=== PATIENT | male | born 1940 | race Caucasian/White ===

== ENCOUNTER → 2018-03-03 08:29 | Outpatient (CLI) | payer MEDICARE, OTHER, SELFPAY ==
--- NOTE | 2018-03-03 | DI.MRI.S_ITS ---
PROCEDURE: MR SHOULDER RT WO CON INDICATIONS: RIGHT SHOULDER PAIN TECHNIQUE: Noncontrast oblique coronal T2 fast spin echo with fat saturation, oblique sagittal T1 spin echo and T2 fast spin echo with fat saturation, axial T1 spin echo and T2 fast spin echo with fat saturation through the shoulder. COMPARISON: [facility] [place] [facility], CR, XR SHOULDER 2+ VIEWS RIGHT, 02/22/2018, 11:49. FINDINGS: Image quality: Degraded by motion artifact. Rotator cuff: There is full-thickness tearing of the entire supraspinatus tendon at the humeral insertion site, with medial retraction and atrophy of the supraspinatus. There is full-thickness tearing of the mid and anterior infraspinatus tendon at the humeral insertion site, with intrasubstance extension to the musculotendinous junction as well as the muscle belly of the infraspinatus. Moderate T2 signal elevation throughout the infraspinatus muscle is present. There are a few intact fibers of posterior infraspinatus tendon remaining. The subscapularis and teres minor tendons are grossly intact. Bones and bursae: No bone marrow contusions or fractures. Humeral head is subluxed superiorly. Multiple intraosseous ganglia within the posterior humeral head. Mild acromioclavicular joint degeneration. The acromion demonstrates conventional anatomy, without an os acromiale. No pathologic subacromial-subdeltoid or subcoracoid bursal fluid is present. Capsule and soft tissues: The glenoid labrum is grossly unremarkable. The biceps tendon anchor is not well seen. The rotator interval appears normal, without fibrosis. The coracohumeral ligament is normal in thickness. IMPRESSION: 1. Full-thickness tearing of the entire supraspinatus tendon, with medial retraction and atrophy of the supraspinatus. 2. Full-thickness tearing of most of the infraspinatus tendon, with intrasubstance extension to the musculotendinous junction of the muscle belly of the infraspinatus. There are a few intact fibers of the posterior infraspinatus tendon remaining. 3. Findings suggestive of biceps tendon tearing. 4. Acromioclavicular joint osteoarthritis. Dictated by: Matt Song M.D. on 03/03/2018 at 10:51 Approved by: Matt Song M.D. on 03/03/2018 at 10:55
== END ==
PROVIDERS: PCP Family Medicine; Visit Provider Orthopaedic Surgery
DX: M75.121 Complete rotator cuff tear or rupture of right shoulder, not specified as traumatic (principal); M19.011 Primary osteoarthritis, right shoulder; M25.511 Pain in right shoulder
CPT/HCPCS: 73221

== ENCOUNTER 2018-07-22 12:29 | Day surgery (SDC) | payer MEDICARE, OTHER, SELFPAY ==
[2018-07-21 14:50] VITALS: BMI 24.9
[2018-07-22] VITALS (8 sets, daily range): BP systolic 112–173; BP diastolic 50–92; PULSE 68–75; RESP 15–22; TEMP 36–36.2; O2SAT 93–99; BMI 24.9
[2018-07-22] MEDS: LACTATED RINGERS 1,000 ML 42 ML IV (14:14)
--- NOTE | 2018-07-22 14:55 | PM.PREOP ---
Pre-operative Note Interval Note History & Physical reviewed/Exam performed by Physician: Yes Changes to H&P: No
[2018-07-22] MEDS: fentaNYL 100 MCG/2 ML INJ IV (15:09)
[2018-07-22] MEDS: MIDAZOLAM 2 MG/2 ML VIAL IV (15:09)
[2018-07-22] MEDS: CEFAZOLIN 2 GM/100 ML FROZ.PIGGY IV (15:29)
--- NOTE | 2018-07-22 15:32 | SUR.PREOP ---
Block start time [1510] . Monitoring initiated and maintained throughout procedure. Oxygen and medications given per anesthesiologist instructions. Patient remained stable throughout procedure, no adverse reactions noted. Block end time []1519 .
--- NOTE | 2018-07-22 16:01 | SUR.OPER ---
Beach chair with innovation table shoulder positioner. Lower body on padded OR bed. Head in foam padded head cradle, secured with straps. Non-operative arm secured <90 degrees abduction. Pillow under knees. Safety belt at thigh. Cloth tape over blanket over lower legs.
[2018-07-22] MEDS: BUPIVACAINE 0.5% W/ EPI (PF) VIAL 30 ML INJ (16:42)
[2018-07-22] MEDS: SODIUM CHLORIDE IRRIG SOLUTION 3,000 ML, EPINEPHrine 1 MG IRR (16:43)
--- NOTE | 2018-07-22 17:07 | P.OP_ITS ---
Operative Date/Time/Diagnoses Date of procedure: 07/22/18 Time of procedure: 17:01 Pre-op diagnosis: Massive rotator cuff tear right shoulder Post-op diagnosis: same Procedure & Clinicians Procedure: Arthroscopic rotator cuff repair with subacromial decompression and debridement Same procedure as scheduled: Yes Indications: Massive rotator cuff tear Surgeon: James Dickerson Real Property Appraiser: Joy Back Anesthesia Type: Peripheral nerve block Operative Notes Findings: Complete tear to supraspinatus and the anterior half of the infraspinatus with retraction to the rim of the glenoid. Some signs of a high- riding humeral head but no sign of articulation between the superior aspect of the humeral head and the acromial arch. No sign of any subscapularis tear. Closure Type: primary Applied: implant(s) Estimated Blood Loss (mL): 5 Blood products transfused: none Procedure in detail: On date of service, Patient was met in the holding area. The operative site was signed and witnessed by the OR staff. The surgeries once again discussed with the patient and any remaining questions they had were answered fully. Patient was taken back to the operating theater and placed on the operating table in a supine position. Great care was taken to ensure that all bony prominences were properly padded. Patient was then placed into the beach chair position. The head and neck were properly positioned and secured. A timeout was performed verifying patient's name, procedure, and the operative site. The upper extremity was then prepped and draped in the normal sterile fashion. Previously, the bony anatomy and portal sites were marked out as well as inject ed with Marcaine with epinephrine. An 11 blade was used to make an incision in the posterior aspect of the shoulder. The camera was placed, and a diagnostic shoulder scope was performed. Findings listed above. Next under direct visualization, a anterior portal was made. A shaver was brought in and Extensive debridement of the glenohumeral joint was performed. Patient had signs of fraying to the labrum. There is no sign of any instability to the glenohumeral joint. Next the camera was placed into the subacromial space. A lateral portal was obtained under direct visualization. A combination of the shaver and vapor wand, a debridement of the inflamed tissue as well as inflamed bursa was performed. The lateral gutter was also cleaned out. This gave us good visualization of the bursal aspect of the rotator cuff as well as the acromial arch. There was a large rotator cuff tear with significant retraction. A good portion of the humeral head was exposed. A 4 mm bur was used to decorticate the rotator cuff footprint. Next, a 6 mm bur was used to perform a subacromial decompression. Two medial anchors were placed 1 anteriorly 1 posteriorly. Each anchor were loaded with 2 fiber tapes. Using a grasper the rotator cuff back to its point of insertion. The 2 anterior fiber tapes were placed into the anterior aspect of the cuff tear while the 2 posterior fiber tapes were placed into the posterior aspect of the rotator cuff tear. Next, one limb anteriorly and one limb posteriorly was placed through one lateral anchor and this was repeated one more time. This allowed a crisscross pattern for the lateral fixation helping us to recreate the rotator cuff footprint. This provided a complete coverage of the humeral head which was previously exposed. Also reinforcing the rotator cuff re pair. The shoulder was taken through range of motion and there was no sign of any remaining impingement lesions. The rotator cuff repair was tested using a probe and was felt to be very secure. Instruments were removed and the portal sites were closed. The suprascapular nerve was blocked with Marcaine. Patient's shoulder was cleaned, dried, dressed and she was taken to the PACU in stable condition. Complications: none Condition: stable Disposition: PACU Plan for aftercare: Patient will follow our postoperative protocol for massive rotator cuff repair
[2018-07-22] MEDS: OXYCODONE IR 5 MG TABLET PO (18:02)
== END 2018-07-22 16:36 | disposition home or self-care (01) ==
PROVIDERS: PCP Family Medicine; Visit Provider Orthopaedic Surgery
PROC: (CPT 29827; principal; 2018-07-22 14:30)
DX: M71.9 Bursopathy, unspecified (principal); S46.811A Strain of other muscles, fascia and tendons at shoulder and upper arm level, right arm, initial encounter; M75.41 Impingement syndrome of right shoulder; G89.18 Other acute postprocedural pain; E11.9 Type 2 diabetes mellitus without complications; I10 Essential (primary) hypertension; E78.5 Hyperlipidemia, unspecified; I42.9 Cardiomyopathy, unspecified; Z86.73 Personal history of transient ischemic attack (TIA), and cerebral infarction without residual deficits
CPT/HCPCS: 29827; 29826; 64415; 64450; J0171; J0690; J1100; J2250; J2704; J3010

== ENCOUNTER 2018-10-16 07:13 | Emergency (ER) | payer MEDICARE, OTHER, SELFPAY ==
[2018-10-16 07:27] VITALS: BP 153/68; PULSE 113; RESP 18; TEMP 36.8; O2SAT 97
--- NOTE | 2018-10-16 08:18 | ED.RECABL ---
HPI - Recheck/Abnormal Lab/Rx General Chief Complaint: Recheck/Abnormal Lab/Rx Stated Complaint: NEEDS CATHETER REPLACED Time Seen by Provider: 10/16/18 07:59 Source: patient Mode of arrival: ambulatory Limitations: no limitations History of Present Illness HPI narrative: Patient is a 77-year-old male who presents with a Ye catheter problem. He apparently had a urethral tear he has had a Ye catheter in place for about 1 month. That was placed at [facility], where he is followed very closely for this. He states last night he was sitting on the couch and went to stand up he suddenly had severe pain min had discomfort for the rest of the night. This is very atypical for him. He continues to have urine in the Ye catheter bag he does not have any leakage around however the catheter has been displaced about 6 cm. Related Data Home Medications Medication Instructions Recorded Confirmed aspirin 81 mg PO BID #0 08/21/11 07/22/18 losartan 100 mg PO QDAY #0 08/21/11 07/22/18 ibuprofen [Advil] 200 mg PO Q DAY PRN #0 02/10/13 metformin 1,000 mg PO BIDCC #0 02/10/13 07/22/18 glimepiride 0.5 tab PO QAM 07/21/18 07/22/18 metoprolol tartrate [Lopressor] 50 mg PO BID 07/21/18 07/22/18 oxycodone 5 mg PO TID PRN 07/21/18 07/22/18 Previous Rx's Medication Instructions Recorded hydroxyzine pamoate [Vistaril] 25 mg PO TID-QID PRN #60 cap 07/22/18 oxycodone-acetaminophen [Percocet] 2 tab PO Q4-6H PRN #60 tab 07/22/18 Allergies Allergy/AdvReac Type Severity Reaction Status Date / Time hydrocodone [HYDROCODONE] Allergy Mild SICK TO Verified 10/16/18 07:37 STOMACH Review of Systems Review of Systems GENERAL: Denies chills,fever HEENT: Denies throat pain RESPIRATORY: Denies dyspnea, cough, wheezing CARDIOVASCULAR: Denies chest pain, palpitations GASTROINTESTINAL: Denies nausea, vomiting :see HPI MUSCULOSKELETAL: Denies extremity pain, injury SKIN: No rash, no laceration, no pruritus NEUROLOGIC: Denies weakness, dizziness, headache, numbness 8 point review of systems is negative except for those stated above and HPI [facility] Medical History Aortic stenosis (Acute) Bone spur (Acute) Cardiomyopathy (Acute) Cervical spine fracture (Acute ~1958) Diabetes (Acute) Former smoker (Acute) HTN (hypertension) (Acute) Hematochezia (Acute ~2016) Hyperlipidemia (Acute) Left wrist fracture (Acute ~2010) Osteoarthritis (Acute) Polymyalgia rheumatica (Acute) Prostate cancer (Acute) RBBB (right bundle branch block) (Acute) Recurrent urinary tract infection (Acute) TIA (transient ischemic attack) (Acute ~2011) TMJ (temporomandibular joint disorder) (Acute) Surgical History Hx of prostatectomy (Acute) Social History household members: family Smoking Status: Former smoker alcohol intake: current Social History household members: family Smoking Status: Former smoker alcohol intake: current Exam Initial Vital Signs Initial Vital Signs: Vital Signs Temperature 98.3 F 10/16/18 07:27 Pulse Rate 113 H 10/16/18 07:27 Respiratory Rate 18 10/16/18 07:27 Blood Pressure 153/68 H 10/16/18 07:27 Pulse Oximetry 97 10/16/18 07:27 GENERAL: Well-appearing, well-nourished and in no acute distress. HEENT: Head atraumatic,EOMI, pupils reactive CARDIOVASCULAR: Peripheral pulses intact RESPIRATORY: Speaks in full sentences no respiratory distress ABDOMEN: Soft, nontender. Normoactive bowel sounds all 4 quadrants. No guarding or rebound. : Catheter in place with there is a clear color stool change in distinction of catheter being pulled out about 5-6 cm. Urine is clear there is no leakage around the urethra EXTREMITIES: Normal range of motion, no clubbing or edema. Neurovascularly intact NEUROLOGICAL: Alert and oriented x4.Normal gait and speech. SKIN: Warm, dry, no laceration, no petechiae, no rashes or lesions. Course Orders Ordered: Discontinued Medications Oxycodone/Acetaminophen (Percocet 5/325) 2 tab PO NOW ONE Stop: 10/16/18 09:39 Last Admin: 10/16/18 09:51 Dose: 2 tab Consultations Consultation #1: Dr. Murphy urology at [facility] has reviewed patient's chart. Recommend deflating the balloon for syncopal catheter back in place. Do not remove Ye catheter. Patient's appointment is 11/01/2018 May need to be increased. Time: 09:25 Vital Signs - 8 hr 10/16/18 07:27 10/16/18 09:28 10/16/18 10:27 Temperature 98.3 F Pulse Rate 113 H 87 87 Respiratory Rate 18 17 16 Blood Pressure 153/68 H Blood Pressure [Left Arm] 148/64 H 138/75 Pulse Oximetry 97 95 95 MDM - Recheck/Abnormal Lab/Rx MDM Narrative Medical decision making narrative: Ye catheter was repositioned for Urology. Blue deflated, there was only 1 mL of fluid in the balloon. Catheter was repositioned pain much better. 10 mL placed in balloon. Discharge Plan Departure Patient Disposition: Home Clinical Impression: Complication of Ye catheter Qualifiers: Encounter type: initial encounter Qualified Code(s): T83.9XXA - Unspecified complication of genitourinary prosthetic device, implant and graft, initial encounter Discharge Date/Time: 10/16/18 10:47 Interventions: ED Discharge Assessment Last Done: 10/16/18 10:46 Instructions: How to Care for Your Ye Catheter -- Male Activity Restrictions/Additional Instructions: *You have been diagnosed with Ye catheter problem *What to do: May need to move the appointment up *Continue to take medications as directed *Follow up with your primary care provider in 2-3 days, call Urology thing Thursday morning *Return to ER if you should have increasing pain, or fever or any new, worsening or concerning symptoms Prescriptions: No Action aspirin 81 mg Tablet,Delayed Release (Dr/Ec) 81 mg PO BID Qty: 0 RF: 0 losartan 100 MG tablet 100 mg PO QDAY Qty: 0 RF: 0 metformin 1,000 MG tablet 1,000 mg PO BIDCC Qty: 0 RF: 0 ibuprofen [Advil] 200 MG tablet 200 mg PO Q DAY PRN Qty: 0 RF: 0 glimepiride 1 mg Tablet 0.5 tab PO QAM RF: 0 metoprolol tartrate [Lopressor] 50 mg Tablet 50 mg PO BID RF: 0 oxycodone 5 mg Tablet 5 mg PO TID PRN (Reason: pain) RF: 0 oxycodone-acetaminophen [Percocet] 5-325 mg tablet 2 tab PO Q4-6H PRN (Reason: pain) Qty: 60 RF: 0 hydroxyzine pamoate [Vistaril] 25 mg capsule 25 mg PO TID-QID PRN (Reason: spasms) Qty: 60 RF: 0 Referrals: Daron Moe MD [Primary Care Provider] -
--- NOTE | 2018-10-16 08:50 | PC.NURSE ---
pt here reporting hay came out 5 inches out, now with pain, hay draining dark yellow urine, pt requesting to replace new hay.
[2018-10-16 09:28] VITALS: BP 148/64; PULSE 87; RESP 17; O2SAT 95
[2018-10-16] MEDS: OXYCODONE/ACETAMINOPHEN 5/325 TABLET 2 TAB PO (09:51)
--- NOTE | 2018-10-16 10:01 | PC.NURSE ---
penis cleaned with bzk antiseptic towellete, gel applied, hay balloon deflated, 1ml yellowish, reinserted hay with scant blood, draining yellow urine. urine output 350ml.
[2018-10-16 10:27] VITALS: BP 138/75; PULSE 87; RESP 16; O2SAT 95
== END 2018-10-16 10:47 | disposition home or self-care (01) ==
PROVIDERS: Emergency Provider Emergency Medicine; PCP Family Medicine
DX: T83.9XXA Unspecified complication of genitourinary prosthetic device, implant and graft, initial encounter (principal)
CPT/HCPCS: 99283

== ENCOUNTER → 2019-11-20 10:02 | Outpatient (CLI) | payer MEDICARE, OTHER, SELFPAY ==
[2019-11-21 08:46] LABS: COVID19 Sendout Not Detected (Not Detect)
== END ==
PROVIDERS: PCP Family Medicine; Visit Provider Physician Assistant
DX: Z01.812 Encounter for preprocedural laboratory examination (principal)
CPT/HCPCS: 87635

== ENCOUNTER 2019-11-23 09:15 | Day surgery (SDC) | payer MEDICARE, OTHER, SELFPAY ==
[2019-11-23] VITALS (8 sets, daily range): BP systolic 139–186; BP diastolic 74–94; PULSE 87–94; RESP 12–20; TEMP 35.9–36.3; O2SAT 90–99; BMI 24.1
--- NOTE | 2019-11-23 | PATH_ITS ---
[facility] Accession Number: [id number] . 01 Material submitted: . gastrointestinal site - GASTRIC BIOPSIES . 01 Clinical history: . EGD W/POSS BX / DILATION . 01 Diagnosis: Stomach, Biopsies: Body mucosa with no diagnostic abnormality. No evidence of Helicobacter organisms on H/E stain. Negative for intestinal metaplasia. Negative for dysplasia and malignancy. MRV 11/24/2019 1158 Local . 01 Electronically signed: . Hernan Vega MD, PhD, Pathologist NPI- [id number] . 01 Gross description: . GASTRIC BIOPSIES: Received in formalin are 2 fragment(s) of morris, soft tissue measuring 0.3 x 0.3 x 0.2 cm to 0.1 x 0.1 x 0.1 cm submitted entirely in 1 cassette(s) /QBJ 11/24/2019 0105 Local . 01 Pathologist provided ICD-10: R93.5 . 01 CPT . 282093 Performed at: [address] [facility] [address], [place], [place] [id number] MD Tony Wilkins MD Phone: [phone]
[2019-11-23] MEDS: SODIUM CHLORIDE 0.9% 1,000 ML 50 ML IV (09:34)
--- NOTE | 2019-11-23 10:43 | PM.HP.1 ---
History of Present Illness History of Present Illness Date Patient Seen: 11/23/19 Time Patient Seen: 10:43 Chief complaint: [id number] EGD W/POSS BX & DILATION Narrative: dysphagia and abnormal barium swallow Patient History Medical History Aortic stenosis (Acute) Bone spur (Acute) Cardiomyopathy (Acute) Cervical spine fracture (Acute ~1958) Diabetes (Acute) Facet arthropathy, lumbosacral (Chronic) Former smoker (Acute) Hematochezia (Acute ~2016) HTN (hypertension) (Acute) Hyperlipidemia (Acute) Left wrist fracture (Acute ~2010) Lumbosacral spondylosis (Chronic) Osteoarthritis (Acute) Polymyalgia rheumatica (Acute) Prostate cancer (Acute) RBBB (right bundle branch block) (Acute) Recurrent urinary tract infection (Acute) TIA (transient ischemic attack) (Acute ~2011) TMJ (temporomandibular joint disorder) (Acute) Surgical History Hx of prostatectomy (Acute) Family & Social History Social History: household members family Tobacco & Substance use: Smoking Status Former smoker alcohol intake current alcohol intake frequency 0-2 drinks per day Substance Use Type does not use Meds Home Medications and Allergies Home Medications Medication Instructions Recorded Confirmed Type aspirin 81 mg PO BID #0 08/21/11 11/23/19 History losartan 100 mg PO QDAY #0 08/21/11 11/23/19 History metformin 1,000 mg PO BIDCC #0 02/10/13 11/23/19 History metoprolol tartrate [Lopressor] 50 mg PO BID 07/21/18 11/23/19 History oxycodone 5 mg PO TID PRN 07/21/18 11/23/19 History oxycodone-acetaminophen [Percocet] 2 tab PO Q4-6H PRN #60 tab 07/22/18 11/23/19 Rx glimepiride 2 mg tablet 2 mg PO DAILY 04/18/19 11/23/19 History meloxicam 7.5 mg tablet 7.5 mg PO DAILY #30 tab 04/18/19 11/23/19 Rx Allergies Allergy/AdvReac Type Severity Reaction Status Date / Time No Known Drug Allergies Allergy Verified 11/23/19 09:35 Exam Vital Signs (past 8 hours): - 11/23/19 09:37 Temperature 97.3 F L Pulse Rate 90 Respiratory Rate 20 Blood Pressure 186/94 H Pulse Oximetry 99 Oxygen Delivery Method Room Air Narrative Exam Narrative: oropharynx free of lesions Chest clear to auscultation percussion Cardiac exam reveals no S3 or murmur Assessment & Plan Assessment & Plan narrative: dysphagia with abnormal upper GI showing a barium pill getting caught at the GE junction. Need for evaluation and treatment. Risks, benefits, alternatives have been explained.
--- NOTE | 2019-11-23 10:44 | PM.OP.ENDO ---
Operative Date/Time/Diagnoses Date of procedure: 11/23/19 Time of procedure: 10:45 Pre-op diagnosis: See indication and findings Procedure & Clinicians Study performed: EGD and possible dilation Same procedure as scheduled: Yes Indications: dysphagia and abnormal upper GI Surgeon: Yary Alvarez Procedure Notes Procedure in detail: after informed consent was obtained the patient was placed in left lateral decubitus position. The video upper scope was placed into the oropharynx and with the patient's help swelled the esophagus. The esophagus, stomach, and duodenum were carefully examined. The scope was retroflexed at the GE junction. The scope was removed. The patient tolerated procedure well. Blood loss none Complications none Sedation Total sedation time 10 minutes Versed 5 mg fentanyl 100 micro g IV titration Findings 1. mild Schatzki's ring at the GE junction. This was dilated to 51 [place] Savary without difficulty at the end of the procedure. 2. focal gastric erosions on the mid greater curve. Biopsies taken of the stomach to rule out Helicobacter 3. Normal duodenal bulb and sweep Mr. Erickson should call us in 2 weeks to let us know how he is doing with the dilation. Expect he will do quite well.
[2019-11-23] MEDS: MIDAZOLAM 5 MG/5 ML VIAL IV (10:48)
[2019-11-23] MEDS: fentaNYL 250 MCG/5 ML INJ IV (10:49)
== END 2019-11-23 12:00 | disposition home or self-care (01) ==
PROVIDERS: PCP Family Medicine; Referring Provider Internal Medicine Gastroenterology; Visit Provider Internal Medicine Gastroenterology
PROC: 0DJ08ZZ Inspection of Upper Intestinal Tract, Via Natural or Artificial Opening Endoscopic (ICD-10-PCS; CPT 43235; principal; 2019-11-23 10:30)
DX: K22.2 Esophageal obstruction (principal); R13.10 Dysphagia, unspecified; E11.9 Type 2 diabetes mellitus without complications; Z79.84 Long term (current) use of oral hypoglycemic drugs
CPT/HCPCS: 43239; 43248; J2250; J3010

== ENCOUNTER → 2020-04-03 15:42 | Outpatient (CLI) | payer MEDICARE, OTHER, SELFPAY ==
--- NOTE | 2020-04-03 | DI.MRI.S_ITS ---
PROCEDURE: MR LUMBAR SPINE WO CON INDICATIONS: SCIATICA, LEFT SIDE TECHNIQUE: Noncontrast sagittal T1 spin echo and T2 fast echo, sagittal STIR, axial T1 and T2 fast spin echo through the lumbar spine. In cases with scoliosis, additional coronal T2 fast spin echo may be performed. COMPARISON: [facility], CT, ABDOMEN/PELVIS WITH CONTRAST, 02/10/2017, 17:57. FINDINGS: Image quality: Excellent. Alignment and Curvature: There is minimal retrolisthesis seen at L2-3, L3-4, and L4-5. Bone Marrow: Marrow is of normal overall signal. No acute vertebral body compression fractures. Spinal Cord: Conus medullaris terminates at the T12-L1 level. Visualized cord demonstrates normal signal and size. Paraspinous Soft Tissues: No paravertebral masses. T12-L1: Mild loss of disc height is seen. Loss of disc signal is seen. Mild generalized disc bulge is seen. Moderate bilateral neural foraminal narrowing is seen. Moderate central canal narrowing is seen. L1-L2: Mild loss of disc height is seen. Loss of disc signal is seen. Mild to moderate disc bulge is seen. Moderate bilateral neural foraminal narrowing is seen. Mild to moderate central canal narrowing is seen. L2-L3: Moderate to severe loss of disc height and disc signal can be seen. Reactive marrow endplate changes are seen, which are hyperintense on T1-weighted and T2-weighted imaging and most consistent with fatty metaplasia (Modic type II changes). Moderate prominent disc bulge is seen, with a central disc protrusion. Moderate bilateral neural foraminal narrowing is seen. There is at least moderate bilateral neural foraminal narrowing seen at this level. There is a degree of compression seen upon the exiting nerve roots. Moderate to severe central canal narrowing is seen. L3-L4: The disc height is well-preserved. Loss of disc signal is seen at this level. At least moderate disc bulge is seen, which is eccentric to the right. Mild facet joint hypertrophy is seen. There is at least moderate bilateral neural foraminal narrowing seen. There is a degree of compression seen upon the exiting nerve roots. Mild central canal narrowing is seen. L4-L5: At least moderate loss of disc height and disc signal can be seen. At least moderate disc bulge is seen, which is eccentric to the right side. Moderate facet joint hypertrophy is seen. Moderate to severe bilateral neural foraminal narrowing is seen. There is a degree of compression seen upon the exiting nerve roots. Moderate central canal narrowing is seen. L5-S1: Moderate loss of disc height is seen. Loss of disc signal is seen. At least moderate disc bulge is seen, which is eccentric to the right. There is a central disc protrusion seen. Moderate facet joint hypertrophy is seen. Moderate to severe bilateral neural foraminal narrowing can be seen, right worse than left. There is a degree of compression seen upon the exiting nerve roots. Mild central canal narrowing is seen. IMPRESSION: Multiple levels of relatively prominent lumbar spine degenerative change can be seen. Compression can be seen upon the exiting L2, L3, L4, and L5 nerve roots. Dictated by: Ghassan Cook M.D. on 04/03/2020 at 16:32 Approved by: Ghassan Cook M.D. on 04/03/2020 at 16:37
== END ==
PROVIDERS: PCP Family Medicine; Referring Provider Family Medicine; Visit Provider Family Medicine
DX: M54.32 Sciatica, left side (principal); M47.816 Spondylosis without myelopathy or radiculopathy, lumbar region; M47.817 Spondylosis without myelopathy or radiculopathy, lumbosacral region
CPT/HCPCS: 72148

== ENCOUNTER → 2020-04-12 12:10 | Outpatient (CLI) | payer MEDICARE, OTHER, SELFPAY ==
--- NOTE | 2020-04-12 12:13 | DI.RAD.S_ITS ---
PROCEDURE: XR LUMBAR SPINE MIN 4V INDICATIONS: LOW BACK PAIN TECHNIQUE: 5 views of the lumbar spine were acquired. COMPARISON: None. FINDINGS: Bones: 5 nonrib-bearing vertebrae are present. There is normal bony alignment. No vertebral body compression fractures. No suspicious bony lesions. Note is made of a [id number] degree of degenerative disc disease along the lumbosacral spine most prominent at L2-3 and L4-5. Subluxation is not associated but there is facet osteoarthritis that extends from L3 inferiorly and becomes progressively more prominent as the L5-S1 level is reached. Soft tissues: Overlying bowel gas pattern is normal. No suspicious soft tissue calcifications. Oblique images: No pars defects. IMPRESSION: [id number] degenerative disc disease, moderate facet osteoarthritis from L3 through S1. Both spinal and foraminal stenosis likely is present based on the imaging findings of this study. Dictated by: Sami Kim M.D. on 04/12/2020 at 13:26 Approved by: Sami Kim M.D. on 04/12/2020 at 13:27
== END ==
PROVIDERS: PCP Internal Medicine; Referring Provider Physical Medicine & Rehabilitation; Visit Provider Physical Medicine & Rehabilitation
DX: M54.5 Low back pain (principal); M51.36 Other intervertebral disc degeneration, lumbar region; M47.816 Spondylosis without myelopathy or radiculopathy, lumbar region; M47.27 Other spondylosis with radiculopathy, lumbosacral region; I45.10 Unspecified right bundle-branch block; Z85.46 Personal history of malignant neoplasm of prostate
CPT/HCPCS: 72110; 99214

== ENCOUNTER → 2020-04-23 08:30 | Outpatient (CLI) | payer MEDICARE, OTHER, SELFPAY ==
[2020-04-23 09:57] LABS: COVID19 -Nasal RAPID Negative (Negative)
== END ==
PROVIDERS: PCP Internal Medicine; Visit Provider Physician Assistant
DX: Z11.59 Encounter for screening for other viral diseases (principal)
CPT/HCPCS: 87635

== ENCOUNTER 2020-04-24 10:35 | Outpatient (CLI) | payer MEDICARE, OTHER, SELFPAY ==
[2020-04-24] VITALS (9 sets, daily range): BP systolic 116–152; BP diastolic 58–71; PULSE 92–97; RESP 13–22; O2SAT 96–100
--- NOTE | 2020-04-24 | DI.RAD.S_ITS ---
PROCEDURE: PAIN L/S TRANSFORAMINAL INJECT INDICATIONS: SPONDYLOSIS COMPARISON: None. FINDINGS: Fluoroscopic spot filming was performed to verify placement of spinal needles at the left L5-S1 level(s), as labeled on the films. Appropriate location(s) of the needle tip(s) was confirmed by injection of iodinated contrast. IMPRESSION: Successful needle tip localization on the left for L5-S1 transforaminal epidural steroid injection. Dictated by: Sami Kim M.D. on 04/24/2020 at 12:25 Approved by: Sami Kim M.D. on 04/24/2020 at 12:26
--- NOTE | 2020-04-24 10:37 | DI.RAD.S_ITS ---
PROCEDURE: PAIN L/SI FACET INJ/BLK 1STL INDICATIONS: SPONDYLOSIS COMPARISON: None. FINDINGS: Fluoroscopic spot filming was performed to verify placement of spinal needles at the left L5-S1 facet joint level(s), as labeled on the films. Appropriate location(s) of the needle tip(s) was confirmed by injection of iodinated contrast. IMPRESSION: Successful needle tip localization at the left L5-S1 facet joint for steroid injection. Dictated by: Sami Kim M.D. on 04/24/2020 at 12:24 Approved by: Sami Kim M.D. on 04/24/2020 at 12:25
[2020-04-24] MEDS: MIDAZOLAM 5 MG/5 ML VIAL IV (11:36)
[2020-04-24] MEDS: fentaNYL 100 MCG/2 ML INJ 50 MCG IV (11:36)
[2020-04-24] MEDS: BUPIVACAINE 0.5% (PF) VIAL 2 ML INJ (11:41)
[2020-04-24] MEDS: IOPAMIDOL 15 ML VIAL 3 ML INJ (11:41)
[2020-04-24] MEDS: BETAMETHASONE 30 MG/5 ML MDV 6 MG INJ (11:41)
[2020-04-24] MEDS: BUPIVACAINE 0.25% (PF) VIAL 2 ML INJ (11:47)
[2020-04-24] MEDS: DEXAMETHASONE 10 MG/ML VIAL 20 MG INJ (11:48)
--- NOTE | 2020-04-24 11:56 | P.PCN_ITS ---
Date/Time/Diagnoses Date of procedure: 04/24/20 Time of procedure: 11:56 Pre-procedure diagnosis: 1. FACET ARTHROPATHY, 2. AXIAL LBP, 3. MULTILEVEL DDD Post-procedure diagnosis: same Procedure Notes Procedure: 1. FLUOROSCOPICALLY GUIDED CONTRAST CONTROLLED FACET JOINT INJECTIONS LEFT L5/S1 Indications: Deep is referred by Dr. Peters for treatment of Axial LBP Physician: Miguelito Reyes Total Fluoroscopy time (seconds): 10 Total sedation minutes: 18 Complications: none Procedure in detail & Post-procedure care: FINDINGS Multilevel Facet Arthropathy with Clinically significant axial LBP DESCRIPTION OF PROCEDURE Fluoroscopically guided, contrast-controlled left L5/S1 facet joint injection. Following review of allergy and review of potential side effects and compli cations, including, but not necessarily limited to, infection, allergic reaction, local tissue breakdown, stroke, temporary or permanent nerve injury, paralysis, and possible , the patient indicated that the patient understood and agreed to proceed. An informed consent document was signed by the patient, witnessed by a nurse, and placed in the patient's chart. Additionally, other treatment options including medications, modalities, and physical therapy were reviewed with the patient. After review of previous anaesthesic history and IV conscious sedation the patient was deemed safe to proceed with today?s procedure with IV conscious sedation as ASA class II designation. Safety time-out was performed to confirm patient ID, procedure to be performed and site of procedure. IV sedation was accomplished with a combination of 2mg of Versed and 50mcg of Fentanylwas administered by the RN after DO order, titrated to patient comfort during the course of the procedure while the patient remained responsive to all verbal commands. In the prone position, following sterile prep and drape of the lumbar region, the posterior aspect of the left L5/S1 facet joints were identified fluorosc opically. The skin was anesthetized via a 25-gauge 1.5-inch needle with 1% lidocaine solution into the corresponding facet joints. At this point, a 22- gauge 3.5-inch spinal needle was atraumatically introduced and advanced under fluoroscopic guidance into the corresponding facet joints. Following negative aspiration, injections of approximately 0.2-cc of Isovue 200 confirmed interarticular placement without vascular uptake. Radiological data, including multiple fluoroscopic views of the lumbosacral spine, reveal a spinal needle at the left L5/S1 facet joints. Subsequent views show flow of contrast material both superiorly and inferiorly within the joint space without vascular or intrathecal uptake. At this point, a total of 0.5cc including a mixture of 0.25cc Marcaine and 0.25cc betamethasone was injected without complication into each of the corresponding facet joints. The procedure tolerated the procedure well without signs or symptoms of complications prior to transfer to the recovery area continued monitoring without incident. The patient was then transferred to the recovery area where they were observed for an appropriate period of time after the injection. The patient reported a VAS score of 7 prior to the procedure and a post-procedure VAS of 0. POST OP INSTRUCTIONS The patient was provided a Pain Log to continue to record their response to the target-specific procedure prior to follow-up visit with their referring physician. Additionally, specific post-injection care instructions and a contact number to our office were provided if concerns arise regarding possible complications associated with the procedure are suspected.
--- NOTE | 2020-04-24 11:58 | P.PCN_ITS ---
Date/Time/Diagnoses Date of procedure: 04/24/20 Time of procedure: 11:58 Pre-procedure diagnosis: 1. FORAMINAL STENOSIS WITH LE SYMPTOMS Post-procedure diagnosis: same Procedure Notes Procedure: 1. FLUOROSCOPICALLY GUIDED CONTRAST CONTROLLED TRANSFORAMINAL EPIDURAL STEROID INJECTION - Left L5/S1 Indications: Deep is referred by Dr. Peters for treatment of Foraminal Stenosis with Left LE Symptoms Physician: Miguelito Reyes Total Fluoroscopy time (seconds): 10 Total sedation minutes: 18 Complications: none Procedure in detail & Post-procedure care: FINDINGS Foraminal Nerve Root Compression secondary to disc disease and facet hypertrophy DESCRIPTION OF PROCEDURE Following review of allergy and review of potential side effects and complications, including, but not necessarily limited to, infection, allergic reaction, local tissue breakdown, stroke, temporary or permanent nerve injury, paralysis, and possible , the patient indicated that the patient understood and agreed to proceed. An informed consent document was signed by the patient, witnessed by a nurse, and placed in the patient's chart. Additionally, other treatment options including medications, modalities, and physical therapy were reviewed with the patient. After review of previous anaesthesic history and IV conscious sedation the patient was deemed safe to proceed with today?s procedure with IV conscious sedation as ASA class II designation. Safety time-out was performed to confirm patient ID, procedure to be performed and site of procedure. IV sedation was accomplished with a combination of 2mg of Versed and 50mcg of Fentanyl was administered by the RN after DO order, titrated to patient comfort during the course of the procedure while the patient remained responsive to all verbal com mands In the prone position following sterile prep and drape of the lumbar region, the Left L5/S1 posterior neuroforamen was identified fluoroscopically. The skin was anesthetized via a 25-gauge 1.5-inch needle with 1% lidocaine solution. At this point, a 25-gauge 3.5-inch spinal needle was atraumatically introduced and advanced under fluoroscopic guidance through the posterior Left L5/S1 ne uroforamen to approximately the anterior aspect of the canal. Depth was confirmed on lateral view. Following negative aspiration, injection of approximately 1.5 cc of Isovue 200 under live fluoroscopy in the AP view confirmed excellent flow along the nerve root, into the epidural space without vascular or intrathecal uptake observed Radiological data, including multiple fluoroscopic views of the lumbosacral spine, reveal a spinal needle at the Left L5/S1 posterior neuroforamen. Subsequent views show flow of contrast material flowing superiorly and inferiorly along the nerve root confirming epidural flow. Subsequently, a test dose of 1.5 cc of 1% lidocaine solution was administered and patient was observed for two minutes for signs or symptoms of complications, including abdominal pain, shortness of breath, bilateral upper or lower extremity weakness, nausea and vomiting, prior to steroid injection. At this point, a total of 3cc or 20mg of dexamethasone and 6mg of betamethasone was injected without incident. The procedure tolerated the procedure well without signs or symptoms of complications prior to transfer to the recovery area continued monitoring without incident. The patient was then transferred to the recovery area where they were observed for an appropriate time after the injection. The patient reported a VAS score of 7 prior to the procedure and a post-procedure VAS of 0. POST OP INSTRUCTIONS The patient was provided a Pain Log to continue to record their response to the target-specific procedure prior to follow-up visit with their referring physician. Additionally, specific post-injection care instructions and a contact number to our office were provided if concerns arise regarding possible complications associated with the procedure are suspected.
== END 2020-04-24 12:21 | disposition home or self-care (01) ==
LOC: RAD 10:35
PROVIDERS: PCP Internal Medicine; Referring Provider Physical Medicine & Rehabilitation; Visit Provider Physical Medicine & Rehabilitation
DX: M47.817 Spondylosis without myelopathy or radiculopathy, lumbosacral region; M54.5 Low back pain; M51.37 Other intervertebral disc degeneration, lumbosacral region; M48.07 Spinal stenosis, lumbosacral region
CPT/HCPCS: 64483; 64493; 99152; J0702; J1100; J2250; J3010

== ENCOUNTER → 2020-05-15 09:46 | Outpatient (CLI) | payer MEDICARE, OTHER, SELFPAY ==
[2020-05-15 11:07] LABS: COVID19 -Nasal RAPID Negative (Negative)
== END ==
PROVIDERS: PCP Internal Medicine; Visit Provider Physical Medicine & Rehabilitation
DX: Z20.828 Contact with and (suspected) exposure to other viral communicable diseases (principal)
CPT/HCPCS: 87635

== ENCOUNTER 2020-05-17 09:33 | Outpatient (CLI) | payer MEDICARE, OTHER, SELFPAY ==
[2020-05-17] VITALS (8 sets, daily range): BP systolic 109–130; BP diastolic 53–64; PULSE 66–77; RESP 16–19; TEMP 36.2; O2SAT 98–99
--- NOTE | 2020-05-17 09:37 | DI.RAD.S_ITS ---
PROCEDURE: PAIN L INTERLAMINAR/CAUDAL INJ INDICATIONS: SPONDYLOSIS COMPARISON: [facility], XA, PAIN L/S TRANSFORAMINAL INJECT, 04/24/2020, 11:45. [facility], XA, PAIN L/SI FACET INJ/BLK 1STL, 04/24/2020, 11:38. [facility], CR, XR LUMBAR SPINE MIN 4V, 04/12/2020, 12:24. [facility], MR, MR LUMBAR SPINE WO CON, 04/03/2020, 16:22. FINDINGS: Fluoroscopic spot filming was performed to verify placement of spinal needles at the L2-L3 level(s), as labeled on the films. Appropriate location(s) of the needle tip(s) was confirmed by injection of iodinated contrast. IMPRESSION: Fluoroscopy for pain management. Dictated by: Stephanie Bray M.D. on 05/17/2020 at 10:53 Approved by: Stephanie Bray M.D. on 05/17/2020 at 10:54
[2020-05-17] MEDS: BETAMETHASONE 30 MG/5 ML MDV 6 MG INJ (10:15)
[2020-05-17] MEDS: IOPAMIDOL 15 ML VIAL 3 ML INJ (10:15)
[2020-05-17] MEDS: BUPIVACAINE 0.25% (PF) VIAL 2 ML INJ (10:15)
[2020-05-17] MEDS: DEXAMETHASONE 10 MG/ML VIAL 20 MG INJ (10:15)
--- NOTE | 2020-05-17 10:36 | P.PCN_ITS ---
Date/Time/Diagnoses Date of procedure: 05/17/20 Time of procedure: 10:37 Pre-procedure diagnosis: 1. HNP WITH RADICULAR FEATURES, 2. MULTILEVEL CENTRAL STENOSIS, Post-procedure diagnosis: same Procedure Notes Procedure: 1. FLUOROSCOPICALLY GUIDED CONTRAST CONTROLLED INTERLAMINAR EPIDURAL STEROID INJECTION - L2/3 Indications: Deep is referred by for treatment of Bilateral Foraminal Stenosis L>R LE symptoms. Physician: Miguelito Reyes Total Fluoroscopy time (seconds): 10 Total sedation minutes: 12 Complications: none Procedure in detail & Post-procedure care: FINDINGS Multilevel Central Spinal Stenosis with Nerve Root Compression DESCRIPTION OF PROCEDURE Fluoroscopically guided, contrast-controlled L2/3 translaminar epidural steroid injection. Following review of allergy and review of potential side effects and complications, including, but not necessarily limited to, infection, allergic reaction, local tissue breakdown, temporary as well as permanent nerve injury, paralysis, stroke and possible , the patient indicated that the patient understood and agreed to proceed. An informed consent document was signed by the patient, witnessed by a nurse, and placed in the patient's chart. Additionally, other treatment options including modalities, medications, and physical therapy were reviewed with the patient. After review of previous anaesthesic history and IV conscious sedation the patient was deemed safe to proceed with today?s procedure with IV conscious sedation as ASA class II designation. Safety time-out was performed to confirm p atient ID, procedure to be performed and site of procedure. IV sedation was deemed unnecessary and thus not administered by the RN after DO order, titrated to patient comfort during the course of the procedure while the patient remained responsive to all verbal commands. In the prone position, following sterile prep and drape of the lumbar region,the L2/3 translaminar space was identified fluoroscopically. The skin was anesthetized via a 25-gauge, 1.5-inch needle with 1% lidocaine solution. At this point, a 22-gauge short bevel spinal needle was atraumatically introduced and advanced under fluoroscopic guidance into the region of the L2/3 translaminar space. Depth was confirmed on lateral view. Radiological data, including multiple fluoroscopic views of the lumbar spine, reveal a spinal needle at the L2/3 translaminar space. Lateral views then show placement of the needle in the epidural space. Subsequent views show contrast material flowing superiorly and inferiorly in the epidural space. No vascular or intrathecal uptake is observed. At this point, using loss of resistance technique with saline and air, the epidural space was entered. This was confirmed following negative aspiration with injection of approximately 1.5 cc of Isovue 200, showing excellent epidural flow without vascular or intrathecal uptake. At this point, 1 cc of 1% lidocaine solution combined with 3cc or 20mg of dexamethasone and 6mg of betamethasone was injected without incident. The patient tolerated the procedure well without signs or symptoms of complications prior to transfer to the recovery area continued monitoring without incident. The patient was then transferred to the recovery area where they were observed for an appropriate period of time after the injection. The patient reported a VAS score of 6 prior to the procedure and a post-procedure VAS of 0. POST OP INSTRUCTIONS The patient was provided a Pain Log to continue to record their response to the target-specific procedure prior to follow-up visit with their referring physician. Additionally, specific post-injection care instructions and a contact number to our office were provided if concerns arise regarding possible complications associated with the procedure are suspected.
== END 2020-05-17 10:45 | disposition home or self-care (01) ==
PROVIDERS: PCP Internal Medicine; Referring Provider Physical Medicine & Rehabilitation; Visit Provider Physical Medicine & Rehabilitation
DX: M51.16 Intervertebral disc disorders with radiculopathy, lumbar region (principal); M48.061 Spinal stenosis, lumbar region without neurogenic claudication
CPT/HCPCS: 62323; 99152; J0702; J1100; J2250; J3010

== ENCOUNTER → 2020-07-03 12:23 | Outpatient (CLI) | payer MEDICARE, OTHER, SELFPAY ==
[2020-07-03 14:45] LABS: COVID19 -Nasal RAPID Negative (Negative)
== END ==
PROVIDERS: PCP Internal Medicine; Visit Provider Physical Medicine & Rehabilitation
DX: Z20.822 Contact with and (suspected) exposure to COVID-19 (principal)
CPT/HCPCS: 87635; C9803

== ENCOUNTER 2020-07-05 12:28 | Outpatient (CLI) | payer MEDICARE, OTHER, SELFPAY ==
--- NOTE | 2020-07-05 12:29 | DI.RAD.S_ITS ---
PROCEDURE: PAIN L/S TRANSFORAMINAL INJECT INDICATIONS: SPONDYLOSIS COMPARISON: [facility], , PAIN L/S TRANSFORAMINAL INJECT, 04/24/2020, 11:45. FINDINGS: Fluoroscopic spot filming was performed to verify placement of a spinal needle at the L4-L5 level, as labeled on the films. Appropriate location of the needle tip was confirmed by injection of iodinated contrast. IMPRESSION: Intraprocedural examination within normal limits. Dictated by: Ghassan Cook M.D. on 07/05/2020 at 12:47 Approved by: Ghassan Cook M.D. on 07/05/2020 at 12:48
[2020-07-05 12:52] VITALS: BP 130/60; PULSE 72; RESP 16; TEMP 36.5; O2SAT 99
[2020-07-05 13:10] VITALS: BP 127/59; PULSE 73; RESP 18; O2SAT 98
[2020-07-05] MEDS: IOPAMIDOL 15 ML VIAL 3 ML INJ (13:14)
[2020-07-05] MEDS: BUPIVACAINE 0.25% (PF) VIAL 2 ML INJ (13:14)
[2020-07-05] MEDS: DEXAMETHASONE 10 MG/ML VIAL 20 MG INJ (13:14)
[2020-07-05] MEDS: BETAMETHASONE 30 MG/5 ML MDV 6 MG INJ (13:14)
[2020-07-05 13:15] VITALS: BP 131/64; PULSE 73; RESP 21; O2SAT 99
--- NOTE | 2020-07-05 13:22 | P.PCN_ITS ---
Date/Time/Diagnoses Date of procedure: 07/05/20 Time of procedure: 13:22 Pre-procedure diagnosis: 1. FORAMINAL STENOSIS WITH LE SYMPTOMS Post-procedure diagnosis: same Procedure Notes Procedure: 1. FLUOROSCOPICALLY GUIDED CONTRAST CONTROLLED TRANSFORAMINAL EPIDURAL STEROID INJECTION - LEFT L4/5 Indications: Deep is referred by for treatment of Foraminal Stenosis with Left LE Symptoms Physician: Miguelito Reyes Total Fluoroscopy time (seconds): 8 Total sedation minutes: 0 Complications: none Procedure in detail & Post-procedure care: FINDINGS Foraminal Nerve Root Compression secondary to disc disease and facet hypertrophy DESCRIPTION OF PROCEDURE Following review of allergy and review of potential side effects and complications, including, but not necessarily limited to, infection, allergic reaction, local tissue breakdown, stroke, temporary or permanent nerve injury, paralysis, and possible , the patient indicated that the patient understood and agreed to proceed. An informed consent document was signed by the patient, witnessed by a nurse, and placed in the patient's chart. Additionally, other treatment options including medications, modalities, and physical therapy were reviewed with the patient. After review of previous anaesthesic history and IV conscious sedation the patient was deemed safe to proceed with today?s procedure with IV conscious sedation as ASA class II designation. Safety time-out was performed to confirm patient ID, procedure to be performed and site of procedure. IV sedation was deemed unnecessary and thus was not administered by the RN after DO order, titrated to patient comfort during the course of the procedure while the patient remained responsive to all verbal commands In the prone position following sterile prep and drape of the lumbar region, the left L4/5 posterior neuroforamen was identified fluoroscopically. The skin was anesthetized via a 25-gauge 1.5-inch needle with 1% lidocaine solution. At this point, a 25-gauge 3.5-inch spinal needle was atraumatically introduced and advanced under fluoroscopic guidance through the posterior left L4/5 neuroforamen to approximately the anterior aspect of the canal. Depth was confirmed on lateral view. Following negative aspiration, injection of approximately 1.5 cc of Isovue 200 under live fluoroscopy in the AP view confirmed excellent flow along the nerve root, into the epidural space without vascular or intrathecal uptake observed. Radiological data, including multiple fluoroscopic views of the lumbosacral spine, reveal a spinal needle at the left L4/5 posterior neuroforamen. Subsequent views show flow of contrast material flowing superiorly and inferiorly along the nerve root confirming epidural flow. Subsequently, a test dose of 1.5cc of 1% lidocaine solution was administered and patient was observed for two minutes for signs or symptoms of complications, including abdominal pain, shortness of breath, bilateral upper or lower extremity weakness, nausea and vomiting, prior to steroid injection. At this point, a total of 3cc or 20mg of dexamethasone and 6mg of betamethasone was injected without incident. The procedure tolerated the procedure well without signs or symptoms of complications prior to transfer to the recovery area continued monitoring without incident. The patient was then transferred to the recovery area where they were observed for an appropriate time after the injection. The patient reported a VAS score of 7 prior to the procedure and a post- procedure VAS of 0. POST OP INSTRUCTIONS The patient was provided a Pain Log to continue to record their response to the target-specific procedure prior to follow-up visit with their referring physician. Additionally, specific post-injection care instructions and a contact number to our office were provided if concerns arise regarding possible complications associated with the procedure are suspected.
[2020-07-05 13:25] VITALS: BP 115/56; PULSE 74; RESP 17; O2SAT 100
[2020-07-05 13:32] VITALS: BP 115/56; PULSE 79; RESP 18; O2SAT 98
== END 2020-07-05 13:43 | disposition home or self-care (01) ==
PROVIDERS: PCP Internal Medicine; Referring Provider Physical Medicine & Rehabilitation; Visit Provider Physical Medicine & Rehabilitation
DX: M48.061 Spinal stenosis, lumbar region without neurogenic claudication (principal); M51.16 Intervertebral disc disorders with radiculopathy, lumbar region
CPT/HCPCS: 64483; J0702; J1100; J2250; J3010

== ENCOUNTER 2020-08-20 15:01 | Observation (INO) | payer MEDICARE, OTHER, SELFPAY ==
[2020-08-20 15:07] VITALS: BP 172/81; PULSE 75; RESP 20; TEMP 36.6; O2SAT 100
--- NOTE | 2020-08-20 17:20 | DI.MRI.S_ITS ---
PROCEDURE: MR HEAD/BRAIN WO CON INDICATIONS: multiple tias past week TECHNIQUE: Non-contrast axial T1 spin echo, axial T2 fast spin echo, sagittal and axial FLAIR, coronal T2 fast spin echo, axial gradient echo, axial diffusion and ADC through the brain. COMPARISON: None. FINDINGS: Image quality: Excellent. CSF spaces: Ventricles appear symmetric in size and shape. Basal cisterns are patent. No extra-axial fluid collections. Brain: No intracranial bleeds or mass effects. There is cerebral volume loss for age. There are periventricular and deep white matter chronic small vessel ischemic changes. Brainstem appears normal. Diffusion-weighted images show no acute ischemic insults. No chronic ischemic insults. Normal intravascular flow voids are present. Skull and face: Calvarial bone marrow is normal in signal. Orbits are normal. Sinuses: Sinuses and mastoids are clear. IMPRESSION: No acute infarct or other acute intracranial process. Global cerebral volume loss and chronic microvascular ischemic changes. Dictated by: Karthik Burnett M.D. on 08/20/2020 at 18:43 Approved by: Karthik Burnett M.D. on 08/20/2020 at 18:44
--- NOTE | 2020-08-20 17:59 | ED.NEUROSD ---
HPI - Neuro Symptoms/Deficit <Malena Gonzalezmer, ENVIRONMENTAL ECONOMIST-BC - Last Filed: 08/20/20 19:33> General Chief Complaint: Neuro Symptoms/Deficit Stated Complaint: Stroke Yesterday, Follow Up MRI Time Seen by Provider: 08/20/20 16:48 Source: patient and family Mode of arrival: Ambulatory Limitations: no limitations History of Present Illness HPI Narrative: The patient is an 79-year-old male former smoker with history of diabetes, TIA, back pain and prostate cancer who presents with a chief complaint of a few TIAs this week, requesting an MRI. He states on or Thursday evening, he had right-sided weakness and numbness. This lasted about 30 minutes. Then yesterday morning this repeated. Subsequently he went to [facility] emergency department. There he had lab work, urinalysis, and a noncontrast head CT. He states that they found urinary tract infection and started him on Augmentin. He also got IV antibiotics. He states that he left against medical advice as he did not want to be transferred to a different facility to have an MRI as they do not have an MRI at this point time. He currently denies any numbness, weakness slurred speech or symptoms. He initially states that he does not want to be admitted to the hospital, only comes into the emergency department in hopes of getting an MRI. He has an indwelling Ye catheter related to prostate issues. His primary care provider is in [place]. Denies any visual deficits. On Anticoagulants: No Related Data Home Medications Medication Instructions Recorded Confirmed aspirin 81 mg PO BEDTIME #0 08/21/11 08/20/20 losartan 100 mg PO QDAY #0 08/21/11 08/20/20 metformin 1,000 mg PO BIDCC #0 02/10/13 08/20/20 metoprolol tartrate [Lopressor] 50 mg PO BID 07/21/18 08/20/20 glimepiride 2 mg tablet 2 mg PO DAILY 04/18/19 08/20/20 insulin lispro 100 unit/mL 10 sliding scale dose SUBCUT 04/12/20 08/20/20 subcutaneous solution USEASDIRECTD amoxicillin-pot clavulanate 1 tab PO Q12H 08/20/20 08/20/20 [Augmentin] gabapentin 300 mg PO BID 08/20/20 08/20/20 omeprazole 20 mg PO BEDTIME 08/20/20 08/20/20 Allergies Allergy/AdvReac Type Severity Reaction Status Date / Time No Known Drug Allergies Allergy Verified 08/17/20 13:19 Review of Systems <RODRIGO Thornton- - Last Filed: 08/20/20 19:33> Review of Systems Narrative: GENERAL: Denies chills, fatigue, malaise, fever, sweats. HEENT: Denies sinus pain, ear pain, sore throat, difficulty swallowing, dizziness. RESPIRATORY: Denies dyspnea, cough, wheezing, hemoptysis, sputum. CARDIOVASCULAR: Denies chest pain, palpitations, orthopnea, edema, GASTROINTESTINAL: Denies nausea, vomiting, abdominal pain, diarrhea, constipation, melena. : Denies dysuria, frequency, incontinence, hematuria, urinary retention. MUSCULOSKELETAL: denies weakness, joint pain, or bony pain SKIN: Denies rash, skin lesions, or other NEUROLOGIC: See HPI PSYCHIATRIC: No concerning psychosocial issues. 12 point review of systems is negative except for those stated above Hematologic/Lymphatic On Anticoagulants: No Patient History <RODRIGO Thornton- - Last Filed: 08/20/20 19:33> Medical History Aortic stenosis Bone spur Cardiomyopathy Cervical spine fracture (~1958) Diabetes Facet arthropathy, lumbosacral Former smoker Hematochezia (~2016) History of prostate cancer HNP (herniated nucleus pulposus), lumbar HTN (hypertension) Hyperlipidemia Left wrist fracture (~2010) Lumbosacral radiculopathy at L5 Lumbosacral spondylosis Osteoarthritis Polymyalgia rheumatica Prostate cancer RBBB (right bundle branch block) Recurrent urinary tract infection TIA (transient ischemic attack) (~2011) TMJ (temporomandibular joint disorder) Surgical History Hx of prostatectomy Family History (Updated 08/20/20 @ 23:16 by DOMINICK Ruiz) Father Heart disease Heart attack Mother No significant medical problems Grandmother Heart disease Social History household members: none Smoking Status: Former smoker alcohol intake: current Smoking Status: Former smoker alcohol intake frequency: 0-2 drinks per day Substance Use Type: does not use Exam <MARSHA Thornton - Last Filed: 08/20/20 19:33> Narrative Exam Narrative: GENERAL: This is a well-nourished, well-developed patient, in no acute distress HEAD: Atraumatic. Normocephalic. No temporal or scalp tenderness. EYES: Pupils equal round and reactive. Extraocular motions intact. No scleral icterus. No injection or drainage. ENT: Nose without bleeding, purulent drainage or septal hematoma. Throat without erythema, tonsillar hypertrophy or exudate. Uvula midline. Airway patent. NECK: Trachea midline. No JVD or lymphadenopathy. Supple, nontender, no meningeal signs. CARDIOVASCULAR: Regular rate and rhythm RESPIRATORY: Clear to auscultation. Breath sounds equal bilaterally. No wheezes, rales, or rhonchi. No cough. No increased respiratory effort. No accessory muscle use. GASTROINTESTINAL: Abdomen soft, non-tender, nondistended. No hepato-splenomegaly, or palpable masses. No guarding. EXTREMITIES: No clubbing, cyanosis, or edema. No joint tenderness, effusion, or edema noted. BACK: Nontender without deformity or crepitance. No flank tenderness. NEURO: AOx3, no gross cranial nerve deficit. Clear speech. SKIN: No rash or erythema on visible skin Initial Vital Signs Initial Vital Signs: Vital Signs Temperature 97.8 F 08/20/20 15:07 Pulse Rate 75 08/20/20 15:07 Respiratory Rate 20 08/20/20 15:07 Blood Pressure 172/81 H 08/20/20 15:07 Pulse Oximetry 100 08/20/20 15:07 <Anna Watters DO - Last Filed: 08/21/20 07:48> Initial Vital Signs Initial Vital Signs: Vital Signs Temperature 97.8 F 08/20/20 15:07 Pulse Rate 75 08/20/20 15:07 Respiratory Rate 20 08/20/20 15:07 Blood Pressure 172/81 H 08/20/20 15:07 Pulse Oximetry 100 08/20/20 15:07 Scores <MARSHA Thornton - Last Filed: 08/20/20 19:33> ABCD2 Age >= 60 years: yes Initial BP. Either SBP >= 140 or DBP >= 90.: yes Clinical features of the TIA: unilateral weakness Duration of symptoms: 10-59 minutes History of diabetes: yes ABCD2 Score: 6 GCS Lela coma scale eye opening: Spontaneous [place] coma scale verbal response: Orientated [place] coma scale motor response: Obey commands Lela coma scale total score: 15 NIH Stroke Scale Level of Conciousness: Alert, keenly responsive Ask month/age: Answers both questions correctly. Open/close eyes, close hand: Performs both tasks correctly Best gaze horizontal: Normal Visual vidal: No visual loss Facial palsy: Normal symetrical movement Left arm drift: No drift for full 10 sec Right arm drift: No drift for full 10 sec Left leg drift: No drift for full 5 sec Right leg drift: No drift for full 5 sec Limb ataxia: Absent Sensory on face/arms/legs: Normal, no sensory loss Best language: No aphasia, normal Dysarthria: Normal Extinction or inattention: No abnormality Total NIH Stroke scale score: 0 Course <RODRIGO Thornton- - Last Filed: 08/20/20 19:33> Orders Ordered: Acetaminophen (Acetaminophen 325 Mg Tablet) 650 mg PO Q6HR PRN PRN Reason: Fever/Mild Pain (1-3) Al Hydrox/Mg Hydrox/Simethicone (Mag Hydrox/Alum/Simeth 30 Ml Udc) 30 ml PO Q6HR PRN PRN Reason: Dyspepsia Aspirin (Aspirin Ec 81 Mg Tablet) 81 mg PO DAILY [facility] Atorvastatin Calcium (Atorvastatin 20 Mg Tablet) 20 mg PO BEDTIME [facility] Last Admin: 08/20/20 21:31 Dose: 20 mg Documented by: ANDRES Bisacodyl (Bisacodyl 10 Mg Supp) 10 mg DC DAILY PRN PRN Reason: Constipation Calcium Carbonate (Calcium Carbonate 500 Mg Tab) 1,000 mg PO Q4HR PRN PRN Reason: Dyspepsia Clopidogrel Bisulfate (Clopidogrel 75 Mg Tablet) 75 mg PO DAILY [facility] Dextrose (Dextrose 50 % In Water 25 Gm/50 Ml Syringe) 25 gm IV PRN PRN; Protocol PRN Reason: Hypoglycemia Docusate Sodium (Docusate 100 Mg Capsule) 100 mg PO BID PRN PRN Reason: Constipation Enoxaparin Sodium (Enoxaparin 40 Mg/0.4 Ml Syringe) 40 mg SUBCUT DAILY [facility] Gabapentin (Gabapentin 300 Mg Capsule) 300 mg PO BID [facility] Last Admin: 08/20/20 21:31 Dose: 300 mg Documented by: ANDRES Glimepiride (Glimepiride 2 Mg Tablet) 2 mg PO DAILY [facility] Insulin Aspart (Insulin Aspart 100 Unit/Ml Insuln Pen) 0 unit SUBCUT ACHS [facility]; Protocol Last Admin: 08/20/20 21:31 Dose: Not Given Documented by: ANDRES Lorazepam (Lorazepam 0.5 Mg Tablet) 0.5 mg PO BEDTIME PRN PRN Reason: Sleep Losartan Potassium (Losartan 50 Mg Tablet) 100 mg PO DAILY [facility] Melatonin (Melatonin 3 Mg Tablet) 6 mg PO BEDTIME [facility] Last Admin: 08/20/20 21:31 Dose: 6 mg Documented by: ANDRES Metformin HCl (Metformin Hcl 500 Mg Tablet) 1,000 mg PO BIDWM [facility] Metoprolol Tartrate (Metoprolol Ir 50 Mg Tablet) 50 mg PO BID [facility] Last Admin: 08/20/20 21:31 Dose: 50 mg Documented by: ANDRES Naloxone HCl (Naloxone 0.4 Mg/Ml Vial) 0.2 mg IV Q2MIN PRN PRN Reason: Opiate Reversal Ondansetron HCl (Ondansetron 4 Mg/2 Ml Inj) 4 mg IV Q8HR PRN PRN Reason: Nausea And Vomiting Discontinued Medications Aspirin (Aspirin 81 Mg Chew Tab) 324 mg PO NOW ONE Stop: 08/20/20 18:01 Last Admin: 08/20/20 19:00 Dose: 324 mg Documented by: FE Sodium Chloride (Normal Saline 0.9%) 1,000 mls @ 150 mls/hr IV CONT [facility] Stop: 08/20/20 20:09 Last Infusion: 08/20/20 19:16 Dose: 0 mls/hr Documented by: [email or web address] Admin: 08/20/20 19:00 Dose: 150 mls/hr Documented by: [email or web address] Vital Signs Vital signs: Vital Signs - 8 hr 08/20/20 15:07 Temperature 97.8 F Pulse Rate 75 Respiratory Rate 20 Blood Pressure 172/81 H Pulse Oximetry 100 <Anna Watters DO - Last Filed: 08/21/20 07:48> Orders Ordered: Acetaminophen (Acetaminophen 325 Mg Tablet) 650 mg PO Q6HR PRN PRN Reason: Fever/Mild Pain (1-3) Al Hydrox/Mg Hydrox/Simethicone (Mag Hydrox/Alum/Simeth 30 Ml Udc) 30 ml PO Q6HR PRN PRN Reason: Dyspepsia Aspirin (Aspirin Ec 81 Mg Tablet) 81 mg PO DAILY [facility] Atorvastatin Calcium (Atorvastatin 20 Mg Tablet) 20 mg PO BEDTIME [facility] Last Admin: 08/20/20:31 Dose: 20 mg Documented by: ANDRES Bisacodyl (Bisacodyl 10 Mg Supp) 10 mg DC DAILY PRN PRN Reason: Constipation Calcium Carbonate (Calcium Carbonate 500 Mg Tab) 1,000 mg PO Q4HR PRN PRN Reason: Dyspepsia Clopidogrel Bisulfate (Clopidogrel 75 Mg Tablet) 75 mg PO DAILY [facility] Dextrose (Dextrose 50 % In Water 25 Gm/50 Ml Syringe) 25 gm IV PRN PRN; Protocol PRN Reason: Hypoglycemia Docusate Sodium (Docusate 100 Mg Capsule) 100 mg PO BID PRN PRN Reason: Constipation Enoxaparin Sodium (Enoxaparin 40 Mg/0.4 Ml Syringe) 40 mg SUBCUT DAILY [facility] Gabapentin (Gabapentin 300 Mg Capsule) 300 mg PO BID [facility] Last Admin: 08/20/20: Dose: 300 mg Documented by: ANDRES Glimepiride (Glimepiride 2 Mg Tablet) 2 mg PO DAILY [facility] Insulin Aspart (Insulin Aspart 100 Unit/Ml Insuln Pen) 0 unit SUBCUT ACHS [facility]; Protocol Last Admin: 08/20/20 21: Dose: Not Given Documented by: ANDRES Lorazepam (Lorazepam 0.5 Mg Tablet) 0.5 mg PO BEDTIME PRN PRN Reason: Sleep Losartan Potassium (Losartan 50 Mg Tablet) 100 mg PO DAILY [facility] Melatonin (Melatonin 3 Mg Tablet) 6 mg PO BEDTIME [facility] Last Admin: 08/20/20 21:31 Dose: 6 mg Documented by: ANDRES Metformin HCl (Metformin Hcl 500 Mg Tablet) 1,000 mg PO BIDWM [facility] Metoprolol Tartrate (Metoprolol Ir 50 Mg Tablet) 50 mg PO BID [facility] Last Admin: 08/20/20: Dose: 50 mg Documented by: ANDRES Naloxone HCl (Naloxone 0.4 Mg/Ml Vial) 0.2 mg IV Q2MIN PRN PRN Reason: Opiate Reversal Ondansetron HCl (Ondansetron 4 Mg/2 Ml Inj) 4 mg IV Q8HR PRN PRN Reason: Nausea And Vomiting Discontinued Medications Aspirin (Aspirin 81 Mg Chew Tab) 324 mg PO NOW ONE Stop: 08/20/20 18:01 Last Admin: 08/20/20 19:00 Dose: 324 mg Documented by: YANDELONER Sodium Chloride (Normal Saline 0.9%) 1,000 mls @ 150 mls/hr IV CONT [facility] Stop: 08/20/20 20:09 Last Infusion: 08/20/20 19:16 Dose: 0 mls/hr Documented by: Admin: 08/20/20 19:00 Dose: 150 mls/hr Documented by: BTONER Vital Signs Vital signs: Vital Signs - 8 hr 08/20/20 15:07 Temperature 97.8 F Pulse Rate 75 Respiratory Rate 20 Blood Pressure 172/81 H Pulse Oximetry 100 MDM - Neuro Symptoms/Deficit <NATHAN Thornton - Last Filed: 08/20/20 19:33> Lab Data Result diagrams: 08/20/20 17:50 08/21/20 05:06 Labs: Lab Results 08/20/20 08/20/20 08/20/20 Range/Units 17:50 17:50 17:50 WBC 9.0 (4.5-11.0) X10^3/uL RBC 3.95 L (4.5-5.9) X10^6/uL Hgb 12.1 L (13.5-17.5) g/dL Hct 35.7 L (41-53) % MCV 90.4 (80-100) fL MCH 30.7 (26-34) PG MCHC 33.9 (30-36) % RDW 14.0 (11.6-14.8) % Plt Count 262 (150-400) X10^3/uL Neut % (Auto) 49.5 L (50-75) % Lymph % (Auto) 36.2 (25-40) % Coos % (Auto) 8.7 (3-14) % Eos % (Auto) 4.1 H (2-4) % Baso % (Auto) 1.5 (0-2) % Neut # (Auto) 4400 (3134-9430) /uL Lymph # (Auto) 3300 (5418-3607) /uL [place] # (Auto) 800 (0-900) /uL Eos # (Auto) 400 (0-450) /uL Baso # (Auto) 100 (0-100) /uL PT 12.0 (10.1-12.7) SECONDS INR 1.1 (0.9-1.3) APTT 22 L (26.4-36.2) SECONDS Sodium 137 (137-145) mmol/L Potassium 4.0 (3.4-5.1) mmol/L Chloride 102 (98-107) mmol/L Carbon Dioxide 28 (22-32) mmol/L BUN 15 (9-20) mg/dL Creatinine 0.80 (0.66-1.25) mg/dL Estimated GFR > 60.0 (>60) mL/min BUN/Creatinine Ratio 18.8 (6-22) Glucose 234 H (80-110) mg/dL Hemoglobin A1c (4.0-6.0) % Calcium 10.5 H (8.4-10.2) mg/dL Magnesium (1.6-2.3) mg/dL Total Bilirubin 0.3 (0.2-1.3) mg/dL AST 20 (17-59) IU/L ALT 16 (<50) IU/L Alkaline Phosphatase 79 (38-126) U/L Total Creatine Kinase (55-170) U/L CK-MB (CK-2) CK-MB (CK-2) Rel Index Troponin I (0.01-0.034) ng/mL NT-Pro-B Natriuret Pep (<450) pg/mL Total Protein 7.2 (6.3-8.2) g/dL Albumin 4.2 (3.5-5.0) g/dL Globulin 3.0 (1.7-4.1) g/dL Albumin/Globulin Ratio 1.4 (1.0-2.8) SARS-CoV-2 (PCR) (Negative) 08/20/20 08/20/20 08/20/20 Range/Units 17:50 17:50 17:50 WBC (4.5-11.0) X10^3/uL RBC (4.5-5.9) X10^6/uL Hgb (13.5-17.5) g/dL Hct (41-53) % MCV (80-100) fL MCH (26-34) PG MCHC (30-36) % RDW (11.6-14.8) % Plt Count (150-400) X10^3/uL Neut % (Auto) (50-75) % Lymph % (Auto) (25-40) % [place] % (Auto) (3-14) % Eos % (Auto) (2-4) % Baso % (Auto) (0-2) % Neut # (Auto) (6929-3973) /uL Lymph # (Auto) (2766-8942) /uL [place] # (Auto) (0-900) /uL Eos # (Auto) (0-450) /uL Baso # (Auto) (0-100) /uL PT (10.1-12.7) SECONDS INR (0.9-1.3) APTT (26.4-36.2) SECONDS Sodium (137-145) mmol/L Potassium (3.4-5.1) mmol/L Chloride (98-107) mmol/L Carbon Dioxide (22-32) mmol/L BUN (9-20) mg/dL Creatinine (0.66-1.25) mg/dL Estimated GFR (>60) mL/min BUN/Creatinine Ratio (6-22) Glucose (80-110) mg/dL Hemoglobin A1c 7.4 H (4.0-6.0) % Calcium (8.4-10.2) mg/dL Magnesium 1.9 (1.6-2.3) mg/dL Total Bilirubin (0.2-1.3) mg/dL AST (17-59) IU/L ALT (<50) IU/L Alkaline Phosphatase (38-126) U/L Total Creatine Kinase 38 L (55-170) U/L CK-MB (CK-2) TNP CK-MB (CK-2) Rel Index TNP Troponin I < 0.012 (0.01-0.034) ng/mL NT-Pro-B Natriuret Pep (<450) pg/mL Total Protein (6.3-8.2) g/dL Albumin (3.5-5.0) g/dL Globulin (1.7-4.1) g/dL Albumin/Globulin Ratio (1.0-2.8) SARS-CoV-2 (PCR) (Negative) 08/20/20 08/20/20 Range/Units 17:50 18:50 WBC (4.5-11.0) X10^3/uL RBC (4.5-5.9) X10^6/uL Hgb (13.5-17.5) g/dL Hct (41-53) % MCV (80-100) fL MCH (26-34) PG MCHC (30-36) % RDW (11.6-14.8) % Plt Count (150-400) X10^3/uL Neut % (Auto) (50-75) % Lymph % (Auto) (25-40) % [place] % (Auto) (3-14) % Eos % (Auto) (2-4) % Baso % (Auto) (0-2) % Neut # (Auto) (2231-2511) /uL Lymph # (Auto) (1899-4457) /uL [place] # (Auto) (0-900) /uL Eos # (Auto) (0-450) /uL Baso # (Auto) (0-100) /uL PT (10.1-12.7) SECONDS INR (0.9-1.3) APTT (26.4-36.2) SECONDS Sodium (137-145) mmol/L Potassium (3.4-5.1) mmol/L Chloride (98-107) mmol/L Carbon Dioxide (22-32) mmol/L BUN (9-20) mg/dL Creatinine (0.66-1.25) mg/dL Estimated GFR (>60) mL/min BUN/Creatinine Ratio (6-22) Glucose (80-110) mg/dL Hemoglobin A1c (4.0-6.0) % Calcium (8.4-10.2) mg/dL Magnesium (1.6-2.3) mg/dL Total Bilirubin (0.2-1.3) mg/dL AST (17-59) IU/L ALT (<50) IU/L Alkaline Phosphatase (38-126) U/L Total Creatine Kinase (55-170) U/L CK-MB (CK-2) CK-MB (CK-2) Rel Index Troponin I (0.01-0.034) ng/mL NT-Pro-B Natriuret Pep 172 (<450) pg/mL Total Protein (6.3-8.2) g/dL Albumin (3.5-5.0) g/dL Globulin (1.7-4.1) g/dL Albumin/Globulin Ratio (1.0-2.8) SARS-CoV-2 (PCR) Negative (Negative) ECG Data Attestation: I personally reviewed and interpreted this ECG as follows: Interpretation: Normal sinus rhythm. Ventricular rate 71. P.r. interval 134. Right bundle branch noted. viewed by Dr Watters MDM Narrative Medical decision making narrative: The patient is an 79-year-old male who presents with a chief complaint of requesting an outpatient MRI as he was seen at a different facility yesterday for TIA and left against medical advice. He has had multiple TIA episodes this week, has risk factors of diabetes, hypertension. He has a negative head CT yesterday, records were obtained from [facility]. MRI ordered in the emergency department. The patient agrees to be admitted at this facility as I discussed that he needs her warning signs of a further event, which could be debilitating regarding his independence. I spoke with the hospitalist Dr. Walden who kindly accepted the patient for observation. Patient was given aspirin in the emergency department. <Anna Watters, DO - Last Filed: 08/21/20 07:48> Lab Data Labs: Lab Results 08/20/20 08/20/20 08/20/20 Range/Units 17:50 17:50 17:50 WBC 9.0 (4.5-11.0) X10^3/uL RBC 3.95 L (4.5-5.9) X10^6/uL Hgb 12.1 L (13.5-17.5) g/dL Hct 35.7 L (41-53) % MCV 90.4 (80-100) fL MCH 30.7 (26-34) PG MCHC 33.9 (30-36) % RDW 14.0 (11.6-14.8) % Plt Count 262 (150-400) X10^3/uL Neut % (Auto) 49.5 L (50-75) % Lymph % (Auto) 36.2 (25-40) % [place] % (Auto) 8.7 (3-14) % Eos % (Auto) 4.1 H (2-4) % Baso % (Auto) 1.5 (0-2) % Neut # (Auto) 4400 (7498-8836) /uL Lymph # (Auto) 3300 (4870-4614) /uL [place] # (Auto) 800 (0-900) /uL Eos # (Auto) 400 (0-450) /uL Baso # (Auto) 100 (0-100) /uL PT 12.0 (10.1-12.7) SECONDS INR 1.1 (0.9-1.3) APTT 22 L (26.4-36.2) SECONDS Sodium 137 (137-145) mmol/L Potassium 4.0 (3.4-5.1) mmol/L Chloride 102 (98-107) mmol/L Carbon Dioxide 28 (22-32) mmol/L BUN 15 (9-20) mg/dL Creatinine 0.80 (0.66-1.25) mg/dL Estimated GFR > 60.0 (>60) mL/min BUN/Creatinine Ratio 18.8 (6-22) Glucose 234 H (80-110) mg/dL Hemoglobin A1c (4.0-6.0) % Calcium 10.5 H (8.4-10.2) mg/dL Magnesium (1.6-2.3) mg/dL Total Bilirubin 0.3 (0.2-1.3) mg/dL AST 20 (17-59) IU/L ALT 16 (<50) IU/L Alkaline Phosphatase 79 (38-126) U/L Total Creatine Kinase (55-170) U/L CK-MB (CK-2) CK-MB (CK-2) Rel Index Troponin I (0.01-0.034) ng/mL NT-Pro-B Natriuret Pep (<450) pg/mL Total Protein 7.2 (6.3-8.2) g/dL Albumin 4.2 (3.5-5.0) g/dL Globulin 3.0 (1.7-4.1) g/dL Albumin/Globulin Ratio 1.4 (1.0-2.8) SARS-CoV-2 (PCR) (Negative) 08/20/20 08/20/20 08/20/20 Range/Units 17:50 17:50 17:50 WBC (4.5-11.0) X10^3/uL RBC (4.5-5.9) X10^6/uL Hgb (13.5-17.5) g/dL Hct (41-53) % MCV (80-100) fL MCH (26-34) PG MCHC (30-36) % RDW (11.6-14.8) % Plt Count (150-400) X10^3/uL Neut % (Auto) (50-75) % Lymph % (Auto) (25-40) % [place] % (Auto) (3-14) % Eos % (Auto) (2-4) % Baso % (Auto) (0-2) % Neut # (Auto) (6344-4237) /uL Lymph # (Auto) (4068-5295) /uL [place] # (Auto) (0-900) /uL Eos # (Auto) (0-450) /uL Baso # (Auto) (0-100) /uL PT (10.1-12.7) SECONDS INR (0.9-1.3) APTT (26.4-36.2) SECONDS Sodium (137-145) mmol/L Potassium (3.4-5.1) mmol/L Chloride (98-107) mmol/L Carbon Dioxide (22-32) mmol/L BUN (9-20) mg/dL Creatinine (0.66-1.25) mg/dL Estimated GFR (>60) mL/min BUN/Creatinine Ratio (6-22) Glucose (80-110) mg/dL Hemoglobin A1c 7.4 H (4.0-6.0) % Calcium (8.4-10.2) mg/dL Magnesium 1.9 (1.6-2.3) mg/dL Total Bilirubin (0.2-1.3) mg/dL AST (17-59) IU/L ALT (<50) IU/L Alkaline Phosphatase (38-126) U/L Total Creatine Kinase 38 L (55-170) U/L CK-MB (CK-2) TNP CK-MB (CK-2) Rel Index TNP Troponin I < 0.012 (0.01-0.034) ng/mL NT-Pro-B Natriuret Pep (<450) pg/mL Total Protein (6.3-8.2) g/dL Albumin (3.5-5.0) g/dL Globulin (1.7-4.1) g/dL Albumin/Globulin Ratio (1.0-2.8) SARS-CoV-2 (PCR) (Negative) 08/20/20 08/20/20 Range/Units 17:50 18:50 WBC (4.5-11.0) X10^3/uL RBC (4.5-5.9) X10^6/uL Hgb (13.5-17.5) g/dL Hct (41-53) % MCV (80-100) fL MCH (26-34) PG MCHC (30-36) % RDW (11.6-14.8) % Plt Count (150-400) X10^3/uL Neut % (Auto) (50-75) % Lymph % (Auto) (25-40) % Coos % (Auto) (3-14) % Eos % (Auto) (2-4) % Baso % (Auto) (0-2) % Neut # (Auto) (2974-5581) /uL Lymph # (Auto) (8664-4838) /uL [place] # (Auto) (0-900) /uL Eos # (Auto) (0-450) /uL Baso # (Auto) (0-100) /uL PT (10.1-12.7) SECONDS INR (0.9-1.3) APTT (26.4-36.2) SECONDS Sodium (137-145) mmol/L Potassium (3.4-5.1) mmol/L Chloride (98-107) mmol/L Carbon Dioxide (22-32) mmol/L BUN (9-20) mg/dL Creatinine (0.66-1.25) mg/dL Estimated GFR (>60) mL/min BUN/Creatinine Ratio (6-22) Glucose (80-110) mg/dL Hemoglobin A1c (4.0-6.0) % Calcium (8.4-10.2) mg/dL Magnesium (1.6-2.3) mg/dL Total Bilirubin (0.2-1.3) mg/dL AST (17-59) IU/L ALT (<50) IU/L Alkaline Phosphatase (38-126) U/L Total Creatine Kinase (55-170) U/L CK-MB (CK-2) CK-MB (CK-2) Rel Index Troponin I (0.01-0.034) ng/mL NT-Pro-B Natriuret Pep 172 (<450) pg/mL Total Protein (6.3-8.2) g/dL Albumin (3.5-5.0) g/dL Globulin (1.7-4.1) g/dL Albumin/Globulin Ratio (1.0-2.8) SARS-CoV-2 (PCR) Negative (Negative) Discharge Plan Departure Patient Disposition: Admitted as Observation Clinical Impression: Brain TIA Admit Date/Time: 08/20/20 18:55 Admit Provider: Erick Walden <Anna Watters DO - Last Filed: 08/21/20 07:48> Cosign ED Attending Armandoature Attestation: I was immediately available in the department for consultation. Documentation has been reviewed. I agree with assessment and plan.
--- NOTE | 2020-08-20 18:12 | PC.NURSE ---
pt leaving for MRI.
[2020-08-20 18:23] LABS: Add Manual Diff / Slide Review NO; Basophils Absolute Auto 100 /uL (0-100); Basophils Percent Auto 1.5 % (0-2); Eosinophils Absolute Auto 400 /uL (0-450); Eosinophils Percent Auto 4.1 % (2-4); Hematocrit 35.7 % (41-53); Hemoglobin 12.1 g/dL (13.5-17.5); Lymphocytes Absolute Auto 3300 /uL (1100-4500); Lymphocytes Percent Auto 36.2 % (25-40); Mean Corpuscular HGB Conc 33.9 % (30-36); Mean Corpuscular Hemoglobin 30.7 PG (26-34); Mean Corpuscular Volume 90.4 fL (80-100); Monocytes Absolute Auto 800 /uL (0-900); Monocytes Percent Auto 8.7 % (3-14); Neutrophils Absolute Auto 4400 /uL (1500-7000); Neutrophils Percent Auto 49.5 % (50-75); Platelet Count 262 X10^3/uL (150-400); Red Blood Cell Count 3.95 X10^6/uL (4.5-5.9)
[2020-08-20 18:30] LABS: INR 1.1 (0.9-1.3)
[2020-08-20 18:33] LABS: PTT Partial Thromboplastin Tim 22 SECONDS (26.4-36.2)
[2020-08-20 18:39] LABS: Creatine Kinase 38 U/L (55-170)
[2020-08-20 18:41] LABS: Alanine Aminotransferase 16 IU/L (<50); Albumin 4.2 g/dL (3.5-5.0); Albumin Globulin Ratio 1.4 (1.0-2.8); Alkaline Phosphatase 79 U/L (38-126); Aspartate Aminotransferase 20 IU/L (17-59); BUN Creatinine Ratio 18.8 (6-22); Bilirubin Total 0.3 mg/dL (0.2-1.3); Blood Urea Nitrogen 15 mg/dL (9-20); Calcium 10.5 mg/dL (8.4-10.2); Carbon Dioxide 28 mmol/L (22-32); Chloride 102 mmol/L (98-107); Estimated Glomerular Filt Rate > 60.0 mL/min (>60); Glucose 234 mg/dL (80-110); HEMOLYSIS 24 (0-50); Sodium 137 mmol/L (137-145); Total Protein 7.2 g/dL (6.3-8.2)
[2020-08-20 18:51] LABS: Troponin I < 0.012 ng/mL (0.01-0.034)
[2020-08-20] MEDS: ASPIRIN 81 MG CHEW TAB 324 MG PO (19:00)
[2020-08-20] MEDS: SODIUM CHLORIDE 0.9% 1,000 ML 150 ML IV (19:00)
[2020-08-20 19:25] VITALS: BP 166/88; PULSE 79; RESP 18; TEMP 36.3; O2SAT 96
[2020-08-20 19:29] VITALS: BMI 24.5
[2020-08-20 20:14] LABS: COVID19 - ADMIT (NP swab/PCR) Negative (Negative)
--- NOTE | 2020-08-20 20:14 | DI.ECHO.S_ITS ---
[facility]---------+ [facility] +---------+ : : [address] : : : : [id number] : : : : Phone: [phone] Echocardiogram Report + + :Name: MARY DYSON Study Date: 08/21/2020 Height: 72 in : :[facility] ReadingLocation: Weight: 180 lb : : Gender: Male BSA: 2.0 m2 : :: 1940 Age: 79 yrs BP: 119/57 mmHg: :Reason For Study: TIA : :Ordering Physician: MARK, : :FINN Performed By: Estefany Grubbs : :Referring: FINN FLORES : + + Interpretation Summary The ejection fraction is estimated to be 70-75%. Proximal septal thickening is noted. An intracavitary gradient is suspected. There is moderate to severely reduced leaflet mobility. There is severe aortic stenosis. The calculated aortic valve area is .95 cm2. There is mild mitral regurgitation. Procedure: A two-dimensional transthoracic echocardiogram with color flow and Doppler was performed. The study quality was technically adequate. Comparison is made with the echocardiogram of 02/11/2013. The patient was in sinus rhythm with heart rates between 64-73 bpm during the exam. Left Ventricle: The left ventricular cavity is small. The estimated left ventricular end diastolic volume is 58 ml. Proximal septal thickening is noted. Left ventricular wall thickness is mildly increased. An intracavitary gradient is suspected. The ejection fraction is estimated to be 70-75%. There are no focal wall motion abnormalities. Right Ventricle: The right ventricle is normal in size and function. Atria: The left atrial size is normal. Right atrial size is normal. There is no Doppler evidence for an interatrial shunt. Mitral Valve: The mitral valve leaflets appear mildly thickened, but open well. There is mild mitral annular calcification. There is mild mitral regurgitation. Aortic Valve: The aortic valve is severely calcified. There is moderate to severely reduced leaflet mobility. There is severe aortic stenosis. The peak aortic velocity is 3.3 m/sec. The aortic valve mean gradient is 29 mmHg. The calculated aortic valve area is .95 cm2. There is trace aortic regurgitation. Tricuspid Valve: The tricuspid valve is normal in structure and function. There is trace tricuspid regurgitation. Pulmonary artery pressures cannot be estimated because of the lack of a measurable TR jet velocity but the IVC suggests a CVP of around 8 mmHg. Pulmonic Valve: The pulmonic valve leaflets are thin and pliable; valve motion is normal. There is mild pulmonic regurgitation. Great Vessels: The aortic root is normal size. The dimensions of the ascending aorta are normal. The IVC is dilated (diameter is greater than 2.1 cm) yet it collapses greater than 50% with a sniff. This suggests a right atrial pressure of 8 mm Hg. Pericardium/ Pleura There is no pericardial effusion. There is no pleural effusion. MMode/2D Measurements & Calculations LVIDd: 3.8 cm LVOT diam: 2.0 cm LVIDs: 1.8 cm Ao root diam: 3.5 cm FS: 53.3 % asc Aorta Diam: 3.2 cm EPSS: 0.18 cm Ao Arch Diam (Prox Trans): 3.0 cm IVSd: 1.5 cm LVPWd: 1.2 cm LV tinoco. diameter/BSA (cm/m^2): 1.9 LV sys. diameter/BSA (cm/m^2): 0.87 LA A2 area: 22.2 cm2 RA long axis: 4.7 cm LA A4 area: 17.5 cm2 RA area: 14.5 cm2 LA length (vol): 6.3 cm RA vol: 37.7 ml LA vol: 52.7 ml RA : 18.5 ml/m2 LA vol index: 25.9 ml/m2 IVC diam: 2.4 cm RVD1 (basal): 3.0 cm TAPSE: 1.8 cm Doppler Measurements & Calculations Ao V2 max: 334.9 cm/sec LVOT Max Sheldon: 99.7 cm/sec Ao V2 mean: 258.2 cm/sec LV V1 max P.0 mmHg Ao max P.9 mmHg LV V1 VTI: 20.6 cm Ao mean P.1 mmHg PATRICK(I,D): 0.95 cm2 Ao V2 VTI: 71.5 cm PATRICK(V,D): 0.98 cm2 sev ratio: 0.29 PATRICK indexed to BSA (cm^2/m^2): 0.46 MV E max sheldon: 76.9 cm/sec PA pr(Accel): 24.2 mmHg MV A max sheldon: 80.4 cm/sec MV E/A: 0.96 Med Peak E' Sheldon: 6.6 cm/sec E/E' med: 11.7 Lat Peak E' Sheldon: 5.0 cm/sec E/E' lat: 15.4 E/e' average: 13.5 MV dec time: 0.23 sec SV(LVOT): 67.6 ml Reading Physician:11:22 AM
[2020-08-20 20:38] LABS: Magnesium 1.9 mg/dL (1.6-2.3)
[2020-08-20 20:39] LABS: Hemoglobin A1C% w Est Avg Glu 7.4 % (4.0-6.0)
[2020-08-20 20:49] LABS: NT-proBNP (BNP-Adult 18+) 172 pg/mL (<450)
[2020-08-20 21:04] VITALS: O2SAT 96
[2020-08-20] MEDS: GABAPENTIN 300 MG CAPSULE PO (21:31)
[2020-08-20] MEDS: METOPROLOL IR 50 MG TABLET PO (21:31)
[2020-08-20] MEDS: ATORVASTATIN 20 MG TABLET PO (21:31)
[2020-08-20] MEDS: MELATONIN 3 MG TABLET 6 MG PO (21:31)
--- NOTE | 2020-08-20 21:48 | PC.NURSE ---
Addendum entered by Melissa Herrera R.N. 08/20/20 22:27: Has a condom cath on, changed leg bag for gravity drainage bag. Patient has a hx of incontinence. Addendum entered by Melissa Herrera R.N. 08/20/20 21:49: negative. Fall risk and call light education given, moderate fall risk, bed alarm on and functioning, call light in reach. Tele initiated and notified ICU. Bedside swallow screen was passed and patient started on carb consistent diet. Original Note: Shift note: Patient arrived to floor at 1925, AxOx3, can make needs known. Denies recent hx of fall. Covid
[2020-08-20 22:40] LABS: Bacteria Urine None Seen; RBC Urine None Seen (0-5/HPF); WBC Urine None Seen (0-5/HPF)
[2020-08-20 22:43] LABS: Appearance Urine UA CLEAR; Bilirubin Urine UA NEGATIVE (NEGATIVE); Color Urine UA YELLOW; Glucose Urine UA 1+ g/dL (Negative); Ketones Urine UA NEGATIVE (NEGATIVE); Leukocyte Esterase Urine UA NEGATIVE (NEGATIVE); Nitrite Urine UA NEGATIVE (Negative); Occult Blood Urine UA NEGATIVE (Negative); Protein Urine UA NEGATIVE (Negative); Specific Gravity Urine UA 1.015 (1.000-1.035); Urobilinogen Urine UA 0.2 E.U./dL (0.2)
[2020-08-20 22:48] LABS: Culture Indicated Urine Cult Not Indicated; Urine Comments Microscopic Normal
--- NOTE | 2020-08-20 23:02 | PM.HP.1 ---
History of Present Illness History of Present Illness Date Patient Seen: 08/20/20 Time Patient Seen: 20:39 Chief complaint: Stroke Yesterday, Follow Up MRI Narrative: Mr. Deep Erickson is an 79-year-old male with a past medical history significant for aortic stenosis, cardiomyopathy, hypertension, hyperlipidemia, diabetes type 2, prior TIA (2011), chronic low back pain and prostate cancer who presents to the ER with complaints of recurrent TIAs this week. The patient states that he experienced left-sided weakness and numbness lasting approximately 30 minutes onset and Thursday and again yesterday. The patient was seen yesterday at [facility] and was evaluated with a noncontrast CT scan that was negative for significant findings and was diagnosed with a urinary tract infection and given IV and p.o. antibiotics. Patient chose to leave against medical advice to get an outpatient MRI which is not available at [facility] and therefore presents to [facility] for care. The patient denies current symptoms at the time of presentation and evaluation. He does endorse a slight generalized headache more prominent on the right side but thought nothing of. He denies ataxia, dizziness or visual changes. Denies complaints of fevers or chills and has had no recent flu cold symptoms and denies recent COVID 19 exposure. He denies complaints of nasal congestion or sore throat, difficulty chewing or swallowing. He has no chest pain or palpitations and denies rapid heart beat. He does acknowledge having a murmur diagnosis since age 20. He denies complaints of shortness of breath cough or wheezing has no exertional or conversational dyspnea. He denies epigastric or abdominal pain has a nausea vomiting, diarrhea or constipation. He does endorse blood sugars that have been elevated but denies excessive thirst or urination. He denies urgency frequency or burning. The patient is typically active restoring classic automobiles. Upon arrival to the ER the patient has a temperature 97.4?, heart rate of 79, blood pressure 166/88, respirations of 18 saturating 96% on room air. An MRI is obtained which finds no acute infarct or acute intracranial processes, global volume loss with chronic microvascular ischemic changes. Twelve lead EKG finds sinus rhythm rate of 71 without ectopy, right bundle-branch block, inverted T-waves in V3 through V6. On laboratory analysis CBC finds WBCs 9.0 without shift, hemoglobin 12.1, hematocrit 35.7 platelets 262. His coagulation studies are all within normal range. On chemistries is electrolytes within normal range has a BUN 15 and creatinine 0.8. His nonfasting glucose is 234. His liver functions are within normal limits. His total CK is 38 with negative troponin at less than 0.012. The patient is admitted to the hospitalist service for TIA. Patient History Medical History Aortic stenosis Bone spur Cardiomyopathy Cervical spine fracture (~1958) Diabetes Facet arthropathy, lumbosacral Former smoker Hematochezia (~2016) History of prostate cancer HNP (herniated nucleus pulposus), lumbar HTN (hypertension) Hyperlipidemia Left wrist fracture (~2010) Lumbosacral radiculopathy at L5 Lumbosacral spondylosis Osteoarthritis Polymyalgia rheumatica Prostate cancer RBBB (right bundle branch block) Recurrent urinary tract infection TIA (transient ischemic attack) (~2011) TMJ (temporomandibular joint disorder) Surgical History Hx of prostatectomy Family & Social History Family History (Updated 08/20/20 @ 23:16 by DOMINICK Ruiz) Father Heart disease Heart attack Mother No significant medical problems Grandmother Heart disease Social History: household members none Prior Living Arrangements House Safety & Behavioral: Feels Safe in Current No Environment Been Physically Hurt or No Threatened By a Person Suicidal Ideation Description None Suicide Plan Description No Plan Tobacco & Substance use: Smoking Status Former smoker alcohol intake current alcohol intake frequency 0-2 drinks per day Substance Use Type does not use Meds Home Medications and Allergies Home Medications Medication Instructions Recorded Confirmed Type aspirin 81 mg PO BEDTIME #0 08/21/11 08/20/20 History losartan 100 mg PO QDAY #0 08/21/11 08/20/20 History metformin 1,000 mg PO BIDCC #0 02/10/13 08/20/20 History metoprolol tartrate [Lopressor] 50 mg PO BID 07/21/18 08/20/20 History glimepiride 2 mg tablet 2 mg PO DAILY 04/18/19 08/20/20 History insulin lispro 100 unit/mL 10 sliding scale dose SUBCUT 04/12/20 08/20/20 History subcutaneous solution USEASDIRECTD amoxicillin-pot clavulanate 1 tab PO Q12H 08/20/20 08/20/20 History [Augmentin] gabapentin 300 mg PO BID 08/20/20 08/20/20 History omeprazole 20 mg PO BEDTIME 08/20/20 08/20/20 History Allergies Allergy/AdvReac Type Severity Reaction Status Date / Time No Known Drug Allergies Allergy Verified 08/17/20 13:19 Review of Systems Review of Systems ROS: Yes All systems reviewed with the patient and are negative except as otherwise documented Exam Vital Signs (past 8 hours): - 08/20/20 15:07 08/20/20 19:25 08/20/20 21:04 Temperature 97.8 F 97.4 F L Pulse Rate 75 79 Respiratory Rate 20 18 Blood Pressure 172/81 H 166/88 H Pulse Oximetry 100 96 96 Oxygen Delivery Method Room Air Oxygen Flow Rate 0 Narrative Exam Narrative: GENERAL APPEARANCE: well developed, well nourished, in no acute distress. HEENT: Symmetrical facies, PERRLA, conjunctiva clear, sclera anicteric, EOMs intact without nystagmus, B/L facial sensation intact, no rhinorrhea, mucous membranes are moist and pink. NECK/THYROID: neck supple, no JVD, no carotid bruit, no thyromegaly, trachea midline. LYMPH NODES: no cervical or supraclavicular lymphadenopathy. SKIN: [place], warm and dry, no visible lesions, rashes, ulcerations or petechiae. HEART: regular rate and rhythm, S1-S2, 2/6 systolic murmur heard across the precordium most prominent in left upper sternal border., no rubs or gallops, 2+ pedal pulses, no edema LUNGS: clear to auscultation bilaterally, no coarseness crackles or wheezing, no cough present CHEST: Symmetrical movement, no accessory muscle use, good tidal volume. ABDOMEN: Soft, no distention, no abdominal tenderness, no guarding or peritoneal signs, no organomegaly, no flank or suprapubic tenderness, active bowel tones. BACK: Normal curvature, nontender to palpation, no back pain on straight leg raise. EXTREMITIES: moves all extremities, strength is 5/5 and symmetrical without drift, fisher swordfish equal bilateral, no deformities or joint effusions, no cyanosis or clubbing. NEUROLOGIC: AAO x4, NIH is 0, cranial nerves II-XII grossly intact, sensation intact to light touch, hearing grossly normal to speech. PSYCH: Good judgment, linear thought process, cooperative, appropriate with stable behavior Objective Labs Result Diagrams: 08/20/20 17:50 08/20/20 17:50 Labs: Laboratory Results - last 24 hr 08/20/20 08/20/20 08/20/20 17:50 17:50 17:50 WBC 9.0 RBC 3.95 L Hgb 12.1 L Hct 35.7 L MCV 90.4 MCH 30.7 MCHC 33.9 RDW 14.0 Plt Count 262 Neut % (Auto) 49.5 L Lymph % (Auto) 36.2 [place] % (Auto) 8.7 Eos % (Auto) 4.1 H Baso % (Auto) 1.5 Neut # (Auto) 4400 Lymph # (Auto) 3300 [place] # (Auto) 800 Eos # (Auto) 400 Baso # (Auto) 100 PT 12.0 INR 1.1 APTT 22 L Sodium 137 Potassium 4.0 Chloride 102 Carbon Dioxide 28 BUN 15 Creatinine 0.80 Estimated GFR > 60.0 BUN/Creatinine Ratio 18.8 Glucose 234 H Hemoglobin A1c Calcium 10.5 H Magnesium Total Bilirubin 0.3 AST 20 ALT 16 Alkaline Phosphatase 79 Total Creatine Kinase CK-MB (CK-2) CK-MB (CK-2) Rel Index Troponin I NT-Pro-B Natriuret Pep Total Protein 7.2 Albumin 4.2 Globulin 3.0 Albumin/Globulin Ratio 1.4 Urine Color Urine Appearance Urine pH Ur Specific [place] Urine Protein Urine Glucose (UA) Urine Ketones Urine Occult Blood Urine Nitrate Urine Bilirubin Urine Urobilinogen Ur Leukocyte Esterase Urine RBC Urine WBC Urine Bacteria Ur Culture Indicated? Micro UA Comment SARS-CoV-2 (PCR) 08/20/20 08/20/20 08/20/20 17:50 17:50 17:50 WBC RBC Hgb Hct MCV MCH MCHC RDW Plt Count Neut % (Auto) Lymph % (Auto) [place] % (Auto) Eos % (Auto) Baso % (Auto) Neut # (Auto) Lymph # (Auto) [place] # (Auto) Eos # (Auto) Baso # (Auto) PT INR APTT Sodium Potassium Chloride Carbon Dioxide BUN Creatinine Estimated GFR BUN/Creatinine Ratio Glucose Hemoglobin A1c 7.4 H Calcium Magnesium 1.9 Total Bilirubin AST ALT Alkaline Phosphatase Total Creatine Kinase 38 L CK-MB (CK-2) TNP CK-MB (CK-2) Rel Index TNP Troponin I < 0.012 NT-Pro-B Natriuret Pep Total Protein Albumin Globulin Albumin/Globulin Ratio Urine Color Urine Appearance Urine pH Ur Specific [place] Urine Protein Urine Glucose (UA) Urine Ketones Urine Occult Blood Urine Nitrate Urine Bilirubin Urine Urobilinogen Ur Leukocyte Esterase Urine RBC Urine WBC Urine Bacteria Ur Culture Indicated? Micro UA Comment SARS-CoV-2 (PCR) 08/20/20 08/20/20 08/20/20 17:50 18:50 22:38 WBC RBC Hgb Hct MCV MCH MCHC RDW Plt Count Neut % (Auto) Lymph % (Auto) [place] % (Auto) Eos % (Auto) Baso % (Auto) Neut # (Auto) Lymph # (Auto) [place] # (Auto) Eos # (Auto) Baso # (Auto) PT INR APTT Sodium Potassium Chloride Carbon Dioxide BUN Creatinine Estimated GFR BUN/Creatinine Ratio Glucose Hemoglobin A1c Calcium Magnesium Total Bilirubin AST ALT Alkaline Phosphatase Total Creatine Kinase CK-MB (CK-2) CK-MB (CK-2) Rel Index Troponin I NT-Pro-B Natriuret Pep 172 Total Protein Albumin Globulin Albumin/Globulin Ratio Urine Color Yellow Urine Appearance Clear Urine pH 6.0 Ur Specific [place] 1.015 Urine Protein Negative Urine Glucose (UA) 1+ H Urine Ketones Negative Urine Occult Blood Negative Urine Nitrate Negative Urine Bilirubin Negative Urine Urobilinogen 0.2 Ur Leukocyte Esterase Negative Urine RBC None seen Urine WBC None seen Urine Bacteria None seen Ur Culture Indicated? Cult not indicated Micro UA Comment Microscopic normal SARS-CoV-2 (PCR) Negative Assessment & Plan Assessment & Plan narrative: This is an 79-year-old male with a past medical history significant for aortic stenosis, cardiomyopathy, hypertension, hyperlipidemia, uncontrolled diabetes type 2, prior TIA (2011), chronic low back pain and prostate cancer who presents to the ER with complaints of recurrent TIAs this week. Patient states he is asymptomatic upon arrival to the ER is requesting an MRI. 1. Transient ischemic attack, present on admission, active. -patient has been having symptoms of left-sided weakness and numbness on and off for 4 days. It lasts reoccurred yesterday prompting his presentation to [facility]. He underwent CT that is reported as unremarkable and diagnosed with UTI and started on antibiotics. [facility] does not have MRIs of the patient left Against Medical Advice and presented [facility] today for further evaluation. -MRI finds no acute infarcts or acute intracranial processes, global volume loss with chronic microvascular ischemic changes noted. -NIH score is 0, ABCDs 2 score is 5. -ordered atorvastatin 20 mg daily at bedtime. -will continue patient's home regimen of aspirin 81 mg daily and add Plavix 75 mg daily dual antiplatelet therapy. -will obtain TSH, lipid panel and A1c for risk stratification. -ordered bedside swallow evaluation. -ordered echocardiogram. -requested PT and OT to evaluate treatment 2. Essential hypertension, chronic present on admission, stable -initial blood pressure on admission to the ER is 166/88. Subsequent pressure obtained following admission to the acute care floor is 115/57 -will continue the patient's home regimen of losartan 100 mg daily and metoprolol 50 mg twice daily. 3. Diabetes type 2 with hyperglycemic, present on admission, active -serum glucose on initial labs is 234. Subsequent fingerstick glucose on the floor is 144. -reports taking was pro insulin 10 units once daily and has reported hypoglycemic episodes. Ordered fingerstick blood sugars a.c. and hs, coverage with low-dose correctional insulin. -patient additionally takes glimepiride 2 mg daily and metformin 1000 mg twice daily which are continued. 4. Hyperlipidemia, chronic, stable -patient with history of hyperlipidemia in the medical record however is not taking cholesterol-lowering medication. -ordered atorvastatin 20 mg daily at bedtime. -will obtain a lipid panel. VTE prophylaxis: Enoxaparin IV fluid: Saline lock Diet: Small consistent carbohydrate heart healthy diet Code status: Full code, the patient states that all 3 children must be in consensus as surrogate decision makers. The patient is admitted to the hospital due to the recurrent nature of his symptoms, need for further evaluation and monitoring to prevent complications or adverse events. The patient is admitted as observation status with expected length of stay to be less than 2 midnights. COVID-19 COVID-19 status: Negative Result date/Date tested (Pos, Neg/Pending): 08/20/20 Scores GCS [place] coma scale eye opening: Spontaneous [place] coma scale verbal response: Orientated [place] coma scale motor response: Obey commands [place] coma scale total score: 15 ABCD2 Age >= 60 years: yes Initial BP. Either SBP >= 140 or DBP >= 90.: yes Clinical features of the TIA: other symptoms Duration of symptoms: >= 60 minutes History of diabetes: yes ABCD2 Score: 5 NIHSS Level of Conciousness: Alert, keenly responsive Ask month/age: Answers both questions correctly. Open/close eyes, close hand: Performs both tasks correctly Best gaze horizontal: Normal Visual vidal: No visual loss Facial palsy: Normal symetrical movement Left arm drift: No drift for full 10 sec Right arm drift: No drift for full 10 sec Left leg drift: No drift for full 5 sec Right leg drift: No drift for full 5 sec Limb ataxia: Absent Sensory on face/arms/legs: Normal, no sensory loss Best language: No aphasia, normal Dysarthria: Normal Extinction or inattention: No abnormality Total NIH Stroke scale score: 0 Quality MIPS - Admit Advanced Care Plan / Current Medications Measures: #47 ? Advanced Care Plan Clinician documentation instruction: document at admission. [X] I confirmed that the patient's Advance Care Plan is present, code status is documented, or surrogate decision maker is listed in the patient?s medical record. [SATISFIES MIPS PERFORMANCE] If Yes, Stop Here [] The patient?s Advance Care plan is not present because: (select) [MIPS PERFORMANCE EXCEPTION/EXCLUSION] [] I confirmed today that the patient does not wish or was not able to name a surrogate decision maker or provide an Advance Care Plan. [] Hospice care is currently being provided or has been provided this calendar year [] I did NOT confirm today the presence of an Advance Care Plan or surrogate decision maker documented within the patient's medical record. [DOES NOT SATISFY MIPS PERFORMANCE] #130 - Documentation of Current Medications in the Medical Record Clinician documentation instruction: use macro the first time you see a patient. [X] I have utilized all available immediate resources to obtain, update, or review the patient?s current medications. [SATISFIES MIPS PERFORMANCE] If Yes, Stop Here [] The patient is not eligible for medication reconciliation; the patient is in an emergent medical situation where delaying treatment would jeopardize the patient?s health. [MIPS PERFORMANCE EXCEPTION/EXCLUSION] [] I did NOT confirm, update or review the patient's current list of medications today. [DOES NOT SATISFY MIPS PERFORMANCE] MIPS - CL Central Venous Catheter Placement Measure: #76 ? Prevention of Central Venous Catheter (CVC) ? Related Bloodstream Infection Clinician documentation instruction: use macro every time you place a central line. [] All elements of Maximal Sterile Barrier Technique, including hand hygiene, skin prep, and sterile ultrasound technique (if used) were followed. [SATISFIES MIPS PERFORMANCE] If Yes, Stop Here [] If ?No?, the medical reason all elements were NOT used for medical reason [] (ex. emergent condition). [] Maximal Sterile Barrier Technique was not followed, no reason provided [DOES NOT SATISFY MIPS PERFORMANCE] MIPS - DC Heart Failure Measures: #5 - Heart Failure (HF): Angiotensin-Converting Enzyme (SUE) Inhibitor or Angiotensin Receptor Dao (ARB) Therapy for Left Ventricular Systolic Dysfunction (LVSD) and #8 - Heart Failure (HF): Beta-Dao Therapy for Left Ventricular Systolic Dysfunction (LVSD) Clinician documentation instruction: use macro at every CHF discharge. [] The patient has current or prior documentation of left ventricular ejection fraction (LVEF) less than 40%, or moderate or severely depressed left ventricular systolic function. Answer both: [SATISFIES MIPS PERFORMANCE] [] The patient was prescribed or already taking an Angiotensin-Converting Enzyme (SUE) Inhibitor, or Angiotensin Receptor Dao (ARB). [] The patient was prescribed or already taking a beta-dao. If Yes to Both, Stop Here [] Patient not prescribed/taking: [MIPS PERFORMANCE EXCEPTION/EXCLUSION] [] SUE or ARB for medical/patient/system reason(s) including [] (ex. allergy, intolerance, contraindication) [] Beta-dao for medical/patient/system reason(s) including [] (ex. allergy, intolerance, contraindication) [] Patient not prescribed/taking: [DOES NOT SATISFY MIPS PERFORMANCE] [] SUE or ARB, no reason given [] Beta-dao, no reason given
[2020-08-20 23:39] VITALS: BP 119/57; PULSE 60; RESP 19; TEMP 36.3; O2SAT 98
[2020-08-20 23:58] VITALS: O2SAT 98
[2020-08-21 02:51] VITALS: BP 133/71; PULSE 74; RESP 18; TEMP 36.3; O2SAT 96
[2020-08-21 03:00] VITALS: O2SAT 96
[2020-08-21 05:41] LABS: BUN Creatinine Ratio 17.9 (6-22); Blood Urea Nitrogen 14 mg/dL (9-20); Calcium 10.2 mg/dL (8.4-10.2); Carbon Dioxide 28 mmol/L (22-32); Chloride 105 mmol/L (98-107); Cholesterol 158 mg/dL (140-199); Estimated Glomerular Filt Rate > 60.0 mL/min (>60); Glucose 145 mg/dL (80-110); HDL Cholesterol 38 mg/dL (40-60); HEMOLYSIS < 15 (0-50); LDL Cholesterol Calculated 88 mg/dL (<100); Potassium 4.5 mmol/L (3.4-5.1); Sodium 137 mmol/L (137-145); Triglycerides 161 mg/dL (35-150)
[2020-08-21 07:00] VITALS: BP 155/77; PULSE 78; RESP 18; TEMP 36.4; O2SAT 99
[2020-08-21 07:55] VITALS: O2SAT 95
[2020-08-21] MEDS: GLIMEPIRIDE 2 MG TABLET PO (09:33)
[2020-08-21] MEDS: CLOPIDOGREL 75 MG TABLET PO (09:34)
[2020-08-21] MEDS: GABAPENTIN 300 MG CAPSULE PO (09:34)
[2020-08-21] MEDS: METOPROLOL IR 50 MG TABLET PO (09:34)
[2020-08-21] MEDS: METFORMIN HCL 500 MG TABLET 1000 MG PO (09:34)
[2020-08-21] MEDS: LOSARTAN 50 MG TABLET 100 MG PO (09:34)
[2020-08-21] MEDS: ASPIRIN EC 81 MG TABLET PO (09:34)
[2020-08-21] MEDS: ENOXAPARIN 40 MG/0.4 ML SYRINGE SUBCUT (09:35)
[2020-08-21] MEDS: SODIUM CHLORIDE 0.9% FLUSH 10 ML IV (09:36)
[2020-08-21 11:00] VITALS: BP 171/79; PULSE 83; RESP 18; TEMP 36.3; O2SAT 99
--- NOTE | 2020-08-21 11:07 | CM.DANOTE ---
DCP: Case received,EMR reviewed and met with patient. Introduced self and role. Was able to obtain information from patient regarding his baseline activity status prior to hospitalization, as well as his current living situation. DCP assessment completed with information currently available. Patient is an 79 year old male who admitted yesterday afternoon to the care of the hospitalist team. PCP: Dr. Peters. Payer: confirmed: Medicare/[facility]. Patient came to the hospital via private vehicle secondary to having CVA symptoms. Patient has history of TIAs. He had been seen recently at [facility], and indicated, they couldn't do an MRI, so I decided to come to [facility]. Patient indicated, he has had a few TIAs for the last several days. He indicated that during occurrence, he gets some right sided weakness and numbness. He stated, symptoms have now resolved. Patient confirmed that he resides alone in [place]. Confirmed his primary provider, he indicated that he just starting seeing him. He stated that he does have children in the area. He uses no DME, and drives. He is independent and ambulatory. He uses no DME supplies. P: Patient has discharge orders for home today. He will be working with therapy team prior to discharge. Katherine Horowitz RN/Assault Amphibious Vehicle Officer
--- NOTE | 2020-08-21 12:21 | OT.IP.EVAL ---
Past Medical History (Last Reviewed 08/20/20 @ 23:14 by DOMINICK Ruiz) Aortic stenosis Bone spur Cardiomyopathy Cervical spine fracture (~195) Diabetes Facet arthropathy, lumbosacral Former smoker Hematochezia (~2016) History of prostate cancer HNP (herniated nucleus pulposus), lumbar HTN (hypertension) Hyperlipidemia Left wrist fracture (~2010) Lumbosacral radiculopathy at L5 Lumbosacral spondylosis Osteoarthritis Polymyalgia rheumatica Prostate cancer RBBB (right bundle branch block) Recurrent urinary tract infection TIA (transient ischemic attack) (~2011) TMJ (temporomandibular joint disorder) Surgical History (Last Reviewed 08/20/20 @ 23:14 by DOMINICK Ruiz) Hx of prostatectomy Occupational Therapy Inpatient Evaluation/Re-Eval M1 PT/OT-IP Prior Functional Status Start: 08/21/20 12:25 Freq: NEEDED Status: Active Protocol: Document 08/21/20 11:45 [facility] (Rec: 08/21/20 12:41 [facility] [id number]) Medical Review Prior Functional Status Medical History Reviewed Yes Diet/Fluid Consistency Regular Communication Independent Mobility and Gait Independent without device Activities of Daily Living and IADL's Independent, stands for showers, uses an external catheter with leg bag, Daughter comes over daily to make him dinner or works with him to make dinner. His son lives across the street. 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 2, rails Home Environment Walk in Shower Home Equipment Straight Cane,Grab Bars Near Toilet Employment Status Retired Additional Social History Comment He has equipment that his used before her , he states already returned the FWW and use of canes at times but bring it to and from the shop as at times need to use it on the way back. Pt has a 7ft tub that he sits on the edge of the tub and get in. Pt states at times while fixing his cars has to get onto the floor but makes sure to have something close by to help him push up to get back up from the floor. M2 OT-IP Current Condition Start: 08/21/20 12:25 Freq: Status: Active Protocol: Document 08/21/20 11:45 [facility] (Rec: 08/21/20 12:41 [facility] [id number]) Occupational Therapy Current Condition Current Condition Evaluation Date 08/21/20 Treatment Diagnosis TIA, UTI Diagnosis Onset Date 08/20/20 M3 OT- IP Subjective and Pain Start: 08/21/20 12:25 Freq: Status: Active Protocol: Document 08/21/20 11:45 [facility] (Rec: 08/21/20 12:41 [facility] [id number]) OT- Subjective Occupational Therapy Visit Type Type Initial Evaluation Visit Start Time 11:45 Visit Stop Time 12:21 Total Visit Minutes 36 Occupational Therapy Visit Comments Patient Comments Pt agreed to do OT eval. Patient/Caregiver Goals TO go home. OT Pain Assessment Pain When Pain Assessed At Rest Pain Present Pain Present Denied Pain M4 OT- IP ADL's Start: 08/21/20 12:25 Freq: Status: Active Protocol: Document 08/21/20 11:45 [facility] (Rec: 08/21/20 12:41 [facility] [id number]) OT [id number] Comments OT Self-Feeding Comments Not at meal time, pt states did not have any issues. OT ADL-Grooming Comments OT Grooming Comments Pt states did earlier with no issues. OT ADL-Dressing General Eval Lower Body Dressing Ability Independent Comments OT Dressing Comments Pt able to charlie/doff his socks while seated independently. OT ADL-Toileting Comments OT Toileting Comments Pt not having to go. OT ADL-Bathing Comments OT Bathing Comments Pt states able to stand for his showers or gets into his large tub by sitting on the edge of the tub and then lowering himself down. M5 OT- IP IADL's Start: 08/21/20 12:25 Freq: Status: Active Protocol: Document 08/21/20 11:45 [facility] (Rec: 08/21/20 12:41 [facility] [id number]) OT-Instrumental Activities of Daily Living Home Safety Awareness Awareness of Need for Assistance at Home Good Awareness Ability to Problem Solve Emergency Able to Problem Solve Situations Medication Management Medication Management No Deficits Identified Money Management Money Management Caregiver Provides Assistance Meal Preparation Meal Preparation Comments Pt's daughter comes over and they cook together. Driving Driving Concerns Identified Regarding Safety Driving Comments Pt states he has history of seizures and states will not be driving for now, but later in the conversation pt states just drives locally. M6 OT- IP Functional Cognition Start: 03/23/21 12:25 Freq: Status: Active Protocol: Document 08/21/20 11:45 [facility] (Rec: 08/21/20 12:41 [facility] [id number]) Cognitive Factors Limiting Selfcare Function Cognitive Ability Level of Alertness Alert Patient Orientation Name,Age,Birthday,Month,Date, Year,Day of Week,Place, Situation Attention Span Ability Capable of Focused Attention, Capable of Sustained Attention Ability to Follow Commands Able to Follow One Step Commands Memory Description Short Term Impaired Safety Awareness No Deficits Noted Cognitive Comments Cognitive Assessment Comments Pt able to follow commands, has occasional word finding problem at times. Pt scored 186 seconds on [place] making Part B which implies severe impairments for visual attention, task switching, speed of processing, mental flexibility and executive functioning . It is suggested pt not drive at this time. OT- Vision and Hearing OT- Hearing Assessment OT- Hearing Assessment WFL OT- Vision Assessment Visual Acuity Glasses All The Time Occular Pursuits WFL Visual Convergence WFL Visual Gomez WFL M7 OT- IP Mobility and Balance Start: 08/21/20 12:25 Freq: Status: Active Protocol: Document 08/21/20 11:45 [facility] (Rec: 08/21/20 12:41 [facility] [id number]) OT-Transfer Assessment Sit to and From Stand Sit to and from Stand Independent Transfers Transfer Ability Independent Technique Transfer Destination Chair OT- Balance Assessment Sitting Balance and Reactions Static Sitting Balance Ability Normal Dynamic Sitting Balance Ability Normal Standing Balance and Reactions Static Standing Balance Ability Normal M8 OT- IP Objective Assessments Start: 08/21/20 12:25 Freq: Status: Active Protocol: Document 08/21/20 11:45 [facility] (Rec: 08/21/20 12:41 [facility] [id number]) OT Gross Range of Motion Upper Extremity Range of Motion Assessment Bilaterally Impaired ROM Impairments Pt has, bad shoulders which limits his strength and AROM. OT Strength Upper Extremity Strength Assessment Bilaterally Impaired OT- Coordination Assessment Upper Extremity Finger to Nose Test Within Functional Limits Comments Coordination Comments Right hand slower for 9 hole peg by 3 seconds than left hand. In hand manipulations no difference for both hands in coordination. OT-Muscle Tone Assessment Muscle Tone WNL Yes M9 OT- IP Assessment and Plan Start: 08/21/20 12:25 Freq: Status: Active Protocol: Document 08/21/20 11:45 [facility] (Rec: 08/21/20 12:41 [facility] [id number]) OT Summary Assessment and Plan Potential Rehabilitation Potential Good Analytic Complexity at Evaluation Low Summary OT Impairments Functional Cognition,Toileting ,Bathing Progress Towards Goals Progressing Toward Goals Assessment Summary Pt low complexity and main barrier is slight decreased coordination of right hand and scored 186 seconds on [place] making Part B which implies severe impairments for visual attention, task switching, speed of processing, mental flexibility and executive functioning . It is suggested pt not drive at this time. Pt has a supportive son that across the street from him to be able to assist anytime. In addition pt carries his cell phone at all times and to call for assist as needed. Goals Toileting Goal Independent Bathing Goal Independent Shower Transfer Goal Independent Days to Meet Goals 1 Frequency of Treatment Frequency Of Treatment Once a Day Treatment Plan OT Treatment Plan ADL Training,Functional Cognition Training,Functional Mobility,Patient/Family Education,Discharge Planning Other Treatment Recommendations and Next Shower if still here. Treatment Focus Discharge Recommendations OT Discharge Recommendations Home with Assistance Home Equipment Needs shower chair? Transportation Needs at Discharge Private Vehicle
[2020-08-21] MEDS: AMOXICILLIN/CLAV 875/125 MG 1 TAB PO (12:48)
--- NOTE | 2020-08-21 13:57 | PC.NURSE ---
Discharge: Feels ready to d/c home. Has been up in room indep. Gait is steady. Wears a condom cath at all times. Care for same indep. NIH is zero. Tests completed. Tolerates diet w/out problems. No choking seen. No speach diff seen. Reviewed d/c packet. Reviewed stroke sxs. Questions answered. Rx has been esent and pt shown this. Pt d/c home via auto w/son.
--- NOTE | 2020-08-21 21:43 | P.DS_ITS ---
History of Present Illness History of Present Illness Chief complaint: Stroke Yesterday, Follow Up MRI Narrative: Per H and P note by Timi Gallardo 08/20/20: Mr. Deep Erickson is an 79-year-old male with a past medical history significant for aortic stenosis, cardiomyopathy, hypertension, hyperlipidemia, diabetes type 2, prior TIA (2011), chronic low back pain and prostate cancer who presents to the ER with complaints of recurrent TIAs this week. The patient states that he experienced left-sided weakness and numbness lasting approximately 30 minutes onset and Thursday and again yesterday. The patient was seen yesterday at [facility] and was evaluated with a noncontrast CT scan that was negative for significant findings and was diagnosed with a urinary tract infection and given IV and p.o. antibiotics. Patient chose to leave against medical advice to get an outpatient MRI which is not available at [facility] and therefore presents to [facility] for care. The pat iejagdish denies current symptoms at the time of presentation and evaluation. He does endorse a slight generalized headache more prominent on the right side but thought nothing of. He denies ataxia, dizziness or visual changes. Denies complaints of fevers or chills and has had no recent flu cold symptoms and denies recent COVID 19 exposure. He denies complaints of nasal congestion or sore throat, difficulty chewing or swallowing. He has no chest pain or palpitations and denies rapid heart beat. He does acknowledge having a murmur diagnosis since age 20. He denies complaints of shortness of breath cough or wheezing has no exertional or conversational dyspnea. He denies epigastric or abdominal pain has a nausea vomiting, diarrhea or constipation. He does endorse blood sugars that have been elevated but denies excessive thirst or urination. He denies urgency frequency or burning. The patient is typically active restoring classic automobiles. Upon arrival to the ER the patient has a temperature 97.4?, heart rate of 79, blood pressure 166/88, respirations of 18 saturating 96% on room air. An MRI is obtained which finds no acute infarct or acute intracranial processes, global volume loss with chronic microvascular ischemic changes. Twelve lead EKG finds sinus rhythm rate of 71 without ectopy, right bundle-branch block, inverted T- waves in V3 through V6. On laboratory analysis CBC finds WBCs 9.0 without shift, hemoglobin 12.1, hematocrit 35.7 platelets 262. His coagulation studies are all within normal range. On chemistries is electrolytes within normal range has a BUN 15 and creatinine 0.8. His nonfasting glucose is 234. His liver functions are within normal limits. His total CK is 38 with negative troponin at less than 0.012. The patient is admitted to the hospitalist service for TIA. Discharge Providers Provider Date of admission: 08/20/20 18:55 Discharge Date: 08/21/20 Primary care physician: Yo Peters MD Consults: 08/20/20 20:13 Consult to Dietitian, Adult Routine Comment: Reason For Exam: Recurrent TIA Consult to Discharge Planning Routine Comment: Consult to Occupational Therapy Evaluate & Treat Comment: Physician Instructions: Evaluate and treat Consult to Physical Therapy Evaluate & Treat Comment: Physician Instructions: Evaluate and Treat Discharge provider: Erick Walden MD Summary Hospital Course Discharge Diagnosis: 1. TIA 2. Aortic stenosis, severe 3. Hypertension 4. Diabetes 5. Hyperlipidemia Hospital Course: Mr. Erickson was admitted after left sided weakness that had been occurring for days prior to admission. His symptoms resolved on their own. He had stroke workup in the hospital with an MRI that was negative for any acute process. He was noted on ECHO to have severe aortic stenosis with PATRICK of 0.95. He is not having symptoms currently but is recommended to follow up with cardiology for concsider of valve replacement. On discharge he had his medications adjusted to lower stroke risk by adding plavix to his aspiring, and by adding high dose atorvastatin. His a1c was 7.4, but he was recently initiated on insulin, and therefore this was not adjusted in the hospital, and should follow up as an outpatient with PCP. His blood pressure was not consistent, with both periods of normotenstion and elevated blood pressures. He should follow with PCP for titration of these meds as needed. Code status: Full Status at Discharge Cognitive/behavioral status at discharge: oriented Functional status at discharge: independent ambulation Overall status at discharge: patient is back to baseline Time Spent with Patient Time spent: Greater than 30 minutes Exam Vital Signs (past 8 hours): Oxygen Delivery Method Room Air Oxygen Flow Rate 0 Narrative Exam Narrative: GENERAL APPEARANCE: well developed, well nourished, in no acute distress. HEENT: Symmetrical facies, PERRLA, conjunctiva clear, sclera anicteric, EOMs intact without nystagmus, B/L facial sensation intact, no rhinorrhea, mucous membranes are moist and pink. NECK/THYROID: neck supple, no JVD, no carotid bruit, no thyromegaly, trachea midline. LYMPH NODES: no cervical or supraclavicular lymphadenopathy. SKIN: [place], warm and dry, no visible lesions, rashes, ulcerations or petechiae. HEART: regular rate and rhythm, S1-S2, 2/6 systolic murmur heard across the precordium most prominent in left upper sternal border., no rubs or gallops, 2+ pedal pulses, no edema LUNGS: clear to auscultation bilaterally, no coarseness crackles or wheezing, no cough present CHEST: Symmetrical movement, no accessory muscle use, good tidal volume. ABDOMEN: Soft, no distention, no abdominal tenderness, no guarding or peritoneal signs, no organomegaly, no flank or suprapubic tenderness, active bowel tones. BACK: Normal curvature, nontender to palpation, no back pain on straight leg raise. EXTREMITIES: moves all extremities, strength is 5/5 and symmetrical without drift, claim adjuster equal bilateral, no deformities or joint effusions, no cyanosis or clubbing. NEUROLOGIC: AAO x4, cranial nerves II-XII grossly intact, sensation intact to light touch, hearing grossly normal to speech. PSYCH: Good judgment, linear thought process, cooperative, appropriate with stable behavior Objective Labs Result Diagrams: 08/20/20 17:50 08/21/20 05:06 Labs: Laboratory Results - last 24 hr 08/20/20 08/21/20 22:38 05:06 Sodium 137 Potassium 4.5 Chloride 105 Carbon Dioxide 28 BUN 14 Creatinine 0.78 Estimated GFR > 60.0 BUN/Creatinine Ratio 17.9 Glucose 145 H Calcium 10.2 Triglycerides 161 H Cholesterol 158 LDL Cholesterol, Calc 88 HDL Cholesterol 38 L Urine Color Yellow Urine Appearance Clear Urine pH 6.0 Ur Specific Walker 1.015 Urine Protein Negative Urine Glucose (UA) 1+ H Urine Ketones Negative Urine Occult Blood Negative Urine Nitrate Negative Urine Bilirubin Negative Urine Urobilinogen 0.2 Ur Leukocyte Esterase Negative Urine RBC None seen Urine WBC None seen Urine Bacteria None seen Ur Culture Indicated? Cult not indicated Micro UA Comment Microscopic normal [facility] Medical History Aortic stenosis Bone spur Cardiomyopathy Cervical spine fracture (~1958) Diabetes Facet arthropathy, lumbosacral Former smoker Hematochezia (~2016) History of prostate cancer HNP (herniated nucleus pulposus), lumbar HTN (hypertension) Hyperlipidemia Left wrist fracture (~2010) Lumbosacral radiculopathy at L5 Lumbosacral spondylosis Osteoarthritis Polymyalgia rheumatica Prostate cancer RBBB (right bundle branch block) Recurrent urinary tract infection TIA (transient ischemic attack) (~2011) TMJ (temporomandibular joint disorder) Surgical History Hx of prostatectomy Family History (Updated 08/20/20 @ 23:16 by DOMINICK Ruiz) Father Heart disease Heart attack Mother No significant medical problems Grandmother Heart disease Social History household members: none Smoking Status: Former smoker alcohol intake: current Discharge Plan Discharge Plan Patient Disposition: Home Provider Discharge Comment: Mr. Erickson came into the hospital with left sided numbness. He was evaluated for a possible stroke. MRI of the brain showed no stroke. ECHO of his heart showed severe aortic stenosis with an aortic valve area of 0.95. He was diagnosed with a TIA. He was already on aspirin and taking this consistently, so plavix will be added for at least 3 weeks to prevent stroke. He will also be added to a high dose atorvastatin to help prevent strokes. He had recent changes to his insulin, and his a1c is 7.04, so this was not adjusted, but will continued to be managed with his PCP. His blood pressure fluctuated between the 110s-150s systolic, given that he had no consistent high blood pressure, his medications were not adjusted. He should have referral to cardiology to follow his aortic stenosis. Discharge orders & Medications Prescriptions: New clopidogrel 75 mg Tablet 75 mg PO DAILY Qty: 30 RF: 0 atorvastatin 80 mg tablet 80 mg PO BEDTIME Qty: 30 RF: 0 Continued aspirin 81 mg Tablet,Delayed Release (Dr/Ec) 81 mg PO BEDTIME Qty: 0 RF: 0 losartan 100 MG tablet 100 mg PO QDAY Qty: 0 RF: 0 metformin 1,000 MG tablet 1,000 mg PO BIDCC Qty: 0 RF: 0 metoprolol tartrate [Lopressor] 50 mg Tablet 50 mg PO BID RF: 0 gabapentin 300 mg capsule 300 mg PO BID RF: 0 omeprazole 20 mg Capsule,Delayed Release(Dr/Ec) 20 mg PO BEDTIME RF: 0 amoxicillin-pot clavulanate [Augmentin] 875-125 mg Tablet 1 tab PO Q12H RF: 0 glimepiride 2 mg tablet 2 mg PO DAILY RF: 0 insulin lispro [Humalog U-100 Insulin] 100 unit/mL solution 10 sliding scale dose SUBCUT USEASDIRECTD RF: 0 Follow up/Referrals: Yo Peters MD [Primary Care Provider] - Discharge Health Status Multidrug resistant organism: No MDRO Diet/Activity/Treatments Diet: Carb-consistent/Diabetic and Low-cholesterol Visit Report/Discharge Packet Instructions: DI for Transient Ischemic Attack Discharge Data Primary Care Provider: Yo Peters Attending Provider: Erick Walden MIPS - Admit Advanced Care Plan / Current Medications Measures: #47 ? Advanced Care Plan Clinician documentation instruction: document at admission. [] I confirmed that the patient's Advance Care Plan is present, code status is documented, or surrogate decision maker is listed in the patient?s medical record. [SATISFIES MIPS PERFORMANCE] If Yes, Stop Here [] The patient?s Advance Care plan is not present because: (select) [MIPS PERFORMANCE EXCEPTION/EXCLUSION] [] I confirmed today that the patient does not wish or was not able to name a surrogate decision maker or provide an Advance Care Plan. [] Hospice care is currently being provided or has been provided this calendar year [] I did NOT confirm today the presence of an Advance Care Plan or surrogate d ecision maker documented within the patient's medical record. [DOES NOT SATISFY MIPS PERFORMANCE] #130 - Documentation of Current Medications in the Medical Record Clinician documentation instruction: use macro the first time you see a patient. [] I have utilized all available immediate resources to obtain, update, or review the patient?s current medications. [SATISFIES MIPS PERFORMANCE] If Yes, Stop Here [] The patient is not eligible for medication reconciliation; the patient is in an emergent medical situation where delaying treatment would jeopardize the riaz ent?s health. [MIPS PERFORMANCE EXCEPTION/EXCLUSION] [] I did NOT confirm, update or review the patient's current list of medications today. [DOES NOT SATISFY MIPS PERFORMANCE] MIPS - CL Central Venous Catheter Placement Measure: #76 ? Prevention of Central Venous Catheter (CVC) ? Related Bloodstream Infection Clinician documentation instruction: use macro every time you place a central line. [] All elements of Maximal Sterile Barrier Technique, including hand hygiene, skin prep, and sterile ultrasound technique (if used) were followed. [SATISFIES MIPS PERFORMANCE] If Yes, Stop Here [] If ?No?, the medical reason all elements were NOT used for medical reason [] (ex. emergent condition). [] Maximal Sterile Barrier Technique was not followed, no reason provided [DOES NOT SATISFY MIPS PERFORMANCE] MIPS - DC Heart Failure Measures: #5 - Heart Failure (HF): Angiotensin-Converting Enzyme (SUE) Inhibitor or Angiotensin Receptor Dao (ARB) Therapy for Left Ventricular Systolic Dysfunction (LVSD) and #8 - Heart Failure (HF): Beta-Dao Therapy for Left Ventricular Systolic Dysfunction (LVSD) Clinician documentation instruction: use macro at every CHF discharge. [] The patient has current or prior documentation of left ventricular ejection fraction (LVEF) less than 40%, or moderate or severely depressed left ventricular systolic function. Answer both: [SATISFIES MIPS PERFORMANCE] [] The patient was prescribed or already taking an Angiotensin-Converting Enzyme (SUE) Inhibitor, or Angiotensin Receptor Dao (ARB). [] The patient was prescribed or already taking a beta-dao. If Yes to Both, Stop Here [] Patient not prescribed/taking: [MIPS PERFORMANCE EXCEPTION/EXCLUSION] [] SUE or ARB for medical/patient/system reason(s) including [] (ex. allergy, intolerance, contraindication) [] Beta-dao for medical/patient/system reason(s) including [] (ex. allergy, intolerance, contraindication) [] Patient not prescribed/taking: [DOES NOT SATISFY MIPS PERFORMANCE] [] SUE or ARB, no reason given [] Beta-dao, no reason given
== END 2020-08-21 13:45 | disposition home or self-care (01) ==
LOC: ED 16:48 → AC 18:55 → ICU 19:39
PROVIDERS: Nurse Practitioner Adult Health; Admitting Provider Internal Medicine; Emergency Provider Nurse Practitioner Family; PCP Internal Medicine; Referring Provider Nurse Practitioner Family; Visit Provider Internal Medicine
DX: G45.9 Transient cerebral ischemic attack, unspecified (principal); I10 Essential (primary) hypertension; E11.9 Type 2 diabetes mellitus without complications; E78.5 Hyperlipidemia, unspecified; Z79.4 Long term (current) use of insulin; Z20.822 Contact with and (suspected) exposure to COVID-19
CPT/HCPCS: 36415; 70551; 80048; 80053; 80061; 81001; 82550; 82962; 83036; 83735; 83880; 84484; 85025; 85610; 85730; 87635; 93005; 93010; 93306; 96372; 97161; 97165; 99284; G0378; J1650

== ENCOUNTER 2021-01-29 10:28 | Emergency (ER) | payer MEDICARE, OTHER, SELFPAY ==
[2021-01-29] VITALS (16 sets, daily range): BP systolic 99–127; BP diastolic 55–64; PULSE 69–98; RESP 7–30; TEMP 37; O2SAT 92–98
--- NOTE | 2021-01-29 10:42 | DI.RAD.S_ITS ---
PROCEDURE: XR CHEST 1V INDICATIONS: suspected sepsis TECHNIQUE: One view of the chest was acquired. COMPARISON: [facility], , CHEST 2 VIEW, 02/10/2013, 10:48. FINDINGS: Surgical changes and devices: None. Lungs and pleura: Lungs are clear. No pleural effusions or pneumothorax. Mediastinum: Mediastinal contours appear normal. Heart size is normal. Bones and chest wall: No suspicious bony lesions. Overlying soft tissues appear unremarkable. IMPRESSION: No acute cardiopulmonary abnormality. Dictated by: Chris Shore M.D. on 01/29/2021 at 11:54 Approved by: Chris Shore M.D. on 01/29/2021 at 11:54
--- NOTE | 2021-01-29 11:05 | ED_ITS ---
HPI - Fever General Chief Complaint: Fever Stated Complaint: Diabetic seizures- 3 days Time Seen by Provider: 01/29/21 10:47 Source: patient and family Mode of arrival: Ambulatory Limitations: no limitations History of Present Illness HPI Narrative: Patient is a 80-year-old male with history of insulin-dependent diabetes chronic condom catheter, prostate cancer, TIA presenting today with fever and chills ongoing for the last 3 days. He says he violently is shaking for an hour and a half and then gets sweaty and hot. He feels like he has some shortness of breath at times. He does not have a productive cough. He has no shortness of breath with exertion or shortness of breath now. He has no chest pain or palpitations. He does have a chronic condom catheter he denies any new or worsening discomfort with urination. He occasionally has some abdominal pain he felt nauseated but no specific vomiting. He is fully COVID vaccinated. Related Data Home Medications Medication Instructions Recorded Confirmed aspirin 81 mg tablet,delayed 81 mg PO BEDTIME #0 08/21/11 08/20/20 release losartan 100 mg tablet 100 mg PO QDAY #0 08/21/11 08/20/20 metformin 1,000 mg tablet 1,000 mg PO BIDCC #0 02/10/13 08/20/20 metoprolol tartrate 50 mg tablet 50 mg PO BID 07/21/18 08/20/20 (Lopressor) glimepiride 2 mg tablet 2 mg PO DAILY 04/18/19 08/20/20 insulin lispro 100 unit/mL 10 sliding scale dose SUBCUT 04/12/20 08/20/20 subcutaneous solution (Humalog USEASDIRECTD U-100 Insulin) amoxicillin 875 mg-potassium 1 tab PO Q12H 08/20/20 08/20/20 clavulanate 125 mg tablet (Augmentin) omeprazole 20 mg capsule,delayed 20 mg PO BEDTIME 08/20/20 08/20/20 release Previous Rx's Medication Instructions Recorded atorvastatin 80 mg tablet 80 mg PO BEDTIME #30 tab 08/21/20 clopidogrel 75 mg tablet 75 mg PO DAILY #30 tab 08/21/20 gabapentin 300 mg capsule See Rx Instructions .ROUTE 11/13/20 .COMPLEX #90 capsule cephalexin 500 mg capsule 500 mg PO BID 7 Days #14 cap 01/29/21 Allergies Allergy/AdvReac Type Severity Reaction Status Date / Time No Known Drug Allergies Allergy Verified 01/29/21 10:46 Review of Systems Review of Systems ROS Unobtainable: All systems reviewed & are unremarkable except as noted in HPI and below Constitutional Constitutional: Reports body ache(s), Reports chills, Reports fatigue and Reports fever(s) Eyes Eyes: Denies blurry vision ENT Ears, Nose, Mouth, and Throat: Denies sore throat Cardiovascular Cardiovascular: Denies chest pain, Denies chest pain at rest and Denies syncope Respiratory Respiratory: Reports chest congestion and Reports cough Gastrointestinal Gastrointestinal: Denies abdominal pain, Reports nausea and Denies vomiting Genitourinary Genitourinary: Reports as per HPI Musculoskeletal Musculoskeletal: Reports myalgias Integumentary/Breasts Skin/Breast: Denies rash Neurologic Neurologic: Denies syncope Endocrine Endocrine: Reports fatigue Patient History Medical History Aortic stenosis Bone spur Cardiomyopathy Cervical spine fracture (~1958) Diabetes Facet arthropathy, lumbosacral Former smoker Hematochezia (~2016) History of prostate cancer HNP (herniated nucleus pulposus), lumbar HTN (hypertension) Hyperlipidemia Left wrist fracture (~2010) Lumbosacral radiculopathy at L5 Lumbosacral spondylosis Osteoarthritis Polymyalgia rheumatica Prostate cancer RBBB (right bundle branch block) Recurrent urinary tract infection TIA (transient ischemic attack) (~2011) TMJ (temporomandibular joint disorder) Surgical History Hx of prostatectomy Family History (Updated 08/20/20 @ 23:16 by DOMINICK Ruiz) Father Heart disease Heart attack Mother No significant medical problems Grandmother Heart disease Social History household members: none Smoking Status: Former smoker alcohol intake: current Smoking Status: Former smoker alcohol intake frequency: 0-2 drinks per day Substance Use Type: does not use Exam Initial Vital Signs Initial Vital Signs: Vital Signs Temperature 98.6 F 01/29/21 10:35 Pulse Rate 98 H 01/29/21 10:35 Respiratory Rate 14 01/29/21 10:35 Blood Pressure 127/57 L 01/29/21 10:35 Pulse Oximetry 98 01/29/21 10:35 GENERAL: Alert well-appearing 80-year-old male HEENT: Head atraumatic,EOMI, pupils reactive, face symmetric, moist mucous membranes CARDIOVASCULAR: Regular rate and rhythm without murmurs, rubs or gallops. RESPIRATORY: Breath sounds equal bilaterally, no wheezes rales or rhonchi. ABDOMEN: Soft, nontender. Normoactive bowel sounds all 4 quadrants. No guarding or rebound. : No CVA tenderness, condom catheter in place urine in Ye bag EXTREMITIES: Normal range of motion, no clubbing or edema. Neurovascularly intact NEUROLOGICAL: Alert and oriented x4.Normal gait and speech. SKIN: Warm, dry, no laceration, no petechiae, no rashes or lesions. Course Orders Ordered: ED Orders 01/29/21 10:55 Complete Blood Count AUTO DIFF Stat Comprehensive Metabolic Panel Stat Lactate (Lactic Acid) Stat Lipase Stat Procalcitonin Stat 01/29/21 10:57 COVID19 - ADMIT (CATALOGUE CLERK swab/PCR) Stat 01/29/21 11:09 Troponin & CK Cardiac Panel Stat 01/29/21 11:31 Blood Culture Stat 01/29/21 12:12 Urinalysis and Microscopic Stat Urine Culture Stat 01/29/21 13:10 Troponin I Stat Discontinued Medications Sodium Chloride (Normal Saline 0.9%) 1,000 mls @ 1,000 mls/hr IV BOLUS ONE Stop: 01/29/21 11:40 Last Infusion: 01/29/21 12:30 Dose: 0 mls/hr Documented by: Admin: 01/29/21 11:27 Dose: 1,000 mls/hr Documented by: CLOTILDE Sodium Chloride (Normal Saline 0.9%) 1,000 mls @ 1,000 mls/hr IV BOLUS ONE Stop: 01/29/21 12:06 Last Admin: 01/29/21 12:08 Dose: Not Given Documented by: CLOTILDE Ceftriaxone Sodium 2,000 mg/ (Sodium Chloride) 100 mls @ 200 mls/hr IV NOW ONE Stop: 01/29/21 11:59 Last Infusion: 01/29/21 12:56 Dose: 0 mls/hr Documented by: Admin: 01/29/21 12:09 Dose: 200 mls/hr Documented by: CLOTILDE Ondansetron HCl (Ondansetron 4 Mg/2 Ml Inj) 4 mg IV NOW ONE Stop: 01/29/21 10:42 Last Admin: 01/29/21 11:26 Dose: 4 mg Documented by: CLOTILDE Vital Signs Vital signs: Vital Signs - 8 hr 01/29/21 12:00 01/29/21 12:15 01/29/21 12:30 Pulse Rate 70 70 82 Respiratory Rate 22 16 22 Blood Pressure 109/55 L 108/59 L Pulse Oximetry 97 97 92 01/29/21 12:45 01/29/21 13:00 01/29/21 13:03 Pulse Rate 81 70 69 Respiratory Rate 10 L 23 10 L Blood Pressure 102/57 L 99/56 L Pulse Oximetry 93 97 96 01/29/21 13:15 01/29/21 13:30 01/29/21 13:45 Pulse Rate 69 80 82 Respiratory Rate 7 L 25 H 17 Blood Pressure 115/59 L Pulse Oximetry 96 94 98 MDM - Fever Lab Data Result diagrams: 01/29/21 10:55 01/29/21 10:55 Labs: Lab Results 01/29/21 01/29/21 01/29/21 Range/Units 10:55 10:55 10:55 WBC 12.5 H (4.5-11.0) X10^3/uL RBC 3.81 L (4.5-5.9) X10^6/uL Hgb 11.7 L (13.5-17.5) g/dL Hct 34.1 L (41-53) % MCV 89.3 (80-100) fL MCH 30.6 (26-34) PG MCHC 34.2 (30-36) % RDW 14.5 (11.6-14.8) % Plt Count 233 (150-400) X10^3/uL Neut % (Auto) 77.5 H (50-75) % Lymph % (Auto) 12.3 L (25-40) % Barren % (Auto) 9.6 (3-14) % Eos % (Auto) 0.1 L (2-4) % Baso % (Auto) 0.5 (0-2) % Neut # (Auto) 9700 H (3563-9121) /uL Lymph # (Auto) 1500 (8392-6995) /uL Barren # (Auto) 1200 H (0-900) /uL Eos # (Auto) 0 (0-450) /uL Baso # (Auto) 100 (0-100) /uL Sodium 129 L (137-145) mmol/L Potassium 4.3 (3.4-5.1) mmol/L Chloride 98 (98-107) mmol/L Carbon Dioxide 23 (22-32) mmol/L BUN 20 (9-20) mg/dL Creatinine 0.98 (0.66-1.25) mg/dL Estimated GFR > 60.0 (>60) mL/min BUN/Creatinine Ratio 20.4 (6-22) Glucose 278 H (80-110) mg/dL Lactate 2.2 H (0.7-2.1) mmol/L Calcium 9.9 (8.4-10.2) mg/dL Total Bilirubin 0.8 (0.2-1.3) mg/dL AST 23 (17-59) IU/L ALT 18 (<50) IU/L Alkaline Phosphatase 59 (38-126) U/L Total Creatine Kinase (55-170) U/L CK-MB (CK-2) CK-MB (CK-2) Rel Index Troponin I (0.01-0.034) ng/mL Total Protein 7.0 (6.3-8.2) g/dL Albumin 4.1 (3.5-5.0) g/dL Globulin 2.9 (1.7-4.1) g/dL Albumin/Globulin Ratio 1.4 (1.0-2.8) Lipase 125 (23-300) U/L Procalcitonin 0.88 H (<0.5) ng/mL Urine Color Urine Appearance Urine pH (4.5-8.0) Ur Specific [place] (1.000-1.035) Urine Protein (Negative) Urine Glucose (UA) (Negative) g/dL Urine Ketones (NEGATIVE) Urine Occult Blood (Negative) Urine Nitrate (Negative) Urine Bilirubin (NEGATIVE) Urine Urobilinogen (0.2) E.U./dL Ur Leukocyte Esterase (NEGATIVE) Urine RBC (0-5/HPF) Urine WBC (0-5/HPF) Urine Bacteria (None) Ur Culture Indicated? SARS-CoV-2 (PCR) (Negative) 01/29/21 01/29/21 01/29/21 Range/Units 10:57 11:09 12:12 WBC (4.5-11.0) X10^3/uL RBC (4.5-5.9) X10^6/uL Hgb (13.5-17.5) g/dL Hct (41-53) % MCV (80-100) fL MCH (26-34) PG MCHC (30-36) % RDW (11.6-14.8) % Plt Count (150-400) X10^3/uL Neut % (Auto) (50-75) % Lymph % (Auto) (25-40) % Barren % (Auto) (3-14) % Eos % (Auto) (2-4) % Baso % (Auto) (0-2) % Neut # (Auto) (8060-8891) /uL Lymph # (Auto) (8509-9815) /uL Barren # (Auto) (0-900) /uL Eos # (Auto) (0-450) /uL Baso # (Auto) (0-100) /uL Sodium (137-145) mmol/L Potassium (3.4-5.1) mmol/L Chloride (98-107) mmol/L Carbon Dioxide (22-32) mmol/L BUN (9-20) mg/dL Creatinine (0.66-1.25) mg/dL Estimated GFR (>60) mL/min BUN/Creatinine Ratio (6-22) Glucose (80-110) mg/dL Lactate (0.7-2.1) mmol/L Calcium (8.4-10.2) mg/dL Total Bilirubin (0.2-1.3) mg/dL AST (17-59) IU/L ALT (<50) IU/L Alkaline Phosphatase (38-126) U/L Total Creatine Kinase 79 (55-170) U/L CK-MB (CK-2) TNP CK-MB (CK-2) Rel Index TNP Troponin I 0.033 (0.01-0.034) ng/mL Total Protein (6.3-8.2) g/dL Albumin (3.5-5.0) g/dL Globulin (1.7-4.1) g/dL Albumin/Globulin Ratio (1.0-2.8) Lipase (23-300) U/L Procalcitonin (<0.5) ng/mL Urine Color [place] Urine Appearance Cloudy Urine pH 5.5 (4.5-8.0) Ur Specific [place] 1.020 (1.000-1.035) Urine Protein 1+ H (Negative) Urine Glucose (UA) 1+ H (Negative) g/dL Urine Ketones Trace H (NEGATIVE) Urine Occult Blood 1+ H (Negative) Urine Nitrate Negative (Negative) Urine Bilirubin Negative (NEGATIVE) Urine Urobilinogen 0.2 (0.2) E.U./dL Ur Leukocyte Esterase 2+ H (NEGATIVE) Urine RBC 5-10/hpf H (0-5/HPF) Urine WBC 10-30/hpf H (0-5/HPF) Urine Bacteria Many (>30) H (None) Ur Culture Indicated? Specimen cultured SARS-CoV-2 (PCR) Negative (Negative) 01/29/21 01/29/21 Range/Units 13:10 13:10 WBC (4.5-11.0) X10^3/uL RBC (4.5-5.9) X10^6/uL Hgb (13.5-17.5) g/dL Hct (41-53) % MCV (80-100) fL MCH (26-34) PG MCHC (30-36) % RDW (11.6-14.8) % Plt Count (150-400) X10^3/uL Neut % (Auto) (50-75) % Lymph % (Auto) (25-40) % Barren % (Auto) (3-14) % Eos % (Auto) (2-4) % Baso % (Auto) (0-2) % Neut # (Auto) (8115-9476) /uL Lymph # (Auto) (8497-9099) /uL Barren # (Auto) (0-900) /uL Eos # (Auto) (0-450) /uL Baso # (Auto) (0-100) /uL Sodium (137-145) mmol/L Potassium (3.4-5.1) mmol/L Chloride (98-107) mmol/L Carbon Dioxide (22-32) mmol/L BUN (9-20) mg/dL Creatinine (0.66-1.25) mg/dL Estimated GFR (>60) mL/min BUN/Creatinine Ratio (6-22) Glucose (80-110) mg/dL Lactate 2.0 (0.7-2.1) mmol/L Calcium (8.4-10.2) mg/dL Total Bilirubin (0.2-1.3) mg/dL AST (17-59) IU/L ALT (<50) IU/L Alkaline Phosphatase (38-126) U/L Total Creatine Kinase (55-170) U/L CK-MB (CK-2) CK-MB (CK-2) Rel Index Troponin I 0.026 (0.01-0.034) ng/mL Total Protein (6.3-8.2) g/dL Albumin (3.5-5.0) g/dL Globulin (1.7-4.1) g/dL Albumin/Globulin Ratio (1.0-2.8) Lipase (23-300) U/L Procalcitonin (<0.5) ng/mL Urine Color Urine Appearance Urine pH (4.5-8.0) Ur Specific [place] (1.000-1.035) Urine Protein (Negative) Urine Glucose (UA) (Negative) g/dL Urine Ketones (NEGATIVE) Urine Occult Blood (Negative) Urine Nitrate (Negative) Urine Bilirubin (NEGATIVE) Urine Urobilinogen (0.2) E.U./dL Ur Leukocyte Esterase (NEGATIVE) Urine RBC (0-5/HPF) Urine WBC (0-5/HPF) Urine Bacteria (None) Ur Culture Indicated? SARS-CoV-2 (PCR) (Negative) Urine Dip Bedside Urine Glucose Negative Bedside Urine Bilirubin + 1 Bedside Urine Ketone - Negative Urine Specific [place] 1.025 Bedside Urine Occult Blood + Bedside Urine pH 6.0 Bedside Urine Protein + 30 Bedside Urine Urobilinogen +/- 1mg Bedside Urine Nitrite - Negative Bedside Urine Leukocytes ++ 125 Esterase Imaging Data Chest x-ray: Radiologist's Impression: PROCEDURE: XR CHEST 1V INDICATIONS: suspected sepsis TECHNIQUE: One view of the chest was acquired. COMPARISON: [facility], , CHEST 2 VIEW, 02/10/2013, 10:48. FINDINGS: Surgical changes and devices: None. Lungs and pleura: Lungs are clear. No pleural effusions or pneumothorax. Mediastinum: Mediastinal contours appear normal. Heart size is normal. Bones and chest wall: No suspicious bony lesions. Overlying soft tissues appear unremarkable. IMPRESSION: No acute cardiopulmonary abnormality. Dictated by: Chris Shore M.D. on 01/29/2021 at 11:54 Approved by: Chris Shore M.D. on 01/29/2021 at 11:54 ECG Data Interpretation: Normal sinus rhythm rate 71 VT interval 152 QRS 128 QTC 443 right bundle-branch block noted no ST changes, similar to previous MDM Narrative Medical decision making narrative: Patient is an 80-year-old male with history of diabetes presenting with rigors. He is currently afebrile he has mild l eukocytosis elevated procalcitonin and UTI. He does not have an indwelling catheter he uses a condom catheter. He is given IV fluids lactic acid improves he is also given 1 dose of Rocephin here. She overall appears is very well. I have explained to him that blood cultures are pending he may receive a phone call about him in a couple of days he also may receive a phone call about antibiotics. Not sure if he has had resistance in the past since he has had assisted Ye catheter. He is started on Keflex. He has no evidence of severe sepsis. He has 2- troponins infected troponin decreased with the 2nd one. Discharge Plan Departure Patient Disposition: Home Clinical Impression: Acute UTI Instructions: How to Care for Your Ye Catheter -- Male, DI for Urinary Tract Infection (UTI) Activity Restrictions/Additional Instructions: *You have been diagnosed with UTI *What to do: At this time you have a bladder infection. Increase fluid as tolerated. We will call you in 2-3 days if her antibiotic should need to be changed or if your blood cultures are positive *Continue to take medications as directed Keflex 500 mg times a day for 7 days--> SENT TO [facility] *Follow up with your primary care provider in 2-3 days *Return to ER if you should have increasing confusion, increasing falls, or any new, worsening or concerning symptoms Prescriptions: New cephalexin 500 mg capsule 500 mg PO BID 7 Days Qty: 14 RF: 0 No Action aspirin 81 mg Tablet,Delayed Release (Dr/Ec) 81 mg PO BEDTIME Qty: 0 RF: 0 losartan 100 MG tablet 100 mg PO QDAY Qty: 0 RF: 0 metformin 1,000 MG tablet 1,000 mg PO BIDCC Qty: 0 RF: 0 gabapentin 300 mg capsule See Rx Instructions .ROUTE .COMPLEX Qty: 90 RF: 2 metoprolol tartrate [Lopressor] 50 mg Tablet 50 mg PO BID RF: 0 omeprazole 20 mg Capsule,Delayed Release(Dr/Ec) 20 mg PO BEDTIME RF: 0 amoxicillin-pot clavulanate [Augmentin] 875-125 mg Tablet 1 tab PO Q12H RF: 0 clopidogrel 75 mg Tablet 75 mg PO DAILY Qty: 30 RF: 0 atorvastatin 80 mg tablet 80 mg PO BEDTIME Qty: 30 RF: 0 glimepiride 2 mg tablet 2 mg PO DAILY RF: 0 insulin lispro [Humalog U-100 Insulin] 100 unit/mL solution 10 sliding scale dose SUBCUT USEASDIRECTD RF: 0 Referrals: Yo Peters MD [Primary Care Provider] -
[2021-01-29 11:06] LABS: Add Manual Diff / Slide Review NO; Basophils Absolute Auto 100 /uL (0-100); Basophils Percent Auto 0.5 % (0-2); Eosinophils Absolute Auto 0 /uL (0-450); Eosinophils Percent Auto 0.1 % (2-4); Hematocrit 34.1 % (41-53); Hemoglobin 11.7 g/dL (13.5-17.5); Lymphocytes Absolute Auto 1500 /uL (1100-4500); Lymphocytes Percent Auto 12.3 % (25-40); Mean Corpuscular HGB Conc 34.2 % (30-36); Mean Corpuscular Hemoglobin 30.6 PG (26-34); Mean Corpuscular Volume 89.3 fL (80-100); Monocytes Absolute Auto 1200 /uL (0-900); Monocytes Percent Auto 9.6 % (3-14); Neutrophils Absolute Auto 9700 /uL (1500-7000); Neutrophils Percent Auto 77.5 % (50-75); Platelet Count 233 X10^3/uL (150-400); Red Blood Cell Count 3.81 X10^6/uL (4.5-5.9); Red Cell Distribution Width 14.5 % (11.6-14.8); White Blood Cell Count 12.5 X10^3/uL (4.5-11.0)
[2021-01-29 11:15] LABS: Alanine Aminotransferase 18 IU/L (<50); Albumin 4.1 g/dL (3.5-5.0); Albumin Globulin Ratio 1.4 (1.0-2.8); Alkaline Phosphatase 59 U/L (38-126); Aspartate Aminotransferase 23 IU/L (17-59); BUN Creatinine Ratio 20.4 (6-22); Bilirubin Total 0.8 mg/dL (0.2-1.3); Blood Urea Nitrogen 20 mg/dL (9-20); Calcium 9.9 mg/dL (8.4-10.2); Carbon Dioxide 23 mmol/L (22-32); Chloride 98 mmol/L (98-107); Estimated Glomerular Filt Rate > 60.0 mL/min (>60); Globulin 2.9 g/dL (1.7-4.1); Glucose 278 mg/dL (80-110); HEMOLYSIS < 15 (0-50); Lipase 125 U/L (23-300); Potassium 4.3 mmol/L (3.4-5.1); Sodium 129 mmol/L (137-145)
[2021-01-29 11:17] LABS: Lactate (Lactic Acid) 2.2 mmol/L (0.7-2.1)
[2021-01-29 11:22] LABS: Creatine Kinase 79 U/L (55-170)
[2021-01-29] MEDS: ONDANSETRON 4 MG/2 ML INJ IV (11:26)
[2021-01-29] MEDS: SODIUM CHLORIDE 0.9% 1,000 ML 1000 ML IV (11:27)
[2021-01-29 11:32] LABS: Procalcitonin 0.88 ng/mL (<0.5)
[2021-01-29 11:35] LABS: Troponin I 0.033 ng/mL (0.01-0.034)
[2021-01-29] MEDS: cefTRIAXone 2,000 MG in SODIUM CHLORIDE 0.9% 100 ML 200 ML IV (12:09)
[2021-01-29 12:15] LABS: COVID19 - ADMIT (NP swab/PCR) Negative (Negative)
[2021-01-29 12:21] LABS: Appearance Urine UA CLOUDY; Bilirubin Urine UA NEGATIVE (NEGATIVE); Color Urine UA ORANGE; Glucose Urine UA 1+ g/dL (Negative); Ketones Urine UA TRACE (NEGATIVE); Leukocyte Esterase Urine UA 2+ (NEGATIVE); Nitrite Urine UA NEGATIVE (Negative); Occult Blood Urine UA 1+ (Negative); Protein Urine UA 1+ (Negative); Urobilinogen Urine UA 0.2 E.U./dL (0.2); pH Urine UA 5.5 (4.5-8.0)
[2021-01-29 12:25] LABS: Bacteria Urine Many (>30); Culture Indicated Urine Specimen Cultured; RBC Urine 5-10/HPF (0-5/HPF); WBC Urine 10-30/HPF (0-5/HPF)
[2021-01-29 13:03] LABS: Reflexed Lactate in 2 Hours Y
[2021-01-29 13:40] LABS: Troponin I 0.026 ng/mL (0.01-0.034)
--- NOTE | 2021-01-31 10:01 | PC.NURSE ---
pt daughter called and stated she is concerned the current antibiotics are causing his trigeminal neuralgia to flare. spoke with dr liang and rec'd VO for cipro 250mg bid for 10 days. will call to [facility]. pt will stop current antibiotic.
--- NOTE | 2021-05-27 19:35 | PC.NURSE ---
Daughter called requesting assistance with antibiotic use from previous visits as pt is in [facility] at this time. Encouraged her to have records requested from [facility]
== END 2021-01-29 13:53 | disposition home or self-care (01) ==
PROVIDERS: Emergency Provider Emergency Medicine; PCP Internal Medicine
DX: N39.0 Urinary tract infection, site not specified (principal); R06.02 Shortness of breath; R05 Cough; R09.89 Other specified symptoms and signs involving the circulatory and respiratory systems; Z20.822 Contact with and (suspected) exposure to COVID-19
CPT/HCPCS: 36415; 71045; 80053; 81001; 81003; 82550; 83605; 83690; 84145; 84484; 85025; 87040; 87077; 87086; 87186; 87635; 93005; 96361; 96365; 96375; 99284; C9803; J0696; J2405

== ENCOUNTER → 2021-02-07 13:20 | Outpatient (CLI) | payer MEDICARE, OTHER, SELFPAY ==
--- NOTE | 2021-02-07 | DI.CT.S_ITS ---
PROCEDURE: CT LUMBAR SPINE WO CON INDICATIONS: Spinal stenosis, lumbar region without neurogenic TECHNIQUE: Noncontrast 3 mm thick sections acquired from the T12 level to the sacrum. Sagittal and coronal reformats were constructed. For radiation dose reduction, the following was used: automated exposure control. COMPARISON: None. FINDINGS: Image quality: Excellent. Bones: There is trace L2-L3 retrolisthesis.. No acute vertebral body compression fractures. No suspicious lytic or blastic bony lesions. No pars defects. T12-L1: Disc height is normal. Vacuum disc phenomenon. Mild, diffuse disc bulge. Mild narrowing of the central canal. Mild bilateral neural foraminal narrowing. No neural compression. L1-L2: Disc height is normal. Mild, diffuse disc bulge. Mild bilateral facet hypertrophy. Mild narrowing of the central canal. Mild bilateral neural foraminal narrowing. No neural compression. L2-L3: Loss of disc height. Vacuum disc phenomenon. Endplate osteophytosis. Mild bilateral facet hypertrophy. Moderate ligamentum flavum hypertrophy. Severe narrowing of the central canal. Moderate bilateral neural foraminal narrowing. L3-L4: Disc height is normal. Mild, diffuse disc bulge. Mild bilateral facet hypertrophy. Moderate ligamentum flavum hypertrophy. Moderate narrowing of the central canal. Mild to moderate bilateral neural foraminal narrowing. No neural compression. L4-L5: Loss of disc height. Mild, diffuse disc bulge. Mild bilateral facet hypertrophy. Mild ligamentum flavum hypertrophy. Moderate to severe narrowing of the central canal. Moderate right and moderate to severe left neural foraminal narrowing with slight compression of the exiting left L4 nerve root. L5-S1: Disc height is normal. Mild to moderate diffuse disc bulge. Mild bilateral facet hypertrophy. Mild narrowing of the central canal. Severe right and moderate left neural foraminal narrowing with compression of the exiting right L5 nerve root. Soft tissues: No retroperitoneal masses or hematomas. Visualized aorta is normal in caliber. IMPRESSION: 1. Multilevel degenerative disc disease. 2. Multilevel facet arthropathy. 3. Severe L2-L3 central canal narrowing. Moderate to severe L4-L5 central canal narrowing. 4. Severe right L5-S1 neural foraminal narrowing with compression of the exiting right L4 nerve root. Moderate to severe left L4-L5 neural foraminal narrowing with slight compression of the exiting left L4 nerve root. Dictated by: Maria D Lo MD, PhD on 02/07/2021 at 16:40 Approved by: Maria D Lo MD, PhD on 02/07/2021 at 16:44
== END ==
PROVIDERS: PCP Internal Medicine; Referring Provider Orthopaedic Surgery Orthopaedic Surgery of the Spine; Visit Provider Orthopaedic Surgery Orthopaedic Surgery of the Spine
DX: M48.061 Spinal stenosis, lumbar region without neurogenic claudication (principal); M48.07 Spinal stenosis, lumbosacral region; M51.36 Other intervertebral disc degeneration, lumbar region; M51.37 Other intervertebral disc degeneration, lumbosacral region; M47.816 Spondylosis without myelopathy or radiculopathy, lumbar region; M47.817 Spondylosis without myelopathy or radiculopathy, lumbosacral region
CPT/HCPCS: 72131

== ENCOUNTER 2021-06-04 18:22 | Observation (INO) | payer MEDICARE, OTHER, SELFPAY ==
[2021-06-04 18:31] VITALS: BP 127/88; PULSE 70; RESP 14; TEMP 36.1; O2SAT 100; BMI 22.8
--- NOTE | 2021-06-04 18:41 | DI.CT.S_ITS ---
PROCEDURE: CT ANGIO HEAD AND NECK INDICATIONS: code stroke TECHNIQUE: After the administration of intravenous contrast, 1 mm thick sections acquired from the aortic arch through the [place] of [place]. Post-contrast 4.5 mm thick sections then re-acquired from the foramen magnum to the vertex. 3-dimensional vorahgp-kmlqmrtml-oempnlpalg (MIP) and/or volume rendering reformats were acquired of the central intracranial vasculature and neck separately. COMPARISON: None. FINDINGS: Image quality: Excellent. BRAIN: CSF spaces: Ventricles are normal in size and shape. Basal cisterns are patent. No extra-axial fluid collections. Brain: No midline shift. No intracranial bleeds or masses. Bunn-white matter interface appears intact. Skull and face: Calvarium and facial bones appear intact, without suspicious lesions. Orbits appear normal. Sinuses: Sinuses and mastoids are clear. HEAD CT ANGIOGRAPHY: Anterior circulation: There is mild atherosclerotic calcification the bilateral internal carotid arteries. The flow within the paired anterior cerebral arteries is normal and symmetric. The flow within the middle cerebral arteries is normal and symmetric. The anterior communicating artery is seen. No aneurysms are seen. Posterior circulation: Right vertebral artery is small in caliber and appears to terminate in a posterior inferior cerebellar artery. Left vertebral artery is patent. Basilar artery is patent. Flow within the posterior cerebral arteries is normal and symmetric. No aneurysms are seen. NECK CT ANGIOGRAPHY: Carotid system: Moderate diffuse plaque within the visualized thoracic aortic arch. The great vessels demonstrate a conventional anatomy as they arise from the aortic arch. The origins of the common carotid arteries appear patent. The common carotid arteries demonstrate normal caliber and courses. 30% left and 50% right internal carotid artery origin stenosis. Posterior circulation: The origins of the vertebral arteries both appear widely patent. Left vertebral artery is patent. Right vertebral artery is small in caliber and patent. Soft tissues: Visualized neck soft tissues demonstrate no suspicious abnormalities. Bones: No suspicious bony lesions. Visualized cervical spine appears normally aligned. IMPRESSION: 1. No acute process involving the arterial tree of the head and neck. 2. Bilateral internal carotid artery stenosis as described above. Any quantitative measurements of stenosis were performed using NASCET criteria. Dictated by: Matt Song M.D. on 06/04/2021 at 19:15 Approved by: Matt Song M.D. on 06/04/2021 at 19:20
--- NOTE | 2021-06-04 18:41 | DI.CT.S_ITS ---
PROCEDURE: CT STROKE INDICATIONS: Left-sided weakness, dizziness, headache TECHNIQUE: Noncontrast 4.5 mm thick angled axial sections acquired from the foramen magnum to the vertex, with coronal reformats. For radiation dose reduction, the following was used: automated exposure control, adjustment of mA and/or kV according to patient size. COMPARISON: None. FINDINGS: Image quality: Excellent. CSF spaces: Basal cisterns are patent. No extra-axial fluid collections. The ventricles are symmetric in size and shape. Brain: No intracranial bleeds or masses. There is cerebral volume loss for age, with resultant ventricular and sulcal prominence. There are periventricular and deep white matter chronic small vessel ischemic changes. There is intracranial internal carotid artery atherosclerosis. Skull and face: Calvarium and visualized facial bones appear intact, without suspicious lesions. Bilateral intraocular lens replacements noted. Incidental left posterior upper neck midline suture noted in the ligamentum nuchae a Sinuses: Visualized sinuses and mastoids are clear. IMPRESSION: Atrophy and chronic ischemic change without acute hemorrhage or mass effect. This study fulfills neurological imaging criteria for inclusion or exclusion of acute stroke therapies based on available published neurological guidelines. Note: Critical results were discussed with Dr. Cross at 06:10 PM [place] time on 06/04/21 Approved by: Dennis Diaz M.D. on 06/04/2021 at 18:12
[2021-06-04 18:55] LABS: Add Manual Diff / Slide Review NO; Basophils Absolute Auto 0 /uL (0-100); Basophils Percent Auto 0.2 % (0-2); Eosinophils Absolute Auto 100 /uL (0-450); Eosinophils Percent Auto 0.9 % (2-4); Hematocrit 37.3 % (41-53); Hemoglobin 12.8 g/dL (13.5-17.5); Lymphocytes Absolute Auto 2800 /uL (1100-4500); Lymphocytes Percent Auto 29.4 % (25-40); Mean Corpuscular HGB Conc 34.4 % (30-36); Mean Corpuscular Hemoglobin 30.2 PG (26-34); Mean Corpuscular Volume 87.7 fL (80-100); Monocytes Absolute Auto 600 /uL (0-900); Monocytes Percent Auto 6.2 % (3-14); Neutrophils Absolute Auto 6100 /uL (1500-7000); Neutrophils Percent Auto 63.3 % (50-75); Platelet Count 299 X10^3/uL (150-400); Red Blood Cell Count 4.26 X10^6/uL (4.5-5.9); Red Cell Distribution Width 14.1 % (11.6-14.8); White Blood Cell Count 9.6 X10^3/uL (4.5-11.0)
--- NOTE | 2021-06-04 19:00 | ED.NEUROSD ---
HPI - Neuro Symptoms/Deficit General Chief Complaint: Neuro Symptoms/Deficit Stated Complaint: LEFT SIDE NUMBNESS Time Seen by Provider: 06/04/21 18:41 Source: patient Mode of arrival: Ambulatory History of Present Illness HPI Narrative: Patient is a 80-year-old male. Is a insulin-dependent diabetic. He is here for evaluation of weakness and numbness and tingling to his left arm in his left leg. Events occurred just several hours prior to arrival here in the ER. They have since completely resolved. Approximately 10 days ago he had very similar symptoms. He initially thought that it was a reaction to an antibiotic that he has been taking for urinary tract infection. He went to an outside facility. He states he had a head CT performed. Was discharged home. Was told that he potentially had a TIA. He also states he has had a mild headache for the past 10 days. He has also had increasing problems with balance. He has had balance issues prior to this but he thinks that it has worsened over this time. The event that happened today with his left arm in his left leg is very similar to what happened him 10 days ago. He states that he was having problems lifting his left arm. He states he does have shoulder discomfort which causes him problems to do this at baseline be thought that this was worse than normal. Has also having numbness or weakness in his left leg. He is unsure as to how long the symptoms lasted but he thinks it was just over an hour. He has been taking all of his medications as directed. Many years ago he had very similar symptoms and again was told that he had a TIA. On Anticoagulants: Yes (plavix and asa) Related Data Home Medications Medication Instructions Recorded Confirmed aspirin 81 mg tablet,delayed 81 mg PO BEDTIME #0 08/21/11 06/04/21 release losartan 100 mg tablet 100 mg PO QDAY #0 08/21/11 06/04/21 metformin 1,000 mg tablet 1,000 mg PO BIDCC #0 02/10/13 06/04/21 metoprolol tartrate 50 mg tablet 50 mg PO BID 07/21/18 06/04/21 (Lopressor) glimepiride 2 mg tablet 2 mg PO DAILY 04/18/19 06/04/21 omeprazole 20 mg capsule,delayed 20 mg PO BEDTIME 08/20/20 06/04/21 release insulin glargine 100 unit/mL (3 8 unit SUBCUT BEDTIME 06/04/21 06/04/21 mL) subcutaneous pen (Lantus Solostar U-100 Insulin) prednisone 5 mg tablet 5 mg PO DAILY 06/04/21 06/04/21 Previous Rx's Medication Instructions Recorded clopidogrel 75 mg tablet 75 mg PO DAILY #30 tab 08/21/20 gabapentin 300 mg capsule See Rx Instructions .ROUTE 05/08/21 .COMPLEX #90 capsule Allergies Allergy/AdvReac Type Severity Reaction Status Date / Time No Known Drug Allergies Allergy Verified 06/04/21 18:31 Review of Systems Constitutional Constitutional: Reports as per HPI and Reports system reviewed and no additional complaints, except as documented Eyes Eyes: Reports system reviewed and no additional complaints, except as documented Cardiovascular Cardiovascular: Reports as per HPI and Reports system reviewed and no additional complaints, except as documented Respiratory Respiratory: Reports as per HPI and Reports system reviewed and no additional complaints, except as documented Gastrointestinal Gastrointestinal: Reports as per HPI and Reports system reviewed and no additional complaints, except as documented Genitourinary Genitourinary: Reports system reviewed and no additional complaints, except as documented Integumentary/Breasts Skin/Breast: Reports system reviewed and no additional complaints, except as documented Neurologic Neurologic: Reports system reviewed and no additional complaints, except as documented and Reports as per HPI Hematologic/Lymphatic On Anticoagulants: Yes (plavix and asa) Allergic/Immunologic Allergic/Immunologic: Reports system reviewed and no additional complaints, except as documented Patient History Medical History Aortic stenosis Bone spur Cardiomyopathy Cervical spine fracture (~1958) Diabetes Facet arthropathy, lumbosacral Former smoker Hematochezia (~2016) History of prostate cancer HNP (herniated nucleus pulposus), lumbar HTN (hypertension) Hyperlipidemia Left wrist fracture (~2010) Lumbosacral radiculopathy at L5 Lumbosacral spondylosis Osteoarthritis Polymyalgia rheumatica Prostate cancer RBBB (right bundle branch block) Recurrent urinary tract infection TIA (transient ischemic attack) (~2011) TMJ (temporomandibular joint disorder) Surgical History Hx of prostatectomy Family History (Updated 08/20/20 @ 23:16 by DOMINICK Ruiz) Father Heart disease Heart attack Mother No significant medical problems Grandmother Heart disease Social History household members: none Smoking Status: Former smoker alcohol intake: current Smoking Status: Former smoker alcohol intake frequency: 0-2 drinks per day Substance Use Type: does not use Exam Initial Vital Signs Initial Vital Signs: Vital Signs Temperature 96.9 F L 06/04/21 18:31 Pulse Rate 70 06/04/21 18:31 Respiratory Rate 14 06/04/21 18:31 Blood Pressure 127/88 06/04/21 18:31 Pulse Oximetry 100 06/04/21 18:31 Const General: cooperative, comfortable and well developed HENMT Head: normal to inspection and normocephalic Eyes General: appearance normal, both eyes and all related structures Pupils: PERRL EOM: EOM intact bilaterally Resp Effort & Inspection: normal respiratory effort Auscultation: clear to auscultation bilaterally Cardio Rate: regular rate Rhythm: regular rhythm GI Palpation: soft and No tender Percussion: normal to percussion Skin General: no rashes or lesions noted Neuro General: patient alert, patient awake, patient oriented x3 and moves all extremities Cranial Nerves: CN's II-XI intact bilaterally Cognition: normal cognition Speech: speech normal Gait: normal gait Motor: muscle tone normal throughout Sensory Exam: no sensory deficits noted Coordination: pafous-it-hsai test normal and vsoy-la-cvjp test normal Extrem General: normal to inspection and capillary refill normal Psych Appearance: grossly normal and well kempt Speech and Movement: speech and movement normal Scores ABCD2 Age >= 60 years: yes Initial BP. Either SBP >= 140 or DBP >= 90.: no Clinical features of the TIA: unilateral weakness Duration of symptoms: >= 60 minutes History of diabetes: yes ABCD2 Score: 6 [employer] [place] coma scale eye opening: Spontaneous Lela coma scale verbal response: Orientated [place] coma scale motor response: Obey commands [place]ela coma scale total score: 15 NIH Stroke Scale Level of Conciousness: Alert, keenly responsive Ask month/age: Answers both questions correctly. 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 TECHNICIAN swab/PCR) Stat 06/04/21 19:59 Urine Microscopic Stat Aspirin (Aspirin Ec 81 Mg Tablet) 81 mg PO BEDTIME [facility] Enoxaparin Sodium (Enoxaparin 40 Mg/0.4 Ml Syringe) 40 mg SUBCUT DAILY [facility] Gabapentin (Gabapentin 300 Mg Capsule) 300 mg PO BID [facility] Last Admin: 06/04/21 23:36 Dose: 300 mg Documented by: EDUAR Glimepiride (Glimepiride 2 Mg Tablet) 2 mg PO DAILY [facility] Losartan Potassium (Losartan 50 Mg Tablet) 100 mg PO DAILY [facility] Last Admin: 06/04/21 23:34 Dose: 100 mg Documented by: EDUAR Metformin HCl (Metformin Hcl 500 Mg Tablet) 1,000 mg PO BIDWM [facility] Last Admin: 06/04/21 23:34 Dose: 1,000 mg Documented by: EDUAR Metoprolol Tartrate (Metoprolol Ir 50 Mg Tablet) 50 mg PO BID [facility] Naloxone HCl (Naloxone 0.4 Mg/Ml Vial) 0.2 mg IV Q2MIN PRN PRN Reason: Opiate Reversal Pantoprazole Sodium (Pantoprazole Dr 20 Mg Tablet) 20 mg PO BEDTIME [facility] Last Admin: 06/04/21 23:34 Dose: 20 mg Documented by: EDUAR Prednisone (Prednisone 5 Mg Tablet) 5 mg PO DAILY [facility] Discontinued Medications Aspirin (Aspirin 81 Mg Chew Tab) 324 mg PO NOW ONE Stop: 06/04/21 19:41 Last Admin: 06/04/21 19:55 Dose: 324 mg Documented by: LUIS E Vital Signs Vital signs: Vital Signs - 8 hr 06/04/21 18:31 Temperature 96.9 F L Pulse Rate 70 Respiratory Rate 14 Blood Pressure 127/88 Pulse Oximetry 100 MDM - Neuro Symptoms/Deficit Lab Data Attestation: I reviewed the patient's lab results. Result diagrams: 06/04/21 18:50 06/04/21 18:50 Labs: Lab Results 06/04/21 06/04/21 06/04/21 Range/Units 18:50 18:50 18:50 WBC 9.6 (4.5-11.0) X10^3/uL RBC 4.26 L (4.5-5.9) X10^6/uL Hgb 12.8 L (13.5-17.5) g/dL Hct 37.3 L (41-53) % MCV 87.7 (80-100) fL MCH 30.2 (26-34) PG MCHC 34.4 (30-36) % RDW 14.1 (11.6-14.8) % Plt Count 299 (150-400) X10^3/uL Neut % (Auto) 63.3 (50-75) % Lymph % (Auto) 29.4 (25-40) % [place] % (Auto) 6.2 (3-14) % Eos % (Auto) 0.9 L (2-4) % Baso % (Auto) 0.2 (0-2) % Neut # (Auto) 6100 (3560-7196) /uL Lymph # (Auto) 2800 (5302-7691) /uL [place] # (Auto) 600 (0-900) /uL Eos # (Auto) 100 (0-450) /uL Baso # (Auto) 0 (0-100) /uL PT 11.8 (10.1-12.7) SECONDS INR 1.0 (0.9-1.3) APTT 31 D (26.4-36.2) SECONDS Sodium 131 L (137-145) mmol/L Potassium 5.1 (3.4-5.1) mmol/L Chloride 98 (98-107) mmol/L Carbon Dioxide 27 (22-32) mmol/L BUN 30 H (9-20) mg/dL Creatinine 1.27 H (0.66-1.25) mg/dL Estimated GFR 54.3 L (>60) mL/min BUN/Creatinine Ratio 23.6 H (6-22) Glucose 388 H (80-110) mg/dL Calcium 10.7 H (8.4-10.2) mg/dL Total Bilirubin 0.7 (0.2-1.3) mg/dL AST 20 (17-59) IU/L ALT 17 (<50) IU/L Alkaline Phosphatase 103 (38-126) U/L Total Creatine Kinase 53 L (55-170) U/L CK-MB (CK-2) TNP CK-MB (CK-2) Rel Index TNP Troponin I < 0.012 (0.01-0.034) ng/mL Total Protein 7.8 (6.3-8.2) g/dL Albumin 4.5 (3.5-5.0) g/dL Globulin 3.3 (1.7-4.1) g/dL Albumin/Globulin Ratio 1.4 (1.0-2.8) Lipase 226 (23-300) U/L Urine RBC (0-5/HPF) Urine WBC (0-5/HPF) Ur Squamous Epith Cells (0-5/HPF) Urine Bacteria (None) Ur Culture Indicated? SARS-CoV-2 (PCR) (Negative) 06/04/21 06/04/21 Range/Units 19:13 19:59 WBC (4.5-11.0) X10^3/uL RBC (4.5-5.9) X10^6/uL Hgb (13.5-17.5) g/dL Hct (41-53) % MCV (80-100) fL MCH (26-34) PG MCHC (30-36) % RDW (11.6-14.8) % Plt Count (150-400) X10^3/uL Neut % (Auto) (50-75) % Lymph % (Auto) (25-40) % [place] % (Auto) (3-14) % Eos % (Auto) (2-4) % Baso % (Auto) (0-2) % Neut # (Auto) (8474-3923) /uL Lymph # (Auto) (7186-7597) /uL [place] # (Auto) (0-900) /uL Eos # (Auto) (0-450) /uL Baso # (Auto) (0-100) /uL PT (10.1-12.7) SECONDS INR (0.9-1.3) APTT (26.4-36.2) SECONDS Sodium (137-145) mmol/L Potassium (3.4-5.1) mmol/L Chloride (98-107) mmol/L Carbon Dioxide (22-32) mmol/L BUN (9-20) mg/dL Creatinine (0.66-1.25) mg/dL Estimated GFR (>60) mL/min BUN/Creatinine Ratio (6-22) Glucose (80-110) mg/dL Calcium (8.4-10.2) mg/dL Total Bilirubin (0.2-1.3) mg/dL AST (17-59) IU/L ALT (<50) IU/L Alkaline Phosphatase (38-126) U/L Total Creatine Kinase (55-170) U/L CK-MB (CK-2) CK-MB (CK-2) Rel Index Troponin I (0.01-0.034) ng/mL Total Protein (6.3-8.2) g/dL Albumin (3.5-5.0) g/dL Globulin (1.7-4.1) g/dL Albumin/Globulin Ratio (1.0-2.8) Lipase (23-300) U/L Urine RBC 1-5/hpf (0-5/HPF) Urine WBC 1-5/hpf (0-5/HPF) Ur Squamous Epith Cells 1-5 /hpf (0-5/HPF) Urine Bacteria None seen (None) Ur Culture Indicated? Cult not indicated SARS-CoV-2 (PCR) Negative (Negative) Urine Dip Bedside Urine Glucose 1000 mg/dl Bedside Urine Bilirubin - Negative Bedside Urine Ketone - Negative Urine Specific [place] 1.015 Bedside Urine Occult Blood +/- Bedside Urine pH 6.0 Bedside Urine Protein - Negative Bedside Urine Urobilinogen - Negative Bedside Urine Nitrite - Negative Bedside Urine Leukocytes - Negative Esterase Imaging Data CT scan - head: Radiologist's Impression: Launch?[place] [address] CT Scan Report Signed Patient: Deep Erickson MR#: [id number] : 1940 Acct:[id number] Age/Sex: 80 / M Date of Service: 06/04/21 Loc: ED Accession Number: [id number] ?? Procedure: CT Stroke Ordering Provider: Martin Cross D.O. PROCEDURE:? CT STROKE ? INDICATIONS:? Left-sided weakness, dizziness, headache ? TECHNIQUE:? Noncontrast 4.5 mm thick angled axial sections acquired from the foramen magnum to the vertex, with coronal reformats.? For radiation dose reduction, the following was used:? automated exposure control, adjustment of mA and/or kV according to patient size.? ? COMPARISON:? None. ? FINDINGS:? Image quality:? Excellent.? ? CSF spaces:? Basal cisterns are patent.? No extra-axial fluid collections.? The ventricles are symmetric in size and shape.? ? Brain:? No intracranial bleeds or masses.? There is cerebral volume loss for age, with resultant ventricular and sulcal prominence.? There are periventricular and deep white matter chronic small vessel ischemic changes.? There is intracranial internal carotid artery atherosclerosis.? ? Skull and face:? Calvarium and visualized facial bones appear intact, without suspicious lesions.? Bilateral intraocular lens replacements noted.? Incidental left posterior upper neck midline suture noted in the ligamentum nuchae a ? Sinuses:? Visualized sinuses and mastoids are clear.? ? IMPRESSION:? ? Atrophy and chronic ischemic change without acute hemorrhage or mass effect. ? This study fulfills neurological imaging criteria for inclusion or exclusion of acute stroke therapies based on available published neurological guidelines.? ? ? Note:? Critical results were discussed with Dr. Cross at 06:10 PM [place] time on 06/04/21 ? Approved by: Dennis Diaz M.D. on 06/04/2021 at 18:12? CTA - brain/neck: Radiologist's Impression: [place] [address] CT Scan Report Signed Patient: Deep Erickson MR#: [id number] : 1940 Acct:[id number] Age/Sex: 80 / M Date of Service: 06/04/21 Loc: ED Accession Number: [id number] ?? Procedure: CT angio head and neck Ordering Provider: Martin Cross D.O. PROCEDURE:? CT ANGIO HEAD AND NECK ? INDICATIONS:? code stroke ? TECHNIQUE:? After the administration of intravenous contrast, 1 mm thick sections acquired from the aortic arch through the [place].? Post-contrast 4.5 mm thick sections then re-acquired from the foramen magnum to the vertex.? 3-dimensional bkdgmwh-mfobjmdtl-rfwboplzhv (MIP) and/or volume rendering reformats were acquired of the central intracranial vasculature and neck separately. ? COMPARISON:? None. ? FINDINGS:? Image quality:? Excellent.? ? BRAIN:? CSF spaces:? Ventricles are normal in size and shape.? Basal cisterns are patent.? No extra-axial fluid collections.? ? Brain:? No midline shift.? No intracranial bleeds or masses.? Bunn-white matter interface appears intact.? ? Skull and face:? Calvarium and facial bones appear intact, without suspicious lesions.? Orbits appear normal.? ? Sinuses:? Sinuses and mastoids are clear.? ? HEAD CT ANGIOGRAPHY:? Anterior circulation:? There is mild atherosclerotic calcification the bilateral internal carotid arteries.? The flow within the paired anterior cerebral arteries is normal and symmetric.? The flow within the middle cerebral arteries is normal and symmetric.? The anterior communicating artery is seen.? No aneurysms are seen.? ? Posterior circulation:? Right vertebral artery is small in caliber and appears to terminate in a posterior inferior cerebellar artery.? Left vertebral artery is patent.? Basilar artery is patent.? Flow within the posterior cerebral arteries is normal and symmetric.? No aneurysms are seen.? ? NECK CT ANGIOGRAPHY:? Carotid system:? Moderate diffuse plaque within the visualized thoracic aortic arch.? The great vessels demonstrate a conventional anatomy as they arise from the aortic arch.? The origins of the common carotid arteries appear patent.? The common carotid arteries demonstrate normal caliber and courses.? 30% left and 50% right internal carotid artery origin stenosis. ? Posterior circulation:? The origins of the vertebral arteries both appear widely patent.? Left vertebral artery is patent.? Right vertebral artery is small in caliber and patent. ? Soft tissues:? Visualized neck soft tissues demonstrate no suspicious abnormalities.? ? Bones:? No suspicious bony lesions.? Visualized cervical spine appears normally aligned.? IMPRESSION:? 1. No acute process involving the arterial tree of the head and neck. 2. Bilateral internal carotid artery stenosis as described above. ? Any quantitative measurements of stenosis were performed using NASCET criteria.? ? ? Dictated by: Matt Song M.D. on 06/04/2021 at 19:15 ? ? Approved by: Matt Song M.D. on 06/04/2021 at 19:20? ECG Data Attestation: I personally reviewed and interpreted this ECG as follows: Interpretation: Sinus rhythm Ventricular rate is 67 Normal axis Normal QRS Normal QTC Artifact in V3 No ST T wave changes MDM Narrative Medical decision making narrative: Labs are unremarkable. Vital signs unremarkable. Patient has an NIH score of 0. His presentation today is concerning for a TIA. Especially since he had very similar symptoms 10 days ago and then very similar symptoms several years ago. Not a candidate for tPA. Patient has also had issues with headache and balance issues over the past 10 days as well. I do feel the patient needs admitted to the hospital for further workup. I discussed this with the patient who agrees. Discussed the case with Dr. Weems with internal medicine who will admit for further evaluation and treatment. Discharge Plan Departure Patient Disposition: Admitted as Observation Clinical Impression: Brain TIA Admit Date/Time: 06/04/21 20:57 Admit Provider: Angel Weems
[2021-06-04 19:10] LABS: Prothrombin Time 11.8 SECONDS (10.1-12.7)
[2021-06-04 19:13] LABS: PTT Partial Thromboplastin Tim 31 SECONDS (26.4-36.2)
[2021-06-04 19:24] LABS: Alanine Aminotransferase 17 IU/L (<50); Albumin 4.5 g/dL (3.5-5.0); Albumin Globulin Ratio 1.4 (1.0-2.8); Alkaline Phosphatase 103 U/L (38-126); Aspartate Aminotransferase 20 IU/L (17-59); BUN Creatinine Ratio 23.6 (6-22); Bilirubin Total 0.7 mg/dL (0.2-1.3); Blood Urea Nitrogen 30 mg/dL (9-20); Calcium 10.7 mg/dL (8.4-10.2); Carbon Dioxide 27 mmol/L (22-32); Chloride 98 mmol/L (98-107); Creatine Kinase 53 U/L (55-170); Estimated Glomerular Filt Rate 54.3 mL/min (>60); Globulin 3.3 g/dL (1.7-4.1); Glucose 388 mg/dL (80-110); Potassium 5.1 mmol/L (3.4-5.1); Sodium 131 mmol/L (137-145); Total Protein 7.8 g/dL (6.3-8.2)
[2021-06-04 19:25] LABS: HEMOLYSIS < 15 (0-50); Lipase 226 U/L (23-300)
[2021-06-04 19:35] LABS: Troponin I < 0.012 ng/mL (0.01-0.034)
[2021-06-04] MEDS: ASPIRIN 81 MG CHEW TAB 324 MG PO (19:55)
[2021-06-04 20:13] LABS: Bacteria Urine None Seen; Culture Indicated Urine Cult Not Indicated; RBC Urine 1-5/HPF (0-5/HPF); Squamous Epithelial Cell Urine 1-5 /HPF (0-5/HPF); WBC Urine 1-5/HPF (0-5/HPF)
[2021-06-04 20:14] LABS: COVID19 - ADMIT (NP swab/PCR) Negative (Negative)
--- NOTE | 2021-06-04 21:23 | DI.ECHO.S_ITS ---
[place] +---------+ [facility] +---------+ : : [address] : : : : [id number] : : : : Phone: [phone] Echocardiogram Report + + :Name: MARY DYSON Study Date: 06/05/2021 Height: 72 in : :[facility] ReadingLocation: Weight: 168 lb : : Gender: Male BSA: 2.0 m2 : :: 1940 Age: 80 yrs BP: 142/79 mmHg: :Reason For Study: TIA : :Ordering Physician: DAISY, : :OG Chaudhari Performed By: Estefany Grubbs : :Referring: OG VILLA : + + Interpretation Summary The left ventricular cavity is small. There is mild concentric left ventricular hypertrophy. The ejection fraction is estimated to be 70-75%. An mild intracavitary gradient is suspected. There has been no significant change in LVEF since the previous exam. The right ventricle is normal in size and function. The aortic valve is severely calcified. There is moderate to severely reduced leaflet mobility. The peak aortic velocity is 3.21 m/sec. The aortic valve mean gradient is 23 mmHg. The calculated aortic valve area is .97 cm2. There is severe aortic stenosis (paradoxically low gradient severe aortic stenosis likely due to small LV cavity and LVH. Calculated stroke-volume index about 32.93 ml/mA?. The peak aortic velocity on the previous exam was 3.3 m/sec. The right ventricular systolic pressure is estimated to be at least 32 mmHg based on an estimated right atrial pressure of 3 mm Hg. Procedure: A two-dimensional transthoracic echocardiogram with color flow and Doppler was performed. The study quality was technically adequate. Comparison is made with the echocardiogram of 08/21/2020. The patient was in sinus rhythm with heart rates between 58-65 bpm during the exam. The patient had a bundle branch block rhythm during the exam. Left Ventricle: The left ventricular cavity is small. Proximal septal thickening is noted. There is mild concentric left ventricular hypertrophy. An intracavitary gradient is suspected. There is no thrombus. The ejection fraction is estimated to be 70-75%. There has been no significant change since the previous exam. There are no focal wall motion abnormalities. MV E/A: 1.0 Med Peak E' Sheldon: 5.0 cm/sec E/E' med: 15.8. Right Ventricle: The right ventricle is normal in size and function. Atria: The left atrial size is normal. Right atrial size is normal. There is no Doppler evidence for an interatrial shunt. Mitral Valve: There is mild to moderate mitral annular calcification. The mitral papillary muscle appears thickened and/or calcified. There is trace mitral regurgitation. Aortic Valve: The aortic valve is severely calcified. The aortic valve is trileaflet. There is moderate to severely reduced leaflet mobility. There is severe aortic stenosis. The peak aortic velocity is 3.21 m/sec. The aortic valve mean gradient is 23 mmHg. The calculated aortic valve area is .97 cm2. The peak aortic velocity on the previous exam was 3.3 m/sec. There is mild aortic regurgitation. Tricuspid Valve: The tricuspid valve is normal in structure and function. There is mild tricuspid regurgitation. The right ventricular systolic pressure is estimated to be at least 32 mmHg based on an estimated right atrial pressure of 3 mm Hg. Pulmonic Valve: The pulmonic valve leaflets are thin and pliable; valve motion is normal. There is mild pulmonic regurgitation. Great Vessels: The aortic root is normal size. The dimensions of the ascending aorta are normal. No significant atherosclerotic plaque seen in the aortic arch. The IVC is of normal diameter and collapses greater than 50% with a sniff. This suggests a low right atrial pressure of 3 mm Hg. Pericardium/ Pleura There is an anterior echo-free space consistent with a fat pad. There is no pericardial effusion. There is no pleural effusion. MMode/2D Measurements & Calculations LVIDd: 3.6 cm LVOT diam: 2.1 cm LVIDs: 2.3 cm Ao root diam: 3.2 cm FS: 35.4 % asc Aorta Diam: 3.2 cm IVSd: 1.2 cm Ao Arch Diam (Prox Trans): 3.1 cm LVPWd: 1.2 cm LV tinoco. diameter/BSA (cm/m^2): 1.8 LV sys. diameter/BSA (cm/m^2): 1.2 LA A2 area: 19.0 cm2 RA long axis: 5.4 cm LA A4 area: 17.9 cm2 RA area: 14.1 cm2 LA length (vol): 5.4 cm RA vol: 31.3 ml LA vol: 53.5 ml RA : 15.8 ml/m2 LA vol index: 27.0 ml/m2 IVC diam: 1.3 cm RVD1 (basal): 3.2 cm RVD2 (mid): 3.0 cm TAPSE: 1.7 cm Doppler Measurements & Calculations Ao V2 max: 321.2 cm/sec LVOT Max Sheldon: 94.5 cm/sec Ao V2 mean: 234.0 cm/sec LV V1 max P.6 mmHg Ao max P.4 mmHg LV V1 VTI: 19.6 cm Ao mean P.7 mmHg PATRICK(I,D): 1.00 cm2 Ao V2 VTI: 65.8 cm PATRICK(V,D): 0.99 cm2 sev ratio: 0.30 PATRICK indexed to BSA (cm^2/m^2): 0.51 MV E max sheldon: 79.6 cm/sec TR max sheldon: 269.4 cm/sec MV A max sheldon: 79.1 cm/sec TR max P.0 mmHg MV E/A: 1.0 PA V2 max: 95.5 cm/sec Med Peak E' Sheldon: 5.0 cm/sec PA V2 mean: 65.9 cm/sec E/E' med: 15.8 PA mean P.9 mmHg Lat Peak E' Sheldon: 6.1 cm/sec PA pr(Accel): 32.8 mmHg E/E' lat: 13.1 E/e' average: 14.5 MV dec time: 0.27 sec SV(LVOT): 65.7 ml Reading Physician:01:12 PM
--- NOTE | 2021-06-04 21:24 | DI.MRI.S_ITS ---
PROCEDURE: MR HEAD/BRAIN WO CON INDICATIONS: TIA TECHNIQUE: Non-contrast axial T1 spin echo, axial T2 fast spin echo, sagittal and axial FLAIR, coronal T2 fast spin echo, axial gradient echo, axial diffusion and ADC through the brain. COMPARISON: [facility], CT, CT ANGIO HEAD AND NECK, 06/04/2021, 18:51. [facility], CT, CT STROKE, 06/04/2021, 18:51. FINDINGS: Image quality: Degraded by patient motion artifact. CSF spaces: Ventricles appear symmetric in size and shape. Basal cisterns are patent. No extra-axial fluid collections. Brain: No intracranial bleeds or mass effects. There is mild cerebral volume loss for age. There are mild periventricular and deep white matter chronic small vessel ischemic changes. Brainstem appears normal. Diffusion-weighted images show no acute ischemic insults. No chronic ischemic insults. Normal intravascular flow voids are present. Skull and face: Calvarial bone marrow is normal in signal. Orbits are normal. Susceptibility artifact noted in the posterior margin of the upper cervical spine likely related to fixation hardware. Sinuses: Sinuses and mastoids are clear. IMPRESSION: 1. Image quality degraded by patient motion artifact. 2. No acute intracranial disease process within limitations related to motion artifact. 3. No areas of acute or chronic infarction. 4. Mild, diffuse cerebral volume loss. 5. Mild periventricular and subcortical white matter chronic microvascular ischemic change. Dictated by: Maria D Lo MD, PhD on 06/05/2021 at 11:00 Approved by: Maria D Lo MD, PhD on 06/05/2021 at 11:05
--- NOTE | 2021-06-04 21:28 | PM.HP.1 ---
History of Present Illness History of Present Illness Date Patient Seen: 06/04/21 Time Patient Seen: 21:28 Date of Onset of Symptoms: 06/04/21 Chief complaint: LEFT SIDE NUMBNESS Narrative: This is an 80 year old male with Diabetes Mellitus Type 2, Aortic Stenosis, Hypertension, Prostate Cancer and Chronic Urinary Incontinence who presented with a description of 30 minutes of left sided numbness and left hand weakness while seated watching his TV this evening. His left hand was briefly numb and weak. His left leg was numb but not weak. He had a vague central headache process while the numbness was going on. His CTA Head and Neck shows no significant Aortic Stenosis, ROD FINISHER Bleed or other ROD FINISHER process. His symptoms have completely resolved by the time he came to the ED. He is admitted for Telemetry observation along with further testing including Echocardiogram and Brain MRI in the morning. He had a similar very brief episode 10 days ago. He recalls a negative TIA workup 3 years ago also. The common carotid arteries demonstrate normal caliber and courses.? 30% left and 50% right internal carotid artery origin stenosis. Patient History Medical History Aortic stenosis Bone spur Cardiomyopathy Cervical spine fracture (~1958) Diabetes Facet arthropathy, lumbosacral Former smoker Hematochezia (~2016) History of prostate cancer HNP (herniated nucleus pulposus), lumbar HTN (hypertension) Hyperlipidemia Left wrist fracture (~2010) Lumbosacral radiculopathy at L5 Lumbosacral spondylosis Osteoarthritis Polymyalgia rheumatica Prostate cancer RBBB (right bundle branch block) Recurrent urinary tract infection TIA (transient ischemic attack) (~2011) TMJ (temporomandibular joint disorder) Surgical History Hx of prostatectomy Family & Social History Family History (Updated 08/20/20 @ 23:16 by DOMINICK Ruiz) Father Heart disease Heart attack Mother No significant medical problems Grandmother Heart disease Social History: household members none Safety & Behavioral: Feels Safe in Current Yes Environment Been Physically Hurt or No Threatened By a Person Tobacco & Substance use: Smoking Status Former smoker alcohol intake current alcohol intake frequency 0-2 drinks per day Substance Use Type does not use Comment: His backup decision maker is his son Alexis Georgina. 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 His PCP is Dr. Peters in [place]. Meds Home Medications and Allergies Home Medications Medication Instructions Recorded Confirmed Type aspirin 81 mg tablet,delayed 81 mg PO BEDTIME #0 08/21/11 06/04/21 History release losartan 100 mg tablet 100 mg PO QDAY #0 08/21/11 06/04/21 History metformin 1,000 mg tablet 1,000 mg PO BIDCC #0 02/10/13 06/04/21 History metoprolol tartrate 50 mg tablet 50 mg PO BID 07/21/18 06/04/21 History (Lopressor) glimepiride 2 mg tablet 2 mg PO DAILY 04/18/19 06/04/21 History insulin lispro 100 unit/mL 6 sliding scale dose SUBCUT 04/12/20 06/04/21 History subcutaneous solution (Humalog USEASDIRECTD U-100 Insulin) omeprazole 20 mg capsule,delayed 20 mg PO BEDTIME 08/20/20 06/04/21 History release clopidogrel 75 mg tablet 75 mg PO DAILY #30 tab 08/21/20 06/04/21 Rx gabapentin 300 mg capsule See Rx Instructions .ROUTE 05/08/21 06/04/21 Rx .COMPLEX #90 capsule prednisone 5 mg tablet 5 mg PO DAILY 06/04/21 06/04/21 History Allergies Allergy/AdvReac Type Severity Reaction Status Date / Time No Known Drug Allergies Allergy Verified 06/04/21 18:31 Review of Systems Review of Systems Narrative: Positive for headache and left leg/left hand numbness. Positive for chronic urinary incontinence. Negative for chest pain, shortness of breath, coughing, fever, chills, N/V, Abdominal pain and Seizures. Exam Vital Signs (past 8 hours): - 06/04/21 18:31 Temperature 96.9 F L Pulse Rate 70 Respiratory Rate 14 Blood Pressure 127/88 Pulse Oximetry 100 Oxygen Delivery Method Room Air Narrative Exam Narrative: Alert and oriented X 3 NAD PERRLA EOMI Sclerae pink and not icteric Throat looks normal No LN felt H,N,SC areas. No thyromegaly. Heart is RRR without murmur Lungs are CTAB Abdomen is soft, bowel sounds normal, not tender. He is distended and tympanitic. No masses felt. Skin without rash or jaundice Ext have no ankle edema Neurological exam: CN 2-12 test intact No tremor Motor function is 5/5 bilateral upper and lower extremities Sensation is intact. Speech is normal Babinskis are downgoing bilaterally Finger to Nose pointing is normal. Objective Labs Result Diagrams: 06/04/21 18:50 06/04/21 18:50 Labs: Laboratory Results - last 24 hr 06/04/21 06/04/21 06/04/21 18:50 18:50 18:50 WBC 9.6 RBC 4.26 L Hgb 12.8 L Hct 37.3 L MCV 87.7 MCH 30.2 MCHC 34.4 RDW 14.1 Plt Count 299 Neut % (Auto) 63.3 Lymph % (Auto) 29.4 [place] % (Auto) 6.2 Eos % (Auto) 0.9 L Baso % (Auto) 0.2 Neut # (Auto) 6100 Lymph # (Auto) 2800 [place] # (Auto) 600 Eos # (Auto) 100 Baso # (Auto) 0 PT 11.8 INR 1.0 APTT 31 D Sodium 131 L Potassium 5.1 Chloride 98 Carbon Dioxide 27 BUN 30 H Creatinine 1.27 H Estimated GFR 54.3 L BUN/Creatinine Ratio 23.6 H Glucose 388 H Calcium 10.7 H Total Bilirubin 0.7 AST 20 ALT 17 Alkaline Phosphatase 103 Total Creatine Kinase 53 L CK-MB (CK-2) TNP CK-MB (CK-2) Rel Index TNP Troponin I < 0.012 Total Protein 7.8 Albumin 4.5 Globulin 3.3 Albumin/Globulin Ratio 1.4 Lipase 226 Urine RBC Urine WBC Ur Squamous Epith Cells Urine Bacteria Ur Culture Indicated? SARS-CoV-2 (PCR) 06/04/21 06/04/21 19:13 19:59 WBC RBC Hgb Hct MCV MCH MCHC RDW Plt Count Neut % (Auto) Lymph % (Auto) [place] % (Auto) Eos % (Auto) Baso % (Auto) Neut # (Auto) Lymph # (Auto) [place] # (Auto) Eos # (Auto) Baso # (Auto) PT INR APTT Sodium Potassium Chloride Carbon Dioxide BUN Creatinine Estimated GFR BUN/Creatinine Ratio Glucose Calcium Total Bilirubin AST ALT Alkaline Phosphatase Total Creatine Kinase CK-MB (CK-2) CK-MB (CK-2) Rel Index Troponin I Total Protein Albumin Globulin Albumin/Globulin Ratio Lipase Urine RBC 1-5/hpf Urine WBC 1-5/hpf Ur Squamous Epith Cells 1-5 /hpf Urine Bacteria None seen Ur Culture Indicated? Cult not indicated SARS-CoV-2 (PCR) Negative Assessment & Plan Assessment & Plan narrative: This is an 80 year old male with Diabetes Mellitus Type 2, Aortic Stenosis, Hypertension, Prostate Cancer and Chronic Urinary Incontinence who presented with a description of 30 minutes of left sided numbness and left hand weakness while seated watching his TV on the day of admission. TIA, present on admission. Active. -Observation admission for Brain MRI and Echocardiogram -Telemetry monitoring -Continue Aspirin, Plavix, blood sugar control and blood pressure control Diabetes Mellitus Type 2, present on admission. Active. -Continue Glimepiride and Metformin. -Follow Blood Sugars ACHS and add Correctional insulin scale if needed Diabetic Peripheral Neuropathy, present on admission. Active -Continue Gabapentin GERD, present on admission. Chronic. -Continue Omeprazole Hypertension, present on admission. Active. -Continue Metoprolol and Losartan Hypertrophic Obstructive Cardiomyopathy, present on admission. Chronic. -Continue Aspirin and Metoprolol with Losartan Polymyalgia Rheumatica, present on admission. Chronic. -Continue Prednisone 5 mg daily. CKD 3, present on admission. Chronic. -Creatinine 1.27, follow on 06/05 Hyponatremia, present on admission. Active. -Na 131 on admission, follow on 06/05 Lovenox for DVT prevention . Time Spent With Patient Critical Care time: I spent a total of [] minutes of critical care time on this patient's care today; this time is exclusive of procedural time.
[2021-06-04 21:55] VITALS: BMI 23.0
[2021-06-04 21:59] VITALS: BP 142/79; PULSE 71; RESP 18; O2SAT 98
[2021-06-04 22:46] VITALS: BP 135/67; PULSE 79; RESP 17; TEMP 36.2
[2021-06-04 23:34] VITALS: BP 135/67; PULSE 79
[2021-06-04] MEDS: PANTOPRAZOLE DR 20 MG TABLET PO (23:34)
[2021-06-04] MEDS: METFORMIN HCL 500 MG TABLET 1000 MG PO (23:34)
[2021-06-04] MEDS: LOSARTAN 50 MG TABLET 100 MG PO (23:34)
[2021-06-04] MEDS: GABAPENTIN 300 MG CAPSULE PO (23:36)
[2021-06-05 02:00] VITALS: BP 114/51; PULSE 66; RESP 18; TEMP 37.2; O2SAT 97
[2021-06-05 04:00] VITALS: BP 113/61; PULSE 68; RESP 14; TEMP 37.2; O2SAT 97
[2021-06-05 06:48] LABS: BUN Creatinine Ratio 24.5 (6-22); Blood Urea Nitrogen 24 mg/dL (9-20); Calcium 10.5 mg/dL (8.4-10.2); Carbon Dioxide 25 mmol/L (22-32); Chloride 104 mmol/L (98-107); Estimated Glomerular Filt Rate > 60.0 mL/min (>60); Glucose 182 mg/dL (80-110); HEMOLYSIS < 15 (0-50); Potassium 4.2 mmol/L (3.4-5.1); Sodium 134 mmol/L (137-145)
[2021-06-05 08:00] VITALS: BP 107/53; PULSE 70; RESP 16; TEMP 36.8; O2SAT 98
[2021-06-05] MEDS: METFORMIN HCL 500 MG TABLET 1000 MG PO (08:34)
[2021-06-05] MEDS: GABAPENTIN 300 MG CAPSULE PO (08:38)
[2021-06-05] MEDS: ENOXAPARIN 40 MG/0.4 ML SYRINGE SUBCUT (08:39)
[2021-06-05] MEDS: predniSONE 5 MG TABLET PO (08:39)
[2021-06-05] MEDS: GLIMEPIRIDE 2 MG TABLET PO (08:39)
[2021-06-05 08:40] VITALS: BP 107/53; PULSE 70
[2021-06-05] MEDS: METOPROLOL IR 50 MG TABLET PO (08:40)
[2021-06-05] MEDS: LOSARTAN 50 MG TABLET 100 MG PO (08:40)
--- NOTE | 2021-06-05 09:54 | OT.IP.EVAL ---
Past Medical History (Last Reviewed 06/05/21 @ 04:16 by Martin Cross DO) Aortic stenosis Bone spur Cardiomyopathy Cervical spine fracture (~195) Diabetes Facet arthropathy, lumbosacral Former smoker Hematochezia (~2016) History of prostate cancer HNP (herniated nucleus pulposus), lumbar HTN (hypertension) Hx of prostatectomy Hyperlipidemia Left wrist fracture (~2010) Lumbosacral radiculopathy at L5 Lumbosacral spondylosis Osteoarthritis Polymyalgia rheumatica Prostate cancer RBBB (right bundle branch block) Recurrent urinary tract infection TIA (transient ischemic attack) (~2011) TMJ (temporomandibular joint disorder) Surgical History (Last Reviewed 06/04/21 @ 21:32 by Angel Weems MD) Hx of prostatectomy Occupational Therapy Inpatient Evaluation/Re-Eval M1 PT/OT-IP Prior Functional Status Start: 06/05/21 09:00 Freq: NEEDED Status: Active Protocol: Document 06/05/21 09:00 [facility] (Rec: 06/05/21 12:17 [facility] [id number]) Medical Review Prior Functional Status Medical History Reviewed Yes Communication Independent Mobility and Gait Independent but has used a SPC for the past few days due to weakness. Activities of Daily Living and IADL's Independent for all ADL, daugther and son assists for IADL needs Social History Household Members none Living Arrangements House Number of Floors (Floors) One Floor Number of Stairs To Enter/Railing? 2 steps with left rail Home Environment Walk in Shower Home Equipment Straight Cane,Grab Bars Near Toilet,Grab Bars In Shower Additional Social History Comment pt has a 7 ft tub that at times he is able to sit on the edge of the tub and get in to soak. M2 OT-IP Current Condition Start: 06/05/21 11:55 Freq: Status: Active Protocol: Document 06/05/21 09:00 [facility] (Rec: 06/05/21 12:17 [facility] [id number]) Occupational Therapy Current Condition Current Condition Evaluation Date 06/05/21 Treatment Diagnosis TIA, left weakness M3 OT- IP Subjective and Pain Start: 06/05/21 11:55 Freq: Status: Active Protocol: Document 06/05/21 09:00 [facility] (Rec: 06/05/21 12:17 [facility] [id number]) OT- Subjective Occupational Therapy Visit Type Type Initial Evaluation Visit Start Time 09:00 Visit Stop Time 09:54 Total Visit Minutes 54 Occupational Therapy Visit Comments Patient Comments Pt agreed to get up for OT eval. Patient/Caregiver Goals TO go home. OT Pain Assessment Pain When Pain Assessed At Rest Pain Present Pain Present Denied Pain M4 OT- IP ADL's Start: 06/05/21 11:55 Freq: Status: Active Protocol: Document 06/05/21 09:00 [facility] (Rec: 06/05/21 12:17 [facility] [id number]) OT [id number] Comments OT Self-Feeding Comments NOt at meal time. OT ADL-Grooming General Evaluation Grooming Ability Independent OT ADL-Oral Care General Eval Oral Care Ability Independent OT ADL-Dressing General Eval Lower Body Dressing Ability Independent Comments OT Dressing Comments Able to charlie/doff socks while seated. OT ADL-Toileting General Evaluation Toileting Ability Independent OT ADL-Bathing Comments OT Bathing Comments Not performed. M5 OT- IP IADL's Start: 06/05/21 11:55 Freq: Status: Active Protocol: Document 06/05/21 09:00 [facility] (Rec: 06/05/21 12:17 [facility] [id number]) OT-Instrumental Activities of Daily Living Home Safety Awareness Awareness of Need for Assistance at Home Good Awareness Ability to Problem Solve Emergency Able to Problem Solve Situations Home Safety Comments Pt's son lives close by and has been checking on him daily . Medication Management Medication Management Comments Pt's daughter assists to help set up his pills. Money Management Money Management Comments Pt states does his own finances. Meal Preparation Meal Preparation Comments Pt's family assists. Fibre Optics Jointer Fibre Optics Jointer No Deficits Identified M6 OT- IP Functional Cognition Start: 06/05/21 11:55 Freq: Status: Active Protocol: Document 06/05/21 09:00 [facility] (Rec: 06/05/21 12:17 [facility] [id number]) Cognitive Factors Limiting Selfcare Function Cognitive Ability Level of Alertness Alert Patient Orientation Name,Age,Birthday,Month,Date, Year,Day of Week,Place, Situation Attention Span Ability Capable of Focused Attention, Capable of Sustained Attention Ability to Follow Commands Able to Follow Multi-Step Commands Safety Awareness Underestimates Need for Assistance Cognitive Comments Cognitive Assessment Comments Pt able to follow commands appropriately for ADl and mobility needs and not open to doing higher level cognitive assessments at this time. OT- Vision and Hearing OT- Hearing Assessment OT- Hearing Assessment WFL OT- Vision Assessment Visual Acuity Glasses For Reading Occular Pursuits WFL Visual Convergence WFL Visual Gomez WFL M7 OT- IP Mobility and Balance Start: 06/05/21 11:55 Freq: Status: Active Protocol: Document 06/05/21 09:00 [facility] (Rec: 06/05/21 12:17 [facility] [id number]) OT- Bed Mobility Assessment Supine to Sit Supine to Sit Assist Independent OT-Transfer Assessment Sit to and From Stand Sit to and from Stand Independent Transfers Transfer Ability Standby Assistance Technique Transfer Destination Bed,Chair,Toilet Transfer Technique Stand Step Pivot Devices Transfer Assistive Devices None,Gait Belt Comments Mobility Comments Pt able to do bed mobility independently and at times needing use of surface for balance while getting to the bathroom. Pt states usually is a little unsteady in the mornings and a little off balanced. Suggested for pt to use his SPC at home as needed . OT- Gait Assessment Comments Gait Ability Comments SBA on level surfaces in the room. OT- Balance Assessment Sitting Balance and Reactions Static Sitting Balance Ability Normal Dynamic Sitting Balance Ability Good Standing Balance and Reactions Static Standing Balance Ability Good Dynamic Standing Balance Ability Fair M8 OT- IP Objective Assessments Start: 06/05/21 11:55 Freq: Status: Active Protocol: Document 06/05/21 09:00 [facility] (Rec: 06/05/21 12:17 [facility] [id number]) OT Gross Range of Motion Upper Extremity Range of Motion Assessment Left Impaired ROM Impairments Able to do gentle stretching for left internal rotators to help improve his AROm with LUE . OT Strength Comments Strength Comments BUE RUE 4/5to 5/5 and LUE 4-/5 to 5/5. OT- Coordination Assessment Comments Coordination Comments left hand slightly off initially Left hand 40 seconds for 9 hole peg and right hand 27 seconds OT-Muscle Tone Assessment Muscle Tone WNL Yes OT Sensation Assessment Comments Summary Comments Intact for light touch. M9 OT- IP Assessment and Plan Start: 06/05/21 11:55 Freq: Status: Active Protocol: Document 06/05/21 09:00 [facility] (Rec: 06/05/21 12:17 [facility] [id number]) OT Summary Assessment and Plan Potential Rehabilitation Potential Good Analytic Complexity at Evaluation Moderate Summary OT Impairments Range of Motion,Strength, Coordination,Functional Mobility,Dressing,Toileting, Bathing,Toilet Transfers, Shower Transfers Progress Towards Goals Progressing Toward Goals Assessment Summary Pt low complexity and here due to left sided weakness/TIA. Pt has decreased AROm,strength and coordination for LUE. Pt is a little unsteady on his feet and would benefit form use of a shower chair at home and SPC as needed. Pt states tends to furniture cruise initially in the mornings to get around. Pt may benefit from outpt PT to work on his dynamic balance and coordination needs. Pt to go home with assist when medically stable. Goals Bathing Goal Independent Toilet Transfer Goal Independent Shower Transfer Goal Independent Days to Meet Goals 3 Frequency of Treatment Frequency Of Treatment Once a Day Treatment Plan OT Treatment Plan Functional Mobility, Therapeutic Exercises,Patient/ Family Education,Discharge Planning Other Treatment Recommendations and Next shower Treatment Focus Discharge Recommendations OT Discharge Recommendations Home with Assistance, Outpatient PT Home Equipment Needs shower chair Transportation Needs at Discharge Private Vehicle
[2021-06-05] MEDS: LORazepam 2 MG/ML INJ 1 MG IV ×2 (10:08→10:27)
[2021-06-05] MEDS: CLOPIDOGREL 75 MG TABLET PO (10:09)
[2021-06-05] MEDS: ATORVASTATIN 20 MG TABLET 40 MG PO (10:09)
--- NOTE | 2021-06-05 11:31 | SLP.IPNOTE ---
Unable to see pt. He had just returned from MRI and had been premedicated before his procedure. Pt was sleeping. Will attempt later.
--- NOTE | 2021-06-05 11:45 | PT-IP ANOTE ---
Attempted to see pt this AM but was unavailable - with OT, off floor for MRI, and then too drowsy secondary to Ativan. Will follow up PM.
[2021-06-05 12:00] VITALS: BP 126/63; PULSE 66; RESP 15; TEMP 36.4; O2SAT 98
--- NOTE | 2021-06-05 12:01 | CM.DANOTE ---
Patient is an 80 yo male who was admitted on 06/04/21 for Left Side Numbness. Pt has [place] and [place] for [place] and his PCP is Yo Peters. EMR was reviewed. Per , pt with hx of diabetes, prostrate CA, chronic urinary incontinence and admitted for TIA workup as pt has had multiple TIAs in the past couple years. SW met bedside with pt and explained role while OT was getting pt's vitals and beginning her initial assessment. Pt confirms he lives at home alone in [place] and is independent at baseline and drives and does not use DME for ambulation. Pt's DPOA is his Dtr Yuly who lives in [place]. Pt also has adult son and adult Dtr who both live close by to him in [place] and pt states his son is a worry wart and checks on him daily. Pt feels back to baseline and preference is home today via son POV and does not anticipate any needs. Per OT, pt seems basically back to baseline and recommending home with family assist. PT/ST ordered and pending. Pt was last admitted in July 2020 last year for similar and was able to d/c home with no needs. Plan: SW to follow to confirm safe plan of home via family POV when medically stable and any further identified needs after PT eval and recommendations. LIZETH Tolentino Discharge Planning/Care Management CM Discharge Assessment Start: 06/05/21 11:58 Freq: Status: Active Protocol: Document 06/05/21 11:58 [facility] (Rec: 06/05/21 12:01 [id number]) Discharge Planning Assessment Assigned Admission Nurse LIZETH Lee DPOA/Assigned Designee Name Dtarleth Emery who lives in [place] Contact Information unknown Advance Directives? Yes Advance Directives on File Yes History Provided By Patient,Family Member,Medical Record Has Patient been admitted in last 30 No days? Prior Living Arrangements House Household Members none Type of transporation used prior to Drives own vehicle admit Independent with ADL's Yes Is patient alert and oriented? Yes Caregiver for Another No Patient/Family Preference OP PT Therapy Barriers to Discharge No Discharge Plan Home Transportation Arrangement Children Referrals Initiated None needed Whiteboard Updated in Patient Room with Yes name and ext. # of Admission Nurse Review Status In Process Please Provide Date Initial DC 06/05/21 Assessment Was Performed Next Review Type Continued Stay Review
--- NOTE | 2021-06-05 15:57 | P.DS_ITS ---
History of Present Illness History of Present Illness Date Patient Seen: 06/05/21 Chief complaint: LEFT SIDE NUMBNESS Narrative: History of Present Illness History of Present Illness Date Patient Seen:?06/04/21 Time Patient Seen:?21:28 Date of Onset of Symptoms:?06/04/21 Narrative: This is an 80 year old male with Diabetes Mellitus Type 2, Aortic Stenosis, Hyp ertension, Prostate Cancer and Chronic Urinary Incontinence who presented with a description of 30 minutes of left sided numbness and left hand weakness while seated watching his TV this evening. His left hand was briefly numb and weak.? His left leg was numb but not weak.? He had a vague central headache process while the numbness was going on.? His CTA Head and Neck shows no significant Aortic Stenosis, TEST HOLE DRILLER Bleed or other TEST HOLE DRILLER process.? His symptoms have completely resolved by the time he came to the ED.? He is admitted for Telemetry observation along with further testing including Echocardiogram and Brain MRI in the morning.? He had a similar very brief episode 10 days ago.? He recalls a n egative TIA workup 3 years ago also.?The common carotid arteries demonstrate normal caliber and courses.? 30% left and 50% right internal carotid artery origin stenosis. Discharge Providers Provider Date of admission: 06/04/21 20:57 Discharge Date: 06/05/21 Primary care physician: Yo Peters MD Consults: 06/04/21 21:24 Consult to Discharge Planning Routine Comment: Consult to Occupational Therapy Evaluate & Treat Comment: Physician Instructions: Evaluate and treat Consult to Physical Therapy Evaluate & Treat Comment: Physician Instructions: Evaluate and Treat Consult to Speech Therapy Evaluate & Treat Comment: Physician Instructions: Evaluate and treat Discharge provider: Joanie Trimble DO Summary Hospital Course Discharge Diagnosis: POSSIBLE TIA. ON ASPIRIN, PLAVIX, STATIN ANEMIA. POSSIBLE CHRONIC DISEASE POSSIBLE AORTIC STENOSIS. DIABETES TYPE 2 PER HISTORY DIABETIC NEUROPATHY PER HISTORY HYPERTROPHIC OBSTRUCTIVE CARDIOMYOPATHY PER HISTORY HYPERTENSION PER HISTORY GERD PER HISTORY POLYMYALGIA RHEUMATICA PER HISTORY Hospital Course: PLEASANT 80-YEAR-OLD MALE OBSERVE IN THE HOSPITAL OVERNIGHT FOR POSSIBLE TIA PATIENT IS CURRENTLY NO RECURRING SYMPTOMS MRI OF THE BRAIN WAS NEGATIVE FOR ANY ACUTE EVENT TELEMETRY NOT SHOWING ANY SIGNIFICANT ARRHYTHMIA. PATIENT HAD AN ECHOCARDIOGRAM DONE LAST YEAR SHOWING SEVERE AORTIC STENOSIS, MILD MR, AND HOCOM THIS COULD BE REPEATED OUTPATIENT IF NEEDED PATIENT WILL NEED TO BE FOLLOWED BY CARDIOLOGY IN REGARD TO THE AORTIC VALVE STENOSIS REPORTED IN PREVIOUS ECHO. THIS COULD BE CONTRIBUTING FACTOR IN REGARD TO HIS SYMPTOMS HE WILL BE DISCHARGED ON A STATIN. LIPITOR HAS BEEN ORDERED DAILY. VITAL SIGNS HAVE BEEN FAIRLY STABLE ADDITIONAL MANAGEMENT WILL DEFER TO OUTPATIENT PROVIDERS. Status at Discharge Cognitive/behavioral status at discharge: oriented Functional status at discharge: independent ambulation Overall status at discharge: patient is back to baseline Time Spent with Patient Time spent: Greater than 30 minutes Exam Vital Signs (past 8 hours): - 06/05/21 08:00 06/05/21 08:40 06/05/21 12:00 Temperature 98.3 F 97.5 F L Pulse Rate 70 70 66 Respiratory Rate 16 15 Blood Pressure 107/53 L 107/53 L 126/63 Pulse Oximetry 98 98 Oxygen Delivery Method Room Air Oxygen Flow Rate 0 Narrative Exam Narrative: NO ACUTE DISTRESS. PATIENT IS ALERT ORIENTED X3. VITAL SIGNS STABLE HEAD ATRAUMATIC NORMOCEPHALIC NECK : SUPPLE WITHOUT ADENOPATHY NO CAROTID BRUITS EYE: EOMI, PERRLA, NORMAL CONJUNCTIVA; NO JAUNDICE CHEST: REGULAR RATE. NO RUBS. PMI IS NON DISPLACED. ; NORMAL S1-S2 PULMONARY: DECREASED BS OVER THE BASES. MILD BIBASILAR CRACKLES NOTED; NO INCREASED DULLNESS TO PERCUSSION ABDOMEN: SOFT. NONTENDER. NONDISTENDED. BOWEL SOUNDS ARE PRESENT IN ALL 4 QUADRANTS. NO MASS. EXTREMITIES: NO EDEMA.. NO CYANOSIS CLUBBING NOTED. NEURO: CRANIAL NERVES 2-12 GROSSLY INTACT. NO FOCAL NEUROLOGICAL DEFICIT NOTED. MSK: NORMAL RANGE OF MOTION FOR AGE. NO JOINT EFFUSION. SKIN: NORMAL FOR ETHNICITY; NO ECCHYMOSIS. NO LESION. GOOD TURGOR.; NO RASHES : NORMAL EXTERNAL GENITALIA. PSYCH : APPROPRIATE MOOD AND AFFECT. ALERT AWAKE ORIENTED X3 Objective Labs Result Diagrams: 06/04/21 18:50 06/05/21 05:57 Labs: Laboratory Results - last 24 hr 06/04/21 06/04/21 06/04/21 18:50 18:50 18:50 WBC 9.6 RBC 4.26 L Hgb 12.8 L Hct 37.3 L MCV 87.7 MCH 30.2 MCHC 34.4 RDW 14.1 Plt Count 299 Neut % (Auto) 63.3 Lymph % (Auto) 29.4 [place] % (Auto) 6.2 Eos % (Auto) 0.9 L Baso % (Auto) 0.2 Neut # (Auto) 6100 Lymph # (Auto) 2800 [place] # (Auto) 600 Eos # (Auto) 100 Baso # (Auto) 0 PT 11.8 INR 1.0 APTT 31 D Sodium 131 L Potassium 5.1 Chloride 98 Carbon Dioxide 27 BUN 30 H Creatinine 1.27 H Estimated GFR 54.3 L BUN/Creatinine Ratio 23.6 H Glucose 388 H Calcium 10.7 H Total Bilirubin 0.7 AST 20 ALT 17 Alkaline Phosphatase 103 Total Creatine Kinase 53 L CK-MB (CK-2) TNP CK-MB (CK-2) Rel Index TNP Troponin I < 0.012 Total Protein 7.8 Albumin 4.5 Globulin 3.3 Albumin/Globulin Ratio 1.4 Lipase 226 Urine RBC Urine WBC Ur Squamous Epith Cells Urine Bacteria Ur Culture Indicated? SARS-CoV-2 (PCR) 06/04/21 06/04/21 06/05/21 19:13 19:59 05:57 WBC RBC Hgb Hct MCV MCH MCHC RDW Plt Count Neut % (Auto) Lymph % (Auto) [place] % (Auto) Eos % (Auto) Baso % (Auto) Neut # (Auto) Lymph # (Auto) [place] # (Auto) Eos # (Auto) Baso # (Auto) PT INR APTT Sodium 134 L Potassium 4.2 Chloride 104 Carbon Dioxide 25 BUN 24 H Creatinine 0.98 Estimated GFR > 60.0 BUN/Creatinine Ratio 24.5 H Glucose 182 H D Calcium 10.5 H Total Bilirubin AST ALT Alkaline Phosphatase Total Creatine Kinase CK-MB (CK-2) CK-MB (CK-2) Rel Index Troponin I Total Protein Albumin Globulin Albumin/Globulin Ratio Lipase Urine RBC 1-5/hpf Urine WBC 1-5/hpf Ur Squamous Epith Cells 1-5 /hpf Urine Bacteria None seen Ur Culture Indicated? Cult not indicated SARS-CoV-2 (PCR) Negative [facility] Medical History Aortic stenosis Bone spur Cardiomyopathy Cervical spine fracture (~1959) Diabetes Facet arthropathy, lumbosacral Former smoker Hematochezia (~2017) History of prostate cancer HNP (herniated nucleus pulposus), lumbar HTN (hypertension) Hyperlipidemia Left wrist fracture (~2010) Lumbosacral radiculopathy at L5 Lumbosacral spondylosis Osteoarthritis Polymyalgia rheumatica Prostate cancer RBBB (right bundle branch block) Recurrent urinary tract infection TIA (transient ischemic attack) (~2011) TMJ (temporomandibular joint disorder) Surgical History Hx of prostatectomy Family History (Updated 08/20/20 @ 23:16 by DOMINICK Ruiz) Father Heart disease Heart attack Mother No significant medical problems Grandmother Heart disease Social History household members: none Smoking Status: Former smoker alcohol intake: current Discharge Plan Discharge Plan Patient Disposition: Home Discharge orders & Medications Prescriptions: New atorvastatin 40 mg tablet 40 mg PO DAILY Qty: 60 2RF Continued aspirin 81 mg Tablet,Delayed Release (Dr/Ec) 81 mg PO BEDTIME Qty: 0 0RF losartan 100 MG tablet 100 mg PO QDAY Qty: 0 0RF metformin 1,000 MG tablet 1,000 mg PO BIDCC Qty: 0 0RF gabapentin 300 mg capsule See Rx Instructions .ROUTE .COMPLEX Qty: 90 2RF Dose Instruction: TAKE 1 TO 2 CAPSULES BY MOUTH THREE TIMES DAILY. BEGIN AT BEDTIME AND TITRATE TO PAIN RELIEF Rx Instructions: TAKE 1 TO 2 CAPSULES BY MOUTH THREE TIMES DAILY. BEGIN AT BEDTIME AND TITRATE TO PAIN RELIEF metoprolol tartrate [Lopressor] 50 mg Tablet 50 mg PO BID 0RF prednisone 5 mg Tablet 5 mg PO DAILY 0RF Lantus Solostar U-100 Insulin 100 unit/mL (3 mL) Insulin Pen 8 unit SUBCUT BEDTIME 0RF omeprazole 20 mg Capsule,Delayed Release(Dr/Ec) 20 mg PO BEDTIME 0RF clopidogrel 75 mg Tablet 75 mg PO DAILY Qty: 30 0RF glimepiride 2 mg tablet 2 mg PO DAILY 0RF Follow up/Referrals: Yo Peters MD [Primary Care Provider] - Diet/Activity/Treatments Diet: Low-fat and Low-cholesterol Activity: TOLERATED Skin/Wound/Dressing Care Report to your healthcare provider any signs of infection, such as:: chills, fever and night sweats Discharge Data Primary Care Provider: Yo Peters Attending Provider: Angel Weems Quality VTE Deep Vein Thrombosis/Pulmonary Embolism Present on Admission: No
[2021-06-05 16:00] VITALS: BP 107/56; PULSE 79; RESP 18; TEMP 36.4; O2SAT 97
--- NOTE | 2021-06-05 16:46 | PT.IIE ---
Medical History (Last Reviewed 06/05/21 @ 04:16 by Martin Cross DO) Aortic stenosis Bone spur Cardiomyopathy Cervical spine fracture (~195) Diabetes Facet arthropathy, lumbosacral Former smoker Hematochezia (~2016) History of prostate cancer HNP (herniated nucleus pulposus), lumbar HTN (hypertension) Hyperlipidemia Left wrist fracture (~2010) Lumbosacral radiculopathy at L5 Lumbosacral spondylosis Osteoarthritis Polymyalgia rheumatica Prostate cancer RBBB (right bundle branch block) Recurrent urinary tract infection TIA (transient ischemic attack) (~2011) TMJ (temporomandibular joint disorder) Physical Therapy Inpatient Evaluation/Re-Eval M1 PT/OT-IP Prior Functional Status Start: 06/05/21 09:00 Freq: NEEDED Status: Active Protocol: Document 06/05/21 16:46 AW (Rec: 06/05/21 17:11 AW [id number]) Medical Review Prior Functional Status Medical History Reviewed Yes Communication Independent Mobility and Gait Independent but has used a SPC for the past few days due to weakness. Pt admits to furniture cruising at home. Activities of Daily Living and IADL's Independent for all ADL, daughter and son assists for IADL needs Social History Household Members none Living Arrangements House Number of Floors (Floors) One Floor Number of Stairs To Enter/Railing? 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 He lives alone in [place] but his son, Alexis, lives across the street and checks on him regularly. His daughter also lives nearby and assists with some meal prep and house keeping. Pt drives. M2 PT-IP Current Condition Start: 06/05/21 09:00 Freq: NEEDED Status: Active Protocol: Document 06/05/21 16:46 AW (Rec: 06/05/21 17:11 AW [id number]) Physical Therapy Current Condition Current Condition Evaluation Date 06/05/21 Treatment Diagnosis TIA, left weakness and sensation disturbance; impaired dynamic balance Onset Date 06/03/21 M3 PT-IP Subjective Start: 06/05/21 09:00 Freq: NEEDED Status: Active Protocol: Document 06/05/21 16:46 AW (Rec: 06/05/21 17:11 AW [id number]) Subjective Physical Therapy Visit Type Type Initial Evaluation Visit Start Time 16:24 Visit Stop Time 16:46 Total Visit Minutes 22 Notes Pt's son was present throughout evaluation. Physical Therapy Visit Comments Patient Comments Pt is willing to participate with PT and hopes to discharge soon. Headache of last few days is now gone and pt feels better. Therapy Pain Assessment Pain When Pain Assessed During Mobility Pain Present Pain Present Denied Pain M4 PT-IP Mobility and Gait Start: 06/05/21 09:00 Freq: NEEDED Status: Active Protocol: Document 06/05/21 16:46 AW (Rec: 06/05/21 17:11 AW [id number]) PT-Bed Mobility Assessment Supine to Sit Supine to Sit Independent Scooting Scooting to Edge of Bed Independent PT-Transfer Assessment Sit to and From Stand Sit to and from Stand Standby Assistance,Use of Upper Extremities Equipment Transfer Assistive Device Gait Belt,Straight Cane Orthotic/Prosthetic Devices or Brace: No Transfers Transfer Destination Bed Transfer Technique ambulated with SPC Transfer Ability Level of Assist Standby Assistance Comments Mobility Comments Pt completed all bed mobility IND and sat up EOB for neuro assessment. He stood from the bed SBA and ambulated in the halls a total of 300 feet. Initial 100 feet was without AD, requiring CGA/close SBA. Pt then used a SPC for rest of assessment and only required CGA during turns. On return to the room, pt sat EOB and was left with call light in reach. Gait Assessment Gait Gait Assistance Required: Standby Assistance,Contact Guard Assist Distance (Feet) 300 Assistive Devices Assistive Device None,Gait Belt,Straight Cane Orthotic/Prosthetic Devices or Brace: No Gait Deviations General Gait Pattern Decreased Feet Clearance, Narrow Based Gait Factors Limiting Gait Function Factors Limiting Gait Function Incoordination,Poor Balance Comments Gait Comments Pt walks with turned out feet and externally rotated hips bilaterally. Stability improved with SPC and pt agrees. Attempted Dynamic Gait Index but did not complete. 4 -Item DGI scored 7/12. Stair Climbing Assessment Evaluation Level of Assist On Stairs Standby Assistance,Contact Guard Assistance Devices Stair Climbing Assistive Devices Straight Cane,Left Railing Technique/Endurance Stair Climbing Direction Ascend and Descend Stair Climbing Technique Step Over Step Number of Steps Climbed 3 Query Text: Stair Climbing Set # Repetitions (reps) 2 Comments Stair Climbing Comments SBA/CGA required for safety. PT-Balance Assessment Sitting Balance and Reactions Static Sitting Balance Ability Normal Dynamic Sitting Balance Ability Normal Standing Balance and Reactions Static Standing Balance Ability Good Dynamic Standing Balance Ability Fair Device Used SPC Functional Assessments Functional Tests Dynamic Gait Index 4-Item DGI: 7/12 Other Functional Tests Performed Single points deducted for all four categories except 2 points deducted with vertical head turns for 4-item DGI M5 PT-IP Objective Assessments Start: 06/05/21 09:00 Freq: NEEDED Status: Active Protocol: Document 06/05/21 16:46 AW (Rec: 06/05/21 17:11 AW [id number]) Orientation Orientation/Cognition Level of Alertness Alert Orientation Name,Day of Week,Place, Situation Safety Awareness Understands Safety Issues Comments Pt has the insight to use a cane when feeling less steady. He denies falls but admits to several near falls in recent memory. Gross Range of Motion Lower Extremity ROM Assessment Within Functional Limits Strength Lower Extremity Strength Assessment Within Functional Limits Comments Strength Comments No unilateral deficit on exam. Coordination Assessment Gross Coordination Gross Coordination Impaired Assessment Finger to Nose Test Minimal Impairment Pronation/Supination Test Minimal Impairment Foot Tapping Test Normal Performance Heel on [place] Test Normal Performance Coordination Comments Pt unable to rapidly pronate/ supinate without loss of pattern. Finger to nose missed targets with both arms by ~1 cm but improved with reps. Sensation Assessment Sensation Gross Sensation WNL Comments Sensation Comments Pt reports sensation back to baseline. Muscle Tone Muscle Tone WNL Yes Comments Muscle Tone Comments Negative ankle clonus bilaterally Other Assessments Other Other Assessments Oculomotor and brief vestibular screen were WNL. M6 PT-IP Treatment Start: 06/05/21 09:00 Freq: NEEDED Status: Active Protocol: Document 06/05/21 16:46 AW (Rec: 06/05/21 17:11 AW [email or web address]) Physical Therapy Treatment Education Education Provided Safety Other Treatments Other Treatment Performed Educated pt and his son on recommendation for SPC at this time and for outpatient PT to address balance concerns. M7 PT-IP Assessment and Plan Start: 06/05/21 09:00 Freq: NEEDED Status: Active Protocol: Document 06/05/21 16:46 AW (Rec: 06/05/21 17:11 AW [id number]) PT Summary Assessment and Plan Potential Rehabilitation Potential Good Status of Condition at Evaluation Evolving Summary Impairments Balance,Coordination,Gait Assessment Summary Mario is an 80 yo man seen for PT evaluation per stroke protocol. MRI brain was limited due to artifact but acute infarct was ruled out. Pt reports independent mobility at baseline but states he has been using a cane for the past few days due to feeling weak. On assessment, coordination was mildly impaired in bilateral upper extremities. Dynamic balance deficits were evidenced by 4-item DGI score of 7/12 and by LOB with cane during turns. PT discussed recommendation for continued use of SPC and for outpatient PT with pt and his son who agree with both. Pt will be safe to discharge home with assist and outpatient PT once medically stable. He has family to stay with him for a few days when he goes home. Goals Transfer Goal Independent,Cane Gait Goal Independent,Cane Gait Distance 500 Other Goals - up/down 3 stairs with unilateral rail and SPC IND Frequency of Treatment Frequency Of Treatment Once a Day Treatment Plan Physical Therapy Treatment Plan Transfer Training,Gait Training,Therapeutic Exercise, Balance Retraining,Discharge Planning,Neuromuscular Re-ed, Coordination Retraining Other Recommendations and Next Treatment Gait training with SPC. Simple Focus static and dynamic balance interventions for HEP. Precautions Other Precautions falls risk Recommendations To Nursing Amount of Assist Needed Standby Assistance Discharge Recommendations PT Discharge Recommendations Home with Assistance, Outpatient PT Transportation Needs at Discharge Private Vehicle
--- NOTE | 2021-06-05 17:29 | PC.NURSE ---
A&OX4. VSS. BP on the lower side 107/ 56. Denies pain. Patient stated he gets anxious with MRIs and requested something to relax. Provider ordered a now dose of IV Lorazepam to be given in two doses from to the MRI. This helped the patient to relax and he was able to tolerate the MRI. It also made him very sleepy and slept for most of the afternoon. Provider cleared for discharge home. Education and discharge instructions reviewed. IV removed. Wheeled off of unit at 1713 to personal vehicle, son driving home.
--- NOTE | 2021-06-06 09:29 | CM.DPC ---
DCP Discharge Home Per MD, pt was medically stable to d/c home last night and per PT/OT, recommending safe d/c home with outpt therapies. Per RN last night, no concerns with d/c and son provided transport home last night 06/05/21 after SW shift. LIZETH Tolentino
== END 2021-06-05 17:15 | disposition home or self-care (01) ==
LOC: ED 19:41 → AC 20:58
PROVIDERS: Admitting Provider Family Medicine; Emergency Provider Emergency Medicine; PCP Internal Medicine; Visit Provider Family Medicine
DX: R29.818 Other symptoms and signs involving the nervous system (principal); R53.1 Weakness; R20.0 Anesthesia of skin; R20.2 Paresthesia of skin; Z79.01 Long term (current) use of anticoagulants; R29.700 NIHSS score 0; Z79.82 Long term (current) use of aspirin; D64.9 Anemia, unspecified; I10 Essential (primary) hypertension; K21.9 Gastro-esophageal reflux disease without esophagitis; M35.3 Polymyalgia rheumatica; E11.42 Type 2 diabetes mellitus with diabetic polyneuropathy; Z79.4 Long term (current) use of insulin; I42.8 Other cardiomyopathies; Z20.822 Contact with and (suspected) exposure to COVID-19
CPT/HCPCS: 36415; 70450; 70496; 70498; 70551; 80048; 80053; 81003; 81015; 82550; 82962; 83690; 84484; 85025; 85610; 85730; 87635; 93005; 93010; 93306; 96372; 96374; 96376; 97161; 97166; 97535; 99284; 99285; C9803; G0378; J1650; J2060; Q9967

== ENCOUNTER → 2022-04-04 08:06 | Outpatient (CLI) | payer MEDICARE, OTHER, SELFPAY ==
[2022-04-04 08:51] LABS: COVID19 -Nasal RAPID Negative (Negative)
--- NOTE | 2022-04-07 18:34 | DI.NM.S_ITS ---
DATE OF SERVICE: 04/04/2022 PROCEDURE: Pharmacologic vasodilator stress and rest myocardial perfusion imaging with gating to assess ejection fraction and regional wall motion. ORDERING PROVIDER: DOMINICK Pugh. INDICATIONS: The patient is an 81-year-old male with aortic stenosis, chest discomfort, and exertional dyspnea. CARDIAC STRESS: Per protocol, 0.4 mg of regadenoson was infused with a normal hemodynamic response. He had minimal dyspnea and no chest discomfort. His resting ECG shows sinus rhythm with RBBB. There are no significant ST-segment shifts or arrhythmias with stress. Per protocol, 23.5 mCi of technetium-99m Myoview was injected and he was imaged 30 minutes later using a gated SPECT acquisition protocol. Three days earlier while at rest, he had been injected with 12.1 mCi of technetium-99m Myoview and was imaged 20 minutes later, again using a gated quantitated SPECT protocol. FINDINGS: 1. Raw data: There is fairly good myocardial tracer uptake without any significant motion artifact. The lung/heart ratio is normal at 0.28 with a normal TID ratio of 1.16. 2. Quantitated gated SPECT: Post-stress ejection fraction is estimated at 70% without any focal wall motion abnormality. The resting ejection fraction is estimated at 86% with a normal resting end-diastolic volume of 59 mL. 3. Myocardial perfusion imaging: Post-stress supine images shows a normal myocardial perfusion pattern without any concerning perfusion defects, supported by the absence of any significant perfusion defects with prone imaging. The resting images show an identical perfusion pattern without any areas of improvement. IMPRESSION: 1. Normal myocardial perfusion study. 2. No evidence of myocardial ischemia or previous myocardial infarction. 3. Normal left ventricular systolic function without any focal wall motion abnormality. 4. No angina or ECG evidence of ischemia with pharmacologic vasodilator stress. 5. Compared to the previous nuclear perfusion study of 02/11/2013, there were no concerning perfusion defects on that study as well. His ejection fraction was 86% with an end-diastolic volume of 59 mL, suggesting no change since the previous exam. Deep Erickson - ANNETTE/paulina/JO ANN doc#: [id number]/job#: [id number] dd: 04/07/2022 16:33:00 dt: 04/07/2022 18:11:00 DICTATING MD/COPIES TO: Miguelito Huerta MD COPIES MNE: ANDREWO;
== END ==
PROVIDERS: PCP Internal Medicine; Referring Provider Nurse Practitioner; Visit Provider Nurse Practitioner
DX: I35.0 Nonrheumatic aortic (valve) stenosis (principal); R07.2 Precordial pain; R06.02 Shortness of breath; R06.00 Dyspnea, unspecified; Z20.822 Contact with and (suspected) exposure to COVID-19
CPT/HCPCS: 78452; 87635; 93017; A9502; J2785

== ENCOUNTER 2022-04-26 11:52 | Emergency (ER) | payer MEDICARE, OTHER, SELFPAY ==
[2022-04-26 12:06] VITALS: BP 136/73; PULSE 85; RESP 18; TEMP 37.1; O2SAT 95; BMI 21.4
[2022-04-26 12:34] LABS: Appearance Urine UA CLEAR
[2022-04-26 12:36] LABS: Color Urine UA ORANGE
[2022-04-26 12:45] LABS: RBC Urine 1-5/HPF (0-5/HPF); WBC Urine 10-30/HPF (0-5/HPF)
[2022-04-26 12:46] LABS: Bacteria Urine Many (>30); Culture Indicated Urine Specimen Cultured
--- NOTE | 2022-04-26 13:53 | ED_ITS ---
HPI - Male Genitourinary <Jo Cabral, [facility] - Last Filed: 04/26/22 14:19> General Chief complaint: Urogenital-Male Stated complaint: uti t-3 Time Seen by Provider: 04/26/22 13:43 Source: patient Mode of arrival: Ambulatory History of Present Illness HPI Narrative: This is a 81-year-old gentleman with history of diabetes and is insulin dependent who presents to the emergency department complaining of worsening incontinence and abdominal distension with chills that started last night and history of prostate surgery [address] ago[address] Patient sees Dr[address] Brooke Haider for Urology in [place] and is set to have a a procedure on June 08 to create a bladder with urostomy drainage. Patient states that he wore a leg bag with a Ye catheter for a few years. States that he does not want another catheter even if he has urinary retention. He denies nausea or vomiting. He is anticoagulated on Plavix Patient has drainage of urine on his pants currently and appears uncomfortable. Related Data Home Medications Medication Instructions Recorded Confirmed aspirin 81 mg tablet,delayed 81 mg PO BEDTIME ##0 08/21/11 06/04/21 release losartan 100 mg tablet 100 mg PO QDAY ##0 08/21/11 06/04/21 metformin 1,000 mg tablet 1,000 mg PO BIDCC ##0 02/10/13 06/04/21 metoprolol tartrate 50 mg tablet 50 mg PO BID 07/21/18 06/04/21 (Lopressor) glimepiride 2 mg tablet 2 mg PO DAILY 04/18/19 06/04/21 omeprazole 20 mg capsule,delayed 20 mg PO BEDTIME 08/20/20 06/04/21 release insulin glargine 100 unit/mL (3 8 unit SUBCUT BEDTIME 06/04/21 06/04/21 mL) subcutaneous pen (Lantus Solostar U-100 Insulin) prednisone 5 mg tablet 5 mg PO DAILY 06/04/21 06/04/21 Previous Rx's Medication Instructions Recorded clopidogrel 75 mg tablet 75 mg PO DAILY #30 tabs 08/21/20 atorvastatin 40 mg tablet 40 mg PO DAILY #60 tabs 06/05/21 gabapentin 300 mg capsule 600 mg PO TID pain #180 caps 09/16/21 belladonna alkaloids-opium 16.2 1 supp ND TID PRN pain #4 ea 04/26/22 mg-30 mg rectal suppository cefuroxime axetil 500 mg tablet 500 mg PO BID 10 days #20 tabs 04/26/22 ondansetron 4 mg disintegrating 4 mg PO Q8H PRN nausea and 04/26/22 tablet vomiting #10 tabs phenazopyridine 100 mg tablet 100 mg PO TID PRN bladder 04/26/22 (Pyridium) pain/spasm 6 doses #7 tabs Allergies Allergy/AdvReac Type Severity Reaction Status Date / Time No Known Drug Allergies Allergy Verified 06/04/21 18:31 Review of Systems <DOMINICK Moy - Last Filed: 04/26/22 14:19> Review of Systems Narrative: Review of systems is negative for acute abnormalities unless otherwise noted in HPI Patient History <DOMINICK Moy - Last Filed: 04/26/22 14:19> Medical History Aortic stenosis Bone spur Cardiomyopathy Cervical spine fracture (~1958) Diabetes Facet arthropathy, lumbosacral Former smoker Hematochezia (~2016) History of prostate cancer HNP (herniated nucleus pulposus), lumbar HTN (hypertension) Hyperlipidemia Left wrist fracture (~2010) Lumbosacral radiculopathy at L5 Lumbosacral spondylosis Osteoarthritis Polymyalgia rheumatica Prostate cancer RBBB (right bundle branch block) Recurrent urinary tract infection TIA (transient ischemic attack) (~2011) TMJ (temporomandibular joint disorder) Surgical History Hx of prostatectomy Family History Father Heart disease Heart attack Mother No significant medical problems Grandmother Heart disease Social History household members: none Smoking Status: Former smoker alcohol intake: current Smoking Status: Former smoker alcohol intake frequency: holidays/special occasions only Substance Use Type: does not use Exam <DOMINICK Moy - Last Filed: 04/26/22 14:19> Narrative Exam Narrative: Reviewed vitals signs and nursing notes. General: cooperative, comfortable, in no acute distress, well groomed HEENT: symmetrical facial expressions, moist mucous membranes GI: abdomen soft, mild suprapubic distension, nontender to palpation,without masses, rebound tenderness or exquisite tenderness with exam. MSK: moves all extremities, neurovascularly intact, no weakness, normal tone Skin: brisk capillary refill, without pallor or erythema Neuro: normal speech and cognition, A&O x3, ambulatory, clear speech Psych: mental status is grossly normal, congruent mood, normal affect, pleasant and cooperative Bladder scan shows 250 mL of urine 1 hour after voiding Initial Vital Signs Initial Vital Signs: Vital Signs Temperature 98.7 F 04/26/22 12:06 Pulse Rate 85 04/26/22 12:06 Respiratory Rate 18 04/26/22 12:06 Blood Pressure 136/73 04/26/22 12:06 Pulse Oximetry 95 04/26/22 12:06 Oxygen Delivery Method 04/26/22 12:06 <Yo Pandey MD - Last Filed: 04/27/22 07:08> Initial Vital Signs Initial Vital Signs: Vital Signs Temperature 98.7 F 04/26/22 12:06 Pulse Rate 85 04/26/22 12:06 Respiratory Rate 18 04/26/22 12:06 Blood Pressure 136/73 04/26/22 12:06 Pulse Oximetry 95 04/26/22 12:06 Oxygen Delivery Method 04/26/22 12:06 Course <DOMINICK Moy - Last Filed: 04/26/22 14:19> Orders Ordered: Discontinued Medications Acetaminophen (Acetaminophen 325 Mg Tablet) 650 mg PO NOW ONE Stop: 04/26/22 13:51 Last Admin: 04/26/22 14:02 Dose: 650 mg Documented By: JACINTO Cefuroxime Axetil (Cefuroxime 250 Mg Tablet) 500 mg PO NOW ONE Stop: 04/26/22 13:51 Last Admin: 04/26/22 14:02 Dose: 500 mg Documented By: JACINTO Ondansetron HCl (Ondansetron 4 Mg Odt) 4 mg SL NOW ONE Stop: 04/26/22 13:51 Last Admin: 04/26/22 14:02 Dose: 4 mg Documented By: JACINTO Vital Signs Vital signs: Vital Signs - 8 hr 04/26/22 12:06 Temperature 98.7 F Pulse Rate 85 Respiratory Rate 18 Blood Pressure 136/73 Pulse Oximetry 95 Oxygen Delivery Method Room Air <Yo Pandey MD - Last Filed: 04/27/22 07:08> Orders Ordered: Discontinued Medications Acetaminophen (Acetaminophen 325 Mg Tablet) 650 mg PO NOW ONE Stop: 04/26/22 13:51 Last Admin: 04/26/22 14:02 Dose: 650 mg Documented By: JACINTO Cefuroxime Axetil (Cefuroxime 250 Mg Tablet) 500 mg PO NOW ONE Stop: 04/26/22 13:51 Last Admin: 04/26/22 14:02 Dose: 500 mg Documented By: JACINTO Ondansetron HCl (Ondansetron 4 Mg Odt) 4 mg SL NOW ONE Stop: 04/26/22 13:51 Last Admin: 04/26/22 14:02 Dose: 4 mg Documented By: JACINTO Vital Signs Vital signs: Vital Signs - 8 hr 04/26/22 12:06 Temperature 98.7 F Pulse Rate 85 Respiratory Rate 18 Blood Pressure 136/73 Pulse Oximetry 95 Oxygen Delivery Method Room Air MDM - Male Genitourinary <DOMINICK Moy - Last Filed: 04/26/22 14:19> Lab Data Labs: Lab Results 04/26/22 Range/Units 11:55 Urine Color [place] Urine Appearance Clear Urine pH TNP Ur Specific [place] TNP Urine Protein TNP Urine Glucose (UA) TNP Urine Ketones TNP Urine Occult Blood TNP Urine Nitrate TNP Urine Bilirubin TNP Urine Urobilinogen TNP Ur Leukocyte Esterase TNP Urine RBC 1-5/hpf (0-5/HPF) Urine WBC 10-30/hpf H (0-5/HPF) Urine Bacteria Many (>30) H (None) Ur Culture Indicated? Specimen cultured MDM Narrative Medical decision making narrative: This is an 81-year-old gentleman who presents to the emergency department complaining of chills that started last night, suprapubic pressure and bloating and describes having chills last night. Patient has a history of prostate surgery 20 years ago, wore a fully catheter for the last 2-3 years and opted to have that removed and has a planned urostomy procedure coming with Dr. Brooke Haider June 08, 2022. Patient's symptoms started last night, he does not have tachycardia, fever, vomiting, flank pain. He is not retaining a large amount of urine, bladder scan 1 hour after voiding shows 250 mL. His urine is positive for bacteria, leukocytes and is pending for culture. Patient was treated with Pyridium, cefuroxime, Zofran and Tylenol. Encouraged him to stay hydrated, follow-up with his urologist and have his urine retested after antibiotics are complete. Prior urine culture from 01/29/2021 shows Klebsiella pneumoniae which is sensitive to all cephalosporins. No peritoneal signs on abdominal exam. Patient remains p.o. tolerant. Serial abdominal exam without increase in abdominal pain. Given history and exam, low suspicion for acute abdominal process, such as acute cholecystitis, pancreatitis, perforated viscus, atypical appendicitis, colitis, diverticulitis or torsion. Extensive conversation about ER return precautions and need for close follow-up. Patient is appropriate and amenable to discharge home. Vital signs are stable on repeat examination is unremarkable. Patient has been informed of results. Patient has been given strict return to ER precautions for any new or worsening symptoms. Patient understands to follow up closely with outpatient providers as instructed. Patient understands plan and agrees to discharge home. All questions and concerns answered at this time. [facility] CLIA ID [id number] [address] [place] [address] RUN DATE: 04/26/22 Specimen Inquiry PAGE 1 RUN TIME: 1418 Name: Deep Erickson Age/Sex: 80/M Attend Dr: Erika Watters D.O. Unit#: [id number] : 1940Location: ED Re01/29/21 Disch: Status: DEP ER SPEC #: [id number] JADE: 01/29/21 STATUS: COMP REQ #: [id number] SPDESC: RECD: 01/29/[address]: Anna Watters D.O. SOURCE: UA Reflex ENTR: 01/29/21 [facility] DR: Yo Peters MD FAX TO: ORDERED: URINE CULTURE Procedure Result Verified Site Urine Culture Final 01/31/21708 Organism 1 Klebsiella pneumoniae [place] Count >100,000 CFU/ml 1. Klebsiella pneumoniae M.I.C. RX --------- --- * Amoxicillin/Clavulanate <=2 S * Ampicillin R * Ampicillin/Sulbactam 4 S * Cefazolin <=4 S * Cefepime <=1 S * Ceftriaxone <=1 S * Ciprofloxacin <=0.25 S * Ertapenem <=0.5 S * Gentamicin <=1 S * Imipenem <=0.25 S * Levofloxacin <=0.12 S * Nitrofurantoin 64 I * Tobramycin <=1 S * Trimethoprim/Sulfamethoxazole <=20 S * Piperacillin/Tazobactam <=4 S <Yo Pandey MD - Last Filed: 04/27/22 07:08> Lab Data Labs: Lab Results 04/26/22 Range/Units 11:55 Urine Color [place] Urine Appearance Clear Urine pH TNP Ur Specific [place] TNP Urine Protein TNP Urine Glucose (UA) TNP Urine Ketones TNP Urine Occult Blood TNP Urine Nitrate TNP Urine Bilirubin TNP Urine Urobilinogen TNP Ur Leukocyte Esterase TNP Urine RBC 1-5/hpf (0-5/HPF) Urine WBC 10-30/hpf H (0-5/HPF) Urine Bacteria Many (>30) H (None) Ur Culture Indicated? Specimen cultured Discharge Plan Departure Patient Disposition: Home Clinical Impression: Complicated urinary tract infection, Incontinence Instructions: DI for Urinary Tract Infection (UTI) Activity Restrictions/Additional Instructions: *You have been diagnosed with a bladder infection which likely has ascended up your ureter. Please take these antibiotics as prescribed for the next 10 days and schedule follow-up appointment with Dr. Haider for a recheck after your antibiotics finish to see if you have recurrence of infection. If you have worsening pain or worsening symptoms, please come back to the emergency department for evaluation. I gave you a medication called belladonna which can cause sedation and I encourage you to use caution if taking your gabapentin at the same time because you may be much more tired. Consider holding off your gabapentin and trying the belladonna suppository for bladder spasms, it can be very helpful for this type of pain. Please stay hydrated, use Zofran every 8 hours as needed for nausea, the Pyridium will staying your urine orange but can also help with bladder pain. I hope you feel better soon, it was a pleasure to meet you. *What to do: *Please continue to take your regular medications as directed. [ x] New medication prescriptions sent to your pharmacy: [[facility] ] [ ] New medication written as a paper prescription [ ] No new medications given *Please follow up with your primary care provider in 2-3 days, call for an appointment. Let them know you were seen in the Emergency Department and that we asked that you be seen for follow-up. We will electronically transmit a record of today's note if your PCP is in our system *If you do not have a primary care provider please contact [phone] to establish care with one of the [facility] primary care providers. *Return to Emergency Department if you should have any new, worsening, or concerning symptoms, such as [fever greater than 101F, chills, worsening pain, persistent vomiting or other bothersome symptoms]. Prescriptions: New cefuroxime axetil 500 mg tablet 500 mg PO BID 10 Days Qty: 20 0RF phenazopyridine [Pyridium] 100 mg tablet 100 mg PO TID PRN (Reason: bladder pain/spasm) Qty: 7 0RF belladonna alkaloids-opium 16.2-30 mg suppository 1 supp ND TID PRN (Reason: pain) Qty: 4 0RF ondansetron 4 mg tablet,disintegrating 4 mg PO Q8H PRN (Reason: nausea and vomiting) Qty: 10 0RF No Action aspirin 81 mg Tablet,Delayed Release (Dr/Ec) 81 mg PO BEDTIME Qty: 0 losartan 100 MG tablet 100 mg PO QDAY Qty: 0 metformin 1,000 MG tablet 1,000 mg PO BIDCC Qty: 0 gabapentin 300 mg capsule 600 mg PO TID Qty: 180 3RF Rx Instructions: YOU CAN DO 2-300MG TABS THREE TIMES A DAY. metoprolol tartrate [Lopressor] 50 mg Tablet 50 mg PO BID prednisone 5 mg Tablet 5 mg PO DAILY Lantus Solostar U-100 Insulin 100 unit/mL (3 mL) Insulin Pen 8 unit SUBCUT BEDTIME atorvastatin 40 mg tablet 40 mg PO DAILY Qty: 60 2RF omeprazole 20 mg Capsule,Delayed Release(Dr/Ec) 20 mg PO BEDTIME clopidogrel 75 mg Tablet 75 mg PO DAILY Qty: 30 0RF glimepiride 2 mg tablet 2 mg PO DAILY Referrals: Arisco,Brooke, MD [Non-Staff] - Yo Peters MD [Primary Care Provider] - Visit Report Forms: Patient Portal/API <Yo Pandey MD - Last Filed: 04/27/22 07:08> Cosign ED Attending Cosignature Attestation: I was immediately available in the department for consultation. ?This documentation has been reviewed and I agree with assessment and plan. Supervised by Yo Pandey MD
[2022-04-26] MEDS: ONDANSETRON 4 MG ODT SL (14:02)
[2022-04-26] MEDS: ACETAMINOPHEN 325 MG TABLET 650 MG PO (14:02)
[2022-04-26] MEDS: cefUROXime 250 MG TABLET 500 MG PO (14:02)
[2022-04-26 14:16] VITALS: BP 118/67; PULSE 109; RESP 18; O2SAT 97
[2022-04-26 14:25] VITALS: PULSE 103; RESP 20; TEMP 37.2; O2SAT 98
== END 2022-04-26 14:26 | disposition home or self-care (01) ==
PROVIDERS: Emergency Medicine; Emergency Provider Nurse Practitioner Critical Care Medicine; PCP Internal Medicine
DX: N39.0 Urinary tract infection, site not specified (principal); R32 Unspecified urinary incontinence
CPT/HCPCS: 51798; 81001; 87077; 87086; 87186; 99283

== ENCOUNTER 2022-04-28 09:56 | Emergency (ER) | payer MEDICARE, OTHER, SELFPAY ==
[2022-04-28] VITALS (11 sets, daily range): BP systolic 100–106; BP diastolic 54–59; PULSE 84–96; RESP 16–18; TEMP 36.6–36.8; O2SAT 93–99
--- NOTE | 2022-04-28 10:23 | ED.GENADULT ---
HPI - General Adult General Chief complaint: Altered Mental Status Stated complaint: UTI X2 DAY Time Seen by Provider: 04/28/22 10:08 Source: patient Mode of arrival: Ambulatory History of Present Illness HPI narrative: Patient is an 81-year-old male. Was seen here in the emergency department a couple days ago was diagnosed with a urinary tract infection. Was sent home with antibiotics. Urine culture from that does show greater than 100,000 colony-forming units of E coli that was pansensitive. He has been taking the antibiotics as directed. But since that time he has had headaches, sore throat, body aches. No diarrhea. No specific urinary symptoms today. Having fevers. Related Data Home Medications Medication Instructions Recorded Confirmed aspirin 81 mg tablet,delayed 81 mg PO BEDTIME ##0 08/21/11 06/04/21 release losartan 100 mg tablet 100 mg PO QDAY ##0 08/21/11 06/04/21 metformin 1,000 mg tablet 1,000 mg PO BIDCC ##0 02/10/13 06/04/21 metoprolol tartrate 50 mg tablet 50 mg PO BID 07/21/18 06/04/21 (Lopressor) glimepiride 2 mg tablet 2 mg PO DAILY 04/18/19 06/04/21 omeprazole 20 mg capsule,delayed 20 mg PO BEDTIME 08/20/20 06/04/21 release insulin glargine 100 unit/mL (3 8 unit SUBCUT BEDTIME 06/04/21 06/04/21 mL) subcutaneous pen (Lantus Solostar U-100 Insulin) prednisone 5 mg tablet 5 mg PO DAILY 06/04/21 06/04/21 Previous Rx's Medication Instructions Recorded clopidogrel 75 mg tablet 75 mg PO DAILY #30 tabs 08/21/20 atorvastatin 40 mg tablet 40 mg PO DAILY #60 tabs 06/05/21 gabapentin 300 mg capsule 600 mg PO TID pain #180 caps 09/16/21 belladonna alkaloids-opium 16.2 1 supp NM TID PRN pain #4 ea 04/26/22 mg-30 mg rectal suppository cefuroxime axetil 500 mg tablet 500 mg PO BID 10 days #20 tabs 04/26/22 ondansetron 4 mg disintegrating 4 mg PO Q8H PRN nausea and 04/26/22 tablet vomiting #10 tabs phenazopyridine 100 mg tablet 100 mg PO TID PRN bladder 04/26/22 (Pyridium) pain/spasm 6 doses #7 tabs Allergies Allergy/AdvReac Type Severity Reaction Status Date / Time No Known Drug Allergies Allergy Verified 06/04/21 18:31 Review of Systems Constitutional Constitutional: Reports system reviewed and no additional complaints, except as documented ENT Ears, Nose, Mouth, and Throat: Reports system reviewed and no additional complaints, except as documented Cardiovascular Cardiovascular: Reports system reviewed and no additional complaints, except as documented Respiratory Respiratory: Reports system reviewed and no additional complaints, except as documented Gastrointestinal Gastrointestinal: Reports system reviewed and no additional complaints, except as documented Genitourinary Genitourinary: Reports system reviewed and no additional complaints, except as documented Integumentary/Breasts Skin/Breast: Reports system reviewed and no additional complaints, except as documented Neurologic Neurologic: Reports system reviewed and no additional complaints, except as documented Hematologic/Lymphatic On Anticoagulants: No Patient History Medical History Aortic stenosis Bone spur Cardiomyopathy Cervical spine fracture (~1958) Diabetes Facet arthropathy, lumbosacral Former smoker Hematochezia (~2016) History of prostate cancer HNP (herniated nucleus pulposus), lumbar HTN (hypertension) Hyperlipidemia Left wrist fracture (~2010) Lumbosacral radiculopathy at L5 Lumbosacral spondylosis Osteoarthritis Polymyalgia rheumatica Prostate cancer RBBB (right bundle branch block) Recurrent urinary tract infection TIA (transient ischemic attack) (~2011) TMJ (temporomandibular joint disorder) Surgical History Hx of prostatectomy Family History Father Heart disease Heart attack Mother No significant medical problems Grandmother Heart disease Social History household members: none Smoking Status: Former smoker alcohol intake: current Smoking Status: Former smoker alcohol intake frequency: holidays/special occasions only Substance Use Type: does not use Exam Initial Vital Signs Initial Vital Signs: Vital Signs Temperature 97.9 F 04/28/22 10:00 Pulse Rate 93 H 04/28/22 10:00 Respiratory Rate 18 04/28/22 10:00 Blood Pressure 100/54 L 04/28/22 10:00 Pulse Oximetry 99 04/28/22 10:00 Oxygen Delivery Method 04/28/22 10:00 Const General: cooperative, comfortable, well developed and No ill appearing HENIA Head: normal to inspection and normocephalic Resp Effort & Inspection: normal respiratory effort Auscultation: clear to auscultation bilaterally Cardio Rate: regular rate Rhythm: regular rhythm GI Inspection: normal to inspection Palpation: soft and No tender Skin General: no rashes or lesions noted Neuro General: patient alert, patient awake, patient oriented x3 and moves all extremities Speech: speech normal Extrem General: normal to inspection and capillary refill normal Psych Appearance: grossly normal and well sand spring[place] Course Orders Ordered: ED Orders 04/28/22 10:20 Basic Metabolic Panel Stat Complete Blood Count AUTO DIFF Stat 04/28/22 10:30 Covid-19 + FLU A/B + RSV - PCR Stat Discontinued Medications Sodium Chloride (Normal Saline 0.9%) 1,000 mls @ 1,000 mls/hr IV BOLUS ONE Stop: 04/28/22 11:07 Last Infusion: 04/28/22 11:58 Dose: 0 mls/hr Documented By: Admin: 04/28/22 10:26 Dose: 1,000 mls/hr Documented By: KARLIE Vital Signs Vital signs: Vital Signs - 8 hr 04/28/22 10:00 04/28/22 11:14 04/28/22 10:34 Temperature 97.9 F 98.2 F Pulse Rate 93 H 90 Respiratory Rate 18 Blood Pressure 100/54 L Pulse Oximetry 99 94 Oxygen Delivery Method Room Air 04/28/22 11:12 04/28/22 11:30 04/28/22 11:51 Temperature Pulse Rate 87 87 Respiratory Rate Blood Pressure 105/57 L Pulse Oximetry 96 Oxygen Delivery Method 04/28/22 11:51 04/28/22 12:00 04/28/22 12:00 Temperature Pulse Rate 88 84 Respiratory Rate Blood Pressure 103/59 L Pulse Oximetry 93 95 Oxygen Delivery Method 04/28/22 12:30 04/28/22 13:00 04/28/22 13:04 Temperature Pulse Rate 84 96 H Respiratory Rate Blood Pressure 100/59 L Pulse Oximetry 97 95 Oxygen Delivery Method 04/28/22 13:04 Temperature Pulse Rate 95 H Respiratory Rate Blood Pressure Pulse Oximetry 96 Oxygen Delivery Method Medical Decision Making Lab Data Lab results reviewed: Yes I reviewed the patient's lab results. Result diagrams: 04/28/22 10:20 04/28/22 10:20 Labs: Lab Results 04/28/22 04/28/22 04/28/22 Range/Units 10:20 10:20 10:30 WBC 9.3 (4.5-11.0) X10^3/uL RBC 3.87 L (4.5-5.9) X10^6/uL Hgb 11.9 L (13.5-17.5) g/dL Hct 34.8 L (41-53) % MCV 89.9 (80-100) fL MCH 30.8 (26-34) PG MCHC 34.3 (30-36) % RDW 14.2 (11.6-14.8) % Plt Count 195 (150-400) X10^3/uL Neut % (Auto) 58.8 (50-75) % Lymph % (Auto) 29.5 (25-40) % Josephine % (Auto) 11.2 (3-14) % Eos % (Auto) 0.1 L (2-4) % Baso % (Auto) 0.4 (0-2) % Neut # (Auto) 5400 (4014-1642) /uL Lymph # (Auto) 2700 (7054-2760) /uL Josephine # (Auto) 1000 H (0-900) /uL Eos # (Auto) 0 (0-450) /uL Baso # (Auto) 0 (0-100) /uL Sodium 131 L (137-145) mmol/L Potassium 4.2 (3.4-5.1) mmol/L Chloride 97 L (98-107) mmol/L Carbon Dioxide 25 (22-32) mmol/L BUN 29 H (9-20) mg/dL Creatinine 1.44 H (0.66-1.25) mg/dL Estimated GFR 48 L (>60) mL/min BUN/Creatinine Ratio 20.1 (6-22) Glucose 153 H (80-110) mg/dL Calcium 9.1 (8.4-10.2) mg/dL SARS-CoV-2 (PCR) Positive H (Negative) Influenza A (RT-PCR) Flu a negative (NEGATIVE) Influenza B (RT-PCR) Flu b negative (NEGATIVE) RSV (PCR) Negative (Negative) Urine Dip Bedside Urine Glucose 100 mg/dl Bedside Urine Bilirubin ++ 2 Bedside Urine Ketone - Negative Urine Specific [place] 1.030 Bedside Urine Occult Blood - Negative Bedside Urine pH 5.0 Bedside Urine Protein +/- 15 Bedside Urine Urobilinogen 2+ 4mg Bedside Urine Nitrite + Positive Bedside Urine Leukocytes + 70 Esterase Point of care testing: Urine Dip Bedside Urine Glucose 100 mg/dl Bedside Urine Bilirubin ++ 2 Bedside Urine Ketone - Negative Urine Specific [place] 1.030 Bedside Urine Occult Blood - Negative Bedside Urine pH 5.0 Bedside Urine Protein +/- 15 Bedside Urine Urobilinogen 2+ 4mg Bedside Urine Nitrite + Positive Bedside Urine Leukocytes + 70 Esterase MDM Narrative Medical decision making narrative: The urine culture from a couple days ago does show a urinary tract infection however the antibiotic that he is currently on should work for this. He is COVID positive today which I suspect is the majority of the cause of his presenting symptoms no indication to change any antibiotics. He is not hypoxic. Not tachypneic. I did discuss the positive COVID test with him. He is vaccinated. Discussed the use of Tylenol and ibuprofen for fevers and body aches. He was given return precautions. He expressed understanding and agreement. Discharge Plan Departure Patient Disposition: Home Clinical Impression: COVID-19, Acute UTI Instructions: DI for Urinary Tract Infection (UTI), COVID-19 Activity Restrictions/Additional Instructions: I do recommend that you continue with the antibiotics that you were given during her last visit. This antibiotic should treat the infection that you have in your urine. It was also found that your positive for COVID-19 which is most likely the cause of your presenting symptoms today. Follow current CDC guidelines with regard to quarantine. Return to the emergency department for any new or worsening symptoms. Prescriptions: No Action aspirin 81 mg Tablet,Delayed Release (Dr/Ec) 81 mg PO BEDTIME Qty: 0 losartan 100 MG tablet 100 mg PO QDAY Qty: 0 metformin 1,000 MG tablet 1,000 mg PO BIDCC Qty: 0 gabapentin 300 mg capsule 600 mg PO TID Qty: 180 3RF Rx Instructions: YOU CAN DO 2-300MG TABS THREE TIMES A DAY. metoprolol tartrate [Lopressor] 50 mg Tablet 50 mg PO BID prednisone 5 mg Tablet 5 mg PO DAILY Lantus Solostar U-100 Insulin 100 unit/mL (3 mL) Insulin Pen 8 unit SUBCUT BEDTIME atorvastatin 40 mg tablet 40 mg PO DAILY Qty: 60 2RF cefuroxime axetil 500 mg tablet 500 mg PO BID 10 Days Qty: 20 0RF phenazopyridine [Pyridium] 100 mg tablet 100 mg PO TID PRN (Reason: bladder pain/spasm) Qty: 7 0RF belladonna alkaloids-opium 16.2-30 mg suppository 1 supp NM TID PRN (Reason: pain) Qty: 4 0RF ondansetron 4 mg tablet,disintegrating 4 mg PO Q8H PRN (Reason: nausea and vomiting) Qty: 10 0RF omeprazole 20 mg Capsule,Delayed Release(Dr/Ec) 20 mg PO BEDTIME clopidogrel 75 mg Tablet 75 mg PO DAILY Qty: 30 0RF glimepiride 2 mg tablet 2 mg PO DAILY Referrals: Yo Peters MD [Primary Care Provider] -
[2022-04-28] MEDS: SODIUM CHLORIDE 0.9% 1,000 ML 1000 ML IV (10:26)
[2022-04-28 10:29] LABS: Add Manual Diff / Slide Review NO; Basophils Absolute Auto 0 /uL (0-100); Basophils Percent Auto 0.4 % (0-2); Eosinophils Absolute Auto 0 /uL (0-450); Eosinophils Percent Auto 0.1 % (2-4); Hematocrit 34.8 % (41-53); Hemoglobin 11.9 g/dL (13.5-17.5); Lymphocytes Absolute Auto 2700 /uL (1100-4500); Lymphocytes Percent Auto 29.5 % (25-40); Mean Corpuscular HGB Conc 34.3 % (30-36); Mean Corpuscular Hemoglobin 30.8 PG (26-34); Mean Corpuscular Volume 89.9 fL (80-100); Monocytes Absolute Auto 1000 /uL (0-900); Monocytes Percent Auto 11.2 % (3-14); Neutrophils Absolute Auto 5400 /uL (1500-7000); Neutrophils Percent Auto 58.8 % (50-75); Platelet Count 195 X10^3/uL (150-400); Red Blood Cell Count 3.87 X10^6/uL (4.5-5.9); Red Cell Distribution Width 14.2 % (11.6-14.8); White Blood Cell Count 9.3 X10^3/uL (4.5-11.0)
--- NOTE | 2022-04-28 10:30 | PC.NURSE ---
Patient reports diagnosed with UTI on Thursday, started antibiotic. Since then has had body aches, chills, and mental confusion, I couldn't figure out how to take the cap off of my pill bottle. States he has not been drinking much water for days.
[2022-04-28 11:08] LABS: BUN Creatinine Ratio 20.1 (6-22); Blood Urea Nitrogen 29 mg/dL (9-20); Calcium 9.1 mg/dL (8.4-10.2); Carbon Dioxide 25 mmol/L (22-32); Chloride 97 mmol/L (98-107); Estimated Glomerular Filt Rate 48 mL/min (>60); Glucose 153 mg/dL (80-110); HEMOLYSIS < 15 (0-50); Potassium 4.2 mmol/L (3.4-5.1); Sodium 131 mmol/L (137-145)
[2022-04-28 11:31] LABS: Influenza A - CEPHEID Flu A NEGATIVE (NEGATIVE); Influenza B - CEPHEID Flu B NEGATIVE (NEGATIVE); Respiratory Syncytial Virus Negative (Negative)
[2022-04-28 12:58] LABS: COVID-19 CEPHEID 4-PLEX PCR POSITIVE (Negative)
== END 2022-04-28 14:04 | disposition home or self-care (01) ==
PROVIDERS: Emergency Provider Emergency Medicine; PCP Internal Medicine
DX: U07.1 COVID-19 (principal); N39.0 Urinary tract infection, site not specified; Z20.822 Contact with and (suspected) exposure to COVID-19
CPT/HCPCS: 0241U; 36415; 80048; 81003; 85025; 96360; 96361; 99284

== ENCOUNTER → 2022-12-08 15:15 | Outpatient (CLI) | payer MEDICARE, OTHER, SELFPAY ==
--- NOTE | 2022-12-08 | DI.US.S_ITS ---
PROCEDURE: US CAROTID DOPPLER BI INDICATIONS: NONRHEUMATIC AORTIC VALVE TECHNIQUE: Color and pulse Doppler interrogation was performed of both carotid systems, with image documentation and velocity measurements. COMPARISON: [facility], , CAROTID ARTERY DOPPLER BILAT, 08/22/2011, 15:04. FINDINGS: Stenosis calculations are based on SRU (Society of Radiologists in Ultrasound) criteria. Right side: Brachial blood pressure: 125/72 mm Hg. Common carotid artery peak systolic velocity: 73 cm/sec. Internal carotid artery peak systolic velocity: 132 cm/sec. (Previously 67 cm/sec) Internal carotid artery end diastolic velocity: 33 cm/sec. External carotid artery peak systolic velocity: 120 cm/sec. ICA/CCA peak systolic ratio: 1.8. (Previously 0.63) Bunn scale imaging description: Mild plaque Percent internal carotid artery stenosis: 50-69 % stenosis. Vertebral artery: Flow direction is antegrade. Left side: Brachial blood pressure: 114/71 mm Hg. Common carotid artery peak systolic velocity: 59 cm/sec. Internal carotid artery peak systolic velocity: 108 cm/sec. (Previously 102 cm/sec) Internal carotid artery end diastolic velocity: 28 cm/sec. External carotid artery peak systolic velocity: 122 cm/sec. ICA/CCA peak systolic ratio: 1.8. (Previously 0.95) Bunn scale imaging description: Moderate plaque. Percent internal carotid artery stenosis: Less than 50 % stenosis. Vertebral artery: Flow direction is antegrade. IMPRESSION: 1. Right ICA: 50-69 % stenosis. Likely on the lower end of this range given the ICA/CCA ratio less than 2. 2. Left ICA: Less than 50 % stenosis. 3. Antegrade flow in the bilateral vertebral arteries. Dictated by: Gregg Pollack M.D. on 12/09/2022 at 21:00 Approved by: Gregg Pollack M.D. on 12/09/2022 at 21:04
== END ==
PROVIDERS: PCP Internal Medicine; Referring Provider Internal Medicine Cardiovascular Disease; Visit Provider Internal Medicine Cardiovascular Disease
DX: I35.0 Nonrheumatic aortic (valve) stenosis (principal); R06.02 Shortness of breath; R00.2 Palpitations; I65.23 Occlusion and stenosis of bilateral carotid arteries
CPT/HCPCS: 93880

== ENCOUNTER 2023-05-07 10:15 | Observation (INO) | payer MEDICARE, OTHER, SELFPAY ==
[2023-05-07] VITALS (14 sets, daily range): BP systolic 120–183; BP diastolic 63–88; PULSE 74–91; RESP 13–26; TEMP 35.5–36.8; O2SAT 95–100; BMI 20.9
--- NOTE | 2023-05-07 10:19 | DI.CT.S_ITS ---
PROCEDURE: CT STROKE INDICATIONS: disoriented, sudden onset TECHNIQUE: Noncontrast 4.5 mm thick angled axial sections acquired from the foramen magnum to the vertex, with coronal reformats. For radiation dose reduction, the following was used: automated exposure control, adjustment of mA and/or kV according to patient size. COMPARISON: [facility], CT, CT STROKE, 06/04/2021, 18:51. FINDINGS: Image quality: Excellent. CSF spaces: Basal cisterns are patent. No extra-axial fluid collections. The ventricles are symmetric in size and shape. Brain: No intracranial bleeds or masses. There is cerebral volume loss for age, with resultant ventricular and sulcal prominence. There are periventricular and deep white matter chronic small vessel ischemic changes. There is intracranial internal carotid artery atherosclerosis. Skull and face: Calvarium and visualized facial bones appear intact, without suspicious lesions. Sinuses: Visualized sinuses and mastoids are clear. IMPRESSION: No acute intracranial pathology. Comment: Findings were discussed with Dr. Stahl on 05/07/2023 at 1031 hours This study fulfills neurological imaging criteria for inclusion or exclusion of acute stroke therapies based on available published neurological guidelines. Dictated by: Jd Booker M.D. on 05/07/2023 at 10:29 Approved by: Jd Booker M.D. on 05/07/2023 at 10:32
--- NOTE | 2023-05-07 10:19 | DI.CT.S_ITS ---
PROCEDURE: CT ANGIO HEAD AND NECK INDICATIONS: disoriented, sudden onset TECHNIQUE: After the administration of intravenous contrast, 1 mm thick sections acquired from the aortic arch through the [place] of [place]. 3-dimensional fzzgkqs-ppzrezskx-aybbgjivpa (MIP) and/or volume rendering reformats were acquired of the central intracranial vasculature and neck separately. For radiation dose reduction, the following was used: automated exposure control, adjustment of mA and/or kV according to patient size. COMPARISON: [facility], CT, CT ANGIO HEAD AND NECK, 06/04/2021, 18:51. [facility], CT, CT STROKE, 05/07/2023, 10:21. FINDINGS: Image quality: Diagnostic. BRAIN: CSF spaces: Ventricles are normal in size and shape. Basal cisterns are patent. No extra-axial fluid collections. Brain: No significant abnormality of the brain can be seen. Skull and face: Calvarium and facial bones appear intact, without suspicious lesions. Orbits appear normal. Sinuses: Sinuses and mastoids are clear. HEAD CT ANGIOGRAPHY: Anterior circulation: Dense atheromatous calcifications are present within the cavernous portions of the bilateral internal carotid arteries with greater than 70% stenosis. The flow within the paired anterior cerebral arteries is normal and symmetric. The flow within the middle cerebral arteries is normal and symmetric. The anterior communicating artery is seen. No aneurysms are seen. Posterior circulation: There is diminished in of the right vertebral artery which terminates at the skull base. The left vertebral artery demonstrates normal course and caliber and forms the basilar artery. Flow within the posterior cerebral arteries is normal and symmetric. No aneurysms are seen. NECK CT ANGIOGRAPHY: Carotid system: Atheromatous plaquing calcification are present at the thoracic aortic arch. The great vessels demonstrate a conventional anatomy as they arise from the aortic arch. The origins of the common carotid arteries appear patent. The common carotid arteries demonstrate normal caliber and courses. The bifurcation regions are both widely patent. The internal carotid arteries demonstrate normal calibers and courses. Posterior circulation: The origins of the vertebral arteries both appear widely patent. The more superior extracranial portions of both vertebral arteries also demonstrate normal courses and calibers. The superior right vertebral artery terminates at the skull base. The left vertebral artery forms the basilar artery. Soft tissues: Visualized neck soft tissues demonstrate no suspicious abnormalities. Bones: Severe degenerative changes are present throughout the cervical spine. No suspicious bony lesions. Visualized cervical spine appears normally aligned. IMPRESSION: 1. Dense atheromatous calcification within the bilateral cavernous portions of the internal carotid arteries suggesting 70% stenosis to near occlusion. 2. No other stenosis, occlusion, or aneurysm. 3. Anatomic variant with right vertebral artery terminating at the skull base. The left vertebral artery alone feeds the basilar artery. Any quantitative measurements of stenosis were performed using NASCET criteria. Dictated by: Jennifer Guerra M.D. on 05/07/2023 at 10:43 Approved by: Jennifer Guerra M.D. on 05/07/2023 at 11:02
--- NOTE | 2023-05-07 10:37 | ED.NEUROSD ---
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 Patient states that he felt fine this morning he got up to go to an appointment. He states he felt normal getting dressed gotten his truck at 9:10 a.m. and as he got to the end of his driveway which he states is quite long he started to feel like he was having difficulty his and disoriented difficulty driving. Patient drove here from [place]. When he arrived he was bumping into curbs in vehicles in the parking lot at the cardiology office. He was able to ambulate into the cardiology office but with some difficulty bumping into the [place]. Patient has some difficulty with his speech he states his symptoms have been steady and not progressive but not resolved. Patient states no numbness, tingling or weakness. He does not appreciate any balance issues when seated. Denies headache, denies acute vision changes. States he knows what he wants to say but it is a little bit difficult to get out patient denies any chest pain or shortness of breath. No nausea no vomiting. No loss of bowel or bladder control. Patient states he has not had similar symptoms in the past. Glucose for EMS was 139. He was 190 systolic in the field but 160s to 170s here in the department. Patient states no known drug allergies. He has had prior TIA in the past. No tobacco, denies regular alcohol or illicit. Follows with Cardiology through [facility]. Primary care is [facility] Peters. Related Data Home Medications Medication Instructions Recorded Confirmed aspirin 81 mg tablet,delayed 81 mg PO BEDTIME ##0 08/21/11 06/04/21 release losartan 100 mg tablet 100 mg PO QDAY ##0 08/21/11 06/04/21 metformin 1,000 mg tablet 1,000 mg PO BIDCC ##0 02/10/13 06/04/21 metoprolol tartrate 50 mg tablet 50 mg PO BID 07/21/18 06/04/21 (Lopressor) glimepiride 2 mg tablet 2 mg PO DAILY 04/18/19 06/04/21 omeprazole 20 mg capsule,delayed 20 mg PO BEDTIME 08/20/20 06/04/21 release insulin glargine 100 unit/mL (3 8 unit SUBCUT BEDTIME 06/04/21 06/04/21 mL) subcutaneous pen (Lantus Solostar U-100 Insulin) prednisone 5 mg tablet 5 mg PO DAILY 06/04/21 06/04/21 Previous Rx's Medication Instructions Recorded clopidogrel 75 mg tablet 75 mg PO DAILY #30 tabs 08/21/20 atorvastatin 40 mg tablet 40 mg PO DAILY #60 tabs 06/05/21 belladonna alkaloids-opium 16.2 1 supp [place] TID PRN pain #4 ea 04/26/22 mg-30 mg rectal suppository ondansetron 4 mg disintegrating 4 mg PO Q8H PRN nausea and 04/26/22 tablet vomiting #10 tabs phenazopyridine 100 mg tablet 100 mg PO TID PRN bladder 04/26/22 (Pyridium) pain/spasm 6 doses #7 tabs gabapentin 300 mg capsule 600 mg (2 x 300 mg) PO TID pain 09/30/22 #180 caps Allergies Allergy/AdvReac Type Severity Reaction Status Date / Time No Known Drug Allergies Allergy Verified 05/07/23 10:32 Review of Systems Review of Systems ROS Unobtainable: All systems reviewed & are unremarkable except as noted in HPI and below Patient History Medical History HNP (herniated nucleus pulposus), lumbar History of prostate cancer Lumbosacral radiculopathy at L5 Lumbosacral spondylosis Facet arthropathy, lumbosacral Hematochezia (~2016) Bone spur Cervical spine fracture (~1958) RBBB (right bundle branch block) Left wrist fracture (~2010) Osteoarthritis Diabetes Prostate cancer Recurrent urinary tract infection Polymyalgia rheumatica Former smoker Aortic stenosis Cardiomyopathy Hyperlipidemia HTN (hypertension) TIA (transient ischemic attack) (~2011) TMJ (temporomandibular joint disorder) Surgical History Hx of prostatectomy Family History Father Heart disease Heart attack Mother No significant medical problems Grandmother Heart disease Social History household members: none Smoking Status: Former smoker alcohol intake: current Smoking Status: Former smoker alcohol intake frequency: holidays/special occasions only Substance Use Type: does not use Exam Narrative Exam Narrative: GEN: well nourished, well appearing male, alert and oriented x 3, patient appears to be in mild distress. HEENT: Atraumatic, pupils are equal round reactive to light, extraocular movements are intact, nares are clear, TMs are clear with no fluid, there is no conjunctival pallor. Throat is clear without any exudates, erythema, tonsillar enlargement or uvular deviation, no facial droop. HEART: Regular rate and rhythm without murmur, clicks, rubs. pulses are equal in upper and lower extremities LUNGS:Lungs clear to auscultation, no wheezes, rales, crackles, chest moves symmetrically ABD:bowel sounds normal, soft, non-tender, no guarding, rebound, rigidity, no masses noted, no hepatosplenomegaly :No CVA tenderness MSCL: Non-tender, no muscle atrophy, muscles strength 5/5 upper and lower extremities, full range of motion NEURO:CN 2-12 intact, sensation normal, finger nose finger test normal, heel meyer test normal, mild aphasia. No dysarthria. SKIN: No rash, erythema or other skin changes. Initial Vital Signs Initial Vital Signs: Vital Signs Temperature 98.2 F 05/07/23 10:13 Pulse Rate 85 05/07/23 10:13 Respiratory Rate 15 05/07/23 10:13 Blood Pressure 173/88 H 05/07/23 10:13 Pulse Oximetry 99 05/07/23 10:13 Oxygen Delivery Method Room Air 05/07/23 10:13 Scores NIH Stroke Scale Level of Conciousness: Alert, keenly responsive Ask month/age: Answers both questions correctly. Open/close eyes, close hand: Performs both tasks correctly Best gaze horizontal: Normal Visual vidal: No visual loss Facial palsy: Normal symetrical movement Left arm drift: No drift for full 10 sec Right arm drift: No drift for full 10 sec Left leg drift: No drift for full 5 sec Right leg drift: No drift for full 5 sec Limb ataxia: Absent Sensory on face/arms/legs: Normal, no sensory loss Best language: No aphasia, normal Dysarthria: Mild to mod,some slurring Extinction or inattention: No abnormality Total NIH Stroke scale score: 1 Course Orders Ordered: ED Orders 05/07/23 10:15 Complete Blood Count AUTO DIFF Stat Comprehensive Metabolic Panel Stat Ethanol (ETOH) Stat PTT Partial Thromboplastin Jeison Stat Prothrombin Time INR Stat Troponin & CK Cardiac Panel Stat 05/07/23 10:[address] angio head and neck Stat Urinalysis and Microscopic Stat Urine Drug Screen, Rapid Stat EKG-12 Lead Stat 05/07/23 11:00 COVID19 -Nasal RAPID Stat Discontinued Medications Aspirin (Aspirin 81 Mg Chew Tab) 324 mg PO NOW ONE Stop: 05/07/23 10:39 Last Admin: 05/07/23 10:58 Dose: 324 mg Documented By: SPF Vital Signs Vital signs: Vital Signs - 8 hr 05/07/23 10:13 05/07/23 10:28 05/07/23 10:29 Temperature 98.2 F Pulse Rate 85 Respiratory Rate 15 Blood Pressure 173/88 H 173/88 H Pulse Oximetry 99 95 Oxygen Delivery Method Room Air 05/07/23 10:29 05/07/23 10:30 05/07/23 11:00 Temperature Pulse Rate 86 87 Respiratory Rate 16 Blood Pressure 183/83 H Pulse Oximetry 99 99 Oxygen Delivery Method Room Air 05/07/23 11:00 05/07/23 11:30 05/07/23 11:31 Temperature Pulse Rate 85 75 Respiratory Rate 24 Blood Pressure 161/71 H Pulse Oximetry 99 100 Oxygen Delivery Method Room Air 05/07/23 11:31 05/07/23 12:00 05/07/23 12:01 Temperature Pulse Rate 74 91 H 85 Respiratory Rate 15 26 H 21 Blood Pressure Pulse Oximetry 99 98 99 Oxygen Delivery Method Room Air Room Air 05/07/23 12:30 05/07/23 12:30 Temperature Pulse Rate 82 Respiratory Rate 18 Blood Pressure 163/77 H Pulse Oximetry 96 Oxygen Delivery Method Room Air MDM - Neuro Symptoms/Deficit Lab Data 05/07/23 10:15 05/07/23 10:15 Labs: Lab Results 05/07/23 05/07/23 Range/Units 10:15 11:00 WBC 13.8 H (4.5-11.0) X10^3/uL RBC 4.01 L (4.5-5.9) X10^6/uL Hgb 12.0 L (13.5-17.5) g/dL Hct 35.3 L (41-53) % MCV 87.9 (80-100) fL MCH 29.9 (26-34) PG MCHC 34.0 (30-36) % RDW 15.0 H (11.6-14.8) % Plt Count 235 (150-400) X10^3/uL Neut % (Auto) 54.6 (50-75) % Lymph % (Auto) 35.0 (25-40) % Cocke % (Auto) 9.1 (3-14) % Eos % (Auto) 1.0 L (2-4) % Baso % (Auto) 0.3 (0-2) % Neut # (Auto) 7500 H (6081-1316) /uL Lymph # (Auto) 4800 H (4541-0402) /uL Cocke # (Auto) 1300 H (0-900) /uL Eos # (Auto) 100 (0-450) /uL Baso # (Auto) 0 (0-100) /uL PT 11.4 (9.4-12.5) SECONDS INR 1.0 (0.9-1.3) APTT 27 (25.1-36.5) SECONDS Sodium 136 L (137-145) mmol/L Potassium 3.8 (3.4-5.1) mmol/L Chloride 102 (98-107) mmol/L Carbon Dioxide 27 (22-32) mmol/L BUN 18 (9-20) mg/dL Creatinine 0.88 (0.66-1.25) mg/dL Estimated GFR > 60 (>60) mL/min BUN/Creatinine Ratio 20.5 (6-22) Glucose 120 H (80-110) mg/dL Calcium 10.7 H (8.4-10.2) mg/dL Total Bilirubin 0.6 (0.2-1.3) mg/dL AST 24 (17-59) IU/L ALT 17 (<50) IU/L Alkaline Phosphatase 90 (38-126) U/L Total Creatine Kinase 35 L (55-170) U/L Troponin I < 0.012 (0.01-0.034) ng/mL Total Protein 7.5 (6.3-8.2) g/dL Albumin 4.1 (3.5-5.0) g/dL Globulin 3.4 (1.7-4.1) g/dL Albumin/Globulin Ratio 1.2 (1.0-2.8) Ethyl Alcohol < 10 ( - 10) mg/dL SARS-CoV-2 (PCR) Negative (Negative) Point of Care Testing Glucose POC [address] scan - head: Radiologist's Impression: [address] [address] [address] Scan Report Signed Patient: Deep Erickson MR#: [id number] : 1940 Acct:[id number] Age/Sex: 82 / M Date of Service: 05/07/23 Loc: ED Accession Number: [id number] Procedure: CT Stroke Ordering Provider: Malena Stahl D.O. PROCEDURE: CT STROKE INDICATIONS: disoriented, sudden onset TECHNIQUE: Noncontrast 4.5 mm thick angled axial sections acquired from the foramen magnum to the vertex, with coronal reformats. For radiation dose reduction, the following was used: automated exposure control, adjustment of mA and/or kV according to patient size. COMPARISON: [facility], CT, CT STROKE, 06/04/2021, 18:51. FINDINGS: Image quality: Excellent. CSF spaces: Basal cisterns are patent. No extra-axial fluid collections. The ventricles are symmetric in size and shape. Brain: No intracranial bleeds or masses. There is cerebral volume loss for age, with resultant ventricular and sulcal prominence. There are periventricular and deep white matter chronic small vessel ischemic changes. There is intracranial internal carotid artery atherosclerosis. Skull and face: Calvarium and visualized facial bones appear intact, without suspicious lesions. Sinuses: Visualized sinuses and mastoids are clear. IMPRESSION: No acute intracranial pathology. Comment: Findings were discussed with Dr. Stahl on 05/07/2023 at 1031 hours This study fulfills neurological imaging criteria for inclusion or exclusion of acute stroke therapies based on available published neurological guidelines. Dictated by: Jd Booker M.D. on 05/07/2023 at 10:29 Approved by: Jd Booker M.D. on 05/07/2023 at 10:32 ECG Data Attestation: I personally reviewed and interpreted this ECG as follows: Interpretation: Telemetry from EMS appears to show a bundle-branch block. Heart rate 89 QRS of 132 QTC 367. Patient appears to have a P with every QRS but does have dropped QRS with EMS tele. MDM Narrative Medical decision making narrative: 82-year-old male presents with complaint of disorientation and difficulty with speech in bumping into things and difficulty with driving that had onset of 9:00 a.m. this morning. Patient states he felt normal prior to this. He does have a history of TAVR, pacemaker and prior TIA he is on aspirin 81 mg and Plavix daily. He has not had his doses today but did have his doses yesterday. He is a diabetic his glucose was 130 in the field and 109 on repeat here. NIH is 1 for speech he did state he was able to walk into the cardiology office but was bumping into things. He states symptoms do not seem to be progressing but have not resolved or improved significantly. Patient is potential tPA candidate although on dual antiplatelet therapy. His symptoms are fairly mild with an NIH of 1 so discussed with Neurology as I feel patient's symptoms are fairly mild. Patient non-con head CT is negative. Labs leukocytosis white count of 13.8, hemoglobin of 12 platelets of 235. Sodium is appropriate at 1:36 a.m. normal electrolytes renal function glucose of 120 calcium is 10.7 otherwise appropriate with troponin is negative. Coags show coags are negative. ETOH is negative. Spoke with neurology for stroke team at [facility], Dr. Ayers, discussed head CT CT angio is pending patient has not NIH 1 but did have some difficulty with ambulating. After discussion she will meet with patient for video evaluation for tPA candidacy. Return to the room patient states he feels like he is improving. CT angiography dense atheromatous calcification cavernous portions bilateral ICAs greater than 70% stenosis to near occlusion. Anatomic variant with diminished right vertebral artery terminates at the skull base. No aneurysms, no stenosis or occlusion. Plaquing in the thoracic aortic arch. Severe degenerative changes throughout the cervical spine. Discussed CT angio with Dr. Ayers. Recommends to continue dual antiplatelet therapy with aspirin and plavix. If patient has repeat episodes good contemplating having platelet reactivity labs although not required at this time only if he has repeat TIAs or strokes. Could also contemplate changing him to ticagrelor instead platelets but she would not change this at this time. She does recommend observation with typical stroke workup, telemetry, TTE. Spoke with Dr. Sanchez, hospitalist reviewed recommendations from neurology. Patient has pacemaker so not MR candidate for our facility. Plan for stroke workup. Discharge Plan Departure Patient Disposition: Admitted as Observation Clinical Impression: Acute CVA (cerebrovascular accident) Admit Date/Time: 05/07/23 12:49 Admit Provider: Hernan Sanchez
[2023-05-07 10:40] LABS: Add Manual Diff / Slide Review NO; Basophils Absolute Auto 0 /uL (0-100); Basophils Percent Auto 0.3 % (0-2); Eosinophils Absolute Auto 100 /uL (0-450); Hematocrit 35.3 % (41-53); Lymphocytes Absolute Auto 4800 /uL (1100-4500); Mean Corpuscular Hemoglobin 29.9 PG (26-34); Mean Corpuscular Volume 87.9 fL (80-100); Monocytes Absolute Auto 1300 /uL (0-900); Monocytes Percent Auto 9.1 % (3-14); Neutrophils Absolute Auto 7500 /uL (1500-7000); Neutrophils Percent Auto 54.6 % (50-75); Platelet Count 235 X10^3/uL (150-400); Red Blood Cell Count 4.01 X10^6/uL (4.5-5.9); White Blood Cell Count 13.8 X10^3/uL (4.5-11.0)
[2023-05-07 10:47] LABS: Prothrombin Time 11.4 SECONDS (9.4-12.5)
[2023-05-07 10:50] LABS: PTT Partial Thromboplastin Tim 27 SECONDS (25.1-36.5)
[2023-05-07 10:56] LABS: Alanine Aminotransferase 17 IU/L (<50); Albumin 4.1 g/dL (3.5-5.0); Albumin Globulin Ratio 1.2 (1.0-2.8); Alkaline Phosphatase 90 U/L (38-126); Aspartate Aminotransferase 24 IU/L (17-59); BUN Creatinine Ratio 20.5 (6-22); Bilirubin Total 0.6 mg/dL (0.2-1.3); Blood Urea Nitrogen 18 mg/dL (9-20); Calcium 10.7 mg/dL (8.4-10.2); Carbon Dioxide 27 mmol/L (22-32); Chloride 102 mmol/L (98-107); Creatine Kinase 35 U/L (55-170); Estimated Glomerular Filt Rate > 60 mL/min (>60); Ethanol (ETOH) < 10 mg/dL; Globulin 3.4 g/dL (1.7-4.1); Glucose 120 mg/dL (80-110); HEMOLYSIS < 15 (0-50); Potassium 3.8 mmol/L (3.4-5.1); Sodium 136 mmol/L (137-145); Total Protein 7.5 g/dL (6.3-8.2)
[2023-05-07] MEDS: ASPIRIN 81 MG CHEW TAB 324 MG PO (10:58)
--- NOTE | 2023-05-07 11:04 | PC.NURSE ---
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 He walked up 2x flights of stairs at the cardiology clinic and stumbled over one of the steps. He states he could not tell the clinic his birthday when he was at the clinic with EMS, but now he states he is feeling better and can think more coherently improved quite a bit. Pt on the stroke SCOUPY[employer] computer stand now with Dr. Berger at stroke center.
[2023-05-07 11:05] LABS: Troponin I < 0.012 ng/mL (0.01-0.034)
[2023-05-07 11:31] LABS: COVID19 -Nasal RAPID Negative (Negative)
--- NOTE | 2023-05-07 13:28 | ED_ITS ---
HPI - Neuro Symptoms/Deficit General Chief Complaint: Neuro Symptoms/Deficit Stated Complaint: Disoriented, Code Stroke Time Seen by Provider: 05/07/23 10:18 Source: patient and EMS Mode of arrival: EMS Limitations: no limitations Related Data Home Medications Medication Instructions Recorded Confirmed aspirin 81 mg tablet,delayed 81 mg PO BEDTIME ##0 08/21/11 06/04/21 release losartan 100 mg tablet 100 mg PO QDAY ##0 08/21/11 06/04/21 metformin 1,000 mg tablet 1,000 mg PO BIDCC ##0 02/10/13 06/04/21 metoprolol tartrate 50 mg tablet 50 mg PO BID 07/21/18 06/04/21 (Lopressor) glimepiride 2 mg tablet 2 mg PO DAILY 04/18/19 06/04/21 omeprazole 20 mg capsule,delayed 20 mg PO BEDTIME 08/20/20 06/04/21 release insulin glargine 100 unit/mL (3 8 unit SUBCUT BEDTIME 06/04/21 06/04/21 mL) subcutaneous pen (Lantus Solostar U-100 Insulin) prednisone 5 mg tablet 5 mg PO DAILY 06/04/21 06/04/21 Previous Rx's Medication Instructions Recorded clopidogrel 75 mg tablet 75 mg PO DAILY #30 tabs 08/21/20 atorvastatin 40 mg tablet 40 mg PO DAILY #60 tabs 06/05/21 belladonna alkaloids-opium 16.2 1 supp VT TID PRN pain #4 ea 04/26/22 mg-30 mg rectal suppository ondansetron 4 mg disintegrating 4 mg PO Q8H PRN nausea and 04/26/22 tablet vomiting #10 tabs phenazopyridine 100 mg tablet 100 mg PO TID PRN bladder 04/26/22 (Pyridium) pain/spasm 6 doses #7 tabs gabapentin 300 mg capsule 600 mg (2 x 300 mg) PO TID pain 09/30/22 #180 caps Allergies Allergy/AdvReac Type Severity Reaction Status Date / Time No Known Drug Allergies Allergy Verified 05/07/23 10:32 Review of Systems Review of Systems ROS Unobtainable: All systems reviewed & are unremarkable except as noted in HPI and below Patient History Medical History HNP (herniated nucleus pulposus), lumbar History of prostate cancer Lumbosacral radiculopathy at L5 Lumbosacral spondylosis Facet arthropathy, lumbosacral Hematochezia (~2016) Bone spur Cervical spine fracture (~195) RBBB (right bundle branch block) Left wrist fracture (~2010) Osteoarthritis Diabetes Prostate cancer Recurrent urinary tract infection Polymyalgia rheumatica Former smoker Aortic stenosis Cardiomyopathy Hyperlipidemia HTN (hypertension) TIA (transient ischemic attack) (~2011) TMJ (temporomandibular joint disorder) Surgical History Hx of prostatectomy Family History Father Heart disease Heart attack Mother No significant medical problems Grandmother Heart disease Social History household members: none Smoking Status: Former smoker alcohol intake: current Smoking Status: Former smoker alcohol intake frequency: holidays/special occasions only Substance Use Type: does not use Exam Narrative Exam Narrative: GEN: well nourished, well appearing male, alert and oriented x 3, patient appears to be in mild distress. HEENT: Atraumatic, pupils are equal round reactive to light, extraocular movements are intact, nares are clear, TMs are clear with no fluid, there is no conjunctival pallor. Throat is clear without any exudates, erythema, tonsillar enlargement or uvular deviation, no facial droop. HEART: Regular rate and rhythm without murmur, clicks, rubs. Pulses are equal in upper and lower extremities LUNGS:Lungs clear to auscultation, no wheezes, rales, crackles, chest moves symmetrically ABD:bowel sounds normal, soft, non-tender, no guarding, rebound, rigidity, no masses noted, no hepatosplenomegaly, patient does have a suprapubic catheter in place draining yellow urine. There is a small amount of whitish discharge at the opening but no erythema or other drainage. Patient states this is normal and he washes daily. :No CVA tenderness MSCL: Non-tender, no muscle atrophy, muscles strength 5/5 upper and lower extremities, full range of motion. NEURO:CN 2-12 intact, sensation normal, finger nose finger test normal, heel meyer test normal, no dysarthria but patient does have some mild expressive aphasia. Initial Vital Signs Initial Vital Signs: Vital Signs Temperature 98.2 F 05/07/23 10:13 Pulse Rate 85 05/07/23 10:13 Respiratory Rate 15 05/07/23 10:13 Blood Pressure 173/88 H 05/07/23 10:13 Pulse Oximetry 99 05/07/23 10:13 Oxygen Delivery Method Room Air 05/07/23 10:13 Course Orders Ordered: ED Orders 05/07/23 10:15 Complete Blood Count AUTO DIFF Stat Comprehensive Metabolic Panel Stat Ethanol (ETOH) Stat PTT Partial Thromboplastin Jeison Stat Prothrombin Time INR Stat Troponin & CK Cardiac Panel Stat 05/07/23 10:[address] angio head and neck Stat Urinalysis and Microscopic Stat Urine Drug Screen, Rapid Stat EKG-12 Lead Stat 05/07/23 11:00 COVID19 -Nasal RAPID Stat Discontinued Medications Aspirin (Aspirin 81 Mg Chew Tab) 324 mg PO NOW ONE Stop: 05/07/23 10:39 Last Admin: 05/07/23 10:58 Dose: 324 mg Documented By: SPF Vital Signs Vital signs: Vital Signs - 8 hr 05/07/23 10:13 05/07/23 10:28 05/07/23 10:29 Temperature 98.2 F Pulse Rate 85 Respiratory Rate 15 Blood Pressure 173/88 H 173/88 H Pulse Oximetry 99 95 Oxygen Delivery Method Room Air 05/07/23 10:29 05/07/23 10:30 05/07/23 11:00 Temperature Pulse Rate 86 87 Respiratory Rate 16 Blood Pressure 183/83 H Pulse Oximetry 99 99 Oxygen Delivery Method Room Air 05/07/23 11:00 05/07/23 11:30 05/07/23 11:31 Temperature Pulse Rate 85 75 Respiratory Rate 24 Blood Pressure 161/71 H Pulse Oximetry 99 100 Oxygen Delivery Method Room Air 05/07/23 11:31 05/07/23 12:00 05/07/23 12:01 Temperature Pulse Rate 74 91 H 85 Respiratory Rate 15 26 H 21 Blood Pressure Pulse Oximetry 99 98 99 Oxygen Delivery Method Room Air Room Air 05/07/23 12:30 05/07/23 12:30 Temperature Pulse Rate 82 Respiratory Rate 18 Blood Pressure 163/77 H Pulse Oximetry 96 Oxygen Delivery Method Room Air MDM - Neuro Symptoms/Deficit Lab Data 05/07/23 10:15 05/07/23 10:15 Labs: Lab Results 05/07/23 05/07/23 Range/Units 10:15 11:00 WBC 13.8 H (4.5-11.0) X10^3/uL RBC 4.01 L (4.5-5.9) X10^6/uL Hgb 12.0 L (13.5-17.5) g/dL Hct 35.3 L (41-53) % MCV 87.9 (80-100) fL MCH 29.9 (26-34) PG MCHC 34.0 (30-36) % RDW 15.0 H (11.6-14.8) % Plt Count 235 (150-400) X10^3/uL Neut % (Auto) 54.6 (50-75) % Lymph % (Auto) 35.0 (25-40) % [place] % (Auto) 9.1 (3-14) % Eos % (Auto) 1.0 L (2-4) % Baso % (Auto) 0.3 (0-2) % Neut # (Auto) 7500 H (9307-3609) /uL Lymph # (Auto) 4800 H (3161-0530) /uL [place] # (Auto) 1300 H (0-900) /uL Eos # (Auto) 100 (0-450) /uL Baso # (Auto) 0 (0-100) /uL PT 11.4 (9.4-12.5) SECONDS INR 1.0 (0.9-1.3) APTT 27 (25.1-36.5) SECONDS Sodium 136 L (137-145) mmol/L Potassium 3.8 (3.4-5.1) mmol/L Chloride 102 (98-107) mmol/L Carbon Dioxide 27 (22-32) mmol/L BUN 18 (9-20) mg/dL Creatinine 0.88 (0.66-1.25) mg/dL Estimated GFR > 60 (>60) mL/min BUN/Creatinine Ratio 20.5 (6-22) Glucose 120 H (80-110) mg/dL Calcium 10.7 H (8.4-10.2) mg/dL Total Bilirubin 0.6 (0.2-1.3) mg/dL AST 24 (17-59) IU/L ALT 17 (<50) IU/L Alkaline Phosphatase 90 (38-126) U/L Total Creatine Kinase 35 L (55-170) U/L Troponin I < 0.012 (0.01-0.034) ng/mL Total Protein 7.5 (6.3-8.2) g/dL Albumin 4.1 (3.5-5.0) g/dL Globulin 3.4 (1.7-4.1) g/dL Albumin/Globulin Ratio 1.2 (1.0-2.8) Ethyl Alcohol < 10 ( - 10) mg/dL SARS-CoV-2 (PCR) Negative (Negative) Point of Care Testing Glucose POC 106 Discharge Plan Departure Patient Disposition: Admitted as Observation Clinical Impression: Acute CVA (cerebrovascular accident) Admit Date/Time: 05/07/23 12:49 Admit Provider: Hernan Sanchez
--- NOTE | 2023-05-07 13:44 | DI.ECHO.S_ITS ---
[place]---------+ [facility] +---------+ : : [address] : : : : [id number] : : : : Phone: [phone]+ Echocardiogram Report + + :Name: MARY DYSON Study Date: 05/07/2023 Height: 72 in : :[facility] ReadingLocation: Weight: 161 lb : : Gender: Male BSA: 1.9 m2 : :: 1940 Age: 82 yrs BP: 158/75 mmHg: :Reason For Study: TIA, ASSESS FOR CLOT : :Ordering Physician: JENNIFER, : :REMINGTON Armstrogn Performed By: Estefany Grubbs : :Referring: REMINGTON RODRIGUEZ : + + Interpretation Summary The left ventricle is normal in size and wall thickness. Left ventricular systolic function appears normal without focal wall motion abnormalities. The ejection fraction is estimated to be 65-70%. Diastolic parameters suggest a relaxation abnormality of the left ventricle, consistent with probable normal filling pressures. The right ventricle is normal in size and function. The left atrial size is normal. There is no significant valvular heart disease. The dimensions of the ascending aorta are normal. There is a bioprosthetic aortic valve. The peak aortic velocity is 1.7 m/sec. The peak aortic velocity on the previous exam was 3.21 m/sec. Procedure: A two-dimensional transthoracic echocardiogram with color flow and Doppler was performed. The study quality was technically adequate. Comparison is made with the echocardiogram of 06/05/2021. The patient was in sinus rhythm with heart rates between 70-86 bpm during the exam. Left Ventricle: The left ventricle is normal in size and wall thickness. Left ventricular systolic function appears normal without focal wall motion abnormalities. The ejection fraction is estimated to be 65-70%. Diastolic parameters suggest a relaxation abnormality of the left ventricle, consistent with probable normal filling pressures. Right Ventricle: The right ventricle is normal in size and function. Atria: The left atrial size is normal. Right atrial size is normal. There is no Doppler evidence for an interatrial shunt. Mitral Valve: There is mild mitral annular calcification. There is no mitral regurgitation noted. Aortic Valve: There is a bioprosthetic aortic valve. There is no aortic valve stenosis. The peak aortic velocity is 1.7 m/sec. The aortic valve mean gradient is 7 mmHg. The peak aortic velocity on the previous exam was 3.21 m/sec. No aortic regurgitation is present. Tricuspid Valve: The tricuspid valve is normal in structure and function. Pulmonary artery pressures cannot be estimated because of the lack of a measurable TR jet velocity. Pulmonic Valve: The pulmonic valve is not well seen, but is grossly normal. There is mild pulmonic regurgitation. There is no significant valvular heart disease. Great Vessels: The dimensions of the ascending aorta are normal. The IVC is of normal diameter and collapses greater than 50% with a sniff. This suggests a low right atrial pressure of 3 mm Hg. Pericardium/ Pleura There is no pericardial effusion. There is no pleural effusion. MMode/2D Measurements & Calculations LVIDd: 4.5 cm LVOT diam: 2.0 cm LVIDs: 2.7 cm asc Aorta Diam: 3.2 cm FS: 40.3 % Ao Arch Diam (Prox Trans): 3.1 cm IVSd: 0.96 cm LVPWd: 1.1 cm LV tinoco. diameter/BSA (cm/m^2): 2.3 LV sys. diameter/BSA (cm/m^2): 1.4 LA A2 area: 16.8 cm2 RA long axis: 5.6 cm LA A4 area: 19.2 cm2 RA area: 17.7 cm2 LA length (vol): 5.2 cm RA vol: 47.3 ml LA vol: 52.3 ml RA : 24.3 ml/m2 LA vol index: 26.9 ml/m2 IVC diam: 1.8 cm RVD1 (basal): 3.4 cm RVD2 (mid): 3.1 cm TAPSE: 1.7 cm Doppler Measurements & Calculations Ao V2 max: 169.5 cm/sec LVOT Max Sheldon: 118.4 cm/sec Ao V2 mean: 123.2 cm/sec LV V1 max P.6 mmHg Ao max P.5 mmHg LV V1 VTI: 22.4 cm Ao mean P.6 mmHg PATRICK(I,D): 2.2 cm2 Ao V2 VTI: 32.3 cm PATRICK(V,D): 2.3 cm2 sev ratio: 0.69 PATRICK indexed to BSA (cm^2/m^2): 1.2 MV E max sheldon: 92.2 cm/sec PA V2 max: 114.0 cm/sec MV A max sheldon: 104.1 cm/sec PA V2 mean: 77.6 cm/sec MV E/A: 0.89 PA mean P.7 mmHg Med Peak E' Sheldon: 4.7 cm/sec PA pr(Accel): 37.9 mmHg E/E' med: 19.7 Lat Peak E' Sheldon: 5.5 cm/sec E/E' lat: 16.9 E/e' average: 18.3 MV dec time: 0.26 sec SV(LVOT): 72.4 ml Reading Physician:04:59 PM
[2023-05-07 14:09] LABS: Cholesterol 118 mg/dL (140-199); HDL Cholesterol 56 mg/dL (40-60); LDL Cholesterol Calculated 46 mg/dL (<100); Magnesium 1.5 mg/dL (1.6-2.3); Triglycerides 82 mg/dL (35-150)
[2023-05-07 15:20] LABS: UR Morphine/Opiate cutoff 300 Negative (Negative); Ur Creatinine Normal (Normal); Ur Specific Gravity Normal (Normal); Urine Amphetamines Negative (Negative); Urine Barbiturates Negative (Negative); Urine Benzodiazepines Negative (Negative); Urine Cocaine Negative (Negative); Urine MDMA Negative (Negative); Urine Methadone Negative (Negative); Urine Methamphetamines Negative (Negative); Urine Oxycodone Negative (Negative); Urine Phencyclidine Negative (Negative); Urine Tetrahydrocannabinol Negative (Negative); Urine Tricyclic Antidepressant Negative (Negative); Urine pH Normal (Normal)
[2023-05-07] MEDS: MAGNESIUM SULFATE 4 GM/100 ML PIGGYBACK IV (17:17)
[2023-05-07] MEDS: GABAPENTIN 300 MG CAPSULE 600 MG PO ×2 (17:23→21:25)
[2023-05-07] MEDS: METFORMIN HCL 500 MG TABLET 1000 MG PO (17:23)
[2023-05-07] MEDS: CLOPIDOGREL 75 MG TABLET PO (17:25)
[2023-05-07] MEDS: ENOXAPARIN 40 MG/0.4 ML SYRINGE SUBCUT (17:25)
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
[2023-05-07 18:09] LABS: Appearance Urine UA CLEAR; Bilirubin Urine UA NEGATIVE (NEGATIVE); Color Urine UA YELLOW; Glucose Urine UA NEGATIVE (Negative); Ketones Urine UA NEGATIVE (NEGATIVE); Leukocyte Esterase Urine UA 1+ (NEGATIVE); Nitrite Urine UA POSITIVE (Negative); Occult Blood Urine UA NEGATIVE (Negative); Protein Urine UA NEGATIVE (Negative); Specific Gravity Urine UA <=1.005 (1.000-1.035); Urobilinogen Urine UA 0.2 E.U./dL (0.2)
[2023-05-07 18:29] LABS: Bacteria Urine Few (2-10); RBC Urine None Seen (0-5/HPF); Squamous Epithelial Cell Urine 0-1 /HPF (0-5/HPF); WBC Urine 1-5/HPF (0-5/HPF)
[2023-05-07 18:30] LABS: Culture Indicated Urine Specimen Cultured
[2023-05-07 19:18] LABS: TSH w/ Reflex to FT4 1.44 uIU/mL (0.47-4.68)
[2023-05-07] MEDS: ATORVASTATIN 20 MG TABLET 80 MG PO (21:25)
[2023-05-07] MEDS: METOPROLOL IR 50 MG TABLET PO (21:25)
[2023-05-07] MEDS: INSULIN GLARGINE 100 UNIT/ML 3ML PEN 8 UNIT SUBCUT (21:25)
[2023-05-08] VITALS: BP 117/67; PULSE 87; RESP 17; TEMP 36.5; O2SAT 98
[2023-05-08 04:00] VITALS: BP 106/63; PULSE 69; RESP 17; TEMP 35.9; O2SAT 99
[2023-05-08 04:52] LABS: Add Manual Diff / Slide Review NO; Basophils Absolute Auto 0 /uL (0-100); Basophils Percent Auto 0.5 % (0-2); Eosinophils Absolute Auto 200 /uL (0-450); Eosinophils Percent Auto 1.8 % (2-4); Hematocrit 32.2 % (41-53); Hemoglobin 11.2 g/dL (13.5-17.5); Lymphocytes Absolute Auto 2900 /uL (1100-4500); Lymphocytes Percent Auto 30.5 % (25-40); Mean Corpuscular HGB Conc 34.8 % (30-36); Mean Corpuscular Hemoglobin 30.4 PG (26-34); Mean Corpuscular Volume 87.3 fL (80-100); Monocytes Absolute Auto 700 /uL (0-900); Monocytes Percent Auto 7.8 % (3-14); Neutrophils Absolute Auto 5700 /uL (1500-7000); Neutrophils Percent Auto 59.4 % (50-75); Platelet Count 212 X10^3/uL (150-400); Red Blood Cell Count 3.69 X10^6/uL (4.5-5.9); Red Cell Distribution Width 14.5 % (11.6-14.8); White Blood Cell Count 9.5 X10^3/uL (4.5-11.0)
[2023-05-08 05:06] LABS: BUN Creatinine Ratio 19.3 (6-22); Blood Urea Nitrogen 16 mg/dL (9-20); Calcium 10.2 mg/dL (8.4-10.2); Carbon Dioxide 27 mmol/L (22-32); Chloride 103 mmol/L (98-107); Estimated Glomerular Filt Rate > 60 mL/min (>60); Glucose 93 mg/dL (80-110); HEMOLYSIS < 15 (0-50); Magnesium 2.2 mg/dL (1.6-2.3); Potassium 3.9 mmol/L (3.4-5.1); Sodium 134 mmol/L (137-145)
[2023-05-08] MEDS: PANTOPRAZOLE DR 20 MG TABLET PO (06:23)
[2023-05-08 08:00] VITALS: BP 104/60; PULSE 86; RESP 16; TEMP 36.6; O2SAT 98
[2023-05-08] MEDS: METFORMIN HCL 500 MG TABLET 1000 MG PO (08:04)
[2023-05-08] MEDS: GABAPENTIN 300 MG CAPSULE 600 MG PO (08:04)
[2023-05-08] MEDS: ASPIRIN EC 325 MG TABLET PO (08:04)
[2023-05-08] MEDS: METOPROLOL IR 50 MG TABLET PO (08:04)
[2023-05-08] MEDS: CLOPIDOGREL 75 MG TABLET PO (08:04)
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
== END 2023-05-08 12:00 | disposition home or self-care (01) ==
LOC: ED 11:29 → AC 12:52
PROVIDERS: Admitting Provider Student in an Organized Health Care Education/Training Program; Emergency Provider Emergency Medicine; PCP Internal Medicine; Referring Provider Emergency Medicine; Visit Provider Student in an Organized Health Care Education/Training Program
DX: R41.0 Disorientation, unspecified (principal); R29.701 NIHSS score 1; I10 Essential (primary) hypertension; Z86.73 Personal history of transient ischemic attack (TIA), and cerebral infarction without residual deficits; E78.5 Hyperlipidemia, unspecified; K21.9 Gastro-esophageal reflux disease without esophagitis; Z79.01 Long term (current) use of anticoagulants; Z95.0 Presence of cardiac pacemaker; E11.9 Type 2 diabetes mellitus without complications; Z79.4 Long term (current) use of insulin; Z79.84 Long term (current) use of oral hypoglycemic drugs
CPT/HCPCS: 36415; 70450; 70496; 70498; 80048; 80053; 80061; 80305; 80320; 81001; 82550; 82962; 83036; 83735; 84443; 84484; 85025; 85610; 85730; 87077; 87086; 87186; 87635; 93005; 93010; 93306; 96365; 96366; 96372; 99284; 99285; C9803; G0378; J1650; J3475; Q9967

== ENCOUNTER 2023-11-19 10:34 | Inpatient (IN) | payer MEDICARE, OTHER, SELFPAY ==
[2023-05-07 13:44] VITALS: BMI 20.9
[2023-11-19] VITALS (18 sets, daily range): BP systolic 94–138; BP diastolic 49–69; PULSE 79–101; RESP 14–23; TEMP 36.6–36.9; O2SAT 97–99; BMI 20.3; BMI 22.2
--- NOTE | 2023-11-19 10:48 | DI.CT.S_ITS ---
PROCEDURE: CT HEAD/BRAIN WO CON INDICATIONS: confusion and [place] TECHNIQUE: Noncontrast 4.5 mm thick angled axial sections acquired from the foramen magnum to the vertex, with coronal and sagittal reformats. For radiation dose reduction, the following was used: automated exposure control, adjustment of mA and/or kV according to patient size. COMPARISON: , CT, CT STROKE, 05/07/2023, 10:21. FINDINGS: Image quality: Diagnostic. CSF spaces: Basal cisterns are patent. No extra-axial fluid collections. The ventricles are symmetric in size and shape. Brain: No intracranial bleeds or masses. There is cerebral volume loss for age, with resultant ventricular and sulcal prominence. There are periventricular and deep white matter chronic small vessel ischemic changes. There is intracranial internal carotid artery and vertebral artery atherosclerosis. Skull and face: Calvarium and visualized facial bones appear intact, without suspicious lesions. Multiple sutures in the occipital scalp and posterior upper neck soft tissues. Sinuses: Visualized sinuses and mastoids are clear. IMPRESSION: No acute intracranial pathology. Dictated by: Maria D Lo MD, PhD on 11/19/2023 at 11:27 Approved by: Maria D Lo MD, PhD on 11/19/2023 at 11:29
--- NOTE | 2023-11-19 10:48 | EKG_ITS ---
[address] [address] Test Date: 2023-11-19 Pat Name: Deep Erickson Department: Room: Gender: Male [employer]: : [id number] Requested By: Order Number: [id number] Reading MD: Timi Stephen Measurements Intervals [place] Rate: 102 P: AL: 170 QRS: -81 QRSD: 118 T: 29 QT: 346 QTc: 450 Interpretive Statements Sinus tachycardia Left axis deviation Right bundle branch block Electronically Signed On 11-20-2023 16:16:40 PDT by Timi Stephen
--- NOTE | 2023-11-19 10:48 | DI.RAD.S_ITS ---
PROCEDURE: XR CHEST 1V INDICATIONS: Possible stroke TECHNIQUE: One view of the chest was acquired. COMPARISON: [facility], CR, XR CHEST 1V, 01/29/2021, 11:12. FINDINGS: Surgical changes and devices: Prior TAVR. Intracardiac pacer. Lungs and pleura: Lungs are clear. Stable calcified granuloma in the left lung base. No pleural effusions or pneumothorax. Mediastinum: Mediastinal contours appear normal. Heart size is normal. Bones and chest wall: No suspicious bony lesions. Stable distal right clavicle postsurgical changes. Overlying soft tissues appear unremarkable. IMPRESSION: No acute cardiopulmonary abnormality is seen. Dictated by: Maria D Lo MD, PhD on 11/19/2023 at 11:25 Approved by: Maria D Lo MD, PhD on 11/19/2023 at 11:25
[2023-11-19 11:07] LABS: Prothrombin Time 11.7 SECONDS (9.4-12.5)
[2023-11-19 11:10] LABS: PTT Partial Thromboplastin Tim 30 SECONDS (25.1-36.5)
[2023-11-19 11:11] LABS: Alanine Aminotransferase 16 IU/L (<50); Albumin 4.1 g/dL (3.5-5.0); Albumin Globulin Ratio 1.4 (1.0-2.8); Alkaline Phosphatase 85 U/L (38-126); Aspartate Aminotransferase 24 IU/L (17-59); BUN Creatinine Ratio 22.8 (6-22); Bilirubin Total 0.7 mg/dL (0.2-1.3); Blood Urea Nitrogen 23 mg/dL (9-20); Calcium 10.1 mg/dL (8.4-10.2); Carbon Dioxide 24 mmol/L (22-32); Chloride 104 mmol/L (98-107); Creatine Kinase 57 U/L (55-170); Estimated Glomerular Filt Rate > 60 mL/min (>60); Glucose 151 mg/dL (80-110); HEMOLYSIS < 15 (0-50); Magnesium 1.4 mg/dL (1.6-2.3); Potassium 4.9 mmol/L (3.4-5.1); Sodium 134 mmol/L (137-145); Total Protein 7.1 g/dL (6.3-8.2)
[2023-11-19 11:20] LABS: Add Manual Diff / Slide Review NO; Basophils Absolute Auto 0 /uL (0-100); Basophils Percent Auto 0.3 % (0-2); Eosinophils Absolute Auto 100 /uL (0-450); Eosinophils Percent Auto 0.5 % (2-4); Hematocrit 32.4 % (41-53); Hemoglobin 11.1 g/dL (13.5-17.5); Lymphocytes Absolute Auto 1800 /uL (1100-4500); Lymphocytes Percent Auto 15.8 % (25-40); Mean Corpuscular HGB Conc 34.2 % (30-36); Mean Corpuscular Hemoglobin 30.2 PG (26-34); Mean Corpuscular Volume 88.4 fL (80-100); Monocytes Absolute Auto 600 /uL (0-900); Monocytes Percent Auto 4.9 % (3-14); Neutrophils Absolute Auto 8900 /uL (1500-7000); Neutrophils Percent Auto 78.5 % (50-75); Platelet Count 249 X10^3/uL (150-400); Red Blood Cell Count 3.66 X10^6/uL (4.5-5.9); Red Cell Distribution Width 14.1 % (11.6-14.8); White Blood Cell Count 11.4 X10^3/uL (4.5-11.0)
[2023-11-19 11:22] LABS: Troponin I < 0.012 ng/mL (0.01-0.034)
--- NOTE | 2023-11-19 11:28 | ED.NEUROSD ---
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 He reports that he started having have a headache last night. He has feeling a little bit nauseous. No fever. He is having some more trouble finding. He generally lives alone and does very well. He is 2 daughters at bedside who check on him regularly 1 of them came by this morning and realized he was very confused. He previously had a TIA that was similar. It looks like he was admitted in May 2023 with similar symptoms. Last known well yesterday. He is complaining ongoing headache. Family state that he lives alone and normally does very well and this is abnormal behavior for him and is not at baseline. Related Data Home Medications Medication Instructions Recorded Confirmed losartan 100 mg tablet 100 mg PO QDAY ##0 08/21/11 11/19/23 metformin 1,000 mg tablet 1,000 mg PO BIDCC ##0 02/10/13 11/19/23 metoprolol tartrate 50 mg tablet 50 mg PO BID 07/21/18 11/19/23 (Lopressor) insulin glargine 100 unit/mL (3 8 unit SUBCUT BEDTIME 06/04/21 11/19/23 mL) subcutaneous pen (Lantus Solostar U-100 Insulin) prednisone 5 mg tablet 5 mg PO DAILY 06/04/21 11/19/23 gabapentin 300 mg capsule 300 mg PO BID pain 11/19/23 11/19/23 Previous Rx's Medication Instructions Recorded clopidogrel 75 mg tablet 75 mg PO DAILY #30 tabs 08/21/20 aspirin 81 mg tablet,delayed See Rx Instructions .Route 05/08/23 release .COMPLEX #90 tabs atorvastatin 80 mg tablet (Lipitor) 80 mg PO BEDTIME #30 tabs 05/08/23 Allergies Allergy/AdvReac Type Severity Reaction Status Date / Time cephalexin AdvReac Mild Hallucinati Verified 11/19/23 13:23 ng Patient History Medical History HNP (herniated nucleus pulposus), lumbar History of prostate cancer Lumbosacral radiculopathy at L5 Lumbosacral spondylosis Facet arthropathy, lumbosacral Hematochezia (~2016) Bone spur Cervical spine fracture (~1958) RBBB (right bundle branch block) Left wrist fracture (~2010) Osteoarthritis Diabetes Prostate cancer Recurrent urinary tract infection Polymyalgia rheumatica Former smoker Aortic stenosis Cardiomyopathy Hyperlipidemia HTN (hypertension) TIA (transient ischemic attack) (~2011) TMJ (temporomandibular joint disorder) Surgical History Hx of prostatectomy Family History Father Heart disease Heart attack Mother No significant medical problems Grandmother Heart disease Social History household members: none Smoking Status: Former smoker alcohol intake: current Smoking Status: Former smoker alcohol intake frequency: 0-2 drinks per day Substance Use Type: does not use Exam Initial Vital Signs Initial Vital Signs: Vital Signs Temperature 98.3 F 11/19/23 10:35 Pulse Rate 95 H 11/19/23 10:35 Respiratory Rate 14 11/19/23 10:35 Blood Pressure 138/69 11/19/23 10:35 Pulse Oximetry 97 11/19/23 10:35 Oxygen Delivery Method Room Air 11/19/23 10:35 GENERAL: Alert 83-year-old male appears mildly uncomfortable HEENT: Head atraumatic,EOMI, pupils reactive, face symmetric, moist mucous membranes CARDIOVASCULAR: Regular rate and rhythm without murmurs, rubs or gallops. RESPIRATORY: Breath sounds equal bilaterally, no wheezes rales or rhonchi. ABDOMEN: Soft, nontender. Normoactive bowel sounds all 4 quadrants. No guarding or rebound. EXTREMITIES: Normal range of motion, no clubbing or edema. Neurovascularly intact NEUROLOGICAL: Alert and oriented x4.Normal gait and speech. Cranial nerves II through XII grossly intact. Good ioheik-pc-rxls, good kpnr-[id number]-nlzz, strength equal bilaterally, some were trouble finding but no slurring of speech, sensation in tact to soft touch bilaterally, no visual changes, no facial droop SKIN: Feels warm to touch, no laceration, no petechiae, no rashes or lesions. Scores NIH Stroke Scale Level of Conciousness: Alert, keenly responsive Ask month/age: Answers one question correctly, intubated follow commands Open/close eyes, close hand: Performs both tasks correctly Best gaze horizontal: Normal Visual vidal: No visual loss Facial palsy: Normal symetrical movement Left arm drift: No drift for full 10 sec Right arm drift: No drift for full 10 sec Left leg drift: No drift for full 5 sec Right leg drift: No drift for full 5 sec Limb ataxia: Absent Sensory on face/arms/legs: Normal, no sensory loss Best language: Mild to moderate, slurs some words Dysarthria: Normal Extinction or inattention: No abnormality Total NIH Stroke scale score: 2 Course Orders Ordered: ED Orders 11/19/23 10:47 Complete Blood Count AUTO DIFF Stat Comprehensive Metabolic Panel Stat Lactate (Lactic Acid) Stat Magnesium Stat PTT Partial Thromboplastin Jeison Stat Procalcitonin Stat Prothrombin Time INR Stat Troponin & CK Cardiac Panel Stat 11/19/23 10:48 CT head/brain wo con Stat XR chest 1V Stat EKG-12 Lead Stat 11/19/23 11:20 UA Complete [Urinalysis and Microscopic] Stat Urine Culture Stat Urine Drug Screen, Rapid Stat 11/19/23 11:35 Respiratory Panel (Film Array) Stat 11/19/23 11:46 CT angio head and neck Stat 11/19/23 11:57 Blood Culture Stat Acetaminophen (Acetaminophen 325 Mg Tablet) 650 mg PO Q6H PRN PRN Reason: Fever/Mild Pain (1-3) Aspirin (Aspirin Ec 81 Mg Tablet) 81 mg PO DAILY KAILEE Atorvastatin Calcium (Atorvastatin 20 Mg Tablet) 80 mg PO BEDTIME KAILEE Clopidogrel Bisulfate (Clopidogrel 75 Mg Tablet) 75 mg PO DAILY KAILEE Enoxaparin Sodium (Enoxaparin 40 Mg/0.4 Ml Syringe) 40 mg SUBCUT DAILY KAILEE Gabapentin (Gabapentin 300 Mg Capsule) 300 mg PO BID KAILEE Ceftriaxone Sodium 1,000 mg/ (Sodium Chloride) 100 mls @ 200 mls/hr IV Q24H KAILEE Dextrose (D10w) 100 mls @ 999 mls/hr IV PRN PRN PRN Reason: Hypoglycemia Magnesium Sulfate (Magnesium Sulfate) 2 gm in 50 mls @ 25 mls/hr IV NOW ONE Stop: 11/19/23 19:15 Last Admin: 11/19/23 17:24 Dose: 25 mls/hr Documented By: FABBY Co-signed By: JOSÉ ANTONIO Insulin Glargine (Insulin Glargine 100 Unit/Ml 3ml Pen) 8 unit SUBCUT BEDTIME [facility] Insulin Human Lispro (Insulin Lispro 100 Unit/Ml 3ml Vial) 0 unit SUBCUT ACHS [facility]; Protocol Losartan Potassium (Losartan 50 Mg Tablet) 100 mg PO DAILY [facility] Last Admin: 11/19/23 17:25 Dose: 100 mg Documented By: FABBY Metoprolol Tartrate (Metoprolol Ir 50 Mg Tablet) 50 mg PO BID [facility] Naloxone HCl (Naloxone 0.4 Mg/Ml Vial) 0.2 mg IV Q2MIN PRN PRN Reason: Opiate Reversal Ondansetron HCl (Ondansetron 4 Mg/2 Ml Inj) 4 mg IV NOW PRN PRN Reason: Nausea And Vomiting Prednisone (Prednisone 5 Mg Tablet) 5 mg PO DAILY [facility] Discontinued Medications Sodium Chloride (Normal Saline 0.9%) 1,000 mls @ 1,000 mls/hr IV BOLUS ONE Stop: 11/19/23 12:35 Last Infusion: 11/19/23 14:51 Dose: Infused Documented By: Infusion: 11/19/23 13:27 Dose: 1,000 mls/hr Documented By: Admin: 11/19/23 11:53 Dose: 1,000 mls/hr Documented By: ELIZABETH Acetaminophen (Ofirmev) 1,000 mg in 100 mls @ 400 mls/hr IV NOW ONE Stop: 11/19/23 11:50 Last Infusion: 11/19/23 12:27 Dose: Infused Documented By: Admin: 11/19/23 11:53 Dose: 400 mls/hr Documented By: ELIZABETH Ceftriaxone Sodium 1,000 mg/ (Sodium Chloride) 100 mls @ 200 mls/hr IV NOW ONE Stop: 11/19/23 12:29 Last Infusion: 11/19/23 14:06 Dose: Infused Documented By: Admin: 11/19/23 13:30 Dose: 200 mls/hr Documented By: ELIZABETH Vital Signs Vital signs: Vital Signs - 8 hr 11/19/23 10:41 11/19/23 10:42 11/19/23 10:42 Temperature Pulse Rate 96 H Respiratory Rate Blood Pressure 138/69 Pulse Oximetry 98 97 Oxygen Delivery Method 11/19/23 11:00 11/19/23 11:00 11/19/23 11:30 Temperature 98.4 F Pulse Rate 99 H 101 H Respiratory Rate 23 16 Blood Pressure 122/60 Pulse Oximetry 97 98 Oxygen Delivery Method Room Air 11/19/23 12:00 11/19/23 12:18 11/19/23 12:18 Temperature Pulse Rate 100 H 95 H Respiratory Rate 15 19 Blood Pressure 112/57 L Pulse Oximetry 97 98 Oxygen Delivery Method 11/19/23 12:30 11/19/23 13:00 11/19/23 13:30 Temperature Pulse Rate 93 H 93 H 100 H Respiratory Rate 19 19 Blood Pressure Pulse Oximetry 98 99 Oxygen Delivery Method 11/19/23 13:58 11/19/23 13:58 11/19/23 14:00 Temperature Pulse Rate 97 H Respiratory Rate 17 Blood Pressure 108/52 L 94/49 L Pulse Oximetry 99 Oxygen Delivery Method 11/19/23 14:00 11/19/23 14:30 11/19/23 14:30 Temperature Pulse Rate 95 H 93 H Respiratory Rate 18 21 Blood Pressure 117/59 L Pulse Oximetry 97 98 Oxygen Delivery Method MDM - Neuro Symptoms/Deficit Lab Data 11/19/23 10:47 11/19/23 10:47 Labs: Lab Results 11/19/23 11/19/23 11/19/23 Range/Units 10:47 11:20 11:20 WBC 11.4 H (4.5-11.0) X10^3/uL RBC 3.66 L (4.5-5.9) X10^6/uL Hgb 11.1 L (13.5-17.5) g/dL Hct 32.4 L (41-53) % MCV 88.4 (80-100) fL MCH 30.2 (26-34) PG MCHC 34.2 (30-36) % RDW 14.1 (11.6-14.8) % Plt Count 249 (150-400) X10^3/uL Neut % (Auto) 78.5 H (50-75) % Lymph % (Auto) 15.8 L (25-40) % [place] % (Auto) 4.9 (3-14) % Eos % (Auto) 0.5 L (2-4) % Baso % (Auto) 0.3 (0-2) % Neut # (Auto) 8900 H (8942-2141) /uL Lymph # (Auto) 1800 (1924-6338) /uL [place] # (Auto) 600 (0-900) /uL Eos # (Auto) 100 (0-450) /uL Baso # (Auto) 0 (0-100) /uL PT 11.7 (9.4-12.5) SECONDS INR 1.0 (0.9-1.3) APTT 30 (25.1-36.5) SECONDS Sodium 134 L (137-145) mmol/L Potassium 4.9 (3.4-5.1) mmol/L Chloride 104 (98-107) mmol/L Carbon Dioxide 24 (22-32) mmol/L BUN 23 H (9-20) mg/dL Creatinine 1.01 (0.66-1.25) mg/dL Estimated GFR > 60 (>60) mL/min BUN/Creatinine Ratio 22.8 H (6-22) Glucose 151 H (80-110) mg/dL Lactate 1.1 (0.7-2.1) mmol/L Calcium 10.1 (8.4-10.2) mg/dL Magnesium 1.4 L (1.6-2.3) mg/dL Total Bilirubin 0.7 (0.2-1.3) mg/dL AST 24 (17-59) IU/L ALT 16 (<50) IU/L Alkaline Phosphatase 85 (38-126) U/L Total Creatine Kinase 57 (55-170) U/L Troponin I < 0.012 (0.01-0.034) ng/mL Total Protein 7.1 (6.3-8.2) g/dL Albumin 4.1 (3.5-5.0) g/dL Globulin 3.0 (1.7-4.1) g/dL Albumin/Globulin Ratio 1.4 (1.0-2.8) Procalcitonin 0.066 (<0.5) ng/mL Urine Color Yellow Urine Appearance Clear Urine pH 7.5 Normal (4.5-8.0) Ur Specific [place] <=1.005 (1.000-1.035) Urine Protein Trace H (Negative) Urine Glucose (UA) Negative (Negative) g/dL Urine Ketones Negative (NEGATIVE) Urine Occult Blood Trace-intact (Negative) Urine Nitrate Positive H (Negative) Urine Bilirubin Negative (NEGATIVE) Urine Urobilinogen 4.0 H (0.2) E.U./dL Ur Leukocyte Esterase 2+ H (NEGATIVE) Urine RBC 0-1/hpf (0-5/HPF) Urine WBC 5-10/hpf H (0-5/HPF) Ur Squamous Epith Cells None seen (0-5/HPF) Urine Bacteria Many (>30) H (None) Ur Culture Indicated? Specimen cultured Vol Urine Centrifuged Low vol <10ml (spun) A U Opiates 300ng/mL cut Negative (Negative) Ur Oxycodone Screen Negative (Negative) Urine Methadone Screen Negative (Negative) Ur Barbiturates Screen Negative (Negative) U Tricyclic Antidepress Negative (Negative) Ur Phencyclidine Scrn Negative (Negative) Ur Amphetamines Screen Negative (Negative) U Methamphetamines Scrn Negative (Negative) Ur MDMA Scrn (Ecstasy) Negative (Negative) U Benzodiazepines Scrn Negative (Negative) Urine Cocaine Screen Negative (Negative) U Marijuana (THC) Screen Negative (Negative) Urine Specific [place] Normal (Normal) Ur Creatinine Normal (Normal) Chlamy pneumoniae PCR (Not Detect) Adenovirus (PCR) (Not Detect) B.parapertussis DNA PCR (Not Detecte) Coronavirus OC43 (PCR) (Not Detect) Coronavirus HKU1 (PCR) (Not Detect) Coronavirus 229E (PCR) (Not Detect) SARS-CoV-2 (PCR) (Not Detecte) Coronavirus NL63 (PCR) (Not Detect) Human Metapneumovir PCR (Not Detect) Influenza Type A (PCR) (Not Detect) Influenza Type B (PCR) (Not Detect) M. pneumoniae (PCR) (Not Detect) Parainfluenza 1 (PCR) (Not Detect) Parainfluenza 2 (PCR) (Not Detect) Parainfluenza 3 (PCR) (Not Detect) Parainfluenza 4 (PCR) (Not Detect) RSV (PCR) (Not Detect) Entero/Rhino (PCR) (Not Detect) 11/19/23 Range/Units 11:35 WBC (4.5-11.0) X10^3/uL RBC (4.5-5.9) X10^6/uL Hgb (13.5-17.5) g/dL Hct (41-53) % MCV (80-100) fL MCH (26-34) PG MCHC (30-36) % RDW (11.6-14.8) % Plt Count (150-400) X10^3/uL Neut % (Auto) (50-75) % Lymph % (Auto) (25-40) % [place] % (Auto) (3-14) % Eos % (Auto) (2-4) % Baso % (Auto) (0-2) % Neut # (Auto) (7054-7406) /uL Lymph # (Auto) (5338-7995) /uL [place] # (Auto) (0-900) /uL Eos # (Auto) (0-450) /uL Baso # (Auto) (0-100) /uL PT (9.4-12.5) SECONDS INR (0.9-1.3) APTT (25.1-36.5) SECONDS Sodium (137-145) mmol/L Potassium (3.4-5.1) mmol/L Chloride (98-107) mmol/L Carbon Dioxide (22-32) mmol/L BUN (9-20) mg/dL Creatinine (0.66-1.25) mg/dL Estimated GFR (>60) mL/min BUN/Creatinine Ratio (6-22) Glucose (80-110) mg/dL Lactate (0.7-2.1) mmol/L Calcium (8.4-10.2) mg/dL Magnesium (1.6-2.3) mg/dL Total Bilirubin (0.2-1.3) mg/dL AST (17-59) IU/L ALT (<50) IU/L Alkaline Phosphatase (38-126) U/L Total Creatine Kinase (55-170) U/L Troponin I (0.01-0.034) ng/mL Total Protein (6.3-8.2) g/dL Albumin (3.5-5.0) g/dL Globulin (1.7-4.1) g/dL Albumin/Globulin Ratio (1.0-2.8) Procalcitonin (<0.5) ng/mL Urine Color Urine Appearance Urine pH (4.5-8.0) Ur Specific [place] (1.000-1.035) Urine Protein (Negative) Urine Glucose (UA) (Negative) g/dL Urine Ketones (NEGATIVE) Urine Occult Blood (Negative) Urine Nitrate (Negative) Urine Bilirubin (NEGATIVE) Urine Urobilinogen (0.2) E.U./dL Ur Leukocyte Esterase (NEGATIVE) Urine RBC (0-5/HPF) Urine WBC (0-5/HPF) Ur Squamous Epith Cells (0-5/HPF) Urine Bacteria (None) Ur Culture Indicated? Vol Urine Centrifuged U Opiates 300ng/mL cut (Negative) Ur Oxycodone Screen (Negative) Urine Methadone Screen (Negative) Ur Barbiturates Screen (Negative) U Tricyclic Antidepress (Negative) Ur Phencyclidine Scrn (Negative) Ur Amphetamines Screen (Negative) U Methamphetamines Scrn (Negative) Ur MDMA Scrn (Ecstasy) (Negative) U Benzodiazepines Scrn (Negative) Urine Cocaine Screen (Negative) U Marijuana (THC) Screen (Negative) Urine Specific [place] (Normal) Ur Creatinine (Normal) Chlamy pneumoniae PCR Not detected (Not Detect) Adenovirus (PCR) Not detected (Not Detect) B.parapertussis DNA PCR Not detected (Not Detecte) Coronavirus OC43 (PCR) Not detected (Not Detect) Coronavirus HKU1 (PCR) Not detected (Not Detect) Coronavirus 229E (PCR) Not detected (Not Detect) SARS-CoV-2 (PCR) Not detected (Not Detecte) Coronavirus NL63 (PCR) Not detected (Not Detect) Human Metapneumovir PCR Not detected (Not Detect) Influenza Type A (PCR) Not detected (Not Detect) Influenza Type B (PCR) Not detected (Not Detect) M. pneumoniae (PCR) Not detected (Not Detect) Parainfluenza 1 (PCR) Not detected (Not Detect) Parainfluenza 2 (PCR) Not detected (Not Detect) Parainfluenza 3 (PCR) Not detected (Not Detect) Parainfluenza 4 (PCR) Not detected (Not Detect) RSV (PCR) Not detected (Not Detect) Entero/Rhino (PCR) Not detected (Not Detect) Imaging Data CT scan - head: Radiologist's Impression: PROCEDURE: CT HEAD/BRAIN WO CON INDICATIONS: confusion and [place] TECHNIQUE: Noncontrast 4.5 mm thick angled axial sections acquired from the foramen magnum to the vertex, with coronal and sagittal reformats. For radiation dose reduction, the following was used: automated exposure control, adjustment of mA and/or kV according to patient size. COMPARISON: [facility], CT, CT STROKE, 05/07/2023, 10:21. FINDINGS: Image quality: Diagnostic. CSF spaces: Basal cisterns are patent. No extra-axial fluid collections. The ventricles are symmetric in size and shape. Brain: No intracranial bleeds or masses. There is cerebral volume loss for age, with resultant ventricular and sulcal prominence. There are periventricular and deep white matter chronic small vessel ischemic changes. There is intracranial internal carotid artery and vertebral artery atherosclerosis. Skull and face: Calvarium and visualized facial bones appear intact, without suspicious lesions. Multiple sutures in the occipital scalp and posterior upper neck soft tissues. Sinuses: Visualized sinuses and mastoids are clear. IMPRESSION: No acute intracranial pathology. Dictated by: Maria D Lo MD, PhD on 11/19/2023 at 11:27 CTA - brain/neck: Radiologist's Impression: PROCEDURE: CT ANGIO HEAD AND NECK INDICATIONS: confusion hx tia TECHNIQUE: After the administration of intravenous contrast, 1 mm thick sections acquired from the aortic arch through the [place]. 3-dimensional trpebse-emgvguprc-[id number] (MIP) and/or volume rendering reformats were acquired of the central intracranial vasculature and neck separately. For radiation dose reduction, the following was used: automated exposure control, adjustment of mA and/or kV according to patient size. COMPARISON: [facility], CT, CT HEAD/BRAIN WO CON, 11/19/2023, 11:05. CT head November 19, 2023. FINDINGS: Image quality: Diagnostic. HEAD CT ANGIOGRAPHY: Anterior circulation: Intracranial internal carotid arteries are normal in flow. Atherosclerotic calcifications noted in the cavernous and clinoid segments of the internal carotid arteries bilaterally which causes mild stenosis of the cavernous segments and high-grade stenosis of the clinoid segments. The flow within the paired anterior cerebral arteries is normal and symmetric. The flow within the middle cerebral arteries is normal and symmetric. The anterior communicating artery is seen. No aneurysms are seen. Posterior circulation: Atherosclerotic calcifications in the proximal V4 segment of the left vertebral artery which causes mild, short segment stenoses. Normal flow in the basilar artery. Flow within the posterior cerebral arteries is normal and symmetric. No aneurysms are seen. Dural sinuses demonstrate normal postcontrast enhancement. NECK CT ANGIOGRAPHY: Carotid system: The great vessels demonstrate a conventional anatomy as they arise from the aortic arch. The origins of the common carotid arteries appear patent. The common carotid arteries demonstrate normal caliber and courses. Soft and calcified atherosclerotic plaque in the origins of the internal carotid artery which causes moderate, approximately 60% stenosis of the vessels. Posterior circulation: Dominant left vertebral artery. Atherosclerotic calcification origin of the right vertebral artery which causes mild narrowing of the vessel. Soft atherosclerotic plaque in the origin of the left vertebral artery which causes moderate stenosis. The more superior extracranial portions of both vertebral arteries also demonstrate normal courses and calibers. They join to form a normal appearing basilar artery. Soft tissues: Visualized neck soft tissues demonstrate no suspicious abnormalities. Bones: No suspicious bony lesions. Visualized cervical spine appears normally aligned. Spine degenerative disc disease and facet arthropathy. C1-C2 posterior elements cerclage wires. Patient is edentulous. IMPRESSION: No large vessel occlusion, vascular dissection or aneurysm. 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 Moderate stenosis of the origins of the bilateral internal carotid arteries and the origin of the left vertebral artery. Any quantitative measurements of stenosis were performed using NASCET criteria. Dictated by: Maria D Lo MD, PhD on 11/19/2023 at 12:41 Chest x-ray: Radiologist's Impression: PROCEDURE: XR CHEST 1V INDICATIONS: Possible stroke TECHNIQUE: One view of the chest was acquired. COMPARISON: [facility], , XR CHEST 1V, 01/29/2021, 11:12. FINDINGS: Surgical changes and devices: Prior TAVR. Intracardiac pacer. Lungs and pleura: Lungs are clear. Stable calcified granuloma in the left lung base. No pleural effusions or pneumothorax. Mediastinum: Mediastinal contours appear normal. Heart size is normal. Bones and chest wall: No suspicious bony lesions. Stable distal right clavicle postsurgical changes. Overlying soft tissues appear unremarkable. IMPRESSION: No acute cardiopulmonary abnormality is seen. Dictated by: Maria D Lo MD, PhD on 11/19/2023 at 11:25 ECG Data Attestation: I personally reviewed and interpreted this ECG as follows: Prior ECG tracings: available for review Interpretation: Sinus rhythm rate 102 MT interval 170 QRS 118 to see for 50 right bundle-branch block noted no ischemic changes similar to previous EKGs MDM Narrative Medical decision making narrative: Patient 83-year-old male history of TIA chronic suprapubic indwelling Ye catheter presenting today with weakness and confusion. He does some speech difficulty but does okay. He is NIH stroke scale of 2. He is not a code stroke candidate last known well is yesterday and really unknown. Blood work has been reviewed WBC 11.4 hemoglobin 11.1 hematocrit 32.4 platelets 249, sodium 134 potassium 4.9, chloride 104, carbon dioxide 24, BUN 23 creatinine 1.0, glucose 151, lactate 1.1, bilirubin 0.7, AST 24, ALT 16, alk-phos 85 troponin negative procalcitonin 0.66 Urinalysis is positive nitrates previous urine culture did grow E coli that was pansensitive Respiratory panel is negative Imaging has been reviewed head CT CT angio no acute intracranial process or large vessel occlusion. There is some high-grade stenosis noted on the CT angio. Chest x-ray is also negative Patient has a UTI with possible sepsis. He did have 1 blood pressure reading of 94. He is mild leukocytosis of 11. Lactate is within normal limits. He received 1 L of IV fluids and Rocephin. Patient is re-evaluated and he has maintained tissue perfusion blood pressure has improved and remained stable. It is possible that patient is still has TIA he has had these symptoms before. Dr. Stephen in ED to see and evaluate patient, accepts to in patient. Discharge Plan Departure Patient Disposition: Admitted As Inpatient Clinical Impression: Acute UTI, Brain TIA, Acute metabolic encephalopathy Admit Date/Time: 11/19/23 14:38 Admit Provider: Timi Stephen
--- NOTE | 2023-11-19 11:46 | DI.CT.S_ITS ---
PROCEDURE: CT ANGIO HEAD AND NECK INDICATIONS: confusion hx tia TECHNIQUE: After the administration of intravenous contrast, 1 mm thick sections acquired from the aortic arch through the [place]. 3-dimensional slsqvqh-pjfdglhfy-gqrqobnbkv (MIP) and/or volume rendering reformats were acquired of the central intracranial vasculature and neck separately. For radiation dose reduction, the following was used: automated exposure control, adjustment of mA and/or kV according to patient size. COMPARISON: [facility], CT, CT HEAD/BRAIN WO CON, 11/19/2023, 11:05. CT head November 19, 2023. FINDINGS: Image quality: Diagnostic. HEAD CT ANGIOGRAPHY: Anterior circulation: Intracranial internal carotid arteries are normal in flow. Atherosclerotic calcifications noted in the cavernous and clinoid segments of the internal carotid arteries bilaterally which causes mild stenosis of the cavernous segments and high-grade stenosis of the clinoid segments. The flow within the paired anterior cerebral arteries is normal and symmetric. The flow within the middle cerebral arteries is normal and symmetric. The anterior communicating artery is seen. No aneurysms are seen. Posterior circulation: Atherosclerotic calcifications in the proximal V4 segment of the left vertebral artery which causes mild, short segment stenoses. Normal flow in the basilar artery. Flow within the posterior cerebral arteries is normal and symmetric. No aneurysms are seen. Dural sinuses demonstrate normal postcontrast enhancement. NECK CT ANGIOGRAPHY: Carotid system: The great vessels demonstrate a conventional anatomy as they arise from the aortic arch. The origins of the common carotid arteries appear patent. The common carotid arteries demonstrate normal caliber and courses. Soft and calcified atherosclerotic plaque in the origins of the internal carotid artery which causes moderate, approximately 60% stenosis of the vessels. Posterior circulation: Dominant left vertebral artery. Atherosclerotic calcification origin of the right vertebral artery which causes mild narrowing of the vessel. Soft atherosclerotic plaque in the origin of the left vertebral artery which causes moderate stenosis. The more superior extracranial portions of both vertebral arteries also demonstrate normal courses and calibers. They join to form a normal appearing basilar artery. Soft tissues: Visualized neck soft tissues demonstrate no suspicious abnormalities. Bones: No suspicious bony lesions. Visualized cervical spine appears normally aligned. Spine degenerative disc disease and facet arthropathy. C1-C2 posterior elements cerclage wires. Patient is edentulous. IMPRESSION: No large vessel occlusion, vascular dissection or aneurysm. 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 Moderate stenosis of the origins of the bilateral internal carotid arteries and the origin of the left vertebral artery. Any quantitative measurements of stenosis were performed using NASCET criteria. Dictated by: Maria D Lo MD, PhD on 11/19/2023 at 12:41 Approved by: Maria D Lo MD, PhD on 11/19/2023 at 12:49
[2023-11-19] MEDS: SODIUM CHLORIDE 0.9% 1,000 ML 1000 ML IV (11:53)
[2023-11-19] MEDS: ACETAMINOPHEN IV 1,000 MG/100 ML VIAL 400 MG IV (11:53)
[2023-11-19 11:58] LABS: Appearance Urine UA CLEAR; Bilirubin Urine UA NEGATIVE (NEGATIVE); Color Urine UA YELLOW; Glucose Urine UA NEGATIVE (Negative); Ketones Urine UA NEGATIVE (NEGATIVE); Leukocyte Esterase Urine UA 2+ (NEGATIVE); Nitrite Urine UA POSITIVE (Negative); Occult Blood Urine UA TRACE-INTACT (Negative); Protein Urine UA TRACE (Negative); Specific Gravity Urine UA <=1.005 (1.000-1.035); pH Urine UA 7.5 (4.5-8.0)
[2023-11-19 12:02] LABS: UR Morphine/Opiate cutoff 300 Negative (Negative); Ur Creatinine Normal (Normal); Ur Specific Gravity Normal (Normal); Urine Amphetamines Negative (Negative); Urine Barbiturates Negative (Negative); Urine Benzodiazepines Negative (Negative); Urine Cocaine Negative (Negative); Urine MDMA Negative (Negative); Urine Methadone Negative (Negative); Urine Methamphetamines Negative (Negative); Urine Oxycodone Negative (Negative); Urine Phencyclidine Negative (Negative); Urine Tetrahydrocannabinol Negative (Negative); Urine Tricyclic Antidepressant Negative (Negative); Urine pH Normal (Normal)
[2023-11-19 12:07] LABS: Lactate (Lactic Acid) 1.1 mmol/L (0.7-2.1)
[2023-11-19 12:22] LABS: Bacteria Urine Many (>30); Culture Indicated Urine Specimen Cultured; RBC Urine 0-1/HPF (0-5/HPF); Squamous Epithelial Cell Urine None Seen (0-5/HPF); Urine Volume Low Vol <10mL (spun); WBC Urine 5-10/HPF (0-5/HPF)
[2023-11-19 12:23] LABS: Procalcitonin 0.066 ng/mL (<0.5)
[2023-11-19 12:48] LABS: Adenovirus Not Detected (Not Detect); B. parapertussis Not Detected (Not Detecte); Bordetella pertussis Not Detected (Not Detect); Chlamydophila pneumoniae Not Detected (Not Detect); Coronavirus 229E Not Detected (Not Detect); Coronavirus HKU1 Not Detected (Not Detect); Coronavirus NL 63 Not Detected (Not Detect); Coronavirus OC43 Not Detected (Not Detect); Human Metapneumovirus Not Detected (Not Detect); Human Rhinovirus/Enterovirus Not Detected (Not Detect); Influenza A Not Detected (Not Detect); Influenza B Not Detected (Not Detect); Mycoplasma pneumoniae Not Detected (Not Detect); Parainfluenza Virus 1 Not Detected (Not Detect); Parainfluenza Virus 2 Not Detected (Not Detect); Parainfluenza Virus 3 Not Detected (Not Detect); Parainfluenza Virus 4 Not Detected (Not Detect); Respiratory Syncytial Virus Not Detected (Not Detect); SARS- CoV-2 Not Detected (Not Detecte)
[2023-11-19] MEDS: cefTRIAXone 1,000 MG in SODIUM CHLORIDE 0.9% 100 ML 200 MG IV (13:30)
--- NOTE | 2023-11-19 15:15 | P.HP_ITS ---
History of Present Illness History of Present Illness Date Patient Seen: 11/19/23 Time Patient Seen: 15:16 Chief complaint: Mental confusion, headache Narrative: Mario Erickson is an 83-year-old male with a past medical history significant for aortic stenosis s/p TAVR, cardiomyopathy s/p pacemaker, hypertension, hyperlipidemia, diabetes type 2, prior TIAs (2011, 2021), chronic low back pain and prostate cancer, suprapubic hay catheter who presents with worsening confusion and headache. According to family, patient had worsening confusion, inability to even use a phone and complained of a headache starting yesterday evening along with nausea. Family report mild improvement in confusion, but he is no where near his baseline. His headache is bifrontal and improving. He has some lower abdominal pain along with nausea, but no vomiting. In the ER, CT without was negative for hemorrhage. CT angio shows known carotid arterial disease which had been present last admission. He is on aspirin and plavix chronically. UA was also positive. MAP was 64 at its lowest, responsive to fluids. [facility] Medical History HNP (herniated nucleus pulposus), lumbar History of prostate cancer Lumbosacral radiculopathy at L5 Lumbosacral spondylosis Facet arthropathy, lumbosacral Hematochezia (~2016) Bone spur Cervical spine fracture (~1958) RBBB (right bundle branch block) Left wrist fracture (~2010) Osteoarthritis Diabetes Prostate cancer Recurrent urinary tract infection Polymyalgia rheumatica Former smoker Aortic stenosis Cardiomyopathy Hyperlipidemia HTN (hypertension) TIA (transient ischemic attack) (~2011) TMJ (temporomandibular joint disorder) Surgical History Hx of prostatectomy Family History Father Heart disease Heart attack Mother No significant medical problems Grandmother Heart disease Social History household members: none Smoking Status: Former smoker alcohol intake: current Meds Home Medications and Allergies Home Medications Medication Instructions Recorded Confirmed Type losartan 100 mg tablet 100 mg PO QDAY ##0 08/21/11 11/19/23 History metformin 1,000 mg tablet 1,000 mg PO BIDCC ##0 02/10/13 11/19/23 History metoprolol tartrate 50 mg tablet 50 mg PO BID 07/21/18 11/19/23 History (Lopressor) clopidogrel 75 mg tablet 75 mg PO DAILY #30 tabs 08/21/20 11/19/23 Rx insulin glargine 100 unit/mL (3 8 unit SUBCUT BEDTIME 06/04/21 11/19/23 History mL) subcutaneous pen (Lantus Solostar U-100 Insulin) prednisone 5 mg tablet 5 mg PO DAILY 06/04/21 11/19/23 History aspirin 81 mg tablet,delayed See Rx Instructions .Route 05/08/23 11/19/23 Rx release .COMPLEX #90 tabs atorvastatin 80 mg tablet (Lipitor) 80 mg PO BEDTIME #30 tabs 05/08/23 11/19/23 Rx gabapentin 300 mg capsule 300 mg PO BID pain 11/19/23 11/19/23 History Allergies Allergy/AdvReac Type Severity Reaction Status Date / Time cephalexin AdvReac Mild Hallucinati Verified 11/19/23 13:23 ng Review of Systems Review of Systems Narrative: All other systems reviewed with the patient and are negative unless otherwise stated. Exam Vital Signs (past 8 hours): - 11/19/23 10:35 11/19/23 10:41 11/19/23 10:42 Temperature 98.3 F Pulse Rate 95 H Respiratory Rate 14 Blood Pressure 138/69 138/69 Pulse Oximetry 97 98 Oxygen Delivery Method Room Air 11/19/23 10:42 11/19/23 11:00 11/19/23 11:00 Temperature 98.4 F Pulse Rate 96 H 99 H Respiratory Rate 23 Blood Pressure 122/60 Pulse Oximetry 97 97 Oxygen Delivery Method Room Air 11/19/23 11:30 11/19/23 12:00 11/19/23 12:18 Temperature Pulse Rate 101 H 100 H Respiratory Rate 16 15 Blood Pressure 112/57 L Pulse Oximetry 98 97 Oxygen Delivery Method 11/19/23 12:18 11/19/23 12:30 11/19/23 13:00 Temperature Pulse Rate 95 H 93 H 93 H Respiratory Rate 19 19 Blood Pressure Pulse Oximetry 98 98 99 Oxygen Delivery Method 11/19/23 13:30 11/19/23 13:58 11/19/23 13:58 Temperature Pulse Rate 100 H 97 H Respiratory Rate 19 17 Blood Pressure 108/52 L Pulse Oximetry 99 Oxygen Delivery Method 11/19/23 14:00 11/19/23 14:00 11/19/23 14:30 Temperature Pulse Rate 95 H Respiratory Rate 18 Blood Pressure 94/49 L 117/59 L Pulse Oximetry 97 Oxygen Delivery Method 11/19/23 14:30 Temperature Pulse Rate 93 H Respiratory Rate 21 Blood Pressure Pulse Oximetry 98 Oxygen Delivery Method Oxygen Delivery Method Room Air Narrative Exam Narrative: General:? Patient is well developed and well nourished, in no distress at this time. Mild confusion, slowed speech. HEENT:? Normocephalic, atraumatic, extraocular muscles intact, oral pharynx is clear and mucous membranes are moist. Neck: supple and symmetric, trachea is midline, no cervical adenopathy. Chest:? Normal AP diameter and contour without kyphoscoliosis, no tachypnea, equal chest rise bilaterally. Lungs:? CTA b/l no wheezing rhonchi or rales. Cardio:?RRR no m/r/g. Abdomen: S mild tenderness suprapubic. Midline abdominal suprapubic hay with clear drainage, no induration or surrounding erythema. Musculoskeletal:? Muscle strength and tone are equal within normal limits, no deformity. Extremities: No edema or joint effusions. No cyanosis or clubbing. Skin:? Pale,? Warm to touch,dry and intact without rashes, ulcerations or petechiae.? Neuro:? Alert and orientated to person and place,? sensation to touch intact in all extremities, no gross deficits noted of cranial nerves. Psych:? Patient has a well-kept appearance, appropriate affect, mental status attitude thought context and judgment are appropriate for age. Objective Labs 11/19/23 10:47 11/19/23 10:47 Labs: Laboratory Results - last 24 hr 11/19/23 11/19/23 11/19/23 10:47 11:20 11:20 WBC 11.4 H RBC 3.66 L Hgb 11.1 L Hct 32.4 L MCV 88.4 MCH 30.2 MCHC 34.2 RDW 14.1 Plt Count 249 Neut % (Auto) 78.5 H Lymph % (Auto) 15.8 L [place] % (Auto) 4.9 Eos % (Auto) 0.5 L Baso % (Auto) 0.3 Neut # (Auto) 8900 H Lymph # (Auto) 1800 [place] # (Auto) 600 Eos # (Auto) 100 Baso # (Auto) 0 PT 11.7 INR 1.0 APTT 30 Sodium 134 L Potassium 4.9 Chloride 104 Carbon Dioxide 24 BUN 23 H Creatinine 1.01 Estimated GFR > 60 BUN/Creatinine Ratio 22.8 H Glucose 151 H Lactate 1.1 Calcium 10.1 Magnesium 1.4 L Total Bilirubin 0.7 AST 24 ALT 16 Alkaline Phosphatase 85 Total Creatine Kinase 57 Troponin I < 0.012 Total Protein 7.1 Albumin 4.1 Globulin 3.0 Albumin/Globulin Ratio 1.4 Procalcitonin 0.066 Urine Color Yellow Urine Appearance Clear Urine pH 7.5 Normal Ur Specific [place] <=1.005 Urine Protein Trace H Urine Glucose (UA) Negative Urine Ketones Negative Urine Occult Blood Trace-intact Urine Nitrate Positive H Urine Bilirubin Negative Urine Urobilinogen 4.0 H Ur Leukocyte Esterase 2+ H Urine RBC 0-1/hpf Urine WBC 5-10/hpf H Ur Squamous Epith Cells None seen Urine Bacteria Many (>30) H Ur Culture Indicated? Specimen cultured Vol Urine Centrifuged Low vol <10ml (spun) A U Opiates 300ng/mL cut Negative Ur Oxycodone Screen Negative Urine Methadone Screen Negative Ur Barbiturates Screen Negative U Tricyclic Antidepress Negative Ur Phencyclidine Scrn Negative Ur Amphetamines Screen Negative U Methamphetamines Scrn Negative Ur MDMA Scrn (Ecstasy) Negative U Benzodiazepines Scrn Negative Urine Cocaine Screen Negative U Marijuana (THC) Screen Negative Urine Specific [place] Normal Ur Creatinine Normal Chlamy pneumoniae PCR Adenovirus (PCR) B.parapertussis DNA PCR Coronavirus OC43 (PCR) Coronavirus HKU1 (PCR) Coronavirus 229E (PCR) SARS-CoV-2 (PCR) Coronavirus NL63 (PCR) Human Metapneumovir PCR Influenza Type A (PCR) Influenza Type B (PCR) M. pneumoniae (PCR) Parainfluenza 1 (PCR) Parainfluenza 2 (PCR) Parainfluenza 3 (PCR) Parainfluenza 4 (PCR) RSV (PCR) Entero/Rhino (PCR) 11/19/23 11:35 WBC RBC Hgb Hct MCV MCH MCHC RDW Plt Count Neut % (Auto) Lymph % (Auto) [place] % (Auto) Eos % (Auto) Baso % (Auto) Neut # (Auto) Lymph # (Auto) [place] # (Auto) Eos # (Auto) Baso # (Auto) PT INR APTT Sodium Potassium Chloride Carbon Dioxide BUN Creatinine Estimated GFR BUN/Creatinine Ratio Glucose Lactate Calcium Magnesium Total Bilirubin AST ALT Alkaline Phosphatase Total Creatine Kinase Troponin I Total Protein Albumin Globulin Albumin/Globulin Ratio Procalcitonin Urine Color Urine Appearance Urine pH Ur Specific [place] Urine Protein Urine Glucose (UA) Urine Ketones Urine Occult Blood Urine Nitrate Urine Bilirubin Urine Urobilinogen Ur Leukocyte Esterase Urine RBC Urine WBC Ur Squamous Epith Cells Urine Bacteria Ur Culture Indicated? Vol Urine Centrifuged U Opiates 300ng/mL cut Ur Oxycodone Screen Urine Methadone Screen Ur Barbiturates Screen U Tricyclic Antidepress Ur Phencyclidine Scrn Ur Amphetamines Screen U Methamphetamines Scrn Ur MDMA Scrn (Ecstasy) U Benzodiazepines Scrn Urine Cocaine Screen U Marijuana (THC) Screen Urine Specific [place] Ur Creatinine Chlamy pneumoniae PCR Not detected Adenovirus (PCR) Not detected B.parapertussis DNA PCR Not detected Coronavirus OC43 (PCR) Not detected Coronavirus HKU1 (PCR) Not detected Coronavirus 229E (PCR) Not detected SARS-CoV-2 (PCR) Not detected Coronavirus NL63 (PCR) Not detected Human Metapneumovir PCR Not detected Influenza Type A (PCR) Not detected Influenza Type B (PCR) Not detected M. pneumoniae (PCR) Not detected Parainfluenza 1 (PCR) Not detected Parainfluenza 2 (PCR) Not detected Parainfluenza 3 (PCR) Not detected Parainfluenza 4 (PCR) Not detected RSV (PCR) Not detected Entero/Rhino (PCR) Not detected Assessment & Plan Assessment & Plan narrative: Mario Erickson is an 83-year-old male with a past medical history significant for aortic stenosis s/p TAVR, cardiomyopathy s/p pacemaker, hypertension, hyperlipidemia, diabetes type 2, prior TIAs (2011, 2021), chronic low back pain and prostate cancer, suprapubic hay catheter admitted with confusion, likely due to sepsis from complicated acute cystitis. 1. Sepsis secondary to complicated cystitis in setting of suprapubic catheter, with acute metabolic encephalopathy and hypotension, present on admission - BP 94/49 responsive to IV fluids, with confusion. Possible TIA vs CVA however seems more consistent with infection and possible sepsis given presentation. SOFA score of 2. - continue ceftriaxone based on prior cultures, no known drug resistance previously. - unable to further evaluate for possible CVA with MRI, though not likely to change director at this time - PT / OT evaluations tomorrow - monitor with tele - continue IV fluids. Lactate <2 on admission 2. DM2 - continue home lantus, with sliding scale 3. Hypomagnesemia - will replete with 2g IV today. 4. History of suprapubic hay catheter - no signs of infection on exam, recommend continued outpatient follow up with urologist after discharge. 5. Prior TIA - continue asa/plavix and home statin. 6. HTN - continue home metoprolol and losartan 7. Chronic diastolic heart failure - does not appear to be volume overload. Code: Full, surrogate is patient's daughter DVT: Lovenox daily I have utilized all available immediate resources to obtain, update, or review the patient's current medications. Dispo: patient admitted under inpatient status. Unclear if will be able to discharge home or possible SNF, will have PT/OT evaluations. Additional history obtained via discussions with the ER provider. These discussions contributed to the creation of the above assessment and plan. I have reviewed patient's presenting documentation, labs, and imaging personally. Scores SOFA PaO2/FIO2: >=400 mmHg Platelets: >= 150 Bilirubin: < 1.2 mg/dL Hypotension: MAP < 70 mmHg [place] Coma Scale: 13-14 Renal: < 1.2 mg/dL SOFA Score: 2
[2023-11-19] MEDS: MAGNESIUM SULFATE 2 GM/50 ML PIGGYBACK IV (17:24)
[2023-11-19] MEDS: LOSARTAN 50 MG TABLET 100 MG PO (17:25)
[2023-11-19] MEDS: ACETAMINOPHEN 325 MG TABLET 650 MG PO (20:28)
[2023-11-19] MEDS: ATORVASTATIN 20 MG TABLET 80 MG PO (20:28)
[2023-11-19] MEDS: METOPROLOL IR 50 MG TABLET PO (20:28)
[2023-11-19] MEDS: GABAPENTIN 300 MG CAPSULE PO (20:28)
[2023-11-19] MEDS: INSULIN GLARGINE 100 UNIT/ML 3ML PEN 8 UNIT SUBCUT (20:56)
[2023-11-20] VITALS (8 sets, daily range): BP systolic 102–125; BP diastolic 55–66; PULSE 65–74; RESP 17–18; TEMP 36–36.8; O2SAT 95–100
[2023-11-20 06:21] LABS: Add Manual Diff / Slide Review NO; Basophils Absolute Auto 100 /uL (0-100); Basophils Percent Auto 0.6 % (0-2); Eosinophils Absolute Auto 100 /uL (0-450); Eosinophils Percent Auto 1.3 % (2-4); Hematocrit 30.4 % (41-53); Hemoglobin 10.5 g/dL (13.5-17.5); Lymphocytes Absolute Auto 3100 /uL (1100-4500); Lymphocytes Percent Auto 34.1 % (25-40); Mean Corpuscular HGB Conc 34.5 % (30-36); Mean Corpuscular Hemoglobin 30.4 PG (26-34); Mean Corpuscular Volume 88.1 fL (80-100); Monocytes Absolute Auto 800 /uL (0-900); Monocytes Percent Auto 8.9 % (3-14); Neutrophils Absolute Auto 5100 /uL (1500-7000); Neutrophils Percent Auto 55.1 % (50-75); Platelet Count 233 X10^3/uL (150-400); Red Blood Cell Count 3.45 X10^6/uL (4.5-5.9); Red Cell Distribution Width 14.2 % (11.6-14.8); White Blood Cell Count 9.2 X10^3/uL (4.5-11.0)
[2023-11-20 06:30] LABS: BUN Creatinine Ratio 20.8 (6-22); Blood Urea Nitrogen 20 mg/dL (9-20); Carbon Dioxide 27 mmol/L (22-32); Chloride 106 mmol/L (98-107); Estimated Glomerular Filt Rate > 60 mL/min (>60); Glucose 114 mg/dL (80-110); HEMOLYSIS < 15 (0-50); Magnesium 2.2 mg/dL (1.6-2.3); Potassium 4.2 mmol/L (3.4-5.1); Sodium 134 mmol/L (137-145)
[2023-11-20] MEDS: CLOPIDOGREL 75 MG TABLET PO (09:33)
[2023-11-20] MEDS: ASPIRIN EC 81 MG TABLET PO (09:33)
[2023-11-20] MEDS: ENOXAPARIN 40 MG/0.4 ML SYRINGE SUBCUT (09:33)
[2023-11-20] MEDS: METOPROLOL IR 50 MG TABLET PO (09:33)
[2023-11-20] MEDS: GABAPENTIN 300 MG CAPSULE PO (09:33)
[2023-11-20] MEDS: LOSARTAN 50 MG TABLET 100 MG PO (09:33)
[2023-11-20] MEDS: predniSONE 5 MG TABLET PO (09:33)
--- NOTE | 2023-11-20 11:00 | OT.IP.EVAL ---
Current Diagnoses Infection and inflammatory reaction due to other urinary catheter, initial encounter (11/19/23) Past Medical History (Last Reviewed 11/19/23 @ 16:41 by Timi Stephen DO) Aortic stenosis Bone spur Cardiomyopathy Cervical spine fracture (~1958) Diabetes Facet arthropathy, lumbosacral Former smoker Hematochezia (~2017) History of prostate cancer HNP (herniated nucleus pulposus), lumbar HTN (hypertension) Hyperlipidemia Left wrist fracture (~2010) Lumbosacral radiculopathy at L5 Lumbosacral spondylosis Osteoarthritis Polymyalgia rheumatica Prostate cancer RBBB (right bundle branch block) Recurrent urinary tract infection TIA (transient ischemic attack) (~2011) TMJ (temporomandibular joint disorder) Surgical History (Last Reviewed 11/19/23 @ 16:41 by Timi Stephen DO) Hx of prostatectomy Occupational Therapy Inpatient Evaluation/Re-Eval M1 PT/OT-IP Prior Functional Status Start: 11/20/23 08:30 Freq: NEEDED Status: Active Protocol: Document 11/20/23 12:15 [facility] (Rec: 11/20/23 12:50 [facility] [id number]) Medical Review Prior Functional Status Mobility and Gait Pt states use of SPC occasionally. Activities of Daily Living and IADL's Pt states able to do all his ADL needs, works on his cars in the shop and that his daughter and son come to check on him daily and assist with cooking, pill set-up and finances. Social History Household Members none Living Arrangements House Number of Floors (Floors) One Floor Number of Stairs To Enter/Railing? 2 steps with left rail to enter the house. Home Environment High Toilet,Walk in Shower,Tub /Shower Home Equipment Straight Cane,Hand Held Shower ,Grab Bars Near Toilet,Grab Bars In Shower Additional Social History Comment Pt states at times side son the edge of the 7 ft tub and gets in to soak at times. M2 OT-IP Current Condition Start: 11/20/23 12:15 Freq: Status: Active Protocol: Document 11/20/23 12:15 [facility] (Rec: 11/20/23 12:50 [facility] [id number]) Occupational Therapy Current Condition Current Condition Evaluation Date 11/20/23 Treatment Diagnosis Acute encephalopathy Diagnosis Onset Date 11/19/23 M3 OT- IP Subjective and Pain Start: 11/20/23 12:15 Freq: Status: Active Protocol: Document 11/20/23 12:15 [facility] (Rec: 11/20/23 12:50 [facility] [id number]) OT- Subjective Occupational Therapy Visit Type Type Initial Evaluation Visit Start Time 10:20 Visit Stop Time 11:00 Occupational Therapy Visit Comments Patient Comments Pt agreed to get up to do grooming needs. Patient/Caregiver Goals To go home. OT Pain Assessment Pain When Pain Assessed At Rest Pain Present Pain Present Denied Pain M4 OT- IP ADL's Start: 11/20/23 12:15 Freq: Status: Active Protocol: Document 11/20/23 12:15 [facility] (Rec: 11/20/23 12:50 [facility] [id number]) OT RON-Ucak-Ixqgque General Evaluation Self-Feeding Ability Independent OT ADL-Grooming General Evaluation Grooming Ability Standby Assistance Areas Needing Assistance Retrieving/Set-up of Grooming Items Comments OT Grooming Comments Pt able to do while standing at the sink. OT ADL-Oral Care General Eval Oral Care Ability Independent OT ADL-Dressing General Eval Lower Body Dressing Ability Standby Assistance Comments OT Dressing Comments Pt able to independently charlie/ doff socks while seated. Due to decreased dynamic balance would benefit from SBA-CGA while standing for LB dressing needs at this time. OT ADL-Toileting Comments OT Toileting Comments Pt not having to go at this time. OT ADL-Bathing Comments OT Bathing Comments Pt will benefit from a shower chair and supervision for safety. M5 OT- IP IADL's Start: 11/20/23 12:15 Freq: Status: Active Protocol: Document 11/20/23 12:15 [facility] (Rec: 11/20/23 12:50 [facility] [id number]) OT-Instrumental Activities of Daily Living Deficits IADL Deficits Identified Deficits Home Safety Awareness Home Safety Comments Pt needing increased time to follow commands and slow to respond to questions at this time. Medication Management Medication Management Comments Pt states his daughter sets up his pill box, however at times pt states is forgetful to take his medications. Money Management Money Management Comments Pt states pays his own bills but his daughter will assist him at times. Meal Preparation Meal Preparation Comments Pt states does his own but daughter will also cook for him at times. Dispatcher Service Chief Dispatcher Service Chief Comments His family assists. Driving Driving Concerns Identified Regarding Safety M6 OT- IP Functional Cognition Start: 11/20/23 12:15 Freq: Status: Active Protocol: Document 11/20/23 12:15 [facility] (Rec: 11/20/23 12:50 [facility] [id number]) Cognitive Factors Limiting Selfcare Function Cognitive Ability Level of Alertness Alert Patient Orientation Name,Age,Birthday,Month,Date, Year,Day of Week,Place, Situation Attention Span Ability Capable of Focused Attention, Unable to Sustain Attention Ability to Follow Commands Able to Follow One Step Commands with Increased Time, Able to Follow One Step Commands with Repetition Memory Description Short Term Impaired,Working Impaired Safety Awareness Underestimates Need for Assistance Problem Solving Ability Needs Assist to Identify Solutions Cognitive Tests SLUMS Pt a bit slow to answer questions and comprehend information at this time. Pt has hearing aids in but still at times having trouble to comprehend and remember the information. Pt scored 17/30 on the SLUMS which implies dementia. Pt has history of TIA 2011 and 2021. Pt able to recall 10 animals in one minute, able to recall 1/5 objects after time passed, not able to recall 3 or 4 digit number backwards, not able to write the numbers of the clock or hour hands correctly. Pt able to answer 3 /4 question right after paragraph read. Cognitive Comments Cognitive Assessment Comments Pt needing increased time to process and answer questions. Pt is also hard of hearing and has hearing aids in. OT- Vision and Hearing OT- Hearing Assessment OT- Hearing Assessment Hearing Impaired,Use of Hearing Aids OT- Vision Assessment Visual Acuity Glasses For Reading Visual Attentiveness WFL Occular Pursuits WFL Visual Convergence WFL Visual Gomez WFL M7 OT- IP Mobility and Balance Start: 11/20/23 12:15 Freq: Status: Active Protocol: Document 11/20/23 12:15 [facility] (Rec: 11/20/23 12:50 [facility] [id number]) OT- Bed Mobility Assessment Supine to Sit Supine to Sit Assist Standby Assistance OT-Transfer Assessment Sit to and From Stand Sit to and from Stand Contact Guard Assistance Transfers Transfer Ability Standby Assistance,Minimal Assistance Technique Transfer Destination Bed,Chair Transfer Technique Stand Step Pivot Devices Transfer Assistive Devices Gait Belt,Straight Cane Comments Mobility Comments BP supine 97/53, sitting 103/ 47 and 116/59. Pt needing lots of momentum to get out of the bed. CGA to stand and unsteady on his feet and needing up to LISBETH to take a few steps in the room. Pt refused to try the FWW and agreed to use the SPC and able to walk with close SBA. OT- Balance Assessment Sitting Balance and Reactions Static Sitting Balance Ability Normal Dynamic Sitting Balance Ability Good Standing Balance and Reactions Static Standing Balance Ability Fair Dynamic Standing Balance Ability Poor+ M8 OT- IP Objective Assessments Start: 11/20/23 12:15 Freq: Status: Active Protocol: Document 11/20/23 12:15 [facility] (Rec: 11/20/23 12:50 [facility] [id number]) OT Gross Range of Motion Upper Extremity Range of Motion ROM Impairments Grossly WFL for age and lifestyle. OT Strength Comments Strength Comments WFL for age and lifestyle. OT- Coordination Assessment Upper Extremity Finger to Nose Test Within Functional Limits Comments Coordination Comments Pt able to put in his hearing aid in after increased time as initially putting the left on into his right ear. OT-Muscle Tone Assessment Muscle Tone WNL Yes M9 OT- IP Assessment and Plan Start: 11/20/23 12:15 Freq: Status: Active Protocol: Document 11/20/23 12:15 [facility] (Rec: 11/20/23 12:50 [facility] [id number]) OT Summary Assessment and Plan Potential Rehabilitation Potential Good Analytic Complexity at Evaluation Moderate Summary OT Impairments Balance,Functional Cognition, Functional Mobility,Dressing, Toileting,Bathing,Activity Tolerance Progress Towards Goals Progressing Toward Goals Assessment Summary Pt MOD complexity and main barriers are steps, having difficulty with his STM and problem solving at this time. Pt scored 17 /30 on the SLUMS which implies dementia. At this time pt would benefit from 24/7 assist and home health. Goals Grooming Goal Independent Dressing Goal Independent Toileting Goal Independent Bathing Goal Independent Toilet Transfer Goal Independent Shower Transfer Goal Independent Days to Meet Goals 10 Frequency of Treatment Frequency Of Treatment Once a Day Treatment Plan OT Treatment Plan ADL Training,Functional Cognition Training,Functional Mobility,Patient/Family Education,Discharge Planning Discharge Recommendations OT Discharge Recommendations Home with 24/7 Assist Available,Home Health Home Equipment Needs shower chair Transportation Needs at Discharge Private Vehicle
--- NOTE | 2023-11-20 11:25 | PT.IIE ---
Current Diagnoses Infection and inflammatory reaction due to other urinary catheter, initial encounter (11/19/23) Surgical History (Last Reviewed 11/19/23 @ 16:41 by Timi Stephen DO) Hx of prostatectomy Medical History (Last Reviewed 11/19/23 @ 16:41 by Timi Stephen DO) Aortic stenosis Bone spur Cardiomyopathy Cervical spine fracture (~1958) Diabetes Facet arthropathy, lumbosacral Former smoker Hematochezia (~2017) History of prostate cancer HNP (herniated nucleus pulposus), lumbar HTN (hypertension) Hyperlipidemia Left wrist fracture (~2010) Lumbosacral radiculopathy at L5 Lumbosacral spondylosis Osteoarthritis Polymyalgia rheumatica Prostate cancer RBBB (right bundle branch block) Recurrent urinary tract infection TIA (transient ischemic attack) (~2011) TMJ (temporomandibular joint disorder) Physical Therapy Inpatient Evaluation/Re-Eval M1 PT/OT-IP Prior Functional Status Start: 11/20/23 08:30 Freq: NEEDED Status: Discharge Protocol: Document 11/20/23 12:15 [facility] (Rec: 11/20/23 12:50 [facility] [id number]) Medical Review Prior Functional Status Mobility and Gait Pt states use of SPC occasionally. Activities of Daily Living and IADL's Pt states able to do all his ADL needs, works on his cars in the shop and that his daughter and son come to check on him daily and assist with cooking, pill set-up and finances. Social History Household Members none Living Arrangements House Number of Floors (Floors) One Floor Number of Stairs To Enter/Railing? 2 steps with left rail to enter the house. Home Environment High Toilet,Walk in Shower,Tub /Shower Home Equipment Straight Cane,Hand Held Shower ,Grab Bars Near Toilet,Grab Bars In Shower Additional Social History Comment Pt states at times side son the edge of the 7 ft tub and gets in to soak at times. M2 PT-IP Current Condition Start: 11/20/23 08:30 Freq: NEEDED Status: Discharge Protocol: Document 11/20/23 11:25 [facility] (Rec: 11/20/23 16:08 [facility] [id number]) Physical Therapy Current Condition Current Condition Evaluation Date 11/20/23 Treatment Diagnosis sepsis; difficultyin walking Onset Date 11/19/23 M3 PT-IP Subjective Start: 11/20/23 08:30 Freq: NEEDED Status: Discharge Protocol: Document 11/20/23 11:25 [facility] (Rec: 11/20/23 16:08 [facility] [id number]) Subjective Physical Therapy Visit Type Type Initial Evaluation Visit Start Time 11:25 Visit Stop Time 11:45 Number of BUSINESS SERVICES OFFICER Visits 0 Physical Therapy Visit Comments Patient Comments agreeable to do PT M4 PT-IP Mobility and Gait Start: 11/20/23 08:30 Freq: NEEDED Status: Discharge Protocol: Document 11/20/23 11:25 [facility] (Rec: 11/20/23 16:08 [facility] [id number]) PT-Bed Mobility Assessment Supine to Sit Supine to Sit Independent Sit to Supine Sit to Supine Independent PT-Transfer Assessment Sit to and From Stand Sit to and from Stand Independent Equipment Transfer Assistive Device None Transfers Transfer Destination Bed Transfer Technique ambulated Transfer Ability Level of Assist Standby Assistance,Use of Upper Extremities Comments Mobility Comments pt sitting on the chair and agreeable to do PT. obtained PLOF and home set up from pt. pt completed sit to stand mod I and ambulated to EOB SBA without AD. completed bed mobility independent. pt agreed to walk in the hallway and completed ~ 150 ft without AD SBA for safety. pt presents with ataxic gait but without LOB. completed up/ down steps using L rail ascending mod I. pt ambulated back to his room without AD SBA. pt sat back on his chair. positioned pt on the chair. call light and table placed within reach. Gait Assessment Gait Gait Assistance Required: Standby Assistance Distance (Feet) 150 Able to Maintain Weight Bearing Status Yes During Gait Assistive Devices Assistive Device None Orthotic/Prosthetic Devices or Brace: No Gait Deviations General Gait Pattern Ataxic Factors Limiting Gait Function Factors Limiting Gait Function Poor Balance,Poor Safety Awareness Stair Climbing Assessment Evaluation Level of Assist On Stairs Independent Devices Stair Climbing Assistive Devices Left Railing Technique/Endurance Stair Climbing Direction Ascend and Descend Stair Climbing Technique Step Over Step Number of Steps Climbed 3 Query Text: Stair Climbing Set # Repetitions (reps) 2 PT-Balance Assessment Sitting Balance and Reactions Static Sitting Balance Ability Normal Dynamic Sitting Balance Ability Normal Standing Balance and Reactions Static Standing Balance Ability Good Dynamic Standing Balance Ability Fair Device Used without AD M5 PT-IP Objective Assessments Start: 11/20/23 08:30 Freq: NEEDED Status: Discharge Protocol: Document 11/20/23 11:25 [facility] (Rec: 11/20/23 16:08 [facility] [id number]) Orientation Orientation/Cognition Level of Alertness Alert Orientation Name Language Function Ability Hard of Hearing Safety Awareness Decreased Safety Awareness Memory Description No Deficits Noted Gross Range of Motion Lower Extremity ROM Assessment Within Functional Limits Strength Lower Extremity Strength Assessment Within Functional Limits Coordination Assessment Gross Coordination Gross Coordination WNL Muscle Tone Muscle Tone WNL Yes M6 PT-IP Treatment Start: 11/20/23 08:30 Freq: NEEDED Status: Discharge Protocol: Document 11/20/23 11:25 [facility] (Rec: 11/20/23 16:08 [facility] [id number]) Physical Therapy Treatment Education Education Provided Safety M7 PT-IP Assessment and Plan Start: 11/20/23 08:30 Freq: NEEDED Status: Discharge Protocol: Document 11/20/23 11:25 [facility] (Rec: 11/20/23 16:08 [id number]) PT Summary Assessment and Plan Potential Rehabilitation Potential Fair Status of Condition at Evaluation Stable Summary Impairments Pain,ROM,Strength,Balance, Coordination,Sensation,Tone, Cognition,Bed Mobility, Transfers,Gait,Activity Tolerance Assessment Summary pt is an 83 y/o M who is admitted for sepsis; acute metabolic encephalopathy. pt requiring SBA with ambulation without AD. presents with unsteady gait but without LOB. pt lives alone but has family that lives close by to assist if needed. pt may go home when medically stable. Goals Transfer Goal Independent Gait Goal Independent Gait Distance 300 Days to Meet Goals 3 Frequency of Treatment Frequency Of Treatment Once a Day Treatment Plan Physical Therapy Treatment Plan Bed Mobility Training,Transfer Training,Gait Training, Therapeutic Exercise,Balance Retraining,Discharge Planning, Hot or Cold Pack,Neuromuscular Re-ed,Coordination Retraining ,Manual Therapy Recommendations To Nursing Amount of Assist Needed Standby Assistance Discharge Recommendations PT Discharge Recommendations Home with Assistance Transportation Needs at Discharge Private Vehicle
--- NOTE | 2023-11-20 11:59 | PM.DS.1 ---
History of Present Illness History of Present Illness Date Patient Seen: 11/20/23 Time Patient Seen: 11:59 Chief complaint: Mental confusion, headache Narrative: Mario Erickson is an 83-year-old male with a past medical history significant for aortic stenosis s/p TAVR, cardiomyopathy s/p pacemaker, hypertension, hyperlipidemia, diabetes type 2, prior TIAs (2011, 2021), chronic low back pain and prostate cancer, suprapubic hay catheter who presents with worsening confusion and headache. According to family, patient had worsening confusion, inability to even use a phone and complained of a headache starting yesterday evening along with nausea. Family report mild improvement in confusion, but he is no where near his baseline. His headache is bifrontal and improving. He has some lower abdominal pain along with nausea, but no vomiting. In the ER, CT without was negative for hemorrhage. CT angio shows known carotid arterial disease which had been present last admission. He is on aspirin and plavix chronically. UA was also positive. MAP was 64 at its lowest, responsive to fluids. Discharge Providers Provider Date of admission: 11/19/23 14:38 Discharge Date: 11/20/23 Primary care physician: Yo Peters MD Consults: 11/19/23 15:14 Consult to Occupational Therapy Evaluate & Treat Comment: Physician Instructions: Evaluate and treat Consult to Physical Therapy Evaluate & Treat Comment: Physician Instructions: Evaluate and Treat Discharge provider: Timi Stephen DO Summary Hospital Course Discharge Diagnosis: 1. Sepsis secondary to complicated cystitis in setting of suprapubic catheter, with acute metabolic encephalopathy and hypotension, present on admission 2. DM2 3. Hypomagnesemia 4. History of suprapubic hay catheter 5. Prior TIA 6. HTN 7. Chronic diastolic heart failure Hospital Course: Mario Erickson is an 83-year-old male with a past medical history significant for aortic stenosis s/p TAVR, cardiomyopathy s/p pacemaker, hypertension, hyperlipidemia, diabetes type 2, prior TIAs (2011, 2021), chronic low back pain and prostate cancer, suprapubic hay catheter admitted with confusion, likely due to sepsis from complicated acute cystitis. SOFA score was 2 on admission due to encephalopathy and hypotension. Urine cultures were currently growing gram negative bacilli, previously he grew a lopez sensitive E. coli. He was started on ceftriaxone with improvement and resolution of his presenting confusion, nausea, and headache. He improved much more quickly than anticipated, and was discharged home the following day as he was asymptomatic and had improved BP. Given reported fluoroquinolone allergy, he was discharged home on 6 more days of augmentin (previously cephalexin caused psychosis but he tolerated ceftriaxone without issue) for complicated cystitis in the setting of suprapubic catheter. No other changes to his home medications were recommended at the time of discharge. Time Spent with Patient Time spent: Greater than 30 minutes Exam Vital Signs (past 8 hours): - 11/20/23 05:41 11/20/23 07:00 11/20/23 08:00 Temperature 98.3 F 98.1 F Pulse Rate 67 72 Respiratory Rate 17 18 Blood Pressure 102/55 L 125/66 Pulse Oximetry 95 100 100 Oxygen Delivery Method Room Air Oxygen Flow Rate 0 0 11/20/23 09:00 11/20/23 09:33 Temperature Pulse Rate 72 Respiratory Rate Blood Pressure 125/66 Pulse Oximetry Oxygen Delivery Method Room Air Oxygen Flow Rate Oxygen Delivery Method Room Air Oxygen Flow Rate 0 Narrative Exam Narrative: General:? Patient is well developed and well nourished, in no distress at this time. improved confusion and speech. HEENT:? Normocephalic, atraumatic, extraocular muscles intact, oral pharynx is clear and mucous membranes are moist. Neck: supple and symmetric, trachea is midline, no cervical adenopathy. Chest:? Normal AP diameter and contour without kyphoscoliosis, no tachypnea, equal chest rise bilaterally. Lungs:? CTA b/l no wheezing rhonchi or rales. Cardio:?RRR no m/r/g. Abdomen: S mild tenderness suprapubic. Midline abdominal suprapubic hay with clear drainage, no induration or surrounding erythema. Musculoskeletal:? Muscle strength and tone are equal within normal limits, no deformity. Extremities: No edema or joint effusions. No cyanosis or clubbing. Skin:? Pale,? Warm to touch,dry and intact without rashes, ulcerations or petechiae.? Neuro:? Alert and orientated to person and place,? sensation to touch intact in all extremities, no gross deficits noted of cranial nerves. Psych:? Patient has a well-kept appearance, appropriate affect, mental status attitude thought context and judgment are appropriate for age. Objective Labs 11/20/23 05:10 11/20/23 05:10 Labs: Laboratory Results - last 24 hr 11/19/23 11/19/23 11/19/23 10:47 11:20 11:20 WBC RBC Hgb Hct MCV MCH MCHC RDW Plt Count Neut % (Auto) Lymph % (Auto) [place] % (Auto) Eos % (Auto) Baso % (Auto) Neut # (Auto) Lymph # (Auto) [place] # (Auto) Eos # (Auto) Baso # (Auto) Sodium Potassium Chloride Carbon Dioxide BUN Creatinine Estimated GFR BUN/Creatinine Ratio Glucose Lactate 1.1 Calcium Magnesium Procalcitonin 0.066 Urine Color Yellow Urine Appearance Clear Urine pH 7.5 Normal Ur Specific [place] <=1.005 Urine Protein Trace H Urine Glucose (UA) Negative Urine Ketones Negative Urine Occult Blood Trace-intact Urine Nitrate Positive H Urine Bilirubin Negative Urine Urobilinogen 4.0 H Ur Leukocyte Esterase 2+ H Urine RBC 0-1/hpf Urine WBC 5-10/hpf H Ur Squamous Epith Cells None seen Urine Bacteria Many (>30) H Ur Culture Indicated? Specimen cultured Vol Urine Centrifuged Low vol <10ml (spun) A U Opiates 300ng/mL cut Negative Ur Oxycodone Screen Negative Urine Methadone Screen Negative Ur Barbiturates Screen Negative U Tricyclic Antidepress Negative Ur Phencyclidine Scrn Negative Ur Amphetamines Screen Negative U Methamphetamines Scrn Negative Ur MDMA Scrn (Ecstasy) Negative U Benzodiazepines Scrn Negative Urine Cocaine Screen Negative U Marijuana (THC) Screen Negative Urine Specific [place] Normal Ur Creatinine Normal Chlamy pneumoniae PCR Adenovirus (PCR) B.parapertussis DNA PCR Coronavirus OC43 (PCR) Coronavirus HKU1 (PCR) Coronavirus 229E (PCR) SARS-CoV-2 (PCR) Coronavirus NL63 (PCR) Human Metapneumovir PCR Influenza Type A (PCR) Influenza Type B (PCR) M. pneumoniae (PCR) Parainfluenza 1 (PCR) Parainfluenza 2 (PCR) Parainfluenza 3 (PCR) Parainfluenza 4 (PCR) RSV (PCR) Entero/Rhino (PCR) 11/19/23 11/20/23 11:35 05:10 WBC 9.2 RBC 3.45 L Hgb 10.5 L Hct 30.4 L MCV 88.1 MCH 30.4 MCHC 34.5 RDW 14.2 Plt Count 233 Neut % (Auto) 55.1 D Lymph % (Auto) 34.1 [place] % (Auto) 8.9 Eos % (Auto) 1.3 L Baso % (Auto) 0.6 Neut # (Auto) 5100 Lymph # (Auto) 3100 [place] # (Auto) 800 Eos # (Auto) 100 Baso # (Auto) 100 Sodium 134 L Potassium 4.2 Chloride 106 Carbon Dioxide 27 BUN 20 Creatinine 0.96 Estimated GFR > 60 BUN/Creatinine Ratio 20.8 Glucose 114 H Lactate Calcium 10.0 Magnesium 2.2 Procalcitonin Urine Color Urine Appearance Urine pH Ur Specific [place] Urine Protein Urine Glucose (UA) Urine Ketones Urine Occult Blood Urine Nitrate Urine Bilirubin Urine Urobilinogen Ur Leukocyte Esterase Urine RBC Urine WBC Ur Squamous Epith Cells Urine Bacteria Ur Culture Indicated? Vol Urine Centrifuged U Opiates 300ng/mL cut Ur Oxycodone Screen Urine Methadone Screen Ur Barbiturates Screen U Tricyclic Antidepress Ur Phencyclidine Scrn Ur Amphetamines Screen U Methamphetamines Scrn Ur MDMA Scrn (Ecstasy) U Benzodiazepines Scrn Urine Cocaine Screen U Marijuana (THC) Screen Urine Specific [place] Ur Creatinine Chlamy pneumoniae PCR Not detected Adenovirus (PCR) Not detected B.parapertussis DNA PCR Not detected Coronavirus OC43 (PCR) Not detected Coronavirus HKU1 (PCR) Not detected Coronavirus 229E (PCR) Not detected SARS-CoV-2 (PCR) Not detected Coronavirus NL63 (PCR) Not detected Human Metapneumovir PCR Not detected Influenza Type A (PCR) Not detected Influenza Type B (PCR) Not detected M. pneumoniae (PCR) Not detected Parainfluenza 1 (PCR) Not detected Parainfluenza 2 (PCR) Not detected Parainfluenza 3 (PCR) Not detected Parainfluenza 4 (PCR) Not detected RSV (PCR) Not detected Entero/Rhino (PCR) Not detected PFSH Medical History HNP (herniated nucleus pulposus), lumbar History of prostate cancer Lumbosacral radiculopathy at L5 Lumbosacral spondylosis Facet arthropathy, lumbosacral Hematochezia (~2017) Bone spur Cervical spine fracture (~195) RBBB (right bundle branch block) Left wrist fracture (~2010) Osteoarthritis Diabetes Prostate cancer Recurrent urinary tract infection Polymyalgia rheumatica Former smoker Aortic stenosis Cardiomyopathy Hyperlipidemia HTN (hypertension) TIA (transient ischemic attack) (~2011) TMJ (temporomandibular joint disorder) Surgical History Hx of prostatectomy Family History Father Heart disease Heart attack Mother No significant medical problems Grandmother Heart disease Social History household members: none Smoking Status: Former smoker alcohol intake: current Discharge Plan Discharge Plan Patient Disposition: Home Provider Discharge Comment: You were admitted to the hospital with confusion and difficulty speaking. Highly suspect this was due to UTI. Please continue antibiotics for another 6 days after discharge to complete treatment. No other medication changes to your usual home medications are recommended at this time. Discharge orders & Medications Prescriptions: New amoxicillin-pot clavulanate 875-125 mg tablet 1 tab PO BID 6 Days Qty: 12 0RF Continued losartan 100 MG tablet 100 mg PO QDAY Qty: 0 metformin 1,000 MG tablet 1,000 mg PO BIDCC Qty: 0 metoprolol tartrate [Lopressor] 50 mg Tablet 50 mg PO BID prednisone 5 mg Tablet 5 mg PO DAILY insulin glargine [Lantus Solostar U-100 Insulin] 100 unit/mL (3 mL) Insulin Pen 8 unit SUBCUT BEDTIME clopidogrel 75 mg Tablet 75 mg PO DAILY Qty: 30 0RF atorvastatin [Lipitor] 80 mg tablet 80 mg PO BEDTIME Qty: 30 0RF aspirin 81 mg Tablet,Delayed Release (Dr/Ec) See Rx Instructions .ROUTE .COMPLEX Qty: 90 0RF Rx Instructions: 1 pill (81mg) daily gabapentin 300 mg capsule 300 mg PO BID Follow up/Referrals: Yo Peters MD [Primary Care Provider] - Diet/Activity/Treatments Diet: Diet as Tolerated and Regular Activity: As tolerated, no restrictions. Skin/Wound/Dressing Care Report to your healthcare provider any signs of infection, such as:: chills, fever, unusual drainage and unusual redness Visit Report/Discharge Packet Stand Alone Forms: Patient Portal/API, Stroke Signs & Symptoms Discharge Data Primary Care Provider: Yo Peters
[2023-11-20] MEDS: INSULIN LISPRO 100 UNIT/ML 3ML VIAL SUBCUT (12:36)
[2023-11-20] MEDS: cefTRIAXone 1,000 MG in SODIUM CHLORIDE 0.9% 100 ML 200 MG IV (12:41)
--- NOTE | 2023-11-20 13:28 | CM.DANOTE ---
DCP Assessment Note: Pt is a 83yo male, resident of [place], is admitted for acute metabolic encephalopathy, acute UTI and confusion. Pt lives in a house, alone. Pt has supportive daughters in the area. Per RN Luana, PT and OT recommending pt discharge home. Pt's Primary Care Provider is Dr. Yo Peters and insurance is Medicare and [facility]. Reviewed chart and team rounds for pt's medical status and initial discharge needs. DCP met w/patient at bedside; introduced self and role. Pt was found in sitting up in chair, alert and oriented, cooperative with assessment. Pt confirmed living situation and good support in daughters, Kelli and Gifty. Pt expressed preference in returning home as soon as medically cleared. Pt denied any discharge needs at this time and that his daughters will transport him home. DCP discussed case with OT Araceli as there was a recommendation for Home Health due to pt's episodes of confusion and living alone. Consulted with PT Sofia and recommended pt can discharge home with or without it. Per conversation with pt, no HH referral david be made at this time. Plan: Discharge orders are in, 11.19. Pt to discharge home with daughters to transport. CM team following for any discharge needs that may arise. GABRIEL Causey Discharge Planning/Care Management CM Discharge Assessment Start: 11/20/23 13:23 Freq: Status: Active Protocol: Document 11/20/23 13:23 MW (Rec: 11/20/23 13:28 MW [id number]) Discharge Planning Assessment Assigned Asphalt Heater Operator LIZETH Reyna DPOA/Assigned Designee Name Stephen Durbin Contact Information [phone] Advance Directives? Yes Advance Directives on File Yes History Provided By Patient,Family Member,Medical Record Has Patient been admitted in last 30 No days? Prior Living Arrangements House Household Members none Type of transporation used prior to Drives own vehicle admit Independent with ADL's Yes Is patient alert and oriented? Yes: No confusion assessed during this meeting with DCP. Discharge Plan Home Transportation Arrangement Children, Kelli and Gifty. Referrals Initiated None needed Whiteboard Updated in Patient Room with Yes name and ext. # of Asphalt Heater Operator Comment [phone] Please Provide Date Initial DC 11/20/23 Assessment Was Performed Next Review Type Continued Stay Review
--- NOTE | 2023-11-20 13:59 | PC.NURSE ---
Pt discharged home at 1350, escorted off floor in wheelchair accompanied by daughter and hospital staff. IV removed, overnight bag changed to leg bag, discharge teaching completed including follow up appointments, new medications and worsening symptoms. Questions and concerns addressed with patient and daughter. Patient left the floor with all belongings.
== END 2023-11-20 14:02 | disposition home or self-care (01) | DRG 698 ==
LOC: ED 14:19 → AC 14:39
PROVIDERS: Admitting Provider Internal Medicine; Emergency Provider Emergency Medicine; PCP Internal Medicine; Referring Provider Emergency Medicine; Visit Provider Internal Medicine
DX: T83.518A Infection and inflammatory reaction due to other urinary catheter, initial encounter (principal); A41.9 Sepsis, unspecified organism; G93.41 Metabolic encephalopathy; I50.32 Chronic diastolic (congestive) heart failure; N30.00 Acute cystitis without hematuria; E11.9 Type 2 diabetes mellitus without complications; E83.42 Hypomagnesemia; I11.0 Hypertensive heart disease with heart failure; I95.9 Hypotension, unspecified; Z95.0 Presence of cardiac pacemaker; Z95.2 Presence of prosthetic heart valve; Z86.73 Personal history of transient ischemic attack (TIA), and cerebral infarction without residual deficits; B96.20 Unspecified Escherichia coli [E. coli] as the cause of diseases classified elsewhere; Z87.891 Personal history of nicotine dependence; Z79.4 Long term (current) use of insulin; Z79.02 Long term (current) use of antithrombotics/antiplatelets; Z79.84 Long term (current) use of oral hypoglycemic drugs; Z79.52 Long term (current) use of systemic steroids
CPT/HCPCS: 36415; 70450; 70496; 70498; 71045; 80048; 80053; 80305; 81001; 82550; 82962; 83605; 83735; 84145; 84484; 85025; 85610; 85730; 87040; 87077; 87086; 87186; 87633; 93005; 96365; 96367; 97116; 97161; 97166; 97530; 99285; J0136; J0696; J1650; J1815; J3475; Q9967

== ENCOUNTER 2024-01-08 16:06 | Emergency (ER) | payer MEDICARE, OTHER, SELFPAY ==
[2023-11-19 15:35] VITALS: BMI 22.2
[2024-01-08 16:07] VITALS: BP 133/74; PULSE 94; RESP 16; TEMP 36.6; O2SAT 100; BMI 20.6
--- NOTE | 2024-01-08 16:24 | ED.GENADULT ---
HPI - General Adult General Chief complaint: Urogenital-Male Stated complaint: Sent by MD; Blood in Urine Time Seen by Provider: 01/08/24 16:17 Source: patient and family Mode of arrival: Ambulatory Limitations: no limitations History of Present Illness HPI narrative: Patient is an 83-year-old male. Is on Plavix but no other anticoagulation. Has a suprapubic catheter in place. He has had a suprapubic catheter in place for the past 8 or 9 months in the current catheter has been in place for the past couple weeks. He was here because of blood in his urine. He states the catheter is still draining. No fevers. No abdominal pain. A couple days ago he was seen at an outside facility where he was diagnosed with a urinary tract infection. He was currently on antibiotics for this. He has had approximately 1.5 days' worth of the antibiotics. Noticed blood in his urine this morning. He thinks that currently the red tinge to the urine has actually improved than what it was earlier today. Related Data Home Medications Medication Instructions Recorded Confirmed losartan 100 mg tablet 100 mg PO QDAY ##0 08/21/11 11/19/23 metformin 1,000 mg tablet 1,000 mg PO BIDCC ##0 02/10/13 11/19/23 metoprolol tartrate 50 mg tablet 50 mg PO BID 07/21/18 11/19/23 (Lopressor) insulin glargine 100 unit/mL (3 8 unit SUBCUT BEDTIME 06/04/21 11/19/23 mL) subcutaneous pen (Lantus Solostar U-100 Insulin) prednisone 5 mg tablet 5 mg PO DAILY 06/04/21 11/19/23 gabapentin 300 mg capsule 300 mg PO BID pain 11/19/23 11/19/23 Previous Rx's Medication Instructions Recorded clopidogrel 75 mg tablet 75 mg PO DAILY #30 tabs 08/21/20 aspirin 81 mg tablet,delayed See Rx Instructions .Route 05/08/23 release .COMPLEX #90 tabs atorvastatin 80 mg tablet (Lipitor) 80 mg PO BEDTIME #30 tabs 05/08/23 Allergies Allergy/AdvReac Type Severity Reaction Status Date / Time simvastatin AdvReac Intermediate Muscle Pain Verified 11/20/23 13:11 cephalexin AdvReac Mild Hallucinati Verified 11/19/23 13:23 ng baclofen AdvReac Unknown Verified 01/08/24 16:13 hydrocodone AdvReac Unknown Vomiting Verified 01/08/24 16:13 Review of Systems Constitutional Constitutional: Reports system reviewed and no additional complaints, except as documented Gastrointestinal Gastrointestinal: Reports system reviewed and no additional complaints, except as documented Genitourinary Genitourinary: Reports system reviewed and no additional complaints, except as documented Integumentary/Breasts Skin/Breast: Reports system reviewed and no additional complaints, except as documented Patient History Medical History HNP (herniated nucleus pulposus), lumbar History of prostate cancer Lumbosacral radiculopathy at L5 Lumbosacral spondylosis Facet arthropathy, lumbosacral Hematochezia (~2016) Bone spur Cervical spine fracture (~1958) RBBB (right bundle branch block) Left wrist fracture (~2010) Osteoarthritis Diabetes Prostate cancer Recurrent urinary tract infection Polymyalgia rheumatica Former smoker Aortic stenosis Cardiomyopathy Hyperlipidemia HTN (hypertension) TIA (transient ischemic attack) (~2011) TMJ (temporomandibular joint disorder) Surgical History Hx of prostatectomy Family History Father Heart disease Heart attack Mother No significant medical problems Grandmother Heart disease Social History household members: none Smoking Status: Former smoker alcohol intake: current Smoking Status: Former smoker alcohol intake frequency: 0-2 drinks per day Substance Use Type: does not use Exam Initial Vital Signs Initial Vital Signs: Vital Signs Temperature 97.8 F 01/08/24 16:07 Pulse Rate 94 H 01/08/24 16:07 Respiratory Rate 16 01/08/24 16:07 Blood Pressure 133/74 01/08/24 16:07 Pulse Oximetry 100 01/08/24 16:07 Oxygen Delivery Method Room Air 01/08/24 16:07 HENRI Head: normal to inspection Resp Effort & Inspection: normal respiratory effort Cardio Rate: regular rate Other: Suprapubic catheter in place Neuro General: patient alert and patient awake Course Orders Ordered: ED Orders 01/08/24 16:15 Urinalysis and Microscopic Stat Urine Culture Stat 01/08/24 16:34 Basic Metabolic Panel Stat Complete Blood Count AUTO DIFF Stat Vital Signs Vital signs: Vital Signs - 8 hr 01/08/24 16:07 Temperature 97.8 F Pulse Rate 94 H Respiratory Rate 16 Blood Pressure 133/74 Pulse Oximetry 100 Oxygen Delivery Method Room Air Medical Decision Making Lab Data 01/08/24 16:34 01/08/24 16:34 Labs: Lab Results 01/08/24 01/08/24 Range/Units 16:15 16:34 WBC 7.9 (4.5-11.0) X10^3/uL RBC 3.43 L (4.5-5.9) X10^6/uL Hgb 10.4 L (13.5-17.5) g/dL Hct 30.4 L (41-53) % MCV 88.5 (80-100) fL MCH 30.4 (26-34) PG MCHC 34.3 (30-36) % RDW 14.7 (11.6-14.8) % Plt Count 234 (150-400) X10^3/uL Neut % (Auto) 78.9 H (50-75) % Lymph % (Auto) 15.5 L (25-40) % [place] % (Auto) 5.1 (3-14) % Eos % (Auto) 0.2 L (2-4) % Baso % (Auto) 0.3 (0-2) % Neut # (Auto) 6300 (4976-2503) /uL Lymph # (Auto) 1200 (5813-4251) /uL [place] # (Auto) 400 (0-900) /uL Eos # (Auto) 0 (0-450) /uL Baso # (Auto) 0 (0-100) /uL Sodium 136 L (137-145) mmol/L Potassium 4.8 (3.4-5.1) mmol/L Chloride 107 (98-107) mmol/L Carbon Dioxide 22 (22-32) mmol/L BUN 24 H (9-20) mg/dL Creatinine 1.12 (0.66-1.25) mg/dL Estimated GFR > 60 (>60) mL/min BUN/Creatinine Ratio 21.4 (6-22) Glucose 258 H (80-110) mg/dL Calcium 9.8 (8.4-10.2) mg/dL Urine Color [place] Urine Appearance Clear Urine pH 5.5 (4.5-8.0) Ur Specific [place] 1.020 (1.000-1.035) Urine Protein 2+ H (Negative) Urine Glucose (UA) Trace H (Negative) g/dL Urine Ketones Negative (NEGATIVE) Urine Occult Blood 3+ H (Negative) Urine Nitrate Positive H (Negative) Urine Bilirubin Negative (NEGATIVE) Urine Urobilinogen 0.2 (0.2) E.U./dL Ur Leukocyte Esterase 2+ H (NEGATIVE) Urine RBC 10-30/hpf H (0-5/HPF) Urine WBC 5-10/hpf H (0-5/HPF) Ur Squamous Epith Cells None seen (0-5/HPF) Amorphous Sediment 1+ Urine Bacteria Few (2-10) H (None) Urine Yeast 0-1/hpf (None) Ur Culture Indicated? Specimen cultured Vol Urine Centrifuged 10ml (spun) Discharge Plan Departure Patient Disposition: Home Clinical Impression: Hematuria, Urinary tract infection Instructions: DI for Urinary Tract Infection (UTI), DI for Hematuria Activity Restrictions/Additional Instructions: Continue to take all of your medications as directed. Be sure that you were increasing your fluid intake. Complete the course of antibiotics. Contact your urologist for follow-up. Return to the emergency department for new or worsening symptoms. Prescriptions: No Action losartan 100 MG tablet 100 mg PO QDAY Qty: 0 metformin 1,000 MG tablet 1,000 mg PO BIDCC Qty: 0 metoprolol tartrate [Lopressor] 50 mg Tablet 50 mg PO BID prednisone 5 mg Tablet 5 mg PO DAILY insulin glargine [Lantus Solostar U-100 Insulin] 100 unit/mL (3 mL) Insulin Pen 8 unit SUBCUT BEDTIME clopidogrel 75 mg Tablet 75 mg PO DAILY Qty: 30 0RF atorvastatin [Lipitor] 80 mg tablet 80 mg PO BEDTIME Qty: 30 0RF aspirin 81 mg Tablet,Delayed Release (Dr/Ec) See Rx Instructions .ROUTE .COMPLEX Qty: 90 0RF Rx Instructions: 1 pill (81mg) daily gabapentin 300 mg capsule 300 mg PO BID Referrals: Yo Peters MD [Primary Care Provider] - Stand Alone Forms: Patient Portal/API
[2024-01-08 16:33] LABS: Appearance Urine UA CLEAR; Bilirubin Urine UA NEGATIVE (NEGATIVE); Glucose Urine UA TRACE g/dL (Negative); Ketones Urine UA NEGATIVE (NEGATIVE); Leukocyte Esterase Urine UA 2+ (NEGATIVE); Nitrite Urine UA POSITIVE (Negative); Occult Blood Urine UA 3+ (Negative); Protein Urine UA 2+ (Negative); Urobilinogen Urine UA 0.2 E.U./dL (0.2); pH Urine UA 5.5 (4.5-8.0)
[2024-01-08 16:37] LABS: Color Urine UA Amber
--- NOTE | 2024-01-08 16:39 | PC.NURSE ---
Pt was called by [facility] that pt had a raging UTI. Pt denies fever or abd pain. Pt states he has been good about cleaning his catheter.
[2024-01-08 16:48] LABS: Amorphous Sediment Urine 1+; Bacteria Urine Few (2-10); RBC Urine 10-30/HPF (0-5/HPF); Squamous Epithelial Cell Urine None Seen (0-5/HPF); Urine Volume 10mL (spun); WBC Urine 5-10/HPF (0-5/HPF)
[2024-01-08 16:49] LABS: Culture Indicated Urine Specimen Cultured
[2024-01-08 16:51] LABS: Add Manual Diff / Slide Review NO; Basophils Absolute Auto 0 /uL (0-100); Basophils Percent Auto 0.3 % (0-2); Eosinophils Absolute Auto 0 /uL (0-450); Eosinophils Percent Auto 0.2 % (2-4); Hematocrit 30.4 % (41-53); Hemoglobin 10.4 g/dL (13.5-17.5); Lymphocytes Absolute Auto 1200 /uL (1100-4500); Lymphocytes Percent Auto 15.5 % (25-40); Mean Corpuscular HGB Conc 34.3 % (30-36); Mean Corpuscular Hemoglobin 30.4 PG (26-34); Mean Corpuscular Volume 88.5 fL (80-100); Monocytes Absolute Auto 400 /uL (0-900); Monocytes Percent Auto 5.1 % (3-14); Neutrophils Absolute Auto 6300 /uL (1500-7000); Neutrophils Percent Auto 78.9 % (50-75); Platelet Count 234 X10^3/uL (150-400); Red Blood Cell Count 3.43 X10^6/uL (4.5-5.9); Red Cell Distribution Width 14.7 % (11.6-14.8); White Blood Cell Count 7.9 X10^3/uL (4.5-11.0)
[2024-01-08 16:53] LABS: BUN Creatinine Ratio 21.4 (6-22); Blood Urea Nitrogen 24 mg/dL (9-20); Calcium 9.8 mg/dL (8.4-10.2); Carbon Dioxide 22 mmol/L (22-32); Chloride 107 mmol/L (98-107); Estimated Glomerular Filt Rate > 60 mL/min (>60); Glucose 258 mg/dL (80-110); HEMOLYSIS < 15 (0-50); Potassium 4.8 mmol/L (3.4-5.1); Sodium 136 mmol/L (137-145)
[2024-01-08 17:20] VITALS: BP 139/63; PULSE 85; RESP 19; TEMP 36.9; O2SAT 98
== END 2024-01-08 17:21 | disposition home or self-care (01) ==
PROVIDERS: Emergency Provider Emergency Medicine; PCP Internal Medicine
DX: N39.0 Urinary tract infection, site not specified (principal); R31.9 Hematuria, unspecified; Z79.899 Other long term (current) drug therapy
CPT/HCPCS: 80048; 81001; 85025; 87077; 87086; 99281; 99283

== ENCOUNTER 2024-05-30 12:39 | Emergency (ER) | payer MEDICARE, OTHER, SELFPAY ==
[2023-11-19 15:35] VITALS: BMI 22.2
[2024-05-30 13:07] VITALS: BP 148/62; PULSE 70; RESP 16; TEMP 36.6; O2SAT 100; BMI 20.3
[2024-05-30 15:17] LABS: Bacteria Urine Many (>30); Culture Indicated Urine Specimen Cultured; RBC Urine None Seen (0-5/HPF); Squamous Epithelial Cell Urine None Seen (0-5/HPF); Urine Volume 10mL (spun); WBC Urine 10-30/HPF (0-5/HPF)
[2024-05-30] MEDS: CIPROFLOXACIN 250 MG TABLET 500 MG PO (15:57)
[2024-05-30 16:02] VITALS: BP 125/66; PULSE 73; RESP 16; O2SAT 95
--- NOTE | 2024-05-31 15:16 | ED.MALEGU ---
HPI - Male Genitourinary <Shikha Grover PA-C - Last Filed: 05/31/24 15:24> General Chief complaint: Urogenital-Male Stated complaint: hip pain, poss uti Time Seen by Provider: 05/30/24 15:21 History of Present Illness HPI Narrative: 83-year-old male with past medical history CVA, TIA, herniated nucleus pulposus of the lumbar region, prostate cancer presents to the ED with a few days of increased left-sided sciatica. Patient is accompanied by his daughter who states that patient has had a history of frequent UTIs, always accompanied by the symptom of worsening sciatica when he has a UTI. No trauma. No numbness, tingling, weakness. No fever, chills, nausea, vomiting. Patient has an indwelling suprapubic catheter due to having a prostatectomy. The catheter was changed 3 weeks ago. Related Data Home Medications Medication Instructions Recorded Confirmed losartan 100 mg tablet 100 mg PO QDAY ##0 08/21/11 11/19/23 metformin 1,000 mg tablet 1,000 mg PO BIDCC ##0 02/10/13 11/19/23 metoprolol tartrate 50 mg tablet 50 mg PO BID 07/21/18 11/19/23 (Lopressor) insulin glargine 100 unit/mL (3 8 unit SUBCUT BEDTIME 06/04/21 11/19/23 mL) subcutaneous pen (Lantus Solostar U-100 Insulin) prednisone 5 mg tablet 5 mg PO DAILY 06/04/21 11/19/23 gabapentin 300 mg capsule 300 mg PO BID pain 11/19/23 11/19/23 Previous Rx's Medication Instructions Recorded clopidogrel 75 mg tablet 75 mg PO DAILY #30 tabs 08/21/20 aspirin 81 mg tablet,delayed See Rx Instructions .Route 05/08/23 release .COMPLEX #90 tabs atorvastatin 80 mg tablet (Lipitor) 80 mg PO BEDTIME #30 tabs 05/08/23 ciprofloxacin HCl 500 mg tablet 500 mg PO BID 7 days #14 tabs 05/30/24 Allergies Allergy/AdvReac Type Severity Reaction Status Date / Time simvastatin AdvReac Intermediate Muscle Pain Verified 11/20/23 13:11 cephalexin AdvReac Mild Hallucinati Verified 11/19/23 13:23 ng baclofen AdvReac Unknown Verified 01/08/24 16:13 hydrocodone AdvReac Unknown Vomiting Verified 01/08/24 16:13 Review of Systems <Shikha Grover PA-C - Last Filed: 05/31/24 15:24> Constitutional Constitutional: Denies chills, Denies fatigue, Denies fever(s), Denies frequent falls, Denies lethargy and Denies weakness Eyes Eyes: Denies change in vision, Denies eye discharge, Denies irritation and Denies loss of vision ENT Ears, Nose, Mouth, and Throat: Denies change in voice, Denies dizziness, Denies neck pain, Denies sore throat and Denies throat swelling Cardiovascular Cardiovascular: Denies chest pain, Denies irregular heart rhythm, Denies lightheadedness, Denies palpitations, Denies dyspnea, Denies dyspnea on exertion and Denies orthopnea Respiratory Respiratory: Denies cough, Denies dyspnea, Denies dyspnea on exertion and Denies wheezing Gastrointestinal Gastrointestinal: Denies abdominal pain, Denies change in bowel habits, Denies diarrhea, Denies nausea and Denies vomiting Musculoskeletal Musculoskeletal: Denies neck pain and Denies numbness Comments: Left-sided sciatica Integumentary/Breasts Skin/Breast: Denies pruritus, Denies erythema, Denies rash and Denies wounds Neurologic Neurologic: Denies behavioral changes, Denies confusion, Denies dizziness, Denies frequent falls, Denies loss of vision, Denies numbness and Denies weakness Psychiatric Psychiatric: Denies anxiety, Denies behavioral changes, Denies confusion, Denies depression, Denies homicidal ideation and Denies suicidal ideation Endocrine Endocrine: Denies fatigue, Denies flushing and Denies palpitations Hematologic/Lymphatic Hematologic/Lymphatic: Denies easy bruising Allergic/Immunologic Allergic/Immunologic: Denies urticaria, Denies throat swelling and Denies wheezing Patient History <Shikha Grover PA-C - Last Filed: 05/31/24 15:24> Medical History HNP (herniated nucleus pulposus), lumbar History of prostate cancer Lumbosacral radiculopathy at L5 Lumbosacral spondylosis Facet arthropathy, lumbosacral Hematochezia (~2017) Bone spur Cervical spine fracture (~195) RBBB (right bundle branch block) Left wrist fracture (~2010) Osteoarthritis Diabetes Prostate cancer Recurrent urinary tract infection Polymyalgia rheumatica Former smoker Aortic stenosis Cardiomyopathy Hyperlipidemia HTN (hypertension) TIA (transient ischemic attack) (~2011) TMJ (temporomandibular joint disorder) Surgical History Hx of prostatectomy Family History Father Heart disease Heart attack Mother No significant medical problems Grandmother Heart disease Social History household members: none Smoking Status: Former smoker alcohol intake: current Smoking Status: Former smoker alcohol intake frequency: 0-2 drinks per day Exam <Shikha Grover PA-C - Last Filed: 05/31/24 15:24> Narrative Exam Narrative: Const General:?cooperative, healthy appearing and comfortable HENMN Head:?normal to inspection Ears:?hearing grossly normal bilaterally Nose:?external nose normal Face and sinus:?normal facial exam and sinuses nontender Mouth:?oral mucosae normal Throat:?posterior oropharynx normal Eyes General:?appearance normal, both eyes and all related structures Neck Neck:?normal visual inspection and no lymphadenopathy noted Resp Effort & Inspection:?normal respiratory effort Auscultation:?clear to auscultation bilaterally Cardio Rate:?regular rate Rhythm:?regular rhythm Musculoskeletal No midline tenderness to palpation. No paraspinal tenderness to palpation. Full range of motion. Strength and sensation is intact. Patient is neurovascularly intact. Neuro General:?patient alert, patient awake and patient oriented x3 Initial Vital Signs Initial Vital Signs: Vital Signs Temperature 97.8 F 05/30/24 13:07 Pulse Rate 70 05/30/24 13:07 Respiratory Rate 16 05/30/24 13:07 Blood Pressure 148/62 H 05/30/24 13:07 Pulse Oximetry 100 05/30/24 13:07 Oxygen Delivery Method Room Air 05/30/24 13:07 <Anna Watters DO - Last Filed: 05/31/24 15:44> Initial Vital Signs Initial Vital Signs: Vital Signs Temperature 97.8 F 05/30/24 13:07 Pulse Rate 70 05/30/24 13:07 Respiratory Rate 16 05/30/24 13:07 Blood Pressure 148/62 H 05/30/24 13:07 Pulse Oximetry 100 05/30/24 13:07 Oxygen Delivery Method Room Air 05/30/24 13:07 Course <Shikha Grover PA-C - Last Filed: 05/31/24 15:24> Orders Ordered: Discontinued Medications Ciprofloxacin (Ciprofloxacin 250 Mg Tablet) 500 mg PO NOW ONE Stop: 05/30/24 15:41 Last Admin: 05/30/24 15:57 Dose: 500 mg Documented By: EDITH <Anna Watters DO - Last Filed: 05/31/24 15:44> Orders Ordered: Discontinued Medications Ciprofloxacin (Ciprofloxacin 250 Mg Tablet) 500 mg PO NOW ONE Stop: 05/30/24 15:41 Last Admin: 05/30/24 15:57 Dose: 500 mg Documented By: EDITH MDM - Male Genitourinary <Shikha Grover PA-C - Last Filed: 05/31/24 15:24> Lab Data Labs: Lab Results 05/30/24 Range/Units 14:56 Urine RBC None seen (0-5/HPF) Urine WBC 10-30/hpf H (0-5/HPF) Ur Squamous Epith Cells None seen (0-5/HPF) Urine Bacteria Many (>30) H (None) Urine Yeast 5-10/hpf H (None) Ur Culture Indicated? Specimen cultured Vol Urine Centrifuged 10ml (spun) Urine Dip Bedside Urine Glucose Negative Bedside Urine Bilirubin - Negative Bedside Urine Ketone - Negative Urine Specific [place] 1.005 Bedside Urine Occult Blood +++ Bedside Urine pH 5.5 Bedside Urine Protein - Negative Bedside Urine Urobilinogen - Negative Bedside Urine Nitrite + Positive Bedside Urine Leukocytes +++ 500 Esterase MDM Narrative Medical decision making narrative: 83-year-old male with past medical history CVA, TIA, herniated nucleus pulposus of the lumbar region, prostate cancer presents to the ED with a few days of increased left-sided sciatica. UA is positive for UTI. There is no midline tenderness to palpation. Back pain is likely due to the chronic lumbar issues. Patient able to bear weight and walk. Prescribed antibiotics. Recommend that patient follow-up with his PCP for further evaluation of the back pain. ED return precautions discussed with patient. Patient verbalized understanding. Medical records reviewed: Yes <Anna Watters DO - Last Filed: 05/31/24 15:44> Lab Data Labs: Lab Results 05/30/24 Range/Units 14:56 Urine RBC None seen (0-5/HPF) Urine WBC 10-30/hpf H (0-5/HPF) Ur Squamous Epith Cells None seen (0-5/HPF) Urine Bacteria Many (>30) H (None) Urine Yeast 5-10/hpf H (None) Ur Culture Indicated? Specimen cultured Vol Urine Centrifuged 10ml (spun) Urine Dip Bedside Urine Glucose Negative Bedside Urine Bilirubin - Negative Bedside Urine Ketone - Negative Urine Specific [place] 1.005 Bedside Urine Occult Blood +++ Bedside Urine pH 5.5 Bedside Urine Protein - Negative Bedside Urine Urobilinogen - Negative Bedside Urine Nitrite + Positive Bedside Urine Leukocytes +++ 500 Esterase Discharge Plan Departure Patient Disposition: Home Clinical Impression: Urinary tract infection Instructions: DI for Urinary Tract Infection (UTI) Activity Restrictions/Additional Instructions: You were evaluated in the ED today for lower back pain. You tested positive for urinary tract infection. You are being prescribed antibiotics for it. You may take 1000 mg of Tylenol every 8 hours for back pain. Please follow-up with your PCP and urologist as soon as possible. Return to the ED if you have worsening symptoms. Prescriptions: New ciprofloxacin HCl 500 mg tablet 500 mg PO BID 7 Days Qty: 14 0RF No Action losartan 100 MG tablet 100 mg PO QDAY Qty: 0 metformin 1,000 MG tablet 1,000 mg PO BIDCC Qty: 0 metoprolol tartrate [Lopressor] 50 mg Tablet 50 mg PO BID prednisone 5 mg Tablet 5 mg PO DAILY insulin glargine [Lantus Solostar U-100 Insulin] 100 unit/mL (3 mL) Insulin Pen 8 unit SUBCUT BEDTIME clopidogrel 75 mg Tablet 75 mg PO DAILY Qty: 30 0RF atorvastatin [Lipitor] 80 mg tablet 80 mg PO BEDTIME Qty: 30 0RF aspirin 81 mg Tablet,Delayed Release (Dr/Ec) See Rx Instructions .ROUTE .COMPLEX Qty: 90 0RF Rx Instructions: 1 pill (81mg) daily gabapentin 300 mg capsule 300 mg PO BID Referrals: Yo Peters MD [Primary Care Provider] - Stand Alone Forms: Patient Portal/API/Survey ED Sign-out <Anna Watters DO - Last Filed: 05/31/24 15:44> Cosign ED Attending Cosantonyature Attestation: I was available for consultation.
== END 2024-05-30 16:02 | disposition home or self-care (01) ==
PROVIDERS: Emergency Provider Student in an Organized Health Care Education/Training Program; PCP Internal Medicine
DX: N39.0 Urinary tract infection, site not specified (principal); M54.42 Lumbago with sciatica, left side
CPT/HCPCS: 81003; 81015; 87077; 87086; 87186; 99283

== ENCOUNTER 2024-06-06 10:13 | Inpatient (IN) | payer MEDICARE, OTHER, SELFPAY ==
[2023-11-19 15:35] VITALS: BMI 22.2
[2024-06-06 10:23] VITALS: BP 130/61; PULSE 63; RESP 18; TEMP 36.8; O2SAT 94; BMI 20.3
--- NOTE | 2024-06-06 10:25 | ED.GENADULT ---
HPI - General Adult General Chief complaint: Urogenital-Male Stated complaint: not getting better Time Seen by Provider: 06/06/24 10:19 Source: patient, RN notes reviewed and old records reviewed Mode of arrival: Family Vehicle Limitations: no limitations History of Present Illness HPI narrative: 83-year-old male past medical history CVA, TIA, herniated nucleus pulposis of the lumbar region, prostate cancer who was recently treated for UTI with indwelling suprapubic catheter Related Data Home Medications Medication Instructions Recorded Confirmed losartan 100 mg tablet 100 mg PO QDAY ##0 08/21/11 11/19/23 metformin 1,000 mg tablet 1,000 mg PO BIDCC ##0 02/10/13 11/19/23 metoprolol tartrate 50 mg tablet 50 mg PO BID 07/21/18 11/19/23 (Lopressor) insulin glargine 100 unit/mL (3 8 unit SUBCUT BEDTIME 06/04/21 11/19/23 mL) subcutaneous pen (Lantus Solostar U-100 Insulin) prednisone 5 mg tablet 5 mg PO DAILY 06/04/21 11/19/23 gabapentin 300 mg capsule 300 mg PO BID pain 11/19/23 11/19/23 Previous Rx's Medication Instructions Recorded clopidogrel 75 mg tablet 75 mg PO DAILY #30 tabs 08/21/20 aspirin 81 mg tablet,delayed See Rx Instructions .Route 05/08/23 release .COMPLEX #90 tabs atorvastatin 80 mg tablet (Lipitor) 80 mg PO BEDTIME #30 tabs 05/08/23 nitrofurantoin 100 mg PO Q12H 5 days #10 caps 06/02/24 monohydrate/macrocrystals 100 mg capsule (Macrobid) Allergies Allergy/AdvReac Type Severity Reaction Status Date / Time simvastatin AdvReac Intermediate Muscle Pain Verified 11/20/23 13:11 cephalexin AdvReac Mild Hallucinati Verified 11/19/23 13:23 ng baclofen AdvReac Unknown Verified 01/08/24 16:13 hydrocodone AdvReac Unknown Vomiting Verified 01/08/24 16:13 Review of Systems Review of Systems ROS Unobtainable: All systems reviewed & are unremarkable except as noted in HPI and below Patient History Medical History HNP (herniated nucleus pulposus), lumbar History of prostate cancer Lumbosacral radiculopathy at L5 Lumbosacral spondylosis Facet arthropathy, lumbosacral Hematochezia (~2017) Bone spur Cervical spine fracture (~195) RBBB (right bundle branch block) Left wrist fracture (~2010) Osteoarthritis Diabetes Prostate cancer Recurrent urinary tract infection Polymyalgia rheumatica Former smoker Aortic stenosis Cardiomyopathy Hyperlipidemia HTN (hypertension) TIA (transient ischemic attack) (~2011) TMJ (temporomandibular joint disorder) Surgical History Hx of prostatectomy Family History Father Heart disease Heart attack Mother No significant medical problems Grandmother Heart disease Social History household members: none Smoking Status: Former smoker alcohol intake: current Smoking Status: Former smoker alcohol intake frequency: 0-2 drinks per day Exam Initial Vital Signs Initial Vital Signs: Vital Signs Temperature 98.2 F 06/06/24 10:23 Pulse Rate 63 06/06/24 10:23 Respiratory Rate 18 06/06/24 10:23 Blood Pressure 130/61 06/06/24 10:23 Pulse Oximetry 94 06/06/24 10:23 Oxygen Delivery Method Room Air 06/06/24 10:23 Course Orders Ordered: ED Orders 06/06/24 10:35 CBC Auto Diff [Complete Blood Count AUTO DIFF] Stat CMP [Comprehensive Metabolic Panel] Stat Lactate (Lactic Acid) Stat Urine Culture Stat Urine Microscopic Stat 06/06/24 11:43 CXR [XR chest 2V] Stat 06/06/24 11:53 Covid-19 + FLU A/B + RSV - PCR Stat 06/06/24 12:40 Blood Culture Stat Discontinued Medications Ondansetron HCl (Ondansetron 4 Mg/2 Ml Inj) 4 mg IV NOW ONE Stop: 06/06/24 11:38 Last Admin: 06/06/24 11:45 Dose: 4 mg Documented By: MICHELLE Vital Signs Vital signs: Vital Signs - 8 hr 06/06/24 10:23 Temperature 98.2 F Pulse Rate 63 Respiratory Rate 18 Blood Pressure 130/61 Pulse Oximetry 94 Oxygen Delivery Method Room Air Medical Decision Making Lab Data 06/06/24 10:35 06/06/24 10:35 Labs: Lab Results 06/06/24 06/06/24 Range/Units 10:35 11:53 WBC 15.0 H (4.5-11.0) X10^3/uL RBC 4.03 L (4.5-5.9) X10^6/uL Hgb 11.9 L (13.5-17.5) g/dL Hct 35.4 L (41-53) % MCV 87.9 (80-100) fL MCH 29.5 (26-34) PG MCHC 33.6 (30-36) % RDW 14.8 (11.6-14.8) % Plt Count 229 (150-400) X10^3/uL Neut % (Auto) 81.0 H (50-75) % Lymph % (Auto) 9.5 L (25-40) % [place] % (Auto) 8.9 (3-14) % Eos % (Auto) 0.1 L (2-4) % Baso % (Auto) 0.5 (0-2) % Neut # (Auto) 03834 H (6757-1858) /uL Lymph # (Auto) 1400 (4562-5464) /uL [place] # (Auto) 1300 H (0-900) /uL Eos # (Auto) 0 (0-450) /uL Baso # (Auto) 100 (0-100) /uL Sodium 131 L (137-145) mmol/L Potassium 4.5 (3.4-5.1) mmol/L Chloride 98 (98-107) mmol/L Carbon Dioxide 26 (22-32) mmol/L BUN 17 (9-20) mg/dL Creatinine 1.07 (0.66-1.25) mg/dL Estimated GFR > 60 (>60) mL/min BUN/Creatinine Ratio 15.9 (6-22) Glucose 176 H (80-110) mg/dL Lactate 1.5 (0.7-2.1) mmol/L Calcium 10.0 (8.4-10.2) mg/dL Total Bilirubin 0.8 (0.2-1.3) mg/dL AST 54 (17-59) IU/L ALT 23 (<50) IU/L Alkaline Phosphatase 83 (38-126) U/L Total Protein 6.9 (6.3-8.2) g/dL Albumin 3.9 (3.5-5.0) g/dL Globulin 3.0 (1.7-4.1) g/dL Albumin/Globulin Ratio 1.3 (1.0-2.8) Urine RBC 1-5/hpf (0-5/HPF) Urine WBC 10-30/hpf H (0-5/HPF) Ur Squamous Epith Cells None seen (0-5/HPF) Urine Bacteria None seen (None) Urine Yeast 10-30/hpf H (None) Ur Culture Indicated? Cult not indicated Vol Urine Centrifuged 10ml (spun) SARS-CoV-2 (PCR) Negative (Negative) Influenza A (RT-PCR) Flu a negative (NEGATIVE) Influenza B (RT-PCR) Flu b negative (NEGATIVE) RSV (PCR) Positive A (Negative) Urine Dip Bedside Urine Glucose Negative Bedside Urine Bilirubin - Negative Bedside Urine Ketone - Negative Urine Specific [place] 1.015 Bedside Urine Occult Blood ++ Bedside Urine pH 6.5 Bedside Urine Protein +/- 15 Bedside Urine Urobilinogen +/- 1mg Bedside Urine Nitrite - Negative Bedside Urine Leukocytes +/- 15 Esterase Point of care testing: Urine Dip Bedside Urine Glucose Negative Bedside Urine Bilirubin - Negative Bedside Urine Ketone - Negative Urine Specific [place] 1.015 Bedside Urine Occult Blood ++ Bedside Urine pH 6.5 Bedside Urine Protein +/- 15 Bedside Urine Urobilinogen +/- 1mg Bedside Urine Nitrite - Negative Bedside Urine Leukocytes +/- 15 Esterase Discharge Plan Departure Prescriptions: No Action losartan 100 MG tablet 100 mg PO QDAY Qty: 0 metformin 1,000 MG tablet 1,000 mg PO BIDCC Qty: 0 metoprolol tartrate [Lopressor] 50 mg Tablet 50 mg PO BID prednisone 5 mg Tablet 5 mg PO DAILY insulin glargine [Lantus Solostar U-100 Insulin] 100 unit/mL (3 mL) Insulin Pen 8 unit SUBCUT BEDTIME nitrofurantoin monohyd/m-cryst [Macrobid] 100 mg capsule 100 mg PO Q12H 5 Days Qty: 10 0RF Rx Instructions: must administer with a meal/food clopidogrel 75 mg Tablet 75 mg PO DAILY Qty: 30 0RF atorvastatin [Lipitor] 80 mg tablet 80 mg PO BEDTIME Qty: 30 0RF aspirin 81 mg Tablet,Delayed Release (Dr/Ec) See Rx Instructions .ROUTE .COMPLEX Qty: 90 0RF Rx Instructions: 1 pill (81mg) daily gabapentin 300 mg capsule 300 mg PO BID Referrals: Yo Peters MD [Primary Care Provider] -
[2024-06-06 11:29] LABS: Urine Volume 10mL (spun)
[2024-06-06 11:35] LABS: Bacteria Urine None Seen; Squamous Epithelial Cell Urine None Seen (0-5/HPF); WBC Urine 10-30/HPF (0-5/HPF)
[2024-06-06 11:36] LABS: RBC Urine 1-5/HPF (0-5/HPF)
[2024-06-06 11:37] LABS: Culture Indicated Urine Cult Not Indicated
--- NOTE | 2024-06-06 11:43 | DI.RAD.S_ITS ---
PROCEDURE: XR CHEST 2V INDICATIONS: chills, uri TECHNIQUE: 2 views of the chest were acquired. COMPARISON: [facility], CT, CT ANGIO HEAD AND NECK, 11/19/2023, 12:26. [facility], CR, XR CHEST 1V, 11/19/2023, 10:53. [facility], CR, XR CHEST 1V, 01/29/2021, 11:12. FINDINGS: Surgical changes and devices: TAVR stent. Cardiac device. Left shoulder anchors. Lungs and pleura: Lungs appear clear. No pleural effusions or pneumothorax. Mediastinum: Mediastinal contours are unchanged. Heart size is within normal limits. Bones and chest wall: No suspicious bony abnormalities. Soft tissues appear unremarkable. IMPRESSION: No acute cardiopulmonary abnormality is seen. Dictated by: Gregg Pollack M.D. on 06/06/2024 at 12:38 Approved by: Gregg Pollack M.D. on 06/06/2024 at 12:40
[2024-06-06] MEDS: ONDANSETRON 4 MG/2 ML INJ IV (11:45)
[2024-06-06 11:50] LABS: Add Manual Diff / Slide Review NO; Basophils Absolute Auto 100 /uL (0-100); Basophils Percent Auto 0.5 % (0-2); Eosinophils Absolute Auto 0 /uL (0-450); Eosinophils Percent Auto 0.1 % (2-4); Hematocrit 35.4 % (41-53); Hemoglobin 11.9 g/dL (13.5-17.5); Lymphocytes Absolute Auto 1400 /uL (1100-4500); Lymphocytes Percent Auto 9.5 % (25-40); Mean Corpuscular HGB Conc 33.6 % (30-36); Mean Corpuscular Hemoglobin 29.5 PG (26-34); Mean Corpuscular Volume 87.9 fL (80-100); Monocytes Absolute Auto 1300 /uL (0-900); Monocytes Percent Auto 8.9 % (3-14); Neutrophils Absolute Auto 12200 /uL (1500-7000); Platelet Count 229 X10^3/uL (150-400); Red Blood Cell Count 4.03 X10^6/uL (4.5-5.9); Red Cell Distribution Width 14.8 % (11.6-14.8)
[2024-06-06 12:02] LABS: Lactate (Lactic Acid) 1.5 mmol/L (0.7-2.1)
[2024-06-06 12:03] LABS: Alanine Aminotransferase 23 IU/L (<50); Albumin 3.9 g/dL (3.5-5.0); Albumin Globulin Ratio 1.3 (1.0-2.8); Alkaline Phosphatase 83 U/L (38-126); Aspartate Aminotransferase 54 IU/L (17-59); BUN Creatinine Ratio 15.9 (6-22); Bilirubin Total 0.8 mg/dL (0.2-1.3); Blood Urea Nitrogen 17 mg/dL (9-20); Carbon Dioxide 26 mmol/L (22-32); Chloride 98 mmol/L (98-107); Estimated Glomerular Filt Rate > 60 mL/min (>60); Glucose 176 mg/dL (80-110); HEMOLYSIS 16 (0-50); Potassium 4.5 mmol/L (3.4-5.1); Sodium 131 mmol/L (137-145); Total Protein 6.9 g/dL (6.3-8.2)
--- NOTE | 2024-06-06 12:07 | ED.MALEGU ---
HPI - Male Genitourinary <Shikha Grover PA-C - Last Filed: 06/06/24 15:30> General Chief complaint: Urogenital-Male Stated complaint: not getting better Time Seen by Provider: 06/06/24 10:19 Source: patient, RN notes reviewed and old records reviewed Mode of arrival: Family Vehicle Limitations: no limitations History of Present Illness HPI Narrative: 83-year-old male with past medical history CVA, TIA, herniated nucleus pulposus of the lumbar region, prostate cancer returns to the ED due to worsening symptoms from a UTI. Patient also has a indwelling suprapubic catheter due to sequelae of prostate surgery. Patient was seen in the ED on 05/30/2024, diagnosed with a UTI, prescribed ciprofloxacin. Cultures positive for Pseudomonas aeruginosa and E coli, both resistant to ciprofloxacin. Patient was subsequently switched to nitrofurantoin. Patient has been compliant with the medication, however has worsening symptoms. Patient has also contacted a URI with a runny nose, nasal congestion, cough. Patient complains of chills, nausea, vomiting. Patient continues to have left-sided hip pain which is unchanged. No numbness, tingling, weakness. Patient had his suprapubic catheter switched out last week as well. Related Data Home Medications Medication Instructions Recorded Confirmed metformin 1,000 mg tablet 1,000 mg PO BIDCC ##0 02/10/13 06/06/24 insulin glargine 100 unit/mL (3 10 unit SUBCUT BEDTIME 06/04/21 06/06/24 mL) subcutaneous pen (Lantus Solostar U-100 Insulin) gabapentin 300 mg capsule 300 mg PO BEDTIME pain 11/19/23 06/06/24 losartan 25 mg tablet 25 mg PO DAILY 06/06/24 06/06/24 metoprolol succinate 25 mg 25 mg PO DAILY 06/06/24 06/06/24 tablet,extended release 24 hr prednisone 5 mg tablet 10 mg PO DAILY 06/06/24 06/06/24 semaglutide 1 mg/dose (4 mg/3 mL) 1 mg SUBCUT QWEEK 06/06/24 06/06/24 subcutaneous pen injector (Ozempic) Previous Rx's Medication Instructions Recorded clopidogrel 75 mg tablet 75 mg PO DAILY #30 tabs 08/21/20 atorvastatin 80 mg tablet (Lipitor) 80 mg PO BEDTIME #30 tabs 05/08/23 Allergies Allergy/AdvReac Type Severity Reaction Status Date / Time simvastatin AdvReac Intermediate Muscle Pain Verified 11/20/23 13:11 cephalexin AdvReac Mild Hallucinati Verified 11/19/23 13:23 ng baclofen AdvReac Unknown Verified 01/08/24 16:13 hydrocodone AdvReac Unknown Vomiting Verified 01/08/24 16:13 Review of Systems <Shikha Grover PA-C - Last Filed: 06/06/24 15:30> Constitutional Constitutional: Reports chills, Reports fatigue, Denies fever(s), Denies frequent falls, Reports lethargy and Denies weakness Eyes Eyes: Denies change in vision, Denies eye discharge, Denies irritation and Denies loss of vision ENT Ears, Nose, Mouth, and Throat: Denies change in voice, Denies dizziness, Reports nasal congestion, Reports nasal discharge, Denies neck pain, Denies sore throat and Denies throat swelling Cardiovascular Cardiovascular: Denies chest pain, Denies irregular heart rhythm, Denies lightheadedness, Denies palpitations, Denies dyspnea, Denies dyspnea on exertion and Denies orthopnea Respiratory Respiratory: Reports cough, Denies dyspnea, Denies dyspnea on exertion and Denies wheezing Gastrointestinal Gastrointestinal: Denies abdominal pain, Denies change in bowel habits, Denies diarrhea and Reports nausea Musculoskeletal Musculoskeletal: Denies neck pain and Denies numbness Integumentary/Breasts Skin/Breast: Denies pruritus, Denies erythema, Denies rash and Denies wounds Comments: L hip pain Neurologic Neurologic: Denies behavioral changes, Denies confusion, Denies dizziness, Denies frequent falls, Denies loss of vision, Denies numbness and Denies weakness Psychiatric Psychiatric: Denies anxiety, Denies behavioral changes, Denies confusion, Denies depression, Denies homicidal ideation and Denies suicidal ideation Endocrine Endocrine: Reports fatigue, Denies flushing and Denies palpitations Hematologic/Lymphatic Hematologic/Lymphatic: Denies easy bruising Allergic/Immunologic Allergic/Immunologic: Denies urticaria, Denies throat swelling and Denies wheezing Patient History <Shikha Grover PA-C - Last Filed: 06/06/24 15:30> Medical History HNP (herniated nucleus pulposus), lumbar History of prostate cancer Lumbosacral radiculopathy at L5 Lumbosacral spondylosis Facet arthropathy, lumbosacral Hematochezia (~2017) Bone spur Cervical spine fracture (~1959) RBBB (right bundle branch block) Left wrist fracture (~2010) Osteoarthritis Diabetes Prostate cancer Recurrent urinary tract infection Polymyalgia rheumatica Former smoker Aortic stenosis Cardiomyopathy Hyperlipidemia HTN (hypertension) TIA (transient ischemic attack) (~2011) TMJ (temporomandibular joint disorder) Surgical History Hx of prostatectomy Family History Father Heart disease Heart attack Mother No significant medical problems Grandmother Heart disease Social History household members: none Smoking Status: Former smoker alcohol intake: current Smoking Status: Former smoker alcohol intake frequency: 0-2 drinks per day Exam <Shikha Grover PA-C - Last Filed: 06/06/24 15:30> Narrative Exam Narrative: Const General:?cooperative, healthy appearing and comfortable [facility] Head:?normal to inspection Ears:?hearing grossly normal bilaterally Nose:?external nose normal Face and sinus:?normal facial exam and sinuses nontender Mouth:?oral mucosae normal Throat:?posterior oropharynx normal Eyes General:?appearance normal, both eyes and all related structures Neck Neck:?normal visual inspection and no lymphadenopathy noted Resp Effort & Inspection:?normal respiratory effort Auscultation:?clear to auscultation bilaterally Cardio Rate:?regular rate Rhythm:?regular rhythm GI/ Abdomen is soft, nondistended, nontender to palpation. There is no CVA tenderness.Suprapubic indwelling catheter in place. No signs of infection. Neuro General:?patient alert, patient awake and patient oriented x3 Initial Vital Signs Initial Vital Signs: Vital Signs Temperature 98.2 F 06/06/24 10:23 Pulse Rate 63 06/06/24 10:23 Respiratory Rate 18 06/06/24 10:23 Blood Pressure 130/61 06/06/24 10:23 Pulse Oximetry 94 06/06/24 10:23 Oxygen Delivery Method Room Air 06/06/24 10:23 <Malena Stahl DO - Last Filed: 06/06/24 18:45> Initial Vital Signs Initial Vital Signs: Vital Signs Temperature 98.2 F 06/06/24 10:23 Pulse Rate 63 06/06/24 10:23 Respiratory Rate 18 06/06/24 10:23 Blood Pressure 130/61 06/06/24 10:23 Pulse Oximetry 94 06/06/24 10:23 Oxygen Delivery Method Room Air 06/06/24 10:23 Course <Shikha Grover PA-C - Last Filed: 06/06/24 15:30> Orders Ordered: ED Orders 06/06/24 10:35 CBC Auto Diff [Complete Blood Count AUTO DIFF] Stat CMP [Comprehensive Metabolic Panel] Stat Lactate (Lactic Acid) Stat Urine Culture Stat Urine Microscopic Stat 06/06/24 11:43 CXR [XR chest 2V] Stat 06/06/24 11:53 Covid-19 + FLU A/B + RSV - PCR Stat 06/06/24 12:40 Blood Culture Stat Discontinued Medications Cefepime HCl 2 gm/ Sodium (Chloride) 100 mls @ 200 mls/hr IV NOW ONE Stop: 06/06/24 13:50 Last Infusion: 06/06/24 14:41 Dose: Infused Documented By: Admin: 06/06/24 14:06 Dose: 200 mls/hr Documented By: MICHELLE Ondansetron HCl (Ondansetron 4 Mg/2 Ml Inj) 4 mg IV NOW ONE Stop: 06/06/24 11:38 Last Admin: 06/06/24 11:45 Dose: 4 mg Documented By: MICHELLE Vital Signs Vital signs: Vital Signs - 8 hr 06/06/24 14:46 Temperature 98.4 F Pulse Rate 53 L Respiratory Rate 18 Blood Pressure 122/56 L Pulse Oximetry 97 Oxygen Delivery Method Room Air <Malena Stahl DO - Last Filed: 06/06/24 18:45> Orders Ordered: ED Orders 06/06/24 10:35 CBC Auto Diff [Complete Blood Count AUTO DIFF] Stat CMP [Comprehensive Metabolic Panel] Stat Lactate (Lactic Acid) Stat Urine Culture Stat Urine Microscopic Stat 06/06/24 11:43 CXR [XR chest 2V] Stat 06/06/24 11:53 Covid-19 + FLU A/B + RSV - PCR Stat 06/06/24 12:40 Blood Culture Stat Discontinued Medications Cefepime HCl 2 gm/ Sodium (Chloride) 100 mls @ 200 mls/hr IV NOW ONE Stop: 06/06/24 13:50 Last Infusion: 06/06/24 14:41 Dose: Infused Documented By: Admin: 06/06/24 14:06 Dose: 200 mls/hr Documented By: MICHELLE Ondansetron HCl (Ondansetron 4 Mg/2 Ml Inj) 4 mg IV NOW ONE Stop: 06/06/24 11:38 Last Admin: 06/06/24 11:45 Dose: 4 mg Documented By: MICHELLE Vital Signs Vital signs: Vital Signs - 8 hr 06/06/24 14:46 Temperature 98.4 F Pulse Rate 53 L Respiratory Rate 18 Blood Pressure 122/56 L Pulse Oximetry 97 Oxygen Delivery Method Room Air MDM - Male Genitourinary <Shikha Grover PA-C - Last Filed: 06/06/24 15:30> Lab Data 06/06/24 10:35 06/06/24 10:35 Labs: Lab Results 06/06/24 06/06/24 Range/Units 10:35 11:53 WBC 15.0 H (4.5-11.0) X10^3/uL RBC 4.03 L (4.5-5.9) X10^6/uL Hgb 11.9 L (13.5-17.5) g/dL Hct 35.4 L (41-53) % MCV 87.9 (80-100) fL MCH 29.5 (26-34) PG MCHC 33.6 (30-36) % RDW 14.8 (11.6-14.8) % Plt Count 229 (150-400) X10^3/uL Neut % (Auto) 81.0 H (50-75) % Lymph % (Auto) 9.5 L (25-40) % [place] % (Auto) 8.9 (3-14) % Eos % (Auto) 0.1 L (2-4) % Baso % (Auto) 0.5 (0-2) % Neut # (Auto) 40653 H (4904-5306) /uL Lymph # (Auto) 1400 (8042-3608) /uL [place] # (Auto) 1300 H (0-900) /uL Eos # (Auto) 0 (0-450) /uL Baso # (Auto) 100 (0-100) /uL Sodium 131 L (137-145) mmol/L Potassium 4.5 (3.4-5.1) mmol/L Chloride 98 (98-107) mmol/L Carbon Dioxide 26 (22-32) mmol/L BUN 17 (9-20) mg/dL Creatinine 1.07 (0.66-1.25) mg/dL Estimated GFR > 60 (>60) mL/min BUN/Creatinine Ratio 15.9 (6-22) Glucose 176 H (80-110) mg/dL Lactate 1.5 (0.7-2.1) mmol/L Calcium 10.0 (8.4-10.2) mg/dL Total Bilirubin 0.8 (0.2-1.3) mg/dL AST 54 (17-59) IU/L ALT 23 (<50) IU/L Alkaline Phosphatase 83 (38-126) U/L Total Protein 6.9 (6.3-8.2) g/dL Albumin 3.9 (3.5-5.0) g/dL Globulin 3.0 (1.7-4.1) g/dL Albumin/Globulin Ratio 1.3 (1.0-2.8) Urine RBC 1-5/hpf (0-5/HPF) Urine WBC 10-30/hpf H (0-5/HPF) Ur Squamous Epith Cells None seen (0-5/HPF) Urine Bacteria None seen (None) Urine Yeast 10-30/hpf H (None) Ur Culture Indicated? Cult not indicated Vol Urine Centrifuged 10ml (spun) SARS-CoV-2 (PCR) Negative (Negative) Influenza A (RT-PCR) Flu a negative (NEGATIVE) Influenza B (RT-PCR) Flu b negative (NEGATIVE) RSV (PCR) Positive A (Negative) Urine Dip Bedside Urine Glucose Negative Bedside Urine Bilirubin - Negative Bedside Urine Ketone - Negative Urine Specific [place] 1.015 Bedside Urine Occult Blood ++ Bedside Urine pH 6.5 Bedside Urine Protein +/- 15 Bedside Urine Urobilinogen +/- 1mg Bedside Urine Nitrite - Negative Bedside Urine Leukocytes +/- 15 Esterase MDM Narrative Medical decision making narrative: 83-year-old male with past medical history CVA, TIA, herniated nucleus pulposus of the lumbar region, prostate cancer returns to the ED due to worsening symptoms from a UTI. Will obtain labs, lactate, UA, chest x-ray, blood culture. Will give Zofran for nausea. Will reassess. Urine positive for WBC, yeast, leukocyte esterase. WBC elevated to 15. All other labs within normal limits. Respiratory panel is positive for RSV. Chest x-ray without acute findings. Pharmacy consulted, they recommend IV antibiotics, given culture and sensitivity. Patient started on 2 g cefepime IV. Hospitalist Dr. Stephen was consulted. He did consult ID specialist Dr. Raygoza regarding antibiotic selection, she also concurs with cefepime. [facility] graciously accepts patient for admission for further IV antibiotic treatment. Urinary yeast indicates possible need for antifungal tx as well. Medical records reviewed: Yes <Malena Stahl DO - Last Filed: 06/06/24 18:45> Lab Data Labs: Lab Results 06/06/24 06/06/24 Range/Units 10:35 11:53 WBC 15.0 H (4.5-11.0) X10^3/uL RBC 4.03 L (4.5-5.9) X10^6/uL Hgb 11.9 L (13.5-17.5) g/dL Hct 35.4 L (41-53) % MCV 87.9 (80-100) fL MCH 29.5 (26-34) PG MCHC 33.6 (30-36) % RDW 14.8 (11.6-14.8) % Plt Count 229 (150-400) X10^3/uL Neut % (Auto) 81.0 H (50-75) % Lymph % (Auto) 9.5 L (25-40) % [place] % (Auto) 8.9 (3-14) % Eos % (Auto) 0.1 L (2-4) % Baso % (Auto) 0.5 (0-2) % Neut # (Auto) 33346 H (3649-2697) /uL Lymph # (Auto) 1400 (5315-3978) /uL [place] # (Auto) 1300 H (0-900) /uL Eos # (Auto) 0 (0-450) /uL Baso # (Auto) 100 (0-100) /uL Sodium 131 L (137-145) mmol/L Potassium 4.5 (3.4-5.1) mmol/L Chloride 98 (98-107) mmol/L Carbon Dioxide 26 (22-32) mmol/L BUN 17 (9-20) mg/dL Creatinine 1.07 (0.66-1.25) mg/dL Estimated GFR > 60 (>60) mL/min BUN/Creatinine Ratio 15.9 (6-22) Glucose 176 H (80-110) mg/dL Lactate 1.5 (0.7-2.1) mmol/L Calcium 10.0 (8.4-10.2) mg/dL Total Bilirubin 0.8 (0.2-1.3) mg/dL AST 54 (17-59) IU/L ALT 23 (<50) IU/L Alkaline Phosphatase 83 (38-126) U/L Total Protein 6.9 (6.3-8.2) g/dL Albumin 3.9 (3.5-5.0) g/dL Globulin 3.0 (1.7-4.1) g/dL Albumin/Globulin Ratio 1.3 (1.0-2.8) Urine RBC 1-5/hpf (0-5/HPF) Urine WBC 10-30/hpf H (0-5/HPF) Ur Squamous Epith Cells None seen (0-5/HPF) Urine Bacteria None seen (None) Urine Yeast 10-30/hpf H (None) Ur Culture Indicated? Cult not indicated Vol Urine Centrifuged 10ml (spun) SARS-CoV-2 (PCR) Negative (Negative) Influenza A (RT-PCR) Flu a negative (NEGATIVE) Influenza B (RT-PCR) Flu b negative (NEGATIVE) RSV (PCR) Positive A (Negative) Urine Dip Bedside Urine Glucose Negative Bedside Urine Bilirubin - Negative Bedside Urine Ketone - Negative Urine Specific [place] 1.015 Bedside Urine Occult Blood ++ Bedside Urine pH 6.5 Bedside Urine Protein +/- 15 Bedside Urine Urobilinogen +/- 1mg Bedside Urine Nitrite - Negative Bedside Urine Leukocytes +/- 15 Esterase Discharge Plan Departure Patient Disposition: Admitted As Inpatient Clinical Impression: Acute UTI Respiratory syncytial virus (RSV) infection Qualifiers: RSV infection type: unspecified Qualified Code(s): B33.8 - Other specified viral diseases Admit Date/Time: 06/06/24 15:55 Admit Provider: Timi Stephen ED Sign-out <Malena Stahl DO - Last Filed: 06/06/24 18:45> Cosign ED Attending Armandoature Attestation: I was immediately available in the department for consultation.
[2024-06-06 12:36] LABS: Influenza A - CEPHEID Flu A NEGATIVE (NEGATIVE); Influenza B - CEPHEID Flu B NEGATIVE (NEGATIVE); Respiratory Syncytial Virus POSITIVE (Negative)
[2024-06-06 12:37] LABS: COVID-19 CEPHEID 4-PLEX PCR Negative (Negative)
[2024-06-06] MEDS: CEFEPIME 2 GM in SODIUM CHLORIDE 0.9% 100 ML IV (14:06)
[2024-06-06 14:46] VITALS: BP 122/56; PULSE 53; RESP 18; TEMP 36.9; O2SAT 97
[2024-06-06 15:57] VITALS: BMI 20.3
[2024-06-06 17:30] VITALS: BP 117/50; PULSE 53; RESP 18; TEMP 36.3
[2024-06-06 19:04] VITALS: BP 139/71; PULSE 75; RESP 19; TEMP 36.2; O2SAT 92
--- NOTE | 2024-06-06 19:25 | P.HP_ITS ---
History of Present Illness History of Present Illness Date Patient Seen: 06/06/24 Time Patient Seen: 17:00 Chief complaint: not getting better Narrative: Mario Erickson is an 83-year-old male with a past medical history significant for aortic stenosis s/p TAVR, cardiomyopathy s/p pacemaker, hypertension, hyperlipidemia, diabetes type 2, prior TIAs (2011, 2021), chronic low back pain and prostate cancer, suprapubic hay catheter who presents with worsening confusion and chills and recent drug resistant urine culture. He was in the emergency room on 05/29 for signs of recurrent urinary tract infection, was discharged on a fluroquinolone. His cultures returned with E. coli and pseudomonas resistant to fluoroquinolones, and pseudomonas with intermediate resistance to carbapenem. I did curbside an infectious disease provider given resistance profile, and cefepime would be a viable treatment option. He states since his ER discharge he had his suprapubic catheter changed, but has felt nauseous with chills at home. Denies sick contacts. In the ER vitals were unremarkable. Labs showed WBC of 15, Na 131 (chronic), Cr 1.07 (around baseline). UA still had 10-3o WBC, yeast, but no bacteria. He was also positive for RSV. CXR was performed and was unremarkable. [facility] Medical History HNP (herniated nucleus pulposus), lumbar History of prostate cancer Lumbosacral radiculopathy at L5 Lumbosacral spondylosis Facet arthropathy, lumbosacral Hematochezia (~2016) Bone spur Cervical spine fracture (~1958) RBBB (right bundle branch block) Left wrist fracture (~2010) Osteoarthritis Diabetes Prostate cancer Recurrent urinary tract infection Polymyalgia rheumatica Former smoker Aortic stenosis Cardiomyopathy Hyperlipidemia HTN (hypertension) TIA (transient ischemic attack) (~2011) TMJ (temporomandibular joint disorder) Surgical History Hx of prostatectomy Family History Father Heart disease Heart attack Mother No significant medical problems Grandmother Heart disease Social History household members: none Smoking Status: Former smoker alcohol intake: current Meds Home Medications and Allergies Home Medications Medication Instructions Recorded Confirmed Type metformin 1,000 mg tablet 1,000 mg PO BIDCC ##0 02/10/13 06/06/24 History clopidogrel 75 mg tablet 75 mg PO DAILY #30 tabs 08/21/20 06/06/24 Rx insulin glargine 100 unit/mL (3 10 unit SUBCUT BEDTIME 06/04/21 06/06/24 History mL) subcutaneous pen (Lantus Solostar U-100 Insulin) atorvastatin 80 mg tablet (Lipitor) 80 mg PO BEDTIME #30 tabs 05/08/23 06/06/24 Rx gabapentin 300 mg capsule 300 mg PO BEDTIME pain 11/19/23 06/06/24 History losartan 25 mg tablet 25 mg PO DAILY 06/06/24 06/06/24 History metoprolol succinate 25 mg 25 mg PO DAILY 06/06/24 06/06/24 History tablet,extended release 24 hr prednisone 5 mg tablet 10 mg PO DAILY 06/06/24 06/06/24 History semaglutide 1 mg/dose (4 mg/3 mL) 1 mg SUBCUT QWEEK 06/06/24 06/06/24 History subcutaneous pen injector (Ozempic) Allergies Allergy/AdvReac Type Severity Reaction Status Date / Time simvastatin AdvReac Intermediate Muscle Pain Verified 11/20/23 13:11 cephalexin AdvReac Mild Hallucinati Verified 11/19/23 13:23 ng baclofen AdvReac Unknown Verified 01/08/24 16:13 hydrocodone AdvReac Unknown Vomiting Verified 01/08/24 16:13 Review of Systems Review of Systems Narrative: All other systems reviewed with the patient and are negative unless otherwise stated. Exam Vital Signs (past 8 hours): - 06/06/24 14:46 06/06/24 17:30 Temperature 98.4 F 97.3 F L Pulse Rate 53 L 53 L Respiratory Rate 18 18 Blood Pressure 122/56 L 117/50 L Pulse Oximetry 97 Oxygen Delivery Method Room Air Oxygen Delivery Method Room Air Narrative Exam Narrative: General:? Patient is well developed and well nourished, in no distress at this time. HEENT:? Normocephalic, atraumatic, extraocular muscles intact, oral pharynx is clear and mucous membranes are moist. Neck: supple and symmetric, trachea is midline, no cervical adenopathy. Negative for JVD Chest:? Normal AP diameter and contour without kyphoscoliosis, no tachypnea, equal chest rise bilaterally. Lungs:? CTA b/l no wheezing rhonchi or rales. Cardio:?RRR no m/r/g. Abdomen: S NT ND. Ext: No edema Objective Labs 06/06/24 10:35 06/06/24 10:35 Labs: Laboratory Results - last 24 hr 06/06/24 06/06/24 10:35 11:53 WBC 15.0 H RBC 4.03 L Hgb 11.9 L Hct 35.4 L MCV 87.9 MCH 29.5 MCHC 33.6 RDW 14.8 Plt Count 229 Neut % (Auto) 81.0 H Lymph % (Auto) 9.5 L [place] % (Auto) 8.9 Eos % (Auto) 0.1 L Baso % (Auto) 0.5 Neut # (Auto) 55146 H Lymph # (Auto) 1400 [place] # (Auto) 1300 H Eos # (Auto) 0 Baso # (Auto) 100 Sodium 131 L Potassium 4.5 Chloride 98 Carbon Dioxide 26 BUN 17 Creatinine 1.07 Estimated GFR > 60 BUN/Creatinine Ratio 15.9 Glucose 176 H Lactate 1.5 Calcium 10.0 Total Bilirubin 0.8 AST 54 ALT 23 Alkaline Phosphatase 83 Total Protein 6.9 Albumin 3.9 Globulin 3.0 Albumin/Globulin Ratio 1.3 Urine RBC 1-5/hpf Urine WBC 10-30/hpf H Ur Squamous Epith Cells None seen Urine Bacteria None seen Urine Yeast 10-30/hpf H Ur Culture Indicated? Cult not indicated Vol Urine Centrifuged 10ml (spun) SARS-CoV-2 (PCR) Negative Influenza A (RT-PCR) Flu a negative Influenza B (RT-PCR) Flu b negative RSV (PCR) Positive A Assessment & Plan Assessment & Plan narrative: Mario Erickson is an 83-year-old male with a past medical history significant for aortic stenosis s/p TAVR, cardiomyopathy s/p pacemaker, hypertension, hyperlipidemia, diabetes type 2, prior TIAs (2011, 2021), chronic low back pain and prostate cancer, suprapubic hay catheter admitted with confusion, likely due to sepsis from complicated acute cystitis. 1. Acute complicated cystitis due to chronic suprapubic catheter, with drug resistant bacteria - with cultures performed last week, E. coli and Pseudomonas are resistant to oral therapies. Both are sensitive to cefepime. Continue 2g q12 hr per pharmacy. Will need 7 days of therapy. - monitor overnight for signs of possible sepsis, though SOFA score currently 0 - follow up blood cultures. - place midline before discharge - will need to determine if antibiotics can be continued at home or needs SNF 2. DM2 - continue home lantus, with sliding scale - hold home Ozempic. 3. History of suprapubic hay catheter - recommend continued outpatient follow up with urologist after discharge. Was changed recently as an outpatient after recent ER visit. 5. Prior TIA - continue asa/plavix and home statin. 6. HTN - continue home metoprolol, hold losartan for now in case of sepsis. 7. Chronic diastolic heart failure - does not appear to be volume overload. 8. RSV infection - continue supportive care for any symptoms that develop. Code: Full, surrogate is patient's daughter DVT: Lovenox daily I have utilized all available immediate resources to obtain, update, or review the patient's current medications. Dispo: patient admitted under inpatient status. Dispo depends on logistics of IV antibiotic infusions. Additional history obtained via discussions with the ER provider and patient's daughter. These discussions contributed to the creation of the above assessment and plan. I have reviewed patient's presenting documentation, labs, and imaging personally. Time-Based Coding :: [TOTAL MINUTES] spent with patient and on the chart (including review of chart, obtaining history, exam, reviewing outside data, placing orders, documenting exam and treatment plan, and counseling patient) on [DATE]. Quality VTE Deep Vein Thrombosis/Pulmonary Embolism Present on Admission: No
[2024-06-06] MEDS: ATORVASTATIN 20 MG TABLET 80 MG PO (20:18)
[2024-06-06] MEDS: INSULIN GLARGINE 100 UNIT/ML 3ML PEN 10 UNIT SUBCUT (20:19)
[2024-06-06] MEDS: GABAPENTIN 300 MG CAPSULE PO (20:19)
[2024-06-06] MEDS: ZOLPIDEM 5 MG TABLET 2.5 MG PO (20:26)
[2024-06-06 23:04] VITALS: O2SAT 93
[2024-06-07] VITALS (9 sets, daily range): BP systolic 100–140; BP diastolic 44–62; PULSE 65–95; RESP 14–18; TEMP 35.8–36.6; O2SAT 93–100
[2024-06-07] MEDS: CEFEPIME 2 GM in SODIUM CHLORIDE 0.9% 100 ML IV ×2 (03:36→17:57)
[2024-06-07 05:42] LABS: Add Manual Diff / Slide Review NO; Basophils Absolute Auto 0 /uL (0-100); Basophils Percent Auto 0.3 % (0-2); Eosinophils Absolute Auto 0 /uL (0-450); Eosinophils Percent Auto 0.2 % (2-4); Hemoglobin 10.6 g/dL (13.5-17.5); Lymphocytes Absolute Auto 3200 /uL (1100-4500); Lymphocytes Percent Auto 25.9 % (25-40); Mean Corpuscular HGB Conc 34.3 % (30-36); Mean Corpuscular Hemoglobin 29.7 PG (26-34); Mean Corpuscular Volume 86.7 fL (80-100); Monocytes Absolute Auto 1200 /uL (0-900); Monocytes Percent Auto 9.7 % (3-14); Neutrophils Absolute Auto 7800 /uL (1500-7000); Neutrophils Percent Auto 63.9 % (50-75); Platelet Count 206 X10^3/uL (150-400); Red Blood Cell Count 3.58 X10^6/uL (4.5-5.9); Red Cell Distribution Width 14.9 % (11.6-14.8); White Blood Cell Count 12.3 X10^3/uL (4.5-11.0)
[2024-06-07 05:49] LABS: Alanine Aminotransferase 19 IU/L (<50); Albumin 3.3 g/dL (3.5-5.0); Albumin Globulin Ratio 1.2 (1.0-2.8); Alkaline Phosphatase 59 U/L (38-126); Aspartate Aminotransferase 26 IU/L (17-59); Bilirubin Total 0.8 mg/dL (0.2-1.3); Blood Urea Nitrogen 15 mg/dL (9-20); Calcium 9.8 mg/dL (8.4-10.2); Carbon Dioxide 28 mmol/L (22-32); Chloride 100 mmol/L (98-107); Estimated Glomerular Filt Rate > 60 mL/min (>60); Globulin 2.7 g/dL (1.7-4.1); Glucose 115 mg/dL (80-110); HEMOLYSIS < 15 (0-50); Magnesium 1.5 mg/dL (1.6-2.3); Potassium 4.1 mmol/L (3.4-5.1); Sodium 133 mmol/L (137-145)
[2024-06-07] MEDS: predniSONE 5 MG TABLET 10 MG PO (08:49)
[2024-06-07] MEDS: CLOPIDOGREL 75 MG TABLET PO (08:49)
[2024-06-07] MEDS: ENOXAPARIN 40 MG/0.4 ML SYRINGE SUBCUT (08:49)
[2024-06-07] MEDS: METOPROLOL ER 25 MG TABLET PO (08:50)
--- NOTE | 2024-06-07 09:39 | DIET.CONS ---
Dietary Consultation Note Admission Date: 06/06/2024 15:55 Assessment: 83 y M admitted for acute complicated cystitis. RD screened for low MNA. PMH of DM2, last A1c% 05/2023 at 7%, CHF, and prostate cancer. Met with pt at bedside who reports appetite is doing okay now, breakfast tray was eaten and off to side. Before coming to hospital reports appetite was decreased for around 2 months, he associates this with recent infections. Has 2 meals per day. Is not hungry and finds it difficult to think of eating when no appetite. Pt has previously tried ONS and liked certain flavors. Open to trying different flavor here and implementing at home if taste good. Started Ozempic about 1 year ago and lost 30 lb. Reports weight has been stable at 68 kg (150 lb) within last couple of months. Pt would ideally like to gain weight again. Ht: 182.88 cm Wt: 68.039 kg (weight same as 11/19/23) BMI: 20.3 (underweight for age) UBW: 68.946 kg on 01/08/24, 70-80 kg , pt reports UBW 180 lb >1 yr ago Last BM: 06/04/24 (06/06/24 15:57) MNA: 8 Jose Score: 20 Diet: 06/06/24 Dinner Carbohydrate Consistent Diet Diet Modifications: Carbohydrate level: Medium (3 CHO) Bedtime snack: Yes Reflex DM orders: No Food Texture: Level 7 - Regular Liquid Consistency: Level 0 - Thin Labs: RBC 3.58 X10^6/uL (4.5-5.9) L 06/07/24 05:00 Hgb 10.6 g/dL (13.5-17.5) L 06/07/24 05:00 Hct 31.0 % (41-53) L 06/07/24 05:00 Creatinine 1.07 mg/dL (0.66-1.25) 06/07/24 05:00 Lactate 1.5 mmol/L (0.7-2.1) 06/06/24 10:35 Nutrition Diagnosis: Inadequate oral intake r/t reduced appetite and medication aeb pt reports lack of appetite and only having 2 smaller meals per day, BMI underweight for age Interventions: 1. ONS trial 2. Discussed with pt and friend at bedside other options to increasing PO intakes with low appetite i.e. small freq meals, increasing amount of food bought when grocery shopping, easy snacks EER: [id number] kcals (25-30 kcals/kg) 70 g protein (1g/kg per age) Monitoring/Evaluations: po intakes, ons tolerance Electronically Signed by: Ros Eli 06/07/24 09:39 Clinical Dietitian [address] [address]
--- NOTE | 2024-06-07 09:50 | PT.IIE ---
Current Diagnoses Acute cystitis without hematuria (06/06/24) Surgical History (Last Reviewed 06/06/24 @ 10:25 by Malena Stahl DO) Hx of prostatectomy Medical History (Last Reviewed 06/06/24 @ 10:25 by Malena Stahl DO) Aortic stenosis Bone spur Cardiomyopathy Cervical spine fracture (~1958) Diabetes Facet arthropathy, lumbosacral Former smoker Hematochezia (~2016) History of prostate cancer HNP (herniated nucleus pulposus), lumbar HTN (hypertension) Hyperlipidemia Left wrist fracture (~2010) Lumbosacral radiculopathy at L5 Lumbosacral spondylosis Osteoarthritis Polymyalgia rheumatica Prostate cancer RBBB (right bundle branch block) Recurrent urinary tract infection TIA (transient ischemic attack) (~2011) TMJ (temporomandibular joint disorder) Physical Therapy Inpatient Evaluation/Re-Eval M1 PT/OT-IP Prior Functional Status Start: 06/07/24 10:29 Freq: NEEDED Status: Active Protocol: Document 06/07/24 09:50 AB (Rec: 06/07/24 10:42 AB [id number]) Medical Review Prior Functional Status Medical History Reviewed Yes Communication able to make needs known Mobility and Gait pt stated that he was independent with all mobilities and ambulation without AD but occasinally uses his SPC for mobility depending on his L hip pain Social History Household Members none Living Arrangements House Number of Floors (Floors) One Floor Number of Stairs To Enter/Railing? 2 steps L rail to enter Home Environment High Toilet,Walk in Shower,Tub /Shower Home Equipment Straight Cane,Hand Held Shower ,Grab Bars Near Toilet,Grab Bars In Shower Additional Social History Comment pt has a house keeper that comes in every 2 weeks to clean the house M2 PT-IP Current Condition Start: 06/07/24 10:29 Freq: NEEDED Status: Active Protocol: Document 06/07/24 09:50 AB (Rec: 06/07/24 10:42 AB [id number]) Physical Therapy Current Condition Current Condition Evaluation Date 06/07/24 Treatment Diagnosis UTI; RSV; difficulty in walking Onset Date 06/06/23 M3 PT-IP Subjective Start: 06/07/24 10:29 Freq: NEEDED Status: Active Protocol: Document 06/07/24 09:50 AB (Rec: 06/07/24 10:42 AB [id number]) Subjective Physical Therapy Visit Type Type Initial Evaluation Visit Start Time 09:50 Visit Stop Time 10:15 Number of SORT LINE WORKER Visits 0 Physical Therapy Visit Comments Patient Comments agreeable to do PT Therapy Pain Assessment Pain Present Pain Present Denied Pain M4 PT-IP Mobility and Gait Start: 06/07/24 10:29 Freq: NEEDED Status: Active Protocol: Document 06/07/24 09:50 AB (Rec: 06/07/24 10:42 AB [id number]) PT-Bed Mobility Assessment Supine to Sit Supine to Sit Independent PT-Transfer Assessment Sit to and From Stand Sit to and from Stand Contact Guard Assistance, Minimal Assistance,1 Person Assistance,Use of Upper Extremities Equipment Transfer Assistive Device None,Gait Belt,Straight Cane Orthotic/Prosthetic Devices or Brace: No Transfers Transfer Destination Chair Transfer Technique ambulated Transfer Ability Level of Assist Standby Assistance,Contact Guard Assistance Comments Mobility Comments pt supine in bed and agreeable to do PT. obtained PLOF and home setup. pt completed supine to sit mod I. able to sit on EOB SBA. no c/o dizziness. assisted with donning of gown. completed sit to stand SBA to CGA with posterior LOB with initial standing. pt ambulated in room without AD SBA to occasional CGA with LOB x 2. completed ~ 50 ft. pt sat on chair. agreed to do stairs. positioned step stool next to foot of the bed. pt completed sit to stand from the chair CGA with LOB posteriorly. ambulated towards the bed SBA without AD. completed up/down step stool using foot board as rail CGA and cues. (+) LOB x 2. pt ambulated back to the chair SBA without AD. pt agreed to stay up on the chair . positioned pt on the chair. call light and table placed within reach. Gait Assessment Gait Gait Assistance Required: Standby Assistance,Contact Guard Assist Distance (Feet) 50 Able to Maintain Weight Bearing Status Yes During Gait Assistive Devices Assistive Device None,Gait Belt,Straight Cane Orthotic/Prosthetic Devices or Brace: No Gait Deviations General Gait Pattern Decreased Stride Length, Decreased Feet Clearance Factors Limiting Gait Function Factors Limiting Gait Function Decreased Activity Tolerance, Decreased Strength,Limited Range of Motion,Poor Balance, Poor Safety Awareness Stair Climbing Assessment Evaluation Level of Assist On Stairs Contact Guard Assistance Devices Stair Climbing Assistive Devices Left Railing Technique/Endurance Stair Climbing Direction Ascend and Descend Stair Climbing Technique Step to Step Number of Steps Climbed 1 Query Text: Stair Climbing Set # Repetitions (reps) 2 PT-Balance Assessment Sitting Balance and Reactions Static Sitting Balance Ability Normal Dynamic Sitting Balance Ability Good Standing Balance and Reactions Static Standing Balance Ability Fair Dynamic Standing Balance Ability Fair Device Used without AD M5 PT-IP Objective Assessments Start: 06/07/24 10:29 Freq: NEEDED Status: Active Protocol: Document 06/07/24 09:50 AB (Rec: 06/07/24 10:42 AB [id number]) Orientation Orientation/Cognition Level of Alertness Alert Orientation Name Language Function Ability No Deficits Noted Safety Awareness Decreased Safety Awareness Memory Description No Deficits Noted Gross Range of Motion Lower Extremity ROM Assessment Within Functional Limits Strength Lower Extremity Strength Assessment Within Functional Limits Coordination Assessment Gross Coordination Gross Coordination WNL Sensation Assessment Sensation Gross Sensation WNL Muscle Tone Muscle Tone WNL Yes M6 PT-IP Treatment Start: 06/07/24 10:29 Freq: NEEDED Status: Active Protocol: Document 06/07/24 09:50 AB (Rec: 06/07/24 10:42 AB [id number]) Physical Therapy Treatment Education Education Provided Safety M7 PT-IP Assessment and Plan Start: 06/07/24 10:29 Freq: NEEDED Status: Active Protocol: Document 06/07/24 09:50 AB (Rec: 06/07/24 10:42 AB [id number]) PT Summary Assessment and Plan Potential Rehabilitation Potential Fair Status of Condition at Evaluation Evolving Summary Impairments Pain,ROM,Strength,Balance, Coordination,Sensation,Tone, Cognition,Bed Mobility, Transfers,Gait,Activity Tolerance Assessment Summary pt is an 83 y/o M who is admitted for UTI and RSV. pt requiring SBA to CGA with mobility without AD with (+) LOB requiring CGA for recovery and safety. d/c plan depending on progress. will continue to assess. Goals Transfer Goal Independent,Cane Gait Goal Independent,Cane Gait Distance 200 Other Goals improve transfers and ambulation without AD 300 ft mod I up/down 2 steps L rail ascendign mod I Days to Meet Goals 10 Frequency of Treatment Frequency Of Treatment Once a Day Treatment Plan Physical Therapy Treatment Plan Bed Mobility Training,Transfer Training,Gait Training, Therapeutic Exercise,Balance Retraining,Discharge Planning, Hot or Cold Pack,Neuromuscular Re-ed,Coordination Retraining Precautions Other Precautions droplet precautions (RSV) Recommendations To Nursing Amount of Assist Needed 1 Person Assist Discharge Recommendations PT Discharge Recommendations Home with Assistance,Home Health Transportation Needs at Discharge Private Vehicle,Wheelchair/ Cabulance
[2024-06-07] MEDS: MAGNESIUM CHLORIDE 64 MG TABLET 128 MG PO (10:23)
--- NOTE | 2024-06-07 11:07 | OT.IP.EVAL ---
Current Diagnoses Acute cystitis without hematuria (06/06/24) Past Medical History (Last Reviewed 06/06/24 @ 10:25 by Malena Stahl DO) Aortic stenosis Bone spur Cardiomyopathy Cervical spine fracture (~1958) Diabetes Facet arthropathy, lumbosacral Former smoker Hematochezia (~2017) History of prostate cancer HNP (herniated nucleus pulposus), lumbar HTN (hypertension) Hyperlipidemia Left wrist fracture (~2010) Lumbosacral radiculopathy at L5 Lumbosacral spondylosis Osteoarthritis Polymyalgia rheumatica Prostate cancer RBBB (right bundle branch block) Recurrent urinary tract infection TIA (transient ischemic attack) (~2011) TMJ (temporomandibular joint disorder) Surgical History (Last Reviewed 06/06/24 @ 10:25 by Malena Stahl DO) Hx of prostatectomy Occupational Therapy Inpatient Evaluation/Re-Eval M1 PT/OT-IP Prior Functional Status Start: 06/07/24 10:29 Freq: NEEDED Status: Active Protocol: Document 06/07/24 11:21 [facility] (Rec: 06/07/24 11:36 [facility] [id number]) Medical Review Prior Functional Status Medical History Reviewed Yes Communication able to make needs known Mobility and Gait pt stated that he was independent with all mobilities and ambulation without AD but occasionally uses his SPC for mobility depending on his L hip pain Activities of Daily Living and IADL's Pt initially states completely independent with all needs and then states has a house keeper and that his kids assist with finances and meds. Social History Household Members none Living Arrangements House Number of Floors (Floors) One Floor Number of Stairs To Enter/Railing? 2 steps L rail to enter Home Environment High Toilet,Walk in Shower,Tub /Shower Home Equipment Straight Cane,Hand Held Shower ,Grab Bars Near Toilet,Grab Bars In Shower Additional Social History Comment pt has a house keeper that comes in every 2 weeks to clean the house M2 OT-IP Current Condition Start: 06/07/24 11:20 Freq: Status: Active Protocol: Document 06/07/24 11:21 [facility] (Rec: 06/07/24 11:36 [facility] [id number]) Occupational Therapy Current Condition Current Condition Evaluation Date 06/07/24 Treatment Diagnosis Acute complicated cystitis due to chronic suprapubic catheter Diagnosis Onset Date 06/06/24 M3 OT- IP Subjective and Pain Start: 06/07/24 11:20 Freq: Status: Active Protocol: Document 06/07/24 11:21 [facility] (Rec: 06/07/24 11:36 [facility] [id number]) OT- Subjective Occupational Therapy Visit Type Type Initial Evaluation Visit Start Time 10:30 Visit Stop Time 11:07 Occupational Therapy Visit Comments Patient Comments Pt agreed to get up and do SLUMS. Patient/Caregiver Goals TO go home. OT Pain Assessment Pain When Pain Assessed At Rest Pain Present Pain Present Denied Pain M4 OT- IP ADL's Start: 06/07/24 11:20 Freq: Status: Active Protocol: Document 06/07/24 11:21 [facility] (Rec: 06/07/24 11:36 [facility] [id number]) OT [id number] Comments OT Self-Feeding Comments NOt at meal time. OT ADL-Grooming General Evaluation Grooming Ability Independent Comments OT Grooming Comments Pt increased time for set-up and bale to do while standing without a device. OT ADL-Oral Care General Eval Oral Care Ability Standby Assistance Comments Oral Care Comments Pt needing vc to point out that he already took the toothpaste cap off as still trying to take off the cap. OT ADL-Dressing General Eval Lower Body Dressing Ability Standby Assistance Comments OT Dressing Comments Pt able to charlie/doff his socks while seated. OT ADL-Toileting General Evaluation Toileting Ability Standby Assistance Comments OT Toileting Comments Pt has a catheter bag. Pt states has been able to do his own care for catheter bag. OT ADL-Bathing Comments OT Bathing Comments Pt would benefit from a shower chair. M5 OT- IP IADL's Start: 06/07/24 11:20 Freq: Status: Active Protocol: Document 06/07/24 11:21 [facility] (Rec: 06/07/24 11:36 [facility] [id number]) OT-Instrumental Activities of Daily Living Home Safety Awareness Awareness of Need for Assistance at Home Good Awareness Ability to Problem Solve Emergency Able to Problem Solve Situations Home Safety Comments Pt needing increased time to come up with answers for home safety situations. Medication Management Medication Management Caregiver Administers Money Management Money Management Caregiver Provides Assistance Meal Preparation Meal Preparation Comments Pt would benefit from assist. M6 OT- IP Functional Cognition Start: 06/07/24 11:20 Freq: Status: Active Protocol: Document 06/07/24 11:21 [facility] (Rec: 06/07/24 11:36 [facility] [id number]) Cognitive Factors Limiting Selfcare Function Cognitive Ability Level of Alertness Alert,Confusional State Patient Orientation Name,Age,Birthday,Month,Year, Place,Situation Attention Span Ability Capable of Focused Attention, Capable of Sustained Attention Ability to Follow Commands Able to Follow One Step Commands Memory Description Short Term Impaired Cognitive Tests SLUMS Pt scored 22/30 on the SLUMS which implies mild neurocognitive deficits. Pt not knowing the day of week, able to recall 1/5 objects after time passed, not able to state 4 digit number backwards, and able to answer 3/4 questions right after paragraph read. Cognitive Comments Cognitive Assessment Comments Pt is aware that he is not quite back to his baseline and agrees that best to have his daughter stay with him initially. Pt states to also wait to drive at this time. OT- Vision and Hearing OT- Hearing Assessment OT- Hearing Assessment Use of Hearing Aids OT- Vision Assessment Visual Acuity Glasses For Reading Visual Attentiveness WFL Occular Pursuits WFL Visual Convergence WFL Visual Gomez WFL M7 OT- IP Mobility and Balance Start: 06/07/24 11:20 Freq: Status: Active Protocol: Document 06/07/24 11:21 [facility] (Rec: 06/07/24 11:36 [facility] [id number]) OT-Transfer Assessment Sit to and From Stand Sit to and from Stand Standby Assistance Transfers Transfer Ability Standby Assistance Technique Transfer Destination Chair Transfer Technique Stand Step Pivot Devices Transfer Assistive Devices None Comments Mobility Comments SBA for mobility in the room. pt is a bit forgetful and reminded pt to use the call light to get assist at this time. OT- Balance Assessment Sitting Balance and Reactions Static Sitting Balance Ability Normal Dynamic Sitting Balance Ability Normal Standing Balance and Reactions Static Standing Balance Ability Good Dynamic Standing Balance Ability Good M8 OT- IP Objective Assessments Start: 06/07/24 11:20 Freq: Status: Active Protocol: Document 06/07/24 11:21 [facility] (Rec: 06/07/24 11:36 [facility] [id number]) OT Gross Range of Motion Upper Extremity Range of Motion Assessment Within Functional Limits OT Strength Upper Extremity Strength Assessment Within Functional Limits OT- Coordination Assessment Upper Extremity Finger to Nose Test Within Functional Limits M9 OT- IP Assessment and Plan Start: 06/07/24 11:20 Freq: Status: Active Protocol: Document 06/07/24 11:21 [facility] (Rec: 06/07/24 11:36 [facility] [id number]) OT Summary Assessment and Plan Potential Rehabilitation Potential Good Analytic Complexity at Evaluation Low Summary OT Impairments Balance,Bathing Progress Towards Goals Progressing Toward Goals Assessment Summary Pt low complexity and main barriers are pt a little forgetful yet, decreased dynamic balance and wantin to go home. Pt lives alone with family next door to him. Suggested pt have family stay with him initially. Goals Grooming Goal Independent Dressing Goal Independent Toileting Goal Independent Bathing Goal Independent Toilet Transfer Goal Independent Shower Transfer Goal Independent Days to Meet Goals 5 Frequency of Treatment Other frequency 5x/week Treatment Plan OT Treatment Plan ADL Training,Functional Cognition Training,Functional Mobility,Patient/Family Education,Discharge Planning Other Treatment Recommendations and Next Shower, [place] Making Part B Treatment Focus Discharge Recommendations OT Discharge Recommendations Home with Assistance,Home with 24/7 Assist Available initially Home Equipment Needs Shower chair Transportation Needs at Discharge Private Vehicle
[2024-06-07] MEDS: INSULIN LISPRO 100 UNIT/ML 3ML VIAL SUBCUT ×2 (12:15→17:57)
--- NOTE | 2024-06-07 12:23 | CM.DANOTE ---
Addendum entered by LIZETH Fishman 06/07/24 15:58: TEST LAB TECHNICIAN attempted again x2 to reach someone from PCP office ([phone]) no response and unable to leave a voicemail. Attempted to call [place] primary care offices, no response. TEST LAB TECHNICIAN spoke with Manju, customer service receptionist of [facility] ([phone]). She attempted to get ahold of the primary care team as well, unsuccessful. TEST LAB TECHNICIAN provided Manju with pt information and request as well as CM call back number, Manju plans to message her boss and see if she can pass the message along to the primary care team. SL Addendum entered by LIZETH Fishman 06/07/24 13:04: Per Mario at [facility], noticed current dosing is on a 0300/1500 scheduled. asked if it could be adjusted to 0700/1900 schedule. TEST LAB TECHNICIAN spoke with RN/checked with pharmacy. pharmacy in agreement with adjusting timing of dosing to 1700 tonight, 0500 tomorrow am, and then pt will be able to be on 0700/1900 schedule moving forward SL Addendum entered by LIZETH Fishman 06/07/24 12:39: Per Ary Murphy ([employer] hydrogen power plant manager, dumpling machine operator for DI nurse) confirms DI nurse availability all week. TEST LAB TECHNICIAN attempted again to contact Dr. Peters's office, on hold 15 minutes, no response. SL Original Note: DCP assessment note pt is a 83yo M admitted with acute cystitis due to chronic suprapubic catheter. PMH aortic stenosis s/p TAVR, cardiomyopathy s/p pacemaker, hypertension, hyperlipidemia, diabetes type 2, prior TIAs (2011, 2021), chronic low back pain and prostate cancer (H&P). PCP Dr. Yo Peters ([facility]) Payer medicare [facility] LIZETH reviewed EMR. Per provider notes/in morning rounds, final blood cultures pending but as of now, pt will need 7 days (stop date 06/13, morning dose last dose) of IV cefepime 2gm Q12. PCP to Manage, no labs to follow. no order for midline/PICC yet, want to wait until final blood culture results. Per OT/PT, rec home with assistance. OT eval rec home with 24/ assistance at the start. SLUMS=. TEST LAB TECHNICIAN met with pt and son Alexis in room. [place] but son Alexis and two dtrs live very close by. Cane at baseline but only uses it when not feeling good. Deny hx of HH or home infusions. TEST LAB TECHNICIAN reviewed different DCP options for getting the IV abx. pt declines SNF. pt and family preference is home with [facility] for IV abx. deny wanting HH PT. Son Alexis confirms that he can come to help pt twice per day with home IV abx, but plan is for dtr to stay with him initially at dc. CC Ashley kindly agreed to send [facility] initial referral information. per Mario at [facility], able to accept pt. nursing SOC flexible this week. pt out of pocket cost is around $1,000 for the week. TEST LAB TECHNICIAN reviewed above out of pocket cost with pt and son Alexis. Verbally agreed to pay $1,000 and confirm preference to dc home with home infusions. TEST LAB TECHNICIAN notified Mario of pt's agreement to pay out of pocket cost. TEST LAB TECHNICIAN attempted x3 to call Dr. Yo Peters's office from [place] [facility] to confirm above plan. no answering service/unable to leave a voicemail. will continue to attempt to contact. P: home after final blood cultures are resulted. [facility] to follow, need to continue to coordinate with them re: timeline. Need to contact Dr. Peters's office. pt needs PICC/midline. CM team will continue to follow closely LIZETH Fishman Discharge Planning/Care Management Advanced directive, confirm from FAMILY Start: 06/06/24 16:09 Freq: Q24H Status: Active Protocol: Document 06/06/24 16:09 [facility] (Rec: 06/06/24 17:37 [facility] [id number]) Advance Directive, confirm on record Time 17:00 Person contacted patient Copy received No CM Discharge Assessment Start: 06/07/24 12:20 Freq: Status: Active Protocol: Document 06/07/24 12:20 SL (Rec: 06/07/24 12:23 SL [id number]) Discharge Planning Assessment Assigned Optics Manufacturing Technician LIZETH Solorio DPOA/Assigned Designee Name kathrin Durbin Contact Information [phone] Advance Directives? Yes Advance Directives on File Yes History Provided By Patient,Family Member,Medical Record Prior Living Arrangements House Household Members none Comment son Alexis and two drs Gifty and Lis live within about a mile of pt. Type of transporation used prior to Drives own vehicle admit Independent with ADL's Yes Is patient alert and oriented? Yes Comment son Alexis and dtrs Gifty and Lis assist pt as needed DME Already Rented / Owned Cane Comment finalization of details for home infusion plan. Discharge Plan Home Transportation Arrangement Children,Alexis, Kelli, or Gifty. Referrals Initiated Other Additional Comment [facility] Whiteboard Updated in Patient Room with Yes name and ext. # of Optics Manufacturing Technician Review Status In Process Please Provide Date Initial DC 06/07/24 Assessment Was Performed Next Review Type Continued Stay Review
--- NOTE | 2024-06-07 16:15 | P.PN_ITS ---
Subjective Subjective Interval history: Feels improved today, no complaints, feels back to his usual self. Exam Vital Signs (past 8 hours): - 06/07/24 11:00 06/07/24 12:00 Temperature 96.5 F L Pulse Rate 95 H Respiratory Rate 16 Blood Pressure 105/51 L Pulse Oximetry 95 97 Oxygen Delivery Method Room Air Oxygen Flow Rate 0 0 Oxygen Delivery Method Room Air Oxygen Flow Rate 0 Narrative Exam Narrative: General:? Patient is well developed and well nourished, in no distress at this time. HEENT:? Normocephalic, atraumatic, extraocular muscles intact, oral pharynx is clear and mucous membranes are moist. Neck: supple and symmetric, trachea is midline, no cervical adenopathy. Negative for JVD Chest:? Normal AP diameter and contour without kyphoscoliosis, no tachypnea, equal chest rise bilaterally. Lungs:? CTA b/l no wheezing rhonchi or rales. Cardio:?RRR no m/r/g. Abdomen: S NT ND. Ext: No edema Objective Labs 06/07/24 05:00 06/07/24 05:00 Labs: Laboratory Results - last 24 hr 06/07/24 05:00 WBC 12.3 H RBC 3.58 L Hgb 10.6 L Hct 31.0 L MCV 86.7 MCH 29.7 MCHC 34.3 RDW 14.9 H Plt Count 206 Neut % (Auto) 63.9 Lymph % (Auto) 25.9 [place] % (Auto) 9.7 Eos % (Auto) 0.2 L Baso % (Auto) 0.3 Neut # (Auto) 7800 H Lymph # (Auto) 3200 [place] # (Auto) 1200 H Eos # (Auto) 0 Baso # (Auto) 0 Sodium 133 L Potassium 4.1 Chloride 100 Carbon Dioxide 28 BUN 15 Creatinine 1.07 Estimated GFR > 60 BUN/Creatinine Ratio 14.0 Glucose 115 H Calcium 9.8 Magnesium 1.5 L Total Bilirubin 0.8 AST 26 ALT 19 Alkaline Phosphatase 59 Total Protein 6.0 L Albumin 3.3 L Globulin 2.7 Albumin/Globulin Ratio 1.2 PFSH Medical History HNP (herniated nucleus pulposus), lumbar History of prostate cancer Lumbosacral radiculopathy at L5 Lumbosacral spondylosis Facet arthropathy, lumbosacral Hematochezia (~2016) Bone spur Cervical spine fracture (~1958) RBBB (right bundle branch block) Left wrist fracture (~2010) Osteoarthritis Diabetes Prostate cancer Recurrent urinary tract infection Polymyalgia rheumatica Former smoker Aortic stenosis Cardiomyopathy Hyperlipidemia HTN (hypertension) TIA (transient ischemic attack) (~2011) TMJ (temporomandibular joint disorder) Surgical History Hx of prostatectomy Family History Father Heart disease Heart attack Mother No significant medical problems Grandmother Heart disease Social History household members: none Smoking Status: Former smoker alcohol intake: current Assessment & Plan Assessment & Plan narrative: Mario Erickson is an 83-year-old male with a past medical history significant for aortic stenosis s/p TAVR, cardiomyopathy s/p pacemaker, hypertension, hyperlipidemia, diabetes type 2, prior TIAs (2011, 2021), chronic low back pain and prostate cancer, suprapubic hay catheter admitted with confusion, likely due to sepsis from complicated acute cystitis. 1. Acute complicated cystitis due to chronic suprapubic catheter, with drug resistant bacteria - with cultures performed last week, E. coli and Pseudomonas are resistant to oral therapies. Both are sensitive to cefepime. Continue 2g q12 hr per pharmacy for renal function. Will need 7 days of therapy. Last dose 06/13 in the AM. - monitor overnight for signs of possible sepsis, though SOFA score currently 0 - follow up blood cultures if negative still can place midline tomorrow. - place midline before discharge - will need to determine if antibiotics can be continued at home or needs SNF, likely home infusion after discussion today. 2. DM2 - continue home lantus, with sliding scale - hold home Ozempic. 3. History of suprapubic hay catheter - recommend continued outpatient follow up with urologist after discharge. Was changed recently as an outpatient after recent ER visit. 5. Prior TIA - continue asa/plavix and home statin. 6. HTN - continue home metoprolol, hold losartan for now in case of sepsis. 7. Chronic diastolic heart failure - does not appear to be volume overload. 8. RSV infection - continue supportive care for any symptoms that develop. Code: Full, surrogate is patient's daughter DVT: Lovenox daily I have utilized all available immediate resources to obtain, update, or review the patient's current medications. Dispo: patient admitted under inpatient status. Dispo depends on logistics of IV antibiotic infusions. Additional history obtained via discussions with the ER provider and patient's daughter. These discussions contributed to the creation of the above assessment and plan. I have reviewed patient's presenting documentation, labs, and imaging personally. Time-Based Coding :: [TOTAL MINUTES] spent with patient and on the chart (including review of chart, obtaining history, exam, reviewing outside data, placing orders, documenting exam and treatment plan, and counseling patient) on [DATE]. Quality VTE Deep Vein Thrombosis/Pulmonary Embolism Present on Admission: No
[2024-06-07] MEDS: SODIUM CHLORIDE 0.9% FLUSH 10 ML IV (21:15)
[2024-06-07] MEDS: GABAPENTIN 300 MG CAPSULE PO (21:28)
[2024-06-07] MEDS: ATORVASTATIN 20 MG TABLET 80 MG PO (21:28)
[2024-06-07] MEDS: INSULIN GLARGINE 100 UNIT/ML 3ML PEN 10 UNIT SUBCUT (21:28)
[2024-06-07] MEDS: ZOLPIDEM 5 MG TABLET 2.5 MG PO (21:29)
[2024-06-08] VITALS: BP 112/63; PULSE 62; RESP 18; TEMP 36.3; O2SAT 97
[2024-06-08 04:00] VITALS: BP 105/49; PULSE 83; RESP 18; TEMP 36.1; O2SAT 98
[2024-06-08 05:51] LABS: Add Manual Diff / Slide Review NO; Basophils Absolute Auto 0 /uL (0-100); Basophils Percent Auto 0.4 % (0-2); Eosinophils Absolute Auto 100 /uL (0-450); Eosinophils Percent Auto 0.6 % (2-4); Hematocrit 31.4 % (41-53); Hemoglobin 10.9 g/dL (13.5-17.5); Lymphocytes Absolute Auto 2800 /uL (1100-4500); Lymphocytes Percent Auto 27.8 % (25-40); Mean Corpuscular HGB Conc 34.6 % (30-36); Mean Corpuscular Hemoglobin 29.9 PG (26-34); Mean Corpuscular Volume 86.5 fL (80-100); Monocytes Absolute Auto 900 /uL (0-900); Monocytes Percent Auto 9.2 % (3-14); Neutrophils Absolute Auto 6200 /uL (1500-7000); Platelet Count 208 X10^3/uL (150-400); Red Blood Cell Count 3.63 X10^6/uL (4.5-5.9); Red Cell Distribution Width 14.7 % (11.6-14.8); White Blood Cell Count 10.1 X10^3/uL (4.5-11.0)
[2024-06-08 06:01] LABS: Alanine Aminotransferase 23 IU/L (<50); Albumin 3.2 g/dL (3.5-5.0); Albumin Globulin Ratio 1.1 (1.0-2.8); Alkaline Phosphatase 66 U/L (38-126); Aspartate Aminotransferase 36 IU/L (17-59); BUN Creatinine Ratio 17.4 (6-22); Bilirubin Total 0.6 mg/dL (0.2-1.3); Blood Urea Nitrogen 19 mg/dL (9-20); Calcium 9.9 mg/dL (8.4-10.2); Carbon Dioxide 29 mmol/L (22-32); Chloride 100 mmol/L (98-107); Estimated Glomerular Filt Rate > 60 mL/min (>60); Glucose 121 mg/dL (80-110); HEMOLYSIS < 15 (0-50); Magnesium 1.7 mg/dL (1.6-2.3); Potassium 4.1 mmol/L (3.4-5.1); Sodium 133 mmol/L (137-145); Total Protein 6.2 g/dL (6.3-8.2)
[2024-06-08] MEDS: CEFEPIME 2 GM in SODIUM CHLORIDE 0.9% 100 ML IV (07:48)
[2024-06-08 08:47] VITALS: BP 96/60; PULSE 68
[2024-06-08] MEDS: CLOPIDOGREL 75 MG TABLET PO (08:47)
[2024-06-08] MEDS: predniSONE 5 MG TABLET 10 MG PO (08:47)
[2024-06-08] MEDS: ENOXAPARIN 40 MG/0.4 ML SYRINGE SUBCUT (08:47)
[2024-06-08] MEDS: METOPROLOL ER 25 MG TABLET PO (08:47)
[2024-06-08] MEDS: SODIUM CHLORIDE 0.9% FLUSH 10 ML IV (08:48)
[2024-06-08 09:00] VITALS: BP 96/60; PULSE 68; RESP 20; TEMP 36.3; O2SAT 98
--- NOTE | 2024-06-08 10:41 | DIET.PN1 ---
Dietary Progress Note Assessment: RD f/u. Pt enjoyed the regular Ensure chocolates. Provided coupons for this for pt and reviewed that this could be easy option to incorporate daily to to small frequent intakes when having decreased appetite to help with desired weight gain and prevent further weight loss (pt's BMI underweight for age). Noted that breakfast tray was off to side, mostly eaten. Ht: 182.88 cm Wt: 68.039 kg BMI: 20.3 Last BM: 06/04/24 (06/06/24 15:57) MNA: 8 Jose Score: 20 Diet: 06/06/24 Dinner Carbohydrate Consistent Diet Diet Modifications: Carbohydrate level: Medium (3 CHO) Bedtime snack: Yes Reflex DM orders: No Food Texture: Level 7 - Regular Liquid Consistency: Level 0 - Thin Labs: RBC 3.63 X10^6/uL (4.5-5.9) L 06/08/24 05:20 Hgb 10.9 g/dL (13.5-17.5) L 06/08/24 05:20 Hct 31.4 % (41-53) L 06/08/24 05:20 Creatinine 1.09 mg/dL (0.66-1.25) 06/08/24 05:20 Lactate 1.5 mmol/L (0.7-2.1) 06/06/24 10:35 Electronically Signed by: Ros Eli 06/08/24 10:41 Clinical Dietitian [address] [address]
[2024-06-08 11:57] VITALS: BP 106/60; PULSE 70; RESP 16; TEMP 36.4; O2SAT 98
[2024-06-08] MEDS: INSULIN LISPRO 100 UNIT/ML 3ML VIAL SUBCUT (12:06)
--- NOTE | 2024-06-08 12:40 | PM.DS.1 ---
History of Present Illness History of Present Illness Date Patient Seen: 06/08/24 Time Patient Seen: 08:00 Chief complaint: not getting better Narrative: Mario Erickson is an 83-year-old male with a past medical history significant for aortic stenosis s/p TAVR, cardiomyopathy s/p pacemaker, hypertension, hyperlipidemia, diabetes type 2, prior TIAs (2011, 2021), chronic low back pain and prostate cancer, suprapubic hay catheter who presents with worsening confusion and chills and recent drug resistant urine culture. He was in the emergency room on 05/29 for signs of recurrent urinary tract infection, was discharged on a fluroquinolone. His cultures returned with E. coli and pseudomonas resistant to fluoroquinolones, and pseudomonas with intermediate resistance to carbapenem. I did curbside an infectious disease provider given resistance profile, and cefepime would be a viable treatment option. He states since his ER discharge he had his suprapubic catheter changed, but has felt nauseous with chills at home. Denies sick contacts. In the ER vitals were unremarkable. Labs showed WBC of 15, Na 131 (chronic), Cr 1.07 (around baseline). UA still had 10-3o WBC, yeast, but no bacteria. He was also positive for RSV. CXR was performed and was unremarkable. Discharge Providers Provider Date of admission: 06/06/24 15:55 Discharge Date: 06/08/24 Primary care physician: Yo Peters MD Consults: 06/06/24 19:05 Consult to Occupational Therapy Evaluate & Treat Comment: Physician Instructions: Evaluate and treat Consult to Physical Therapy Evaluate & Treat Comment: Physician Instructions: Evaluate and Treat Discharge provider: Timi Stephen DO Summary Hospital Course Discharge Diagnosis: 1. Acute complicated cystitis due to chronic suprapubic catheter, with drug resistant bacteria 2. DM2 3. History of suprapubic hay catheter 5. Prior TIA 6. HTN 7. Chronic diastolic heart failure 8. RSV infection Hospital Course: Mario Erickson is an 83-year-old male with a past medical history significant for aortic stenosis s/p TAVR, cardiomyopathy s/p pacemaker, hypertension, hyperlipidemia, diabetes type 2, prior TIAs (2011, 2021), chronic low back pain and prostate cancer, suprapubic hay catheter admitted with confusion, likely due to sepsis from complicated acute cystitis. His urine culture showed E coli and Pseudomonas resistant to oral therapies. Both of these bacteria were sensitive to cefepime. Cefepime was adjusted to 2 g every 12 hours based on renal function with the help of the pharmacist. Total duration of antibiotic therapy will be 7 days, with his last dose June 13 in the morning. Continued laboratory and hemodynamic evaluations were unremarkable over the course of his stay. The patient elected to continue antibiotics at a [facility] facility at the time of discharge. A midline was placed during his hospitalization, and as noted above cefepime will continue at the [facility] facility until June 13. No other changes to his chronic medications are needed at this time. Somewhat incidentally the patient was found to have an RSV infection on admission, which he remained largely asymptomatic from except for mild nasal congestion. Time Spent with Patient Time spent: Greater than 30 minutes Exam Vital Signs (past 8 hours): - 06/08/24 08:47 06/08/24 09:00 06/08/24 09:00 Temperature 97.4 F L Pulse Rate 68 68 Respiratory Rate 20 Blood Pressure 96/60 96/60 Pulse Oximetry 98 98 Oxygen Delivery Method Room Air Oxygen Flow Rate 0 0 06/08/24 11:57 Temperature 97.6 F Pulse Rate 70 Respiratory Rate 16 Blood Pressure 106/60 Pulse Oximetry 98 Oxygen Delivery Method Oxygen Flow Rate 0 Oxygen Delivery Method Room Air Oxygen Flow Rate 0 Narrative Exam Narrative: General:? Patient is well developed and well nourished, in no distress at this time. HEENT:? Normocephalic, atraumatic, extraocular muscles intact, oral pharynx is clear and mucous membranes are moist. Neck: supple and symmetric, trachea is midline, no cervical adenopathy. Negative for JVD Chest:? Normal AP diameter and contour without kyphoscoliosis, no tachypnea, equal chest rise bilaterally. Lungs:? CTA b/l no wheezing rhonchi or rales. Cardio:?RRR no m/r/g. Abdomen: S NT ND. Ext: No edema Objective Labs 06/08/24 05:20 06/08/24 05:20 Labs: Laboratory Results - last 24 hr 06/08/24 05:20 WBC 10.1 RBC 3.63 L Hgb 10.9 L Hct 31.4 L MCV 86.5 MCH 29.9 MCHC 34.6 RDW 14.7 Plt Count 208 Neut % (Auto) 62.0 Lymph % (Auto) 27.8 [facility] % (Auto) 9.2 Eos % (Auto) 0.6 L Baso % (Auto) 0.4 Neut # (Auto) 6200 Lymph # (Auto) 2800 [facility] # (Auto) 900 Eos # (Auto) 100 Baso # (Auto) 0 Sodium 133 L Potassium 4.1 Chloride 100 Carbon Dioxide 29 BUN 19 Creatinine 1.09 Estimated GFR > 60 BUN/Creatinine Ratio 17.4 Glucose 121 H Calcium 9.9 Magnesium 1.7 Total Bilirubin 0.6 AST 36 ALT 23 Alkaline Phosphatase 66 Total Protein 6.2 L Albumin 3.2 L Globulin 3.0 Albumin/Globulin Ratio 1.1 PFSH Medical History HNP (herniated nucleus pulposus), lumbar History of prostate cancer Lumbosacral radiculopathy at L5 Lumbosacral spondylosis Facet arthropathy, lumbosacral Hematochezia (~2016) Bone spur Cervical spine fracture (~1958) RBBB (right bundle branch block) Left wrist fracture (~2010) Osteoarthritis Diabetes Prostate cancer Recurrent urinary tract infection Polymyalgia rheumatica Former smoker Aortic stenosis Cardiomyopathy Hyperlipidemia HTN (hypertension) TIA (transient ischemic attack) (~2011) TMJ (temporomandibular joint disorder) Surgical History Hx of prostatectomy Family History Father Heart disease Heart attack Mother No significant medical problems Grandmother Heart disease Social History household members: none Smoking Status: Former smoker alcohol intake: current Discharge Plan Discharge Plan Patient Disposition: Home Provider Discharge Comment: You were admitted to the hospital with drug resistant infection. Improving with IV antibiotic. Continue IV antibiotic at home, last dose will be in the morning on 06/13/2024. No repeat labs are recommended for this treatment after discharge. Please try to follow up with your primary care provider as soon as possible after discharge to review hospitalization. Discharge orders & Medications Prescriptions: New cefepime 2 gram recon soln 2 g IV Q12H 6 Days Qty: 11 0RF Rx Instructions: Stop Date AM dose 06/13 Continued metformin 1,000 MG tablet 1,000 mg PO BIDCC Qty: 0 insulin glargine [Lantus Solostar U-100 Insulin] 100 unit/mL (3 mL) Insulin Pen 10 unit SUBCUT BEDTIME prednisone 5 mg tablet 10 mg PO DAILY metoprolol succinate 25 mg tablet extended release 24 hr 25 mg PO DAILY Ozempic 1 mg/dose (4 mg/3 mL) Pen Injector 1 mg SUBCUT QWEEK clopidogrel 75 mg Tablet 75 mg PO DAILY Qty: 30 0RF atorvastatin [Lipitor] 80 mg tablet 80 mg PO BEDTIME Qty: 30 0RF gabapentin 300 mg capsule 300 mg PO BEDTIME Discontinued losartan 25 mg tablet 25 mg PO DAILY Follow up/Referrals: Yo Peters MD [Primary Care Provider] - Discharge Health Status Multidrug resistant organism: No MDRO Diet/Activity/Treatments Diet: Diet as Tolerated, Regular and Carb-consistent/Diabetic Diet comment: As tolerated Activity: As tolerated, no restrictions Visit Report/Discharge Packet Instructions: DI for Respiratory Syncytial Virus -- Adults, DI for Urinary Tract Infection (UTI), How to Prevent Falls, Peripherally Inserted Central Catheter, DI for Peripherally Inserted Central Catheter Removal Stand Alone Forms: Patient Portal/API, Stroke Signs & Symptoms Discharge Data Primary Care Provider: Yo Peters Quality VTE Deep Vein Thrombosis/Pulmonary Embolism Present on Admission: No
[2024-06-08 13:00] VITALS: O2SAT 97
--- NOTE | 2024-06-08 15:08 | CM.DPNOTE ---
DC Note Discharge today; home w/family. Midline placed this morning. [facility] scheduled for RN teach at hospital bedside today 1430. CHOCO Ramirez, kindly agreed to send Mario at [facility] patient's midline report and Dr Stephen's Rx for IV Cefepime 2g Q12. Reviewed plan with patient who remains agreeable. Plan: Discharge home w/family to assist, ongoing IV abx through [facility] managed by patient's PCP, daughter to transport home. ALEXIA
== END 2024-06-08 16:16 | disposition home or self-care (01) | DRG 698 ==
LOC: ED 14:48 → AC 15:20 → ED 15:29 → AC 15:32 → ED 15:56 → AC 15:56
PROVIDERS: Admitting Provider Internal Medicine; Emergency Provider Student in an Organized Health Care Education/Training Program; PCP Internal Medicine; Visit Provider Internal Medicine
DX: T83.518A Infection and inflammatory reaction due to other urinary catheter, initial encounter (principal); A41.9 Sepsis, unspecified organism; N30.00 Acute cystitis without hematuria; Z16.30 Resistance to unspecified antimicrobial drugs; I50.32 Chronic diastolic (congestive) heart failure; B96.20 Unspecified Escherichia coli [E. coli] as the cause of diseases classified elsewhere; B96.5 Pseudomonas (aeruginosa) (mallei) (pseudomallei) as the cause of diseases classified elsewhere; E11.9 Type 2 diabetes mellitus without complications; I11.0 Hypertensive heart disease with heart failure; B97.4 Respiratory syncytial virus as the cause of diseases classified elsewhere; J98.8 Other specified respiratory disorders; E78.5 Hyperlipidemia, unspecified; G89.29 Other chronic pain; M54.50 Low back pain, unspecified; Y73.1 Therapeutic (nonsurgical) and rehabilitative gastroenterology and urology devices associated with adverse incidents; Z96.0 Presence of urogenital implants; Z95.0 Presence of cardiac pacemaker; Z95.2 Presence of prosthetic heart valve; Z86.73 Personal history of transient ischemic attack (TIA), and cerebral infarction without residual deficits; Z79.84 Long term (current) use of oral hypoglycemic drugs; Z87.891 Personal history of nicotine dependence; Z87.440 Personal history of urinary (tract) infections; Z79.4 Long term (current) use of insulin; Z79.85 Long-term (current) use of injectable non-insulin antidiabetic drugs; Z79.52 Long term (current) use of systemic steroids; Z79.02 Long term (current) use of antithrombotics/antiplatelets
CPT/HCPCS: 0241U; 36415; 71046; 80053; 81003; 81015; 82962; 83605; 83735; 85025; 87040; 87077; 87086; 96365; 96375; 97116; 97162; 97165; 97535; 99284; J0692; J1650; J1815; J2405

== ENCOUNTER 2024-07-24 11:54 | Emergency (ER) | payer MEDICARE, OTHER, SELFPAY ==
[2024-07-24] VITALS (10 sets, daily range): BP systolic 132–190; BP diastolic 64–87; PULSE 80–97; RESP 16–30; TEMP 37.2; O2SAT 78–99; BMI 20.3
--- NOTE | 2024-07-24 12:57 | DI.CT.S_ITS ---
PROCEDURE: CT HEAD/BRAIN WO CON INDICATIONS: fall TECHNIQUE: Noncontrast 4.5 mm thick angled axial sections acquired from the foramen magnum to the vertex, with coronal and sagittal reformats. For radiation dose reduction, the following was used: automated exposure control, adjustment of mA and/or kV according to patient size. COMPARISON: [facility], CT, CT HEAD/BRAIN WO CON, 11/19/2023, 11:05. FINDINGS: Image quality: Diagnostic CSF spaces: Basal cisterns are patent. Lateral ventricles are symmetric. Volume: Vascular calcifications. Periventricular white matter disease is commonly seen with chronic microangiopathy. Volume loss is present. These findings are moderate Brain: No intracranial hemorrhage. Bunn-white differentiation is grossly maintained. Craniofacial structures: No significant paranasal sinus opacity. Possible postsurgical changes along the posterior scalp the mid neck. IMPRESSION: No acute intracranial hemorrhage. Posterior head and neck partially seen possible surgical changes. Dictated by: Candido Fried M.D. on 07/24/2024 at 13:19 Approved by: Candido Fried M.D. on 07/24/2024 at 13:21
--- NOTE | 2024-07-24 13:25 | PC.NURSE ---
Pt denies c spine tenderness
[2024-07-24 13:30] LABS: Add Manual Diff / Slide Review NO; Basophils Absolute Auto 100 /uL (0-100); Basophils Percent Auto 0.5 % (0-2); Eosinophils Absolute Auto 0 /uL (0-450); Eosinophils Percent Auto 0.5 % (2-4); Hematocrit 33.3 % (41-53); Hemoglobin 11.1 g/dL (13.5-17.5); Lymphocytes Absolute Auto 1500 /uL (1100-4500); Lymphocytes Percent Auto 15.1 % (25-40); Mean Corpuscular HGB Conc 33.5 % (30-36); Mean Corpuscular Hemoglobin 29.1 PG (26-34); Mean Corpuscular Volume 86.9 fL (80-100); Monocytes Absolute Auto 600 /uL (0-900); Monocytes Percent Auto 6.5 % (3-14); Neutrophils Absolute Auto 7700 /uL (1500-7000); Neutrophils Percent Auto 77.4 % (50-75); Platelet Count 253 X10^3/uL (150-400); Red Blood Cell Count 3.83 X10^6/uL (4.5-5.9)
[2024-07-24 13:41] LABS: Alanine Aminotransferase 22 IU/L (<50); Albumin 4.5 g/dL (3.5-5.0); Albumin Globulin Ratio 1.4 (1.0-2.8); Alkaline Phosphatase 80 U/L (38-126); Aspartate Aminotransferase 35 IU/L (17-59); BUN Creatinine Ratio 13.8 (6-22); Bilirubin Total 0.8 mg/dL (0.2-1.3); Blood Urea Nitrogen 13 mg/dL (9-20); Calcium 10.3 mg/dL (8.4-10.2); Carbon Dioxide 24 mmol/L (22-32); Chloride 99 mmol/L (98-107); Estimated Glomerular Filt Rate > 60 mL/min (>60); Globulin 3.3 g/dL (1.7-4.1); Glucose 192 mg/dL (80-110); Lipase 148 U/L (23-300); Potassium 4.7 mmol/L (3.4-5.1); Sodium 132 mmol/L (137-145); Total Protein 7.8 g/dL (6.3-8.2)
[2024-07-24 13:49] LABS: HEMOLYSIS 51 (0-50)
[2024-07-24 16:51] LABS: Appearance Urine UA CLOUDY; Bilirubin Urine UA NEGATIVE (NEGATIVE); Color Urine UA YELLOW; Glucose Urine UA 2+ g/dL (Negative); Ketones Urine UA NEGATIVE (NEGATIVE); Leukocyte Esterase Urine UA 1+ (NEGATIVE); Nitrite Urine UA NEGATIVE (Negative); Occult Blood Urine UA 1+ (Negative); Protein Urine UA TRACE (Negative)
[2024-07-24 17:10] LABS: Bacteria Urine Many (>30); Culture Indicated Urine Specimen Cultured; RBC Urine None Seen (0-5/HPF); Squamous Epithelial Cell Urine None Seen (0-5/HPF); Urine Volume 10mL (spun); WBC Urine 5-10/HPF (0-5/HPF)
--- NOTE | 2024-07-24 18:04 | ED_ITS ---
HPI - Altered Mental Status General Chief Complaint: Altered Mental Status Stated Complaint: Confusion/Poss Fall/UTI Time Seen by Provider: 07/24/24 18:04 History of Present Illness HPI narrative: 83-year-old male with a past medical history of CVA TIA diabetes hyperlipidemia indwelling suprapubic catheter due to history of prostate surgery comes into the ED from home with family for evaluation of confusion. According to family patient had difficulty operating the coffee pot this morning states that they are unsure if he had any falls, does have a history of UTI secondary to suprapubic catheter however this was changed last , patient also stating, however at time of initial evaluation patient without any focal deficits NIH of 0, he has not on any blood thinners not complaining of any chest pain shortness of breath nausea vomiting abdominal pain or any other GI/ symptoms time. Does endorse some chills this morning. Related Data Home Medications Medication Instructions Recorded Confirmed metformin 1,000 mg tablet 1,000 mg PO BIDCC ##0 02/10/13 06/06/24 insulin glargine 100 unit/mL (3 10 unit SUBCUT BEDTIME 06/04/21 06/06/24 mL) subcutaneous pen (Lantus Solostar U-100 Insulin) gabapentin 300 mg capsule 300 mg PO BEDTIME pain 11/19/23 06/06/24 metoprolol succinate 25 mg 25 mg PO DAILY 06/06/24 06/06/24 tablet,extended release 24 hr prednisone 5 mg tablet 10 mg PO DAILY 06/06/24 06/06/24 semaglutide 1 mg/dose (4 mg/3 mL) 1 mg SUBCUT QWEEK 06/06/24 06/06/24 subcutaneous pen injector (Ozempic) Previous Rx's Medication Instructions Recorded clopidogrel 75 mg tablet 75 mg PO DAILY #30 tabs 08/21/20 atorvastatin 80 mg tablet (Lipitor) 80 mg PO BEDTIME #30 tabs 05/08/23 cefpodoxime 200 mg tablet 200 mg PO Q12H 1 week #14 tabs 07/24/24 Allergies Allergy/AdvReac Type Severity Reaction Status Date / Time simvastatin AdvReac Intermediate Muscle Pain Verified 07/24/24 12:59 cephalexin AdvReac Mild Hallucinati Verified 07/24/24 12:59 ng baclofen AdvReac Unknown Verified 07/24/24 12:59 hydrocodone AdvReac Unknown Vomiting Verified 07/24/24 12:59 Review of Systems Review of Systems Narrative: General: Positive chills, denies fever weight loss HEENT: Denies headache, eye drainage, eye irritation, head trauma, sore throat, voice change Cardiovascular: Denies any chest pain, palpitations, shortness of breath, tachycardia Respiratory: Denies any shortness of breath, cough, wheeze, stridor GI/: Denies any abdominal pain, nausea, vomiting, diarrhea, bright red blood per rectum, melanotic stools, urinary frequency, urinary retention, dysuria, hematuria MSK: Denies any joint pain, muscle pains, swelling Skin: Denies any rashes, lesions, discoloration Neuro: Denies any headache, lightheadedness, dizziness, fainting, weakness Psych: Denies SI/HI Patient History Medical History HNP (herniated nucleus pulposus), lumbar History of prostate cancer Lumbosacral radiculopathy at L5 Lumbosacral spondylosis Facet arthropathy, lumbosacral Hematochezia (~2016) Bone spur Cervical spine fracture (~1958) RBBB (right bundle branch block) Left wrist fracture (~2010) Osteoarthritis Diabetes Prostate cancer Recurrent urinary tract infection Polymyalgia rheumatica Former smoker Aortic stenosis Cardiomyopathy Hyperlipidemia HTN (hypertension) TIA (transient ischemic attack) (~2011) TMJ (temporomandibular joint disorder) Surgical History Hx of prostatectomy Family History Father Heart disease Heart attack Mother No significant medical problems Grandmother Heart disease Social History household members: none Smoking Status: Former smoker alcohol intake: current Smoking Status: Former smoker alcohol intake frequency: 0-2 drinks per day Exam Narrative Exam Narrative: General: Cooperative, comfortable, well-developed, not in acute distress HEENT: Normocephalic, atraumatic, PERRLA, normal sclera, eyelids normal, Neck: Active full range of motion, atraumatic Chest: Normal to inspection, negative crepitus, no overlying erythema ecchymosis Respiratory: Normal respiratory effort, not in acute respiratory distress, clear to auscultation bilaterally negative cough, wheeze, tachypnea, rhonchi, rales Cardiology: Regular rate rhythm negative gallop, murmur, rubs GI/: Normal to inspection, soft, nonrigid, no tenderness to palpation, suprapubic catheter in place no surrounding erythema ecchymosis gross discharge, draining appropriately colored urine MSK: Full range of active range of motion of all 4 extremities, atraumatic Skin: No rashes lesions noted Neuro: NIH of 0, no focal deficits noted Alert awake oriented x3, moves all 4 extremities spontaneously, cranial nerves intact, able to answer all questions appropriately follows commands appropriately Psych: Cooperative, negative suicidal or homicidal ideations Initial Vital Signs Initial Vital Signs: Vital Signs Temperature 98.9 F 07/24/24 12:40 Pulse Rate 94 H 07/24/24 12:40 Respiratory Rate 16 07/24/24 12:40 Blood Pressure 190/87 H 07/24/24 12:40 Pulse Oximetry 99 07/24/24 12:40 Oxygen Delivery Method Room Air 07/24/24 12:40 Course Orders Ordered: ED Orders 07/24/24 12:57 CT head/brain wo con Stat 07/24/24 13:21 Complete Blood Count AUTO DIFF Stat Comprehensive Metabolic Panel Stat Lipase Stat 07/24/24 16:40 Urinalysis and Microscopic Stat Urine Culture Stat 07/24/24 18:10 CXR [XR chest 1V] Stat EKG-12 Lead Stat 07/24/24 18:30 Lactate (Lactic Acid) Stat NT-proBNP (BNP-Adult 18+) Stat PT [Prothrombin Time INR] Stat PTT Partial Thromboplastin Jeison Stat Troponin & CK Cardiac Panel Stat 07/24/24 18:41 Covid-19 + FLU A/B + RSV - PCR Stat Ondansetron HCl (Ondansetron 4 Mg/2 Ml Inj) 4 mg IV NOW PRN PRN Reason: Nausea And Vomiting Ondansetron HCl (Ondansetron 4 Mg Odt) 4 mg PO NOW PRN PRN Reason: Nausea And Vomiting Vital Signs Vital signs: Vital Signs - 8 hr 07/24/24 12:40 07/24/24 16:10 07/24/24 16:30 Temperature 98.9 F Pulse Rate 94 H 97 H 96 H Respiratory Rate 16 20 Blood Pressure 190/87 H 175/74 H 156/68 H Pulse Oximetry 99 99 98 Oxygen Delivery Method Room Air Room Air 07/24/24 17:00 07/24/24 17:30 07/24/24 18:00 Temperature Pulse Rate 97 H 86 83 Respiratory Rate 30 H 20 19 Blood Pressure 156/79 H 138/65 132/64 Pulse Oximetry 78 L 97 97 Oxygen Delivery Method 07/24/24 18:30 Temperature Pulse Rate 82 Respiratory Rate 19 Blood Pressure 157/69 H Pulse Oximetry 98 Oxygen Delivery Method MDM - Altered Mental Status Differential Diagnosis Differential diagnosis: Likely other (Urinary tract infection, CVA, electrolyte abnormality, COVID, flu, ACS, pneumonia) Lab Data 07/24/24 13:21 07/24/24 13:21 Labs: Lab Results 07/24/24 07/24/24 07/24/24 Range/Units 13:21 16:40 18:30 WBC 10.0 (4.5-11.0) X10^3/uL RBC 3.83 L (4.5-5.9) X10^6/uL Hgb 11.1 L (13.5-17.5) g/dL Hct 33.3 L (41-53) % MCV 86.9 (80-100) fL MCH 29.1 (26-34) PG MCHC 33.5 (30-36) % RDW 15.0 H (11.6-14.8) % Plt Count 253 (150-400) X10^3/uL Neut % (Auto) 77.4 H (50-75) % Lymph % (Auto) 15.1 L (25-40) % [place] % (Auto) 6.5 (3-14) % Eos % (Auto) 0.5 L (2-4) % Baso % (Auto) 0.5 (0-2) % Neut # (Auto) 7700 H (6191-4149) /uL Lymph # (Auto) 1500 (0168-3224) /uL [place] # (Auto) 600 (0-900) /uL Eos # (Auto) 0 (0-450) /uL Baso # (Auto) 100 (0-100) /uL PT 11.0 (9.4-12.5) SECONDS INR 1.0 (0.9-1.3) APTT 29 (25.1-36.5) SECONDS Sodium 132 L (137-145) mmol/L Potassium 4.7 (3.4-5.1) mmol/L Chloride 99 (98-107) mmol/L Carbon Dioxide 24 (22-32) mmol/L BUN 13 (9-20) mg/dL Creatinine 0.94 (0.66-1.25) mg/dL Estimated GFR > 60 (>60) mL/min BUN/Creatinine Ratio 13.8 (6-22) Glucose 192 H (80-110) mg/dL Lactate 1.6 (0.7-2.1) mmol/L Calcium 10.3 H (8.4-10.2) mg/dL Total Bilirubin 0.8 (0.2-1.3) mg/dL AST 35 (17-59) IU/L ALT 22 (<50) IU/L Alkaline Phosphatase 80 (38-126) U/L Total Creatine Kinase 41 L (55-170) U/L Troponin I < 0.012 (0.01-0.034) ng/mL NT-Pro-B Natriuret Pep 205 (<450) pg/mL Total Protein 7.8 (6.3-8.2) g/dL Albumin 4.5 (3.5-5.0) g/dL Globulin 3.3 (1.7-4.1) g/dL Albumin/Globulin Ratio 1.4 (1.0-2.8) Lipase 148 (23-300) U/L Urine Color Yellow Urine Appearance Cloudy Urine pH 7.0 (4.5-8.0) Ur Specific [place] 1.020 (1.000-1.035) Urine Protein Trace H (Negative) Urine Glucose (UA) 2+ H (Negative) g/dL Urine Ketones Negative (NEGATIVE) Urine Occult Blood 1+ H (Negative) Urine Nitrate Negative (Negative) Urine Bilirubin Negative (NEGATIVE) Urine Urobilinogen 1.0 (0.2) E.U./dL Ur Leukocyte Esterase 1+ H (NEGATIVE) Urine RBC None seen (0-5/HPF) Urine WBC 5-10/hpf H (0-5/HPF) Ur Squamous Epith Cells None seen (0-5/HPF) Urine Bacteria Many (>30) H (None) Ur Culture Indicated? Specimen cultured Vol Urine Centrifuged 10ml (spun) SARS-CoV-2 (PCR) (Negative) Influenza A (RT-PCR) (NEGATIVE) Influenza B (RT-PCR) (NEGATIVE) RSV (PCR) (Negative) 07/24/24 Range/Units 18:41 WBC (4.5-11.0) X10^3/uL RBC (4.5-5.9) X10^6/uL Hgb (13.5-17.5) g/dL Hct (41-53) % MCV (80-100) fL MCH (26-34) PG MCHC (30-36) % RDW (11.6-14.8) % Plt Count (150-400) X10^3/uL Neut % (Auto) (50-75) % Lymph % (Auto) (25-40) % [place] % (Auto) (3-14) % Eos % (Auto) (2-4) % Baso % (Auto) (0-2) % Neut # (Auto) (4896-4873) /uL Lymph # (Auto) (5273-8752) /uL [place] # (Auto) (0-900) /uL Eos # (Auto) (0-450) /uL Baso # (Auto) (0-100) /uL PT (9.4-12.5) SECONDS INR (0.9-1.3) APTT (25.1-36.5) SECONDS Sodium (137-145) mmol/L Potassium (3.4-5.1) mmol/L Chloride (98-107) mmol/L Carbon Dioxide (22-32) mmol/L BUN (9-20) mg/dL Creatinine (0.66-1.25) mg/dL Estimated GFR (>60) mL/min BUN/Creatinine Ratio (6-22) Glucose (80-110) mg/dL Lactate (0.7-2.1) mmol/L Calcium (8.4-10.2) mg/dL Total Bilirubin (0.2-1.3) mg/dL AST (17-59) IU/L ALT (<50) IU/L Alkaline Phosphatase (38-126) U/L Total Creatine Kinase (55-170) U/L Troponin I (0.01-0.034) ng/mL NT-Pro-B Natriuret Pep (<450) pg/mL Total Protein (6.3-8.2) g/dL Albumin (3.5-5.0) g/dL Globulin (1.7-4.1) g/dL Albumin/Globulin Ratio (1.0-2.8) Lipase (23-300) U/L Urine Color Urine Appearance Urine pH (4.5-8.0) Ur Specific [place] (1.000-1.035) Urine Protein (Negative) Urine Glucose (UA) (Negative) g/dL Urine Ketones (NEGATIVE) Urine Occult Blood (Negative) Urine Nitrate (Negative) Urine Bilirubin (NEGATIVE) Urine Urobilinogen (0.2) E.U./dL Ur Leukocyte Esterase (NEGATIVE) Urine RBC (0-5/HPF) Urine WBC (0-5/HPF) Ur Squamous Epith Cells (0-5/HPF) Urine Bacteria (None) Ur Culture Indicated? Vol Urine Centrifuged SARS-CoV-2 (PCR) Negative (Negative) Influenza A (RT-PCR) Flu a negative (NEGATIVE) Influenza B (RT-PCR) Flu b negative (NEGATIVE) RSV (PCR) Negative (Negative) Imaging Data CT scan - head: Radiologist's Impression: [place] [address] CT Scan Report Signed Patient: Deep Erickson MR#: [id number] : 1940 Acct:[id number] Age/Sex: 83 / M Date of Service: 07/24/24 Loc: ED Accession Number: [id number] Procedure: CT head/brain wo con Ordering Provider: Jason Mitchell MD PROCEDURE: CT HEAD/BRAIN WO CON INDICATIONS: fall TECHNIQUE: Noncontrast 4.5 mm thick angled axial sections acquired from the foramen magnum to the vertex, with coronal and sagittal reformats. For radiation dose reduction, the following was used: automated exposure control, adjustment of mA and/or kV according to patient size. COMPARISON: [facility], CT, CT HEAD/BRAIN WO CON, 11/19/2023, 11:05. FINDINGS: Image quality: Diagnostic CSF spaces: Basal cisterns are patent. Lateral ventricles are symmetric. Volume: Vascular calcifications. Periventricular white matter disease is commonly seen with chronic microangiopathy. Volume loss is present. These findings are moderate Brain: No intracranial hemorrhage. Bunn-white differentiation is grossly maintained. Craniofacial structures: No significant paranasal sinus opacity. Possible postsurgical changes along the posterior scalp the mid neck. IMPRESSION: No acute intracranial hemorrhage. Posterior head and neck partially seen possible surgical changes. Chest x-ray: Radiologist's Impression: [address] [address] XRay Report Signed Patient: Deep Erickson MR#: [id number] : 1940 Acct:[id number] Age/Sex: 83 / M Date of Service: 07/24/24 Loc: ED Accession Number: [id number] Procedure: XR chest 1V Ordering Provider: Timi Hurtado D.O. PROCEDURE: XR CHEST 1V INDICATIONS: Altered mental status TECHNIQUE: One view of the chest was acquired. COMPARISON: [facility], CT, CT HEAD/BRAIN WO CON, 07/24/2024, 13:03. [facility], CR, XR CHEST 1V, 01/29/2021, 11:12. [facility], CR, XR CHEST 1V, 11/19/2023, 10:53. [facility], CR, XR CHEST 2V, 06/06/2024, 11:48. FINDINGS: Surgical changes and devices: Bilateral shoulder postoperative change can be seen. A percutaneously placed aortic valve replacement can be seen. There is a left- sided electronic device seen. There is truncation of the right distal clavicle. Lungs and pleura: An incomplete inspiratory result is noted, causing a crowded appearance to the lung markings. No focal infiltrates are seen. No pneumothorax or significant pleural effusions are seen. Mediastinum: Mediastinal contours appear normal. Heart size is normal. Bones and chest wall: No suspicious bony lesions. Age-appropriate bony degenerative changes are seen. Mild dextroconvex scoliotic curvature is seen. Overlying soft tissues appear unremarkable. IMPRESSION: Low lung volumes, without an acute abnormality seen by plain film. Postoperative and degenerative changes are seen. ECG Data Interpretation: EKG interpreted ED physician sinus 82 beats per minute QTC [address] changes right bundle-branch block noted no STEMI MDM Narrative Medical decision making narrative: Patient 83-year-old male with a history of indwelling suprapubic catheter secondary to prostate cancer, hyperlipidemia hypertension diabetes comes into the ED from home for evaluation of altered mental status/confusion. CT scan of the head without any intracranial abnormality. No leukocytosis on, Chem panel unremarkable, patient did have urinalysis that shows acute urinary tract infection. Patient had chest x-ray did not show any acute cardiopulmonary abnormalities, troponin negative, EKG nonischemic in nature. Patient at time of evaluation A&O x4 following commands answering questions appropriately no focal deficits noted, son at bedside stating that he has noticed these symptoms whenever his father starts getting a urinary tract infection. Patient not meeting any sepsis or other abnormalities requiring admission therefore patient will be sent home with oral antibiotics instructed follow up with his urologist and primary care doctor strict return precautions given they verbalized understanding of this and agrees to being discharged home with outpatient follow up Review of records show that patient had previous urine culture sensitivities that are sensitive to Rocephin therefore will give 1st dose of antibiotics here Discharge Plan Departure Patient Disposition: Home Clinical Impression: Urinary tract infection Activity Restrictions/Additional Instructions: Please follow up with urologist and your primary care doctor Please read the discharge instructions sheet carefully and bring all papers to all doctor follow-up visits, as it may contain information that your doctor may want to see. Disease processes change and evolve, if your symptoms worsen or if you develop any new symptoms that are concerning to you please return for evaluation. Your evaluation today does not show any evidence of any life- threatening/serious illnesses requiring admission to the hospital or surgery. Please follow-up with your doctor for re-evaluation in approximately 1 day. Seek immediate medical attention for any worrisome symptoms. *If you do not have a primary care provider please contact the [facility] Resource line at [phone]. They will ask some questions about your medical history and help get you set up with a doctor in the community. Prescriptions: New cefpodoxime 200 mg tablet 200 mg PO Q12H 7 Days Qty: 14 0RF Rx Instructions: must administer with a meal/food No Action metformin 1,000 MG tablet 1,000 mg PO BIDCC Qty: 0 insulin glargine [Lantus Solostar U-100 Insulin] 100 unit/mL (3 mL) Insulin Pen 10 unit SUBCUT BEDTIME prednisone 5 mg tablet 10 mg PO DAILY metoprolol succinate 25 mg tablet extended release 24 hr 25 mg PO DAILY Ozempic 1 mg/dose (4 mg/3 mL) Pen Injector 1 mg SUBCUT QWEEK clopidogrel 75 mg Tablet 75 mg PO DAILY Qty: 30 0RF atorvastatin [Lipitor] 80 mg tablet 80 mg PO BEDTIME Qty: 30 0RF gabapentin 300 mg capsule 300 mg PO BEDTIME Referrals: Yo Peters MD [Primary Care Provider] - Stand Alone Forms: Patient Portal/API/Survey
--- NOTE | 2024-07-24 18:10 | DI.RAD.S_ITS ---
PROCEDURE: XR CHEST 1V INDICATIONS: Altered mental status TECHNIQUE: One view of the chest was acquired. COMPARISON: [facility], CT, CT HEAD/BRAIN WO CON, 07/24/2024, 13:03. [facility], CR, XR CHEST 1V, 01/29/2021, 11:12. [facility], CR, XR CHEST 1V, 11/19/2023, 10:53. [facility], CR, XR CHEST 2V, 06/06/2024, 11:48. FINDINGS: Surgical changes and devices: Bilateral shoulder postoperative change can be seen. A percutaneously placed aortic valve replacement can be seen. There is a left-sided electronic device seen. There is truncation of the right distal clavicle. Lungs and pleura: An incomplete inspiratory result is noted, causing a crowded appearance to the lung markings. No focal infiltrates are seen. No pneumothorax or significant pleural effusions are seen. Mediastinum: Mediastinal contours appear normal. Heart size is normal. Bones and chest wall: No suspicious bony lesions. Age-appropriate bony degenerative changes are seen. Mild dextroconvex scoliotic curvature is seen. Overlying soft tissues appear unremarkable. IMPRESSION: Low lung volumes, without an acute abnormality seen by plain film. Postoperative and degenerative changes are seen. Dictated by: Ghassan Cook M.D. on 07/24/2024 at 18:21 Approved by: Ghassan Cook M.D. on 07/24/2024 at 18:22
--- NOTE | 2024-07-24 18:10 | EKG_ITS ---
[facility] [address] [place] [address] Test Date: 2024-07-24 Pat Name: Deep Erickson Department: [facility] Room: Gender: Male [employer] Installer: : 1940 Requested By: Order Number: [id number] Reading MD: Cali Cao Measurements Intervals [place] Rate: 82 P: 20 NM: 166 QRS: -31 QRSD: 138 T: 31 QT: 382 QTc: 446 Interpretive Statements Normal sinus rhythm Left axis deviation Right bundle branch block Electronically Signed On 07-25-2024 7:24:35 PST by Cali Cao
[2024-07-24 18:48] LABS: Creatine Kinase 41 U/L (55-170); Lactate (Lactic Acid) 1.6 mmol/L (0.7-2.1); PTT Partial Thromboplastin Tim 29 SECONDS (25.1-36.5)
[2024-07-24 19:01] LABS: NT-proBNP (BNP-Adult 18+) 205 pg/mL (<450); Troponin I < 0.012 ng/mL (0.01-0.034)
[2024-07-24 19:25] LABS: Influenza A - CEPHEID Flu A NEGATIVE (NEGATIVE); Influenza B - CEPHEID Flu B NEGATIVE (NEGATIVE); Respiratory Syncytial Virus Negative (Negative)
[2024-07-24 19:31] LABS: COVID-19 CEPHEID 4-PLEX PCR Negative (Negative)
[2024-07-24] MEDS: cefTRIAXone 2,000 MG in SODIUM CHLORIDE 0.9% 100 ML 200 MG IV (20:04)
== END 2024-07-24 20:51 | disposition home or self-care (01) ==
PROVIDERS: Emergency Medicine; Emergency Provider Student in an Organized Health Care Education/Training Program; PCP Internal Medicine
DX: N39.0 Urinary tract infection, site not specified (principal); Z85.46 Personal history of malignant neoplasm of prostate; Z86.73 Personal history of transient ischemic attack (TIA), and cerebral infarction without residual deficits; Z87.891 Personal history of nicotine dependence; R68.83 Chills (without fever)
CPT/HCPCS: 0241U; 36415; 70450; 71045; 80053; 81001; 82550; 83605; 83690; 83880; 84484; 85025; 85610; 85730; 87077; 87086; 87186; 93005; 96365; 99284; 99285; J0696

== ENCOUNTER 2024-07-25 01:49 | Emergency (ER) | payer MEDICARE, OTHER, SELFPAY ==
[2024-07-25 02:19] VITALS: BP 167/74; PULSE 84; RESP 18; TEMP 36.7; O2SAT 98; BMI 21.7
--- NOTE | 2024-07-25 03:45 | ED_ITS ---
HPI - Male Genitourinary General Chief complaint: Urogenital-Male Stated complaint: pulled cath line out Time Seen by Provider: 07/25/24 03:45 Source: patient Mode of arrival: Ambulatory History of Present Illness HPI Narrative: 83-year-old male with a past medical history of CVA TIA diabetes hyperlipidemia with indwelling suprapubic catheter due to history of prostate surgery comes into the fact that his suprapubic catheter fell out. I had seen her in earlier today for altered mental status he states that his suprapubic catheter was changed last by his urologist, he was diagnosed with a urinary tract infection but presents due to the fact that the Ye catheter fell out. Patient denies any other issues at this time. Patient states that his Ye catheter is 20F. Family did provide a picture of the Ye catheter all pieces of the Ye catheter did come out. Related Data Home Medications Medication Instructions Recorded Confirmed metformin 1,000 mg tablet 1,000 mg PO BIDCC ##0 02/10/13 06/06/24 insulin glargine 100 unit/mL (3 10 unit SUBCUT BEDTIME 06/04/21 06/06/24 mL) subcutaneous pen (Lantus Solostar U-100 Insulin) gabapentin 300 mg capsule 300 mg PO BEDTIME pain 11/19/23 06/06/24 metoprolol succinate 25 mg 25 mg PO DAILY 06/06/24 06/06/24 tablet,extended release 24 hr prednisone 5 mg tablet 10 mg PO DAILY 06/06/24 06/06/24 semaglutide 1 mg/dose (4 mg/3 mL) 1 mg SUBCUT QWEEK 06/06/24 06/06/24 subcutaneous pen injector (Ozempic) Previous Rx's Medication Instructions Recorded clopidogrel 75 mg tablet 75 mg PO DAILY #30 tabs 08/21/20 atorvastatin 80 mg tablet (Lipitor) 80 mg PO BEDTIME #30 tabs 05/08/23 cefpodoxime 200 mg tablet 200 mg PO Q12H 1 week #14 tabs 07/24/24 Allergies Allergy/AdvReac Type Severity Reaction Status Date / Time simvastatin AdvReac Intermediate Muscle Pain Verified 07/24/24 12:59 cephalexin AdvReac Mild Hallucinati Verified 07/24/24 12:59 ng baclofen AdvReac Unknown Verified 07/24/24 12:59 hydrocodone AdvReac Unknown Vomiting Verified 07/24/24 12:59 Review of Systems Review of Systems Narrative: General: Denies fever, chills, weight loss HEENT: Denies headache, eye drainage, eye irritation, head trauma, sore throat, voice change Cardiovascular: Denies any chest pain, palpitations, shortness of breath, tachycardia Respiratory: Denies any shortness of breath, cough, wheeze, stridor GI/: Ye catheter malfunction Denies any abdominal pain, nausea, vomiting, diarrhea, bright red blood per rectum, melanotic stools, urinary frequency, urinary retention, dysuria, hematuria MSK: Denies any joint pain, muscle pains, swelling Skin: Denies any rashes, lesions, discoloration Neuro: Denies any headache, lightheadedness, dizziness, fainting, weakness Psych: Denies SI/HI Patient History Medical History HNP (herniated nucleus pulposus), lumbar History of prostate cancer Lumbosacral radiculopathy at L5 Lumbosacral spondylosis Facet arthropathy, lumbosacral Hematochezia (~2016) Bone spur Cervical spine fracture (~1958) RBBB (right bundle branch block) Left wrist fracture (~2010) Osteoarthritis Diabetes Prostate cancer Recurrent urinary tract infection Polymyalgia rheumatica Former smoker Aortic stenosis Cardiomyopathy Hyperlipidemia HTN (hypertension) TIA (transient ischemic attack) (~2011) TMJ (temporomandibular joint disorder) Surgical History Hx of prostatectomy Family History Father Heart disease Heart attack Mother No significant medical problems Grandmother Heart disease Social History household members: none Smoking Status: Former smoker alcohol intake: current Smoking Status: Former smoker alcohol intake frequency: 0-2 drinks per day Exam Narrative Exam Narrative: General: Cooperative, comfortable, well-developed, not in acute distress HEENT: Normocephalic, atraumatic, PERRLA, normal sclera, eyelids normal, Neck: Active full range of motion, atraumatic Chest: Normal to inspection, negative crepitus, no overlying erythema ecchymosis Respiratory: Normal respiratory effort, not in acute respiratory distress, clear to auscultation bilaterally negative cough, wheeze, tachypnea, rhonchi, rales Cardiology: Regular rate rhythm negative gallop, murmur, rubs GI/: Os noted to the suprapubic region, no purulent discharge not active bleeding, Normal to inspection, soft, nonrigid, no tenderness to palpation, exam deferred MSK: Full range of active range of motion of all 4 extremities, atraumatic Skin: No rashes lesions noted Neuro: Alert awake oriented x3, moves all 4 extremities spontaneously, cranial nerves intact, able to answer all questions appropriately follows commands appropriately Psych: Cooperative, negative suicidal or homicidal ideations Initial Vital Signs Initial Vital Signs: Vital Signs Temperature 98.1 F 07/25/24 02:19 Pulse Rate 84 07/25/24 02:19 Respiratory Rate 18 07/25/24 02:19 Blood Pressure 167/74 H 07/25/24 02:19 Pulse Oximetry 98 07/25/24 02:19 Oxygen Delivery Method Room Air 07/25/24 02:19 Course Vital Signs Vital signs: Vital Signs - 8 hr 07/25/24 02:19 Temperature 98.1 F Pulse Rate 84 Respiratory Rate 18 Blood Pressure 167/74 H Pulse Oximetry 98 Oxygen Delivery Method Room Air MDM - Male Genitourinary Differential Diagnosis Differential diagnosis: Likely other (Ye catheter malfunction) MDM Narrative Medical decision making narrative: Patient with a history of chronic indwelling suprapubic catheter Ye presents for accidental removal Ye catheter, patient was seen here previously was diagnosed with a UTI, presents due to the fact that he went to get a shower and patient states that he asked any pulled out his Ye catheter, all pieces of the Ye catheter came out, I personally replaced his suprapubic catheter 20 Palestinian had good urine output, instructed to follow up with his urologist strict return precautions given verbalized understanding and agrees to being discharged home with outpatient follow up Discharge Plan Departure Patient Disposition: Home Clinical Impression: Malfunction of Ye catheter Activity Restrictions/Additional Instructions: Please follow up with the urologist Please read the discharge instructions sheet carefully and bring all papers to all doctor follow-up visits, as it may contain information that your doctor may want to see. Disease processes change and evolve, if your symptoms worsen or if you develop any new symptoms that are concerning to you please return for evaluation. Your evaluation today does not show any evidence of any life- threatening/serious illnesses requiring admission to the hospital or surgery. Please follow-up with your doctor for re-evaluation in approximately 1 day. Seek immediate medical attention for any worrisome symptoms. *If you do not have a primary care provider please contact the [facility] Resource line at [phone]. They will ask some questions about your medical history and help get you set up with a doctor in the community. Prescriptions: No Action metformin 1,000 MG tablet 1,000 mg PO BIDCC Qty: 0 insulin glargine [Lantus Solostar U-100 Insulin] 100 unit/mL (3 mL) Insulin Pen 10 unit SUBCUT BEDTIME prednisone 5 mg tablet 10 mg PO DAILY metoprolol succinate 25 mg tablet extended release 24 hr 25 mg PO DAILY Ozempic 1 mg/dose (4 mg/3 mL) Pen Injector 1 mg SUBCUT QWEEK cefpodoxime 200 mg tablet 200 mg PO Q12H 7 Days Qty: 14 0RF Rx Instructions: must administer with a meal/food clopidogrel 75 mg Tablet 75 mg PO DAILY Qty: 30 0RF atorvastatin [Lipitor] 80 mg tablet 80 mg PO BEDTIME Qty: 30 0RF gabapentin 300 mg capsule 300 mg PO BEDTIME Referrals: Yo Peters MD [Primary Care Provider] - Stand Alone Forms: Patient Portal/API/Survey
[2024-07-25 05:16] VITALS: BP 161/84; PULSE 67; RESP 20; O2SAT 95
== END 2024-07-25 05:16 | disposition home or self-care (01) ==
PROVIDERS: Emergency Provider Student in an Organized Health Care Education/Training Program; PCP Internal Medicine
DX: T83.011A Breakdown (mechanical) of indwelling urethral catheter, initial encounter (principal)
CPT/HCPCS: 99281

== ENCOUNTER 2024-09-10 21:19 | Emergency (ER) | payer MEDICARE, OTHER, SELFPAY ==
[2024-09-10 21:23] VITALS: BP 154/74; PULSE 77; RESP 18; TEMP 36.5; O2SAT 99; BMI 20.9
--- NOTE | 2024-09-10 22:06 | ED.GENADULT ---
HPI - General Adult General Chief complaint: Urogenital-Male Stated complaint: catheter failure, blood clots, poss uti,change t-3 Time Seen by Provider: 09/10/24 21:53 Source: patient and family Mode of arrival: Ambulatory History of Present Illness HPI narrative: [age] gentleman with a history of diabetes, with a history of TAVR for aortic stenosis, cardiomyopathy with a pacemaker, prior TIA, prostate cancer with complications that has a eventually led to suprapubic catheter. He does have episodes of recurrent bladder infections. His daughter brings him in tonight with concerns for gross hematuria from his penis and no flow from the suprapubic catheter. He is complaining of right hip pain, is mildly more confused and more fatigued and his daughter notes that these are all symptoms of urinary tract infection that have led to hospitalization previously. He is not complaining of pain, fevers or any type of discomfort. Related Data Home Medications Medication Instructions Recorded Confirmed metformin 1,000 mg tablet 1,000 mg PO BIDCC ##0 02/10/13 06/06/24 insulin glargine 100 unit/mL (3 10 unit SUBCUT BEDTIME 06/04/21 06/06/24 mL) subcutaneous pen (Lantus Solostar U-100 Insulin) metoprolol succinate 25 mg 25 mg PO DAILY 06/06/24 06/06/24 tablet,extended release 24 hr prednisone 5 mg tablet 10 mg PO DAILY 06/06/24 06/06/24 semaglutide 1 mg/dose (4 mg/3 mL) 1 mg SUBCUT QWEEK 06/06/24 06/06/24 subcutaneous pen injector (Ozempic) Previous Rx's Medication Instructions Recorded clopidogrel 75 mg tablet 75 mg PO DAILY #30 tabs 08/21/20 atorvastatin 80 mg tablet (Lipitor) 80 mg PO BEDTIME #30 tabs 05/08/23 gabapentin 300 mg capsule 600 mg (2 x 300 mg) PO TID #180 08/11/24 caps sulfamethoxazole 800 1 tab PO BID #14 tabs 09/11/24 mg-trimethoprim 160 mg tablet (Bactrim DS) Allergies Allergy/AdvReac Type Severity Reaction Status Date / Time simvastatin AdvReac Intermediate Muscle Pain Verified 07/24/24 12:59 cephalexin AdvReac Mild Hallucinati Verified 07/24/24 12:59 ng baclofen AdvReac Unknown Verified 07/24/24 12:59 hydrocodone AdvReac Unknown Vomiting Verified 07/24/24 12:59 Review of Systems Review of Systems Narrative: Pertinent positive and negative findings as per HPI Patient History Medical History HNP (herniated nucleus pulposus), lumbar History of prostate cancer Lumbosacral radiculopathy at L5 Lumbosacral spondylosis Facet arthropathy, lumbosacral Hematochezia (~2016) Bone spur Cervical spine fracture (~1958) RBBB (right bundle branch block) Left wrist fracture (~2010) Osteoarthritis Diabetes Prostate cancer Recurrent urinary tract infection Polymyalgia rheumatica Former smoker Aortic stenosis Cardiomyopathy Hyperlipidemia HTN (hypertension) TIA (transient ischemic attack) (~2011) TMJ (temporomandibular joint disorder) Surgical History Hx of prostatectomy Family History Father Heart disease Heart attack Mother No significant medical problems Grandmother Heart disease Social History household members: none Smoking Status: Never smoker alcohol intake: current Smoking Status: Never smoker alcohol intake frequency: 0-2 drinks per day Exam Initial Vital Signs Initial Vital Signs: Vital Signs Temperature 97.7 F 09/10/24 21:23 Pulse Rate 77 09/10/24 21:23 Respiratory Rate 18 09/10/24 21:23 Blood Pressure 154/74 H 09/10/24 21:23 Pulse Oximetry 99 09/10/24 21:23 Oxygen Delivery Method Room Air 09/10/24 21:23 General: Alert appropriate in no acute distress Respiratory: Able to speak in full sentences, no obvious respiratory distress Abdomen: No abdominal tenderness, no flank pain Skin: No obvious rashes, warm and dry Neurologic: Grossly intact no obvious asymmetries or abnormalities Psych: appropriate insight and affect, cooperative Suprapubic catheter site is healthy appearing. With a single flush the suprapubic catheter is working nicely. It is irrigated with multiple clots being removed and returning urine still pink but lightening. No blood clots from the penile meatus or appreciated. Course Orders Ordered: ED Orders 09/11/24 00:05 UA Complete [Urinalysis and Microscopic] Stat Urine Culture Stat Discontinued Medications Trimethoprim/Sulfamethoxazole (Trimeth/Sulfa 160/800 (Ds) Tablet) 1 tab PO NOW ONE Stop: 09/11/24 00:05 Last Admin: 09/11/24 00:08 Dose: 1 tab Documented By: HAZEL Vital Signs Vital signs: Vital Signs - 8 hr 09/10/24 21:23 09/11/24 00:16 Temperature 97.7 F Pulse Rate 77 79 Respiratory Rate 18 16 Blood Pressure 154/74 H 166/74 H Pulse Oximetry 99 99 Oxygen Delivery Method Room Air Room Air Medical Decision Making Lab Data Labs: Lab Results 09/11/24 Range/Units 00:05 Urine Color Red Urine Appearance Sl cloudy Urine pH 6.5 (4.5-8.0) Ur Specific [place] <=1.005 (1.000-1.035) Urine Protein 2+ H (Negative) Urine Glucose (UA) Negative (Negative) g/dL Urine Ketones Negative (NEGATIVE) Urine Occult Blood 3+ H (Negative) Urine Nitrate Negative (Negative) Urine Bilirubin Negative (NEGATIVE) Urine Urobilinogen 0.2 (0.2) E.U./dL Ur Leukocyte Esterase 3+ H (NEGATIVE) Urine RBC 30-100/hpf H (0-5/HPF) Urine WBC 30-100/hpf H (0-5/HPF) Ur Squamous Epith Cells 0-1 /hpf (0-5/HPF) Urine Bacteria Few (2-10) H (None) Ur Culture Indicated? Specimen cultured Vol Urine Centrifuged 10ml (spun) MDM Narrative Medical decision making narrative: 83-year-old gentleman with acute gross hematuria from the penile meatus as well as a blocked suprapubic catheter. The catheter is flushed unlocked, bladder is irrigated with a moderate amount of clots returned. Urine is clearing nicely. Urine has been cultured. Based on his daughters concern for hip pain, slightly changing mental status in the hematuria will opt to treat a urinary tract infection while we are waiting for cultures to return. Most recent UTI was in July showed a pansensitive E coli. At 1 point patient was treated with Keflex and had some acute delirium. It is unclear whether secondary to the antibiotic or to his infection but daughter would prefer to avoid Keflex. Patient appears entirely nontoxic, no clinical signs or symptoms of sepsis. Ye catheter is no draining nicely. He will be treated with Bactrim with the initial dose given today. Prescription is sent. I did recommend follow up with his urologist to make sure that the urine is clearing and will be attributed to a bladder infection. Discussed with his daughter the possibility of a broken blood vessel exacerbated by his Plavix that is the possibility of neoplastic source of bleeding clearly remains within the differential. At this point patient is safe, there was no indication for additional workup or hospitalization and he will be discharged Discharge Plan Departure Patient Disposition: Home Clinical Impression: Gross hematuria Urinary tract infection Qualifiers: Urinary tract infection type: acute cystitis Hematuria presence: with hematuria Qualified Code(s): N30.01 - Acute cystitis with hematuria Instructions: DI for Urinary Tract Infection (UTI) Activity Restrictions/Additional Instructions: Thank you for coming in today We are able to flush your current suprapubic catheter and then flushed your bladder to get some of the clots out. One of the more common causes for blood in your urine is a urinary tract infection. With your Plavix you are more likely to have some bleeding. Based on the urine infection that you had in July I am going to place you on Bactrim twice a day. We have cultured your urine sample from today and we will contact you if a different antibiotic would be appropriate The prescription for Bactrim was electronically transmitted to [facility] in [place] If the catheter becomes clogged again, you are still having bleeding after 3-4 days of antibiotics, you are developing fevers, having pain or there is other concerns you do need to be seen again. If you continue to have bleeding your urologist make want to do a cystoscopy, actually looking into your bladder to make sure there was no areas that is actually need to be cauterized or further treated. If you find that you are getting worse or develop any new symptoms, please feel free to return to the emergency department for further evaluation. Prescriptions: New sulfamethoxazole-trimethoprim [Bactrim DS] 800-160 mg tablet 1 tab PO BID Qty: 14 0RF No Action metformin 1,000 MG tablet 1,000 mg PO BIDCC Qty: 0 gabapentin 300 mg capsule 600 mg PO TID Qty: 180 1RF insulin glargine [Lantus Solostar U-100 Insulin] 100 unit/mL (3 mL) Insulin Pen 10 unit SUBCUT BEDTIME prednisone 5 mg tablet 10 mg PO DAILY metoprolol succinate 25 mg tablet extended release 24 hr 25 mg PO DAILY Ozempic 1 mg/dose (4 mg/3 mL) Pen Injector 1 mg SUBCUT QWEEK clopidogrel 75 mg Tablet 75 mg PO DAILY Qty: 30 0RF atorvastatin [Lipitor] 80 mg tablet 80 mg PO BEDTIME Qty: 30 0RF Referrals: Yo Petres MD [Primary Care Provider] - Stand Alone Forms: Patient Portal/API/Survey
[2024-09-11] MEDS: TRIMETH/SULFA 160/800 (DS) TABLET 1 TAB PO (00:08)
[2024-09-11 00:11] LABS: Appearance Urine UA SL CLOUDY; Bilirubin Urine UA NEGATIVE (NEGATIVE); Color Urine UA RED; Glucose Urine UA NEGATIVE (Negative); Ketones Urine UA NEGATIVE (NEGATIVE); Leukocyte Esterase Urine UA 3+ (NEGATIVE); Nitrite Urine UA NEGATIVE (Negative); Occult Blood Urine UA 3+ (Negative); Protein Urine UA 2+ (Negative); Specific Gravity Urine UA <=1.005 (1.000-1.035); Urobilinogen Urine UA 0.2 E.U./dL (0.2); pH Urine UA 6.5 (4.5-8.0)
[2024-09-11 00:16] VITALS: BP 166/74; PULSE 79; RESP 16; O2SAT 99
[2024-09-11 00:16] LABS: Urine Volume 10mL (spun); WBC Urine 30-100/HPF (0-5/HPF)
[2024-09-11 00:17] LABS: Bacteria Urine Few (2-10); RBC Urine 30-100/HPF (0-5/HPF); Squamous Epithelial Cell Urine 0-1 /HPF (0-5/HPF)
[2024-09-11 00:18] LABS: Culture Indicated Urine Specimen Cultured
== END 2024-09-11 00:17 | disposition home or self-care (01) ==
PROVIDERS: Emergency Provider Emergency Medicine; PCP Internal Medicine
DX: N30.01 Acute cystitis with hematuria (principal); T83.098A Other mechanical complication of other urinary catheter, initial encounter
CPT/HCPCS: 81001; 87077; 87086; 87186; 99283

== ENCOUNTER 2024-09-15 11:12 | Emergency (ER) | payer MEDICARE, OTHER, SELFPAY ==
[2024-09-15 11:23] VITALS: BP 147/68; PULSE 78; RESP 18; TEMP 36.8; O2SAT 98; BMI 20.9
--- NOTE | 2024-09-15 11:30 | DI.RAD.S_ITS ---
PROCEDURE: XR FOOT RT MIN 3V INDICATIONS: car lift fell on foot yesterday/pain/bleeding TECHNIQUE: 3 views of the foot were acquired. COMPARISON: None. FINDINGS AND IMPRESSION: Mildly displaced fracture of the 1st distal tuft. Questionable artifact versus lucency also seen at the 2nd distal tuft. Correlate with any tenderness. Background mild midfoot and 1st MTP arthrosis. Plantar/calcaneal enthesopathy. No suspicious soft tissue calcifications. Dictated by: Candido Fried M.D. on 09/15/2024 at 12:20 Approved by: Candido Fried M.D. on 09/15/2024 at 12:21
[2024-09-15] MEDS: TET,DIPH,PERTUSS(ACELL),VAC/PF 0.5 ML SYRINGE IM (11:45)
--- NOTE | 2024-09-15 11:48 | ED_ITS ---
<Statement entered by Timi Hurtado, - 09/15/24 14:34> Dr. Hurtado: I was immediately available in the department for consultation. I did not actually see the patient. HPI - Extremity Injury (Lower) General Chief Complaint: Extremity Injury, Lower Stated Complaint: smashed right foot toes Time Seen by Provider: 09/15/24 11:55 Source: patient Mode of arrival: Wheelchair History of Present Illness HPI Narrative: Mr. Erickson is a very pleasant 83-year-old male with a past medical history of prostate cancer now with suprapubic catheter in place currently on antibiotics for UTI, type 2 diabetes with peripheral neuropathy, CVA, lumbosacral spondylosis, TAVR, cardiomyopathy with a pacemaker who presents to the emergency department for right foot injury that occurred yesterday afternoon. Patient is with his son who contributes to the history. Yesterday around 2:00 p.m. a car lift fell onto the patient's right 1st and 2nd toes. States that it hurt but because of his neuropathy did not hurt too bad. He put on a thick sock and went to bed however when he woke up this morning he noticed blood was soaking through the sock. His granddaughter wrapped the 1st and 2nd toes for him. He is on Plavix. Reports that he only has mild pain, his sensation is about baseline for his chronic neuropathy. He took all of his morning medications. He feels well otherwise. No pain of the dorsal midfoot or any areas. He is currently taking an antibiotic for UTI. Related Data Home Medications Medication Instructions Recorded Confirmed metformin 1,000 mg tablet 1,000 mg PO BIDCC ##0 02/10/13 06/06/24 insulin glargine 100 unit/mL (3 10 unit SUBCUT BEDTIME 06/04/21 06/06/24 mL) subcutaneous pen (Lantus Solostar U-100 Insulin) metoprolol succinate 25 mg 25 mg PO DAILY 06/06/24 06/06/24 tablet,extended release 24 hr prednisone 5 mg tablet 10 mg PO DAILY 06/06/24 06/06/24 semaglutide 1 mg/dose (4 mg/3 mL) 1 mg SUBCUT QWEEK 06/06/24 06/06/24 subcutaneous pen injector (Ozempic) Previous Rx's Medication Instructions Recorded clopidogrel 75 mg tablet 75 mg PO DAILY #30 tabs 08/21/20 atorvastatin 80 mg tablet (Lipitor) 80 mg PO BEDTIME #30 tabs 05/08/23 gabapentin 300 mg capsule 600 mg (2 x 300 mg) PO TID #180 08/11/24 caps sulfamethoxazole 800 1 tab PO BID #14 tabs 09/11/24 mg-trimethoprim 160 mg tablet (Bactrim DS) cefpodoxime 200 mg tablet 200 mg PO BID 1 week #14 tabs 09/14/24 cefpodoxime 200 mg tablet 200 mg PO Q12H 2 weeks #28 tabs 09/15/24 Allergies Allergy/AdvReac Type Severity Reaction Status Date / Time simvastatin AdvReac Intermediate Muscle Pain Verified 07/24/24 12:59 cephalexin AdvReac Mild Hallucinati Verified 07/24/24 12:59 ng baclofen AdvReac Unknown Verified 07/24/24 12:59 hydrocodone AdvReac Unknown Vomiting Verified 07/24/24 12:59 Review of Systems Review of Systems ROS Unobtainable: All systems reviewed & are unremarkable except as noted in HPI and below Patient History Medical History HNP (herniated nucleus pulposus), lumbar History of prostate cancer Lumbosacral radiculopathy at L5 Lumbosacral spondylosis Facet arthropathy, lumbosacral Hematochezia (~2016) Bone spur Cervical spine fracture (~1958) RBBB (right bundle branch block) Left wrist fracture (~2010) Osteoarthritis Diabetes Prostate cancer Recurrent urinary tract infection Polymyalgia rheumatica Former smoker Aortic stenosis Cardiomyopathy Hyperlipidemia HTN (hypertension) TIA (transient ischemic attack) (~2011) TMJ (temporomandibular joint disorder) Surgical History Hx of prostatectomy Family History Father Heart disease Heart attack Mother No significant medical problems Grandmother Heart disease Social History household members: none Smoking Status: Never smoker alcohol intake: current Smoking Status: Never smoker alcohol intake frequency: 0-2 drinks per day Exam Narrative Exam Narrative: GENERAL: 83 year old patient appears stated age. Frail elderly patient, in no acute distress. HEAD: Atraumatic. Normocephalic. CARDIOVASCULAR: Regular rate RESPIRATORY: ?Nonlabored respirations. ?Speaking in clear, full sentences. EXTREMITIES: R great toe nail avulsed/not present, with slow bleeding of the nail bed. 2nd toe nail attached but avulsed at base. No gross deformities or dislocations of bony architecture of 1st and 2nd toes. No dorsal midfoot tenderness. Palpable PT pulse & DP pulse. Cap refill takes 3 seconds. NEURO: Alert, oriented, majority of history provided by his son. Sensation intact to pressure on 1st and 2nd toes of the right foot, however no sensation intact to light touch on both feet at baseline. Initial Vital Signs Initial Vital Signs: Vital Signs Temperature 98.3 F 09/15/24 11:23 Pulse Rate 78 09/15/24 11:23 Respiratory Rate 18 09/15/24 11:23 Blood Pressure 147/68 H 09/15/24 11:23 Pulse Oximetry 98 09/15/24 11:23 Oxygen Delivery Method Room Air 09/15/24 11:23 Procedures [facility] Procedure Name of Procedure: Nail removal Side (if applicable): right Technique/Description of procedure performed: A digital block was performed on the right 2nd toe using 2ml of lidocaine 1%. The patient's right toenail was then removed without difficulty. Both the 1st and 2nd toes were then cleansed and irrigated extensively with diluted Betadine using at least 2 L of sterile saline and diluted Betadine. The right 1st toe then had Surgicel applied followed by Xeroform and sterile gauze. The 2nd toe had Xeroform and sterile gauze applied. The toes were then pushpa-taped together using Kerlix. Both before and after the procedure patient had decreased sensation and normal to slow capillary refill on both toes due to his chronic neuropathy. Patient tolerated procedure: Well and No complications Course Orders Ordered: ED Orders 09/15/24 11:30 XR foot RT min 3V Stat Discontinued Medications Diphtheria/Tetanus/Acell Pertussis (Tet,Diph,Pertuss(Acell),Vac/Pf 0.5 Ml Syringe) 0.5 ml IM .ONCE ONE Stop: 09/15/24 11:39 Last Admin: 09/15/24 11:45 Dose: 0.5 ml Documented By: VERONIQUE Lidocaine HCl (Lidocaine 1% 20 Ml) 5 ml SUBCUT NOW ONE Stop: 09/15/24 12:09 Last Admin: 09/15/24 12:22 Dose: 5 ml Consultations Consultation #1: Discussed case with on-call orthopedic surgeon Dr. Mendiola. He advises removing 2nd nail that is partially avulsed. States that patient will need to be on about 1 month of antibiotics, recommend prolonging his cefpodoxime for the next 2 weeks until he can be evaluated by ortho however he would like to see the patient tomorrow in clinic. Recommends irrigating and cleansing wound extensively, applying pressure dressings with Xeroform. States that sometimes he is injuries require pins or delayed amputation. Time: 12:37 Vital Signs Vital signs: Vital Signs - 8 hr 09/15/24 11:23 09/15/24 11:53 Temperature 98.3 F Pulse Rate 78 Pulse Rate [Dorsalis Pedis] 70 Respiratory Rate 18 Blood Pressure 147/68 H Pulse Oximetry 98 Oxygen Delivery Method Room Air MDM - Extremity Injury (Lower) Medical Records Attestation: I reviewed the patient's medical records. Medical records narrative: Frequent ED visits for UTI. Patient was in the ED for, was started on Bactrim. MDM Narrative Medical decision making narrative: 83-year-old male with a past medical history of prostate cancer now with suprapubic catheter in place currently on antibiotics for UTI, type 2 diabetes with peripheral neuropathy, CVA, lumbosacral spondylosis, TAVR, cardiomyopathy with a pacemaker who presents to the emergency department for right foot injury that occurred yesterday afternoon. Differential diagnosis includes but is not limited to laceration, avulsion, fracture, open fracture, tuft fracture, etc. On exam the patient is in no acute distress, nontoxic appearing, vital signs appropriate. He has injury to his right 1st and 2nd toes, with partial avulsion of 2nd toe nail and full avulsion of 1st toe nail with active bleeding. He does have chronic neuropathy but foot is neurovascularly intact to what appears to be his baseline. X-ray obtained of right foot, we will update Tdap, we will soak right foot diluted Betadine then reassess wounds. Right foot x-ray reveals mildly displaced fracture of the 1st distal tuft. Questionable artifact versus lucency also seen at the 2nd distal tuft. Correlate with any tenderness. Discussed case with the on-call orthopedic surgeon, Dr. Mendiola. He recommends placing the patient on 1 month of antibiotics, patient is currently on cef podoxime for his UTI so we will continue the cefpodoxime, advised I prescribed the 1st 2 weeks. Wound was extensively cleansed and irrigated, 2nd toenail was removed, dressings were applied with good cessation of bleeding. Patient was kept in the emergency department for a period of observation with no soaking through of the dressing, he continued to have sensation with deep pressure on both toes but no sensation to light touch which is chronic for him. Discussed signs and symptoms of infection, proper wound care, importance of prompt follow up with Orthopedics. Patient has hung verbalized understanding all information agreeable to the plan. Right orthopedic shoe applied. Patient and son verbalized understanding of all information, he is stable for discharge home. Discharge Plan Departure Patient Disposition: Home Clinical Impression: Broken toes Qualifiers: Encounter type: initial encounter Toe: great toe Fracture type: open Phalanx: distal Fracture alignment: displaced Laterality: right Qualified Code(s): S92.421B - Displaced fracture of distal phalanx of right great toe, initial encounter for open fracture Crush injury of right foot Qualifiers: Encounter type: initial encounter Qualified Code(s): S97.81XA - Crushing injury of right foot, initial encounter Instructions: DI for Open Fracture Activity Restrictions/Additional Instructions: Dear Georgina, Thank you for coming to the emergency department. Today you broke both your 1st and 2nd right toe and you also have open wounds. It is very important to follow up with Dr. Mendiola tomorrow or early next week for further evaluation. Please call to schedule an appointment with [facility]. Please keep the dressing on your wound clean, dry, and intact for the next 24 hours. After this time, you may remove the dressing and gently clean the wound with soap and water, then pat dry. Keep the wound clean and covered. Avoid soaking the wound in any water such as a bath, pool, or the ocean. If you develop any signs of wound infection such as increased redness, pus drainage, streaking redness, or fevers, please return to the ER immediately for evaluation. We updated your tetanus shot today. The orthopedic surgeon. Dr. Mendiola, would like you to be on antibiotics for likely a month. I have prescribed the 1st 2 weeks of antibiotics. It is the exact same antibiotic that you currently on for urinary tract infection, so finish her course of antibiotics for UTI, then start taking the antibiotics I prescribed you. Please follow up with your primary care doctor within the next 2-3 days for ER follow-up. (If you do not have a PCP you can call [phone]. ?to schedule an appointment with an [facility] Primary Care Provider) IF YOU DEVELOP ANY NEW OR WORSENING SYMPTOMS, RETURN TO THE ER! Please read the attached instructions, they highlight more specific treatments and interventions for you at home. Thank you for letting me participate in your care, Louisa Dunham PA-C Prescriptions: New cefpodoxime 200 mg tablet 200 mg PO Q12H 14 Days Qty: 28 0RF Rx Instructions: must administer with a meal/food No Action metformin 1,000 MG tablet 1,000 mg PO BIDCC Qty: 0 gabapentin 300 mg capsule 600 mg PO TID Qty: 180 1RF insulin glargine [Lantus Solostar U-100 Insulin] 100 unit/mL (3 mL) Insulin Pen 10 unit SUBCUT BEDTIME prednisone 5 mg tablet 10 mg PO DAILY metoprolol succinate 25 mg tablet extended release 24 hr 25 mg PO DAILY Ozempic 1 mg/dose (4 mg/3 mL) Pen Injector 1 mg SUBCUT QWEEK clopidogrel 75 mg Tablet 75 mg PO DAILY Qty: 30 0RF atorvastatin [Lipitor] 80 mg tablet 80 mg PO BEDTIME Qty: 30 0RF sulfamethoxazole-trimethoprim [Bactrim DS] 800-160 mg tablet 1 tab PO BID Qty: 14 0RF cefpodoxime 200 mg tablet 200 mg PO BID 7 Days Qty: 14 0RF Rx Instructions: must administer with a meal/food Referrals: Yo Peters MD [Primary Care Provider] - Dennis Mendiola MD [Physician] - (open tuft fractures right 1st & second toes, seen in ER 09/15/24) Stand Alone Forms: Patient Portal/API/Survey
[2024-09-15 11:53] VITALS: PULSE 70
[2024-09-15] MEDS: LIDOCAINE 1% 20 ML 5 ML SUBCUT (12:22)
[2024-09-15 14:34] VITALS: BP 132/59; PULSE 74; RESP 14; O2SAT 98
== END 2024-09-15 14:36 | disposition home or self-care (01) ==
PROVIDERS: Emergency Provider Physician Assistant; PCP Internal Medicine
DX: S92.421B Displaced fracture of distal phalanx of right great toe, initial encounter for open fracture (principal); S97.81XA Crushing injury of right foot, initial encounter; W23.0XXA Caught, crushed, jammed, or pinched between moving objects, initial encounter; Z23 Encounter for immunization
CPT/HCPCS: 11730; 73630; 90471; 99283; 99284; 90715

== ENCOUNTER → 2024-10-11 14:32 | Outpatient (CLI) | payer MEDICARE, OTHER, SELFPAY | PROVIDERS: PCP Internal Medicine; Referring Provider Internal Medicine; Visit Provider Surgery | DX: E11.621 Type 2 diabetes mellitus with foot ulcer (principal); E11.42 Type 2 diabetes mellitus with diabetic polyneuropathy; L97.512 Non-pressure chronic ulcer of other part of right foot with fat layer exposed; Z87.891 Personal history of nicotine dependence | CPT/HCPCS: 11042; 99203; 99213 ==

== ENCOUNTER → 2024-10-17 10:33 | Outpatient (CLI) | payer MEDICARE, OTHER, SELFPAY | PROVIDERS: PCP Internal Medicine; Referring Provider Internal Medicine; Visit Provider Surgery | DX: E11.621 Type 2 diabetes mellitus with foot ulcer (principal); E11.42 Type 2 diabetes mellitus with diabetic polyneuropathy; L97.512 Non-pressure chronic ulcer of other part of right foot with fat layer exposed | CPT/HCPCS: 11042 ==

== ENCOUNTER → 2024-10-21 15:36 | Outpatient (CLI) | payer MEDICARE, OTHER, SELFPAY | PROVIDERS: PCP Internal Medicine; Referring Provider Internal Medicine; Visit Provider Physician Assistant | DX: E11.621 Type 2 diabetes mellitus with foot ulcer (principal); E11.42 Type 2 diabetes mellitus with diabetic polyneuropathy; L97.512 Non-pressure chronic ulcer of other part of right foot with fat layer exposed; R60.0 Localized edema | CPT/HCPCS: 11042; 99213 ==

== ENCOUNTER → 2024-11-07 10:00 | Outpatient (CLI) | payer MEDICARE, OTHER, SELFPAY | LOC: WC 10:06 | PROVIDERS: PCP Internal Medicine; Referring Provider Internal Medicine; Visit Provider Surgery | DX: E11.621 Type 2 diabetes mellitus with foot ulcer (principal); E11.42 Type 2 diabetes mellitus with diabetic polyneuropathy; L97.512 Non-pressure chronic ulcer of other part of right foot with fat layer exposed; Z87.891 Personal history of nicotine dependence | CPT/HCPCS: 11042; 99213 ==

== ENCOUNTER → 2024-11-14 10:05 | Outpatient (CLI) | payer MEDICARE, OTHER, SELFPAY | LOC: WC 10:07 | PROVIDERS: PCP Internal Medicine; Referring Provider Internal Medicine; Visit Provider Surgery | DX: Z86.31 Personal history of diabetic foot ulcer (principal); R60.0 Localized edema | CPT/HCPCS: 99212; 99213 ==

== ENCOUNTER → 2025-02-14 09:29 | Outpatient (CLI) | payer MEDICARE, OTHER, SELFPAY ==
[2025-02-14 11:00] LABS: Hemoglobin A1C% w Est Avg Glu 8.9 % (4.0-6.0)
== END ==
PROVIDERS: PCP Family Medicine; Referring Provider Family Medicine; Visit Provider Family Medicine
DX: E11.42 Type 2 diabetes mellitus with diabetic polyneuropathy (principal); Z79.4 Long term (current) use of insulin
CPT/HCPCS: 36415; 83036